=== PATIENT | female | born 2000 | race Caucasian/White ===

== ENCOUNTER 2021-04-28 13:00 | Emergency (ER) | payer OTHER, SELFPAY ==
[2021-04-28 13:04] VITALS: BP 138/71; PULSE 73; RESP 14; TEMP 36.8; O2SAT 98
[2021-04-28 13:16] VITALS: BP 138/71; PULSE 73; RESP 14; TEMP 36.8; O2SAT 98
--- NOTE | 2021-04-28 13:36 | ED.ABDPAIN ---
HPI - Abdominal Pain General Chief Complaint: Abdominal Pain Stated Complaint: lower abdominal pain Time Seen by Provider: 04/28/21 13:23 Source: patient and RN notes reviewed Mode of arrival: ambulatory Limitations: no limitations History of Present Illness HPI narrative: Patient presents today complaining of lower abdominal pain since this morning. She denies any additional symptoms to include nausea, vomiting, diarrhea, constipation, fever, urinary symptoms, vaginal discharge. She currently rates her pain 2/10, but states the pain is waxing and waning and reports that earlier her pain was 7/10. Pain does change with movement. She has tried no [id number] treatment prior to arrival. MD elicited complaint: abdominal pain Related Data Home Medications Medication Instructions Recorded Confirmed famotidine-Ca carb-mag hydrox 1 tablet PO QID PRN 04/28/21 04/28/21 [Pepcid Complete] Allergies Allergy/AdvReac Type Severity Reaction Status Date / Time No Known Allergies Allergy Verified 04/28/21 13:14 Review of Systems Review of Systems: CONSTITUTIONAL: Denies body aches, fever, chills, or sweats. EYES: Denies visual changes, redness, or discharge. ENT: Denies rhinorrhea, congestion, sore throat, or otalgia. CARDIOVASCULAR: Denies chest pain, palpitations, or edema. RESPIRATORY: Denies cough or dyspnea. GASTROINTESTINAL: Denies nausea, vomiting, or diarrhea.+ Abdominal pain GENITOURINARY: Denies dysuria or hematuria. SKIN: Denies rash, itching, or wounds. MUSCULOSKELETAL: Denies back pain, joint pain, or myalgia. NEUROLOGIC: Denies headache, numbness, tingling, or weakness. PSYCH: Denies depression or anxiety. PMFSH Comments At time of signature, I have reviewed and agree with nursing past medical, surgical, social and family history unless otherwise noted. Please see nursing chart for further information. There is no relevant family history pertinent to the presenting complaint Exam Narrative: GENERAL: Well-appearing, well-nourished, and in no acute distress. HEAD: Normocephalic, atraumatic. EYES: EOMI. No redness or drainage. Conjunctivae normal. ENT: Mucous membranes pink and moist. NECK: Normal AROM. Supple. No lymphadenopathy. CHEST: No respiratory distress. Clear to auscultation. HEART: Regular rate and rhythm. No murmur appreciated. Normal peripheral pulses. ABDOMEN: Soft, nondistended, normal active bowel sounds. + Periumbilical abdominal tenderness, left lower quadrant abdominal tenderness MUSCULOSKELETAL: No bony tenderness. EXTREMITIES: Normal range of motion. No edema. SKIN: Warm, dry, no rash. Capillary refill normal. Normal skin turgor. NEURO: No focal deficits. Alert and oriented x3. Gait steady. PSYCH: Normal affect. No signs of depression or anxiety. Course Vital Signs Vital signs: Vital Signs Temperature 98.3 F 04/28/21 13:04 Pulse Rate 73 04/28/21 13:04 Respiratory Rate 14 04/28/21 13:04 Blood Pressure 138/71 04/28/21 13:04 Pulse Oximetry 98 04/28/21 13:04 Temperature 98.3 F 04/28/21 13:16 Pulse Rate 73 04/28/21 13:16 Respiratory Rate 14 04/28/21 13:16 Blood Pressure 138/71 04/28/21 13:16 Pulse Oximetry 98 04/28/21 13:16 Reviewed Transfer Transfered to: [facility] Transfer rationale: Abdominal pain Accepting physician: Duran [facility] - Abdominal Pain Differential Diagnosis Differential diagnosis: Likely abdominal pain, acute appendicitis, constipation and diverticulitis Lab Data Attestation: I reviewed the patient's lab results. Labs: Urine Glucose Negative Reference Range: Negative Urine Bilirubin Negative Reference Range: Negative Urine Ketone Negative Reference Range: Negative Urine Specific [place] 1.030
== END 2021-04-28 13:50 | disposition short-term general hospital (02) ==
PROVIDERS: Emergency Provider Nurse Practitioner; PCP Internal Medicine Geriatric Medicine
DX: R10.815 Periumbilic abdominal tenderness (principal)
CPT/HCPCS: 81003; 99212; G0463

== ENCOUNTER 2023-04-10 10:25 | Emergency (ER) | payer OTHER, SELFPAY ==
[2023-04-10 10:46] VITALS: BP 135/78; PULSE 97; RESP 16; TEMP 37.1; O2SAT 99
--- NOTE | 2023-04-10 11:49 | ED.EAR ---
HPI - Ear Problem General Chief complaint: Ear Stated complaint: rt ear pain Source: patient Mode of arrival: ambulatory Limitations: no limitations History of Present Illness HPI Narrative: Patient presents for evaluation of right-sided ear pain for the last 2 days, worse in the last 24 hours. She indicates she was swimming in a river approximately 1 week ago. She denies any tinnitus, hearing loss, drainage from the ear. She reports pressure in the affected ear. No fever, chills, nausea, vomiting, sore throat or cough. No recent sick contacts to her knowledge. No additional complaints or concerns. Related Data Home Medications Medication Instructions Recorded Confirmed famotidine-Ca carb-mag hydrox 10 1 tablet PO QID PRN Abdominal 04/28/21 04/10/23 mg-800 mg-165 mg chewable tablet Discomfort (Pepcid Complete) Allergies Allergy/AdvReac Type Severity Reaction Status Date / Time No Known Allergies Allergy Verified 04/10/23 10:55 Review of Systems Review of Systems: CONSTITUTIONAL: Denies fever, chills, or sweats. EYES: Denies visual changes, redness, or discharge. ENT: Reports right sided ear pain. Denies rhinorrhea, congestion, sore throat, tinnitus, hearing loss or drainage from the ear CARDIOVASCULAR: Denies chest pain, palpitations, or edema. RESPIRATORY: Denies cough or dyspnea. GASTROINTESTINAL: Denies abdominal pain, nausea, vomiting, or diarrhea. GENITOURINARY: Denies dysuria or hematuria. SKIN: Denies rash or itching. MUSCULOSKELETAL: Denies back pain, joint pain, or myalgia. NEUROLOGIC: Denies headache, numbness, dizziness, or weakness. PSYCHIATRIC: Denies anxiety or depression. [facility] Past Medical History Medical History No pertinent past medical history Surgical History Surgical History No pertinent past surgical history Family History Family History Mother Family history non-contributory Social History Social History Gender identity (if verbalized by the patient): Female Spiritual care concerns: No Exam Narrative: GENERAL: Well-appearing, well-nourished, and in no acute distress. HEAD: Normocephalic, atraumatic. EYES: PERRLA and EOMI. ENT: Nares clear, no rhinorrhea or epistaxis. Mucous membranes moist. Oropharynx without tonsillar hypertrophy exudate or other lesions. Right ear canal has white exudate present which obscures visualization of the TM NECK: Supple. No adenopathy or masses. No carotid bruits or JVD CHEST: Clear to auscultation. No respiratory distress. No wheezes rales or rhonchi HEART: Regular rate and rhythm. No murmur heard. Normal peripheral pulses. ABDOMEN: Soft, nontender, nondistended, normal active bowel sounds. EXTREMITIES: Normal range of motion. No edema. SKIN: Warm, dry, no rash. NEURO: No focal deficits. Alert and oriented x3. PSYCH: Normal mood and affect. Course Course Emergency Course: This is a 22-year-old female who presented for evaluation of right-sided ear pain. Tympanic membrane was not visible. I irrigated the right ear canal with 1/2 H2O and 1/2 H2O2. I was able to visualize the tympanic membrane thereafter. It was bulging and erythematous. She has evidence of both otitis media and otitis externa on exam. Will treat with augmentin and ofloxacin. Follow up with primary provider. Go to the ER for worsening symptoms. Pt in agreement with plan of care. Level of Care: Express Care Visit Vital Signs Vital signs: Vital Signs Temperature 37.1 C 04/10/23 10:46 Pulse Rate 97 04/10/23 10:46 Respiratory Rate 16 04/10/23 10:46 Blood Pressure 135/78 04/10/23 10:46 Pulse Oximetry 99 04/10/23 10:46 Oxygen Delivery Room Air 04/10/23 10:46 Temperature 37.1 C 04/10/23
== END 2023-04-10 11:20 | disposition home or self-care (01) ==
PROVIDERS: Emergency Provider Nurse Practitioner; PCP Internal Medicine Geriatric Medicine
DX: H66.91 Otitis media, unspecified, right ear (principal); H60.501 Unspecified acute noninfective otitis externa, right ear
CPT/HCPCS: 99213; G0463

== ENCOUNTER 2023-06-14 08:16 | Emergency (ER) | payer OTHER, SELFPAY ==
[2023-06-14 08:24] VITALS: BP 126/74; PULSE 73; RESP 20; TEMP 37.1; O2SAT 97
--- NOTE | 2023-06-14 09:05 | ED.EAR ---
HPI - Ear Problem General Chief complaint: Ear Stated complaint: right ear pain Time Seen by Provider: 06/14/23 09:05 Source: patient Mode of arrival: ambulatory Limitations: no limitations History of Present Illness HPI Narrative: 23-year-old female presented for complaint of right ear pain over the past few days. She rates the pain 1/10 and hears a 'whooshing sound' at times. She states she had a double ear infection a few months ago and just wants to make sure it has not returned. She denies associated tinnitus, drainage, nausea, vomiting, fevers or chills. Not taking anything for symptoms. MD Complaint: ear pain Related Data Home Medications Medication Instructions Recorded Confirmed famotidine-Ca carb-mag hydrox 10 1 tablet PO QID PRN Abdominal 04/28/21 04/10/23 mg-800 mg-165 mg chewable tablet Discomfort (Pepcid Complete) Allergies Allergy/AdvReac Type Severity Reaction Status Date / Time No Known Allergies Allergy Verified 04/10/23 10:55 Review of Systems Review of Systems: CONSTITUTIONAL: Denies malaise, chills, or fever. EYES: Denies visual changes, redness, or discharge. ENT: Denies rhinorrhea, congestion, sinus pain, and sore throat. Reports ear pain CARDIOVASCULAR: Denies chest pain, palpitations, or edema. RESPIRATORY: Denies cough or dyspnea. GASTROINTESTINAL: Denies abdominal pain, nausea, vomiting, diarrhea SKIN: Denies rash or itching. MUSCULOSKELETAL: Denies myalgia. NEUROLOGIC: Denies headache. All systems reviewed & are unremarkable except as noted in HPI and below PMFSH Past Medical History Medical History No pertinent past medical history Surgical History Surgical History No pertinent past surgical history Family History Family History Mother Family history non-contributory Social History Social History Gender identity (if verbalized by the patient): Female Spiritual care concerns: No Comments At time of signature, agree with nursing past medical, surgical, social and family history. There is no relevant family history pertinent to the presenting complaint Exam Narrative: GENERAL: Well-appearing, HEAD: Normocephalic EYES: PERRLA, conjunctivae clear ENT: Nares clear. Mucous membranes moist. TMs pearly haro with dull light reflex bilaterally; Left canal excess cerumen. no tragal tenderness. Oropharynx not erythematous without lesions. NECK: Supple. No lymphadenopathy CHEST: Clear to auscultation, breath sounds equal. No wheezing, rhonchi, rales, or stridor. No respiratory distress, speaks in full sentences. HEART: Regular rate and rhythm. No murmur heard. SKIN: Warm, dry, no rash. NEURO: Alert and oriented x3. PSYCH: Normal mood and affect Course Course Emergency Course: Patient is aware of diagnosis, understands and agrees to treatment plan. Anticipatory guidance given. Patient agrees to follow-up as directed and is aware of reasons to seek care at the emergency department. Portions of this record may have been created with voice recognition software Level of Care: Express Care Visit Vital Signs Vital signs: Vital Signs Temperature 98.8 F 06/14/23 08:24 Pulse Rate 73 06/14/23 08:24 Respiratory Rate 20 06/14/23 08:24 Blood Pressure 126/74 06/14/23 08:24 Pulse Oximetry 97 06/14/23 08:24 Oxygen Delivery Room Air 06/14/23 08:24 Temperature 98.8 F 06/14/23 08:24 Pulse Rate 73 06/14/23 08:24 Respiratory Rate 20 06/14/23 08:24 Blood Pressure 126/74 06/14/23 08:24 Pulse Oximetry 97 06/14/23 08:24 Oxygen Delivery Room Air 06/14/23 08:24 Reviewed Medical Decision Making MDM Narrative Medical decision making narrative: Discussed physical exam findings, no apparent AOM. Advised suppo
== END 2023-06-14 09:20 | disposition home or self-care (01) ==
PROVIDERS: Emergency Provider Nurse Practitioner Family; PCP Internal Medicine Geriatric Medicine
DX: H92.01 Otalgia, right ear (principal)
CPT/HCPCS: 99211; G0463

== ENCOUNTER 2024-06-09 10:15 | Emergency (ER) | payer OTHER, SELFPAY ==
[2024-06-09 10:20] VITALS: BP 136/69; PULSE 72; RESP 14; TEMP 36.8; O2SAT 100
--- NOTE | 2024-06-09 10:23 | ED.SKABFB ---
HPI - Skin/Abscess/Foreign Bdy General Chief complaint: Skin/Abscess/Foreign Body Stated complaint: Skin Sore/Right Leg Time Seen by Provider: 06/09/24 11:05 Source: patient and RN notes reviewed Mode of arrival: ambulatory Limitations: no limitations History of Present Illness HPI narrative: 24-year-old female presents with concern for possible insect bite on her right thigh. Reports it has been there 2-3 days, it has gotten more red. Denies drainage. She denies fever, body aches, chills, sweats. MD complaint: insect bite/sting Related Data Home Medications Medication Instructions Recorded Confirmed meloxicam 15 mg tablet 15 mg PO DAILY 06/09/24 06/09/24 Allergies Allergy/AdvReac Type Severity Reaction Status Date / Time No Known Allergies Allergy Verified 04/10/23 10:55 Review of Systems Review of Systems: CONSTITUTIONAL: Denies malaise, chills, sweats, or fever. EYES: Denies redness, or discharge. ENT: Denies rhinorrhea, congestion, swollen lips, swollen tongue CARDIOVASCULAR: Denies chest pain, palpitations, or edema. RESPIRATORY: Denies cough or dyspnea. GASTROINTESTINAL: Denies abdominal pain, nausea, vomiting SKIN: Reports red, swollen possible insect bite on her right eye MUSCULOSKELETAL: Denies joint pain or myalgia. NEUROLOGIC: Denies headache. All systems reviewed & are unremarkable except as noted in HPI and below PMFSH Past Medical History Medical History No pertinent past medical history Surgical History Surgical History No pertinent past surgical history Family History Family History Mother Family history non-contributory Social History Social History Gender identity (if verbalized by the patient): Female Spiritual care concerns: No Comments At time of signature, agree with nursing past medical, surgical, social and family history. There is no relevant family history pertinent to the presenting complaint Exam Narrative: GENERAL: Well-appearing, well-nourished, and in no acute distress. HEAD: Normocephalic, atraumatic. EYES: PERRLA, conjunctivae clear, and EOMI. ENT: Mucous membranes moist. Oropharynx without edema, erythema or lesions. NECK: Supple. No lymphadenopathy CHEST: Clear to auscultation. No respiratory distress. HEART: Regular rate and rhythm. SKIN: Warm, dry. Approximately 2 cm raised induration, slightly warm to area of the right thigh with another surrounding 1 cm of erythema NEURO: Alert and oriented x3. PSYCH: Normal mood and affect Course Course Emergency Course: Patient is aware of diagnosis, understands and agrees to treatment plan. Anticipatory guidance given. Patient agrees to follow-up as directed and is aware of reasons to seek care at the emergency department. Portions of this record may have been created with voice recognition software Level of Care: Express Care Visit Vital Signs Vital signs: Reviewed. MDM - Skin/Abscess/Foreign Bdy MDM Narrative Medical decision making narrative: I evaluated this patient in the express care. History is obtained from patient who is an independent historian and physical exam was performed.? Available medical records were reviewed. ? Exam findings show no acute concerns or changes; patient is non-toxic appearing and is in no distress. ? Differential diagnosis and treatment plan were discussed with the patient. Patient agrees with discussion and after shared medical decision making agrees with plan of care. All questions were answered to the patient's satisfaction. Patient is appropriate for outpatient treatment and follow-up. Critical Care Time Critical Care Time Critical Care Time: No Discharge Plan Discharge Clinical Impression: Infected insect bite Patient Disposition: Home, Self-Care Condition: Stable Instructions: Antibiotic Form, Insect Bite or Sting (ED) Additional Instructions: Please follow up with your Primary Care Doctor within 48-72 hours - call for an appointment. Rest and elevate affected area; apply moist heat 3-4 times daily for 10-15 minutes. Take Motrin 600mg every 8 hours with food for pain. Please take Antibiotics as directed. If you experience any worsening redness, swelling, streaking (red lines), fever or chills please go to the ER Prescriptions: New sulfamethoxazole-trimethoprim 800-160 mg tablet 1 tablet PO Q12H 7 Days Qty: 14 0RF No Action meloxicam 15 mg tablet 15 mg PO DAILY Follow-up/Referrals: Sea,MD Mel [Primary Care Provider] - Time of Disposition: 11:10
== END 2024-06-09 11:15 | disposition home or self-care (01) ==
PROVIDERS: Emergency Provider Nurse Practitioner; PCP Internal Medicine Geriatric Medicine
DX: S70.361A Insect bite (nonvenomous), right thigh, initial encounter (principal); L08.9 Local infection of the skin and subcutaneous tissue, unspecified; W57.XXXA Bitten or stung by nonvenomous insect and other nonvenomous arthropods, initial encounter
CPT/HCPCS: 99213; G0463

== ENCOUNTER 2024-08-01 09:14 | Emergency (ER) | payer OTHER, SELFPAY ==
--- NOTE | 2024-08-01 09:15 | ED.URI ---
HPI - URI/Sore Throat General Chief Complaint: Upper Respiratory Infection Stated Complaint: throat Time Seen by Provider: 08/01/24 09:36 Source: patient and RN notes reviewed Mode of arrival: ambulatory Limitations: no limitations History of Present Illness HPI Narrative: 24-year-old female presents concern for sore throat for a couple days. Reports her symptoms seem to be improving. She denies fever, aches, chills, sweats. Denies runny nose, stuffy nose, cough. She took Rima KENNEDY elicited complaint: sore throat Related Data Home Medications ?Medication ?Instructions ?Recorded ?Confirmed ?Last Taken ?Type meloxicam 15 mg tablet 15 mg PO DAILY 06/09/24 06/09/24 Unknown History Allergies Allergy/AdvReac Type Severity Reaction Status Date / Time No Known Allergies Allergy Verified 08/01/24 09:42 Review of Systems Review of Systems: CONSTITUTIONAL: Denies malaise, chills, sweats, or fever. EYES: Denies visual changes, redness, or discharge. ENT: Denies rhinorrhea, congestion, sinus pain, otalgia. Reports Sore throat. CARDIOVASCULAR: Denies chest pain, palpitations, or edema. RESPIRATORY: Denies cough. Denies dyspnea. GASTROINTESTINAL: Denies abdominal pain, nausea, vomiting, diarrhea SKIN: Denies rash or itching. MUSCULOSKELETAL: Denies myalgia. NEUROLOGIC: Denies headache. All systems reviewed & are unremarkable except as noted in HPI and below PMFSH Past Medical History Medical History No pertinent past medical history Surgical History Surgical History No pertinent past surgical history Family History Family History Mother Family history non-contributory Social History Social History Gender identity (if verbalized by the patient): Female Spiritual care concerns: No Comments At time of signature, agree with nursing past medical, surgical, social and family history. There is no relevant family history pertinent to the presenting complaint Exam Narrative: GENERAL: Well-appearing, well-nourished, and in no acute distress. HEAD: Normocephalic EYES: PERRLA, conjunctivae clear ENT: Nares clear. Mucous membranes moist. TM pearly haro with sharp light reflex bilaterally; no tragal tenderness. Oropharynx not erythematous without lesions. Tonsils not enlarged and without exudate, no drooling, no hoarseness, no trismus, uvula midline. NECK: Supple. No lymphadenopathy CHEST: Clear to auscultation, breath sounds equal. No wheezing, rhonchi, rales, or stridor. No respiratory distress, speaks in full sentences. HEART: Regular rate and rhythm. No murmur heard. SKIN: Warm, dry, no rash. NEURO: Alert and oriented x3. PSYCH: Normal mood and affect Course Course Emergency Course: Patient is aware of diagnosis, understands and agrees to treatment plan. Anticipatory guidance given. Patient agrees to follow-up as directed and is aware of reasons to seek care at the emergency department. Portions of this record may have been created with voice recognition software Level of Care: Express Care Visit Vital Signs Vital signs: Vital Signs Temperature 98.4 F 08/01/24 09:17 Pulse Rate 62 08/01/24 09:17 Respiratory Rate 16 08/01/24 09:17 Blood Pressure 140/74 08/01/24 09:17 Pulse Oximetry 99 08/01/24 09:17 Oxygen Delivery Room Air 08/01/24 09:17 Temperature 98.4 F 08/01/24 09:17 Pulse Rate 62 08/01/24 09:17 Respiratory Rate 16 08/01/24 09:17 Blood Pressure 140/74 08/01/24 09:17 Pulse Oximetry 99 08/01/24 09:17 Oxygen Delivery Room Air 08/01/24 09:17 Reviewed. MDM - URI/Sore Throat MDM Narrative Medical decision making narrative: Differential diagnosis considered: [place] virus, strep pharyngitis, allergic rhinitis, upper respiratory tract infection, sinusitis, rhinosinusitis, nasopharyngitis. viral pharyngitis, otitis media, otitis externa, pneumonia, bronchitis, viral cough syndrome, viral syndrome, and influenza. Exam findings show no acute concerns or changes; patient is non-toxic appearing and is in no distress. Patient is appropriate for outpatient treatment and follow-up. Lab Data Attestation: I reviewed the patient's lab results. Critical Care Time Critical Care Time Critical Care Time: No Discharge Plan Discharge Clinical Impression: Upper respiratory infection Patient Disposition: Home, Self-Care Condition: Stable Instructions: Upper Respiratory Infection (ED) Additional Instructions: Your COVID and flu tests are negative Your rapid strep swab was negative today at [facility]. A throat culture will be sent to the laboratory for further testing. If the test is positive, you will receive a phone call within 48 hours and an appropriate antibiotic will be initiated at that time. Your symptoms are likely due to a viral illness, which is not treated with antibiotics. Viral symptoms can be present for up to a few weeks. -Alternate Tylenol and Motrin per package directions for fever or pain. -Antihistamine medication such as Benadryl at night and Zyrtec during the day can help improve symptoms. -Eat and drink things that are easy to swallow, like tea or soup, or popsicles to suck on. -Oral rinses such as: Salt water gargles and/or may use topical anesthetic (eg. Chloraseptic spray) or lozenges to relieve dryness or throat pain). -Frequent hand washing or hand paint brush maker is one of the best ways to prevent spread of infection. -Follow up with primary care provider in 2-3 days if condition is not improving; or seek ER visit if you have trouble breathing, cannot drink enough fluids, have muffled voice, difficulty opening your mouth, or severe swelling. Patient Language: Burkinan Prescriptions: No Action meloxicam 15 mg tablet 15 mg PO DAILY sulfamethoxazole-trimethoprim 800-160 mg tablet 1 tablet PO Q12H 7 Days Qty: 14 0RF Follow-up/Referrals: Sea,MD Mel [Primary Care Provider] - Time of Disposition: 09:46
[2024-08-01 09:17] VITALS: BP 140/74; PULSE 62; RESP 16; TEMP 36.9; O2SAT 99
[2024-08-01 09:53] LABS: EDCOVIDSCREEN Negative (Negative); EDINFLUASCREEN Negative (Negative); EDINFLUBSCREEN Negative (Negative); EDSTREPNEGPOS1 Negative (Negative)
--- OUTSIDE RECORDS SUMMARY | 2024-08-08 14:18 | XMS_ITS | Encounter Summary ---
Author Organization [facility] Healthcare Address [address] [place] [address] Care Team Providers Care Wage Adjuster Name Role Phone Mel Osei MD Primary Care Provider [phone]- [phone] Tabitha Liu CGC Unavailable [phone] Encounter Details Date Type Department Care Team (Late st Contact Info) Description 02/08/2024 12:00 PM CDT Lab [facility] [address] [place] [address] Elevated serum creatinine Social History Tobacco Use Types Packs/Day Years Used Date Smoking Tobacco: Never Smokeless Tobacco: Never Alcohol Use Standard Drinks/Week Comments Not Currently 0 (1 standard drink = 0.6 oz pur e alcohol) PHQ-2 Answer Date Recorded PHQ-2 Total Score (If total score is 3 or more points, staff should administer the PHQ-9) 0 03/08/2023 Comments No Sex and Gender Information Value Date Recorded Sex Assigned at Not on file 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 Gender Identity Not on file Sexual Orientation Not on file Occupation Industry Job Start Date Job End Date [place] Title Not on file Not on file Not on file documented as of this encounter Plan of Treatment Not on file documented as of this encounter Procedures Procedure Name Priority Date/Time Associated Diagnosis Comments EGFR Routine 02/08/2024 11:54 AM CDT Elevated serum creatinine BASIC METABOLIC PANEL Routine 02/08/2024 11:54 AM CDT Elevated serum creatinine documented in this encounter Results * eGFR (02/08/2024 11:54 AM CDT) Pathologist [facility] eGFR 83 >=60 mL/min/1. 73 m2 Comment: Interpretive Data Reference Interval Normal ?>/= 90 mL/min/1.73m2 Mildly decreased* ? 60 - 89 mL/min/1.73m2 Mildly to moderately decreased ?45 - 59 mL/min/1.73m2 Moderately to severely decreased ??30 - 44 mL/min/1.73m2 Severely decreased ?15 - 29 mL/min/1.73m2 Kidney Failure ?< 15 ??mL/min/1.73m2 *Relative to young adult level Estimated glomerular filtration rate is determined by the 2020 CKD-EPI equation recommended by the National Kidney Foundation (A Unifying Approach to GFR Estimation: Recommendations of the NKF-ASK Task Force on Reassessing the Inclusion of Race in Diagnosing Kidney Disease, JASN 2020). The CKD-EPI equation should not be used for patients with unstable renal function and has not been validated in children and those over 70. Current interpretive data was last reviewed 2021. Testing performed by: [facility], [address] [place] [address], [place], [place]., [facility] Blood 02/08/2024 11:5 4 AM CDT 02/08/2024 6:52 PM CDT us Mel Osei MD LAB BLOOD ORDERABLES Final Result [facility] [address] Department [place] [address] * Basic metabolic panel (02/08/2024 11:54 AM CDT) Sodium 140 135 - 145 mmol/L Comment:Testing performed by : [facility], [address] [place] [address]., [address] Potassium, pl 4.7 3.3 - 4.9 mmol/L CERNER CH Comment:Testing performed by : [facility], [address] [place] [address]., [address] Chloride 106 97 - 110 mmol/L CERNER CH Comment:Testing performed by : [facility], [address] [place] [address]., [address] CO2 23 22 - 32 mmol/L CERNER CH Comment:Testing performed by : [facility], [address] [place] [address], [address] Anion gap 11 2 - 15 mmol/L CERNER CH Comment:Testing performed by : [facility], [address] [place] [address], [address] BUN 13 6 - 25 mg/dL CERNER CH Comment:Testing performed by : [facility], [address] [place] [address], [address] Creatinine 0.98 0.60 - 1.10 mg/dL CERNER CH Comment:Testing performed by : [facility], [address] [place] [address], [id number] Glucose 104 70 - 199 mg/dL CERNER Comment: Interpretive Data Fasting glucose >/= 126 mg/dl is diagnostic for diabetes. ?? Fasting is defined as no caloric intake for at least 8 hours. Fasting glucose between 100 mg/dl to 125 mg/dl is diagnostic of prediabetes. In a patient with classic symptoms of hyperglycemia or hyperglycemic crisis, a random glucose >/= 200 mg/dl is diagnostic for diabetes. In the absence of unequivocal hyperglycemia, results should be confirmed by repeat testing. The classification and Diagnosis of Diabetes Diabetes Care 2021; 46: S19-S40. Current interpretive data was last revised 2022. Testing performed by: [address] [address] Calcium 9.9 8.5 - 10.3 mg/dL CERNER CH Comment:Testing performed by : [address] [address] Blood 02/08/2024 11:5 4 AM CDT 02/08/2024 6:32 PM CDT us Mel Osei MD LAB BLOOD ORDERABLES Final Result [facility] [address] [facility] Department [place] [address] documented in this encounter Visit Diagnoses Diagnosis Elevated serum creatinine Other nonspecific findings on examination of blood documented in this encounter Care Teams Wage Adjuster Relationship Specialty Start Date End Date Mel Osei MD PCP - General Internal Medicine 02/07/20 Tabitha Liu CGC [address] PED GENETICS [place] [address] Genetics 06/22/23 documented as of this encounter
--- OUTSIDE RECORDS SUMMARY | 2024-08-08 14:18 | XMS_ITS | Encounter Summary ---
Author Organization [facility] Address [address] [place] [address] Phone Care Team Providers Care Jig Grinder Set Up Operator Name Role Phone Mel Osei MD Primary Care Provider [phone] Encounter Details Date Type Department Care Team (Late st Contact Info) Description 05/13/[address] 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 +RNAinsight?? Core Panel: BRCA1 and BRCA2 gene sequence and deletion/duplication Ordering Provider: Avelino Sample Collection: blood + mobile phlebotomy Payment: Insurance Date Ordered: 05/13/23 Order Number: [id number] documented in this encounter Plan of Treatment Not on file documented as of this encounter Visit Diagnoses Not on filedocumented in this encounter Care Teams Jig Grinder Set Up Operator Relationship Specialty Start Date End Date Mel Osei MD PCP - General Internal Medicine 02/07/20 documented as of this encounter
--- OUTSIDE RECORDS SUMMARY | 2024-08-08 14:18 | XMS_ITS | Encounter Summary ---
Author Organization [facility] Healthcare Address [address] [place] [address] Care Team Providers Care Intel Recruiter Name Role Phone Mel Osei MD Primary Care Provider [phone]- [phone] Reason for Visit * Reason Comments Annual Exam Encounter Details Date Type Department Care Team (Late st Contact Info) Description 06/17/2023 3:30 PM OUTSIDE PARTS SALES Office Visit [facility] [address] [place] [address] Ness Fried MD [address] [place] [address] Encounter for gynecological examination without abnormal finding (Primary Dx); Screening for malignant neoplasm of the cervix Social History Tobacco Use Types Packs/Day Years [...] on file Legal Sex Female 12:30 PM OUTSIDE PARTS SALES Gender Identity Not on file Sexual Orientation Not on file Occupation Industry Job Start Date Job End Date [place] Title Not on file Not on file Not on file documented as of this encounter Last Filed Vital Signs Vital Sign Reading Time Taken Comments Blood Pressure 132/80 06/17/2023 3:24 PM OUTSIDE PARTS SALES Pulse - - Temperature - - Respiratory Rate - - Oxygen Saturation - - Inhaled Oxygen Concentration - - Weight 108.4 kg (239 lb) 06/17/2023 3:24 PM OUTSIDE PARTS SALES Height 168.9 cm (5' 6.5 ) 06/17/2023 3:24 PM OUTSIDE PARTS SALES Body Mass Index 38 06/17/2023 3:24 PM OUTSIDE PARTS SALES documented in this encounter Progress Notes * Ness Fried MD - 06/17/2023 3:30 PM CST Well Woman Exam Subjective: Jean Arthur is a 23 y.o. G0 who presents for annual profile grinder exam. Last Pap 07/12/20 was negative. Cycles are regular, q 30 days, without complaints. Denies sexual activity. She has a family h/o breast and ovarian cancers. Her mother was diagnosed with breast cancer at age37 and passed at age 44. MGM also had breast cancer and maternal aunt with ovarian cancer. She is unsure if any family members had genetic testing done. She met with a genetic counselor 04/15 and elected for testing, with results pending. Menstrual History: Patient's last menstrual period was 05/10/2023 (approximate). 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, 5 mm Chest pain COVID-19 virus detected 08/22/2020 [place] 1999 8-5 product nl Shortness of breath Sick sinus syndrome (CMS/HCC) (HCC) Viral gastroenteritis 2000 Admit Current Outpatient Medications: acetaminophen (TYLENOL) 500 mg tablet, Take 1 tablet (500 mg total) by mouth 3 (three) times a day as needed for pain (Immediate release Tylenol be used with the extra-strength ER Tylenol 500 mg), Disp: 100 tablet, Rfl: 11 acetaminophen ER (TYLENOL) 650 mg 8 hr tablet, Take 1 tablet (650 mg total) by mouth every 8 (eight) hours as needed for pain, Disp: 30 tablet, Rfl: 11 adapalene (DIFFERIN) 0.1 % cream, Apply topically at bedtime., Disp: 45 g, Rfl: 5 famotidine (PEPCID) 20 mg tablet, Take 1 tablet (20 mg total) by mouth 2 (two) times a day, Disp: 180 tablet, Rfl: [address] (PROTONIX) 40 mg EC tablet, Take 1 tablet (40 mg total) by mouth daily before breakfast, Disp: 30 tablet, Rfl: 3 tirzepatide (MOUNJARO) 2.5 mg/0.5 mL pen injector, Inject 2.5 mg under the skin once a week, Disp: 2 mL, Rfl: 0 No Known Allergies Family History Problem Relation Age of Onset Breast cancer Mother 37 Cause of , age 44 Allergies Mother Spring and fall Anemia Other Asthma Other Coronary artery disease Other Deafness Other Diabetes Other Hypertension Other Migraines Other Thyroid disease Other Sudden Other NONE Eating disorder Other Arthritis Other Breast cancer Maternal Grandmother Ovarian cancer Mother's Sister Skin cancer Maternal Grandfather Social History Tobacco Use Smoking status: Never Smokeless tobacco: Never Substance and Sexual Activity Drug use: Not Currently Types: Marijuana Sexual activity: Never Partners: Male Alcohol Use: Not on file Review of Systems Constitutional: Negative for fatigue, fever and unexpected weight change. Respiratory: Negative for shortness of breath and wheezing. Cardiovascular: Negative for chest pain and palpitations. Gastrointestinal: Negative for abdominal pain, blood in stool, nausea and vomiting. Genitourinary: Negative for dysuria, frequency, hematuria, urgency, vaginal bleeding and vaginal discharge. Skin: Negative for rash. Objective: BP 132/80 Ht 168.9 cm (5' 6.5 ) Wt 239 lb (108.4 kg) LMP 05/10/2023 (Approximate) BMI 38.00kg/m?? Physical Exam Constitutional: Appearance: She is well-developed. Cardiovascular: Rate and Rhythm: Normal rate and regular rhythm. Pulmonary: Effort: Pulmonary effort is normal. Breath sounds: Normal breath sounds. Chest: Breasts: Right: No mass. Left: No mass. Abdominal: Palpations: Abdomen is soft. Tenderness: There is no abdominal tenderness. Genitourinary: Vagina normal and uterus normal. Right labia: normal. Left Labia: normal. No vaginal discharge. Right adnexa: normal. Left adnexa: normal. Cervix: Normal exam. Genitourinary Comments: Narrow introitus. Thin Margoth speculum used with small brush for Pap collection. Musculoskeletal: General: No tenderness. Skin: General: Skin is warm and dry. Neurological: Mental Status: She is alert and oriented to person, place, and time. Psychiatric: Behavior: Behavior normal. Assessment and Plan: Jean Arthur is a 23 y.o. female who presents for a well woman exam. 1. Encounter for gynecological examination without abnormal finding Pap collected. Return for annual or PRN. Recommended screenings and preventive care discussed: Pap smear: Performed Diet and exercise discussed. Contraception reviewed. Ness Fried MD 06/17/2023 IDE PARTS SALES documented in this encounter Miscellaneous Notes * Addendum Note - Maura Elise MA - 06/17/2023 3:30 PM CSTAddended by: MAURA ELISE on: 06/18/2023 08:23 AM Modules accepted: Orders IDE PARTS SALES documented in this encounter Plan of Treatment Not on file documented as of this encounter Results * ThinPrep processing (Molecular component) (06/18/2023 4:00 PM OUTSIDE PARTS SALES) ThinPrep processing (Molecular component) Specimen received for processing. BHUPENDRA SANCHEZ Comment:Testing performed by : [facility], [address] [place]., [address] Endocervical 06/18/2023 4:00 PM OUTSIDE PARTS SALES 06/21/2023 12:34 PM OUTSIDE PARTS SALES us Ness Fried MD LAB BODY FLUIDS AND S TOOLS ORDERABLES Final Result [facility] S[facility] [address] Department [place] [address] * Pap with reflex to High Risk HPV and Genotyping (Cytology Component) (06/17/2023 11:23 AM OUTSIDE PARTS SALES) Thin prep (Pap test) 06/17/2023 11:23 AM OUTSIDE PARTS SALES 06/18/2023 11:23 AM OUTSIDE PARTS SALES Narrative PATHOLOGY CH - 06/22/2023 2:49 PM OUTSIDE PARTS SALES [facility] Department of Pathology [address] [place] [address] Final Report Note to Patients: This report may contain a detailed description of human tissue sent by a health care provider to the laboratory for pathologic evaluation. The content of this report is essential for diagnosis and may provide important critical findings. This information may be unfamiliar to patients to review without a medical professional present. It is advised that the patient review this report in the presence of a health care provider who can answer questions and explain the details. Patient Name: ??JEAN ARTHURNunu Address: ??[address] [place] [address], ?? [place], [place] ??[address] Gender: ??F : ??2000 (Age: 23) Service: ?? Location: ?? [facility] #: ??[id number] Patient Type: ?? SPECIMEN Taken: ??06/17/2023 Received: ??06/18/2023 Accessioned:: ??06/21/2023 Reported: ??06/22/2023 Physician(s): MD Ness Blue MD Diagnosis: SOURCE OF SPECIMEN ? Imaged Thinprep Pap Test w/ Reflex HPV - Straight Truck Driver Cytologic Material: STATEMENT OF ADEQUACY ?- Specimen satisfactory for interpretation; endocervical/transformation zone component absent or ?insufficient ? GENERAL CATEGORIZATION: ?- Negative for intraepithelial lesion or malignancy ? FELIPE Alonso(ASCP) Report Electronically Reviewed and Signed Out By ??FELIPE Alonso(ASCP) ??06/22/2023 14:49:15Specimen(s) Received: A: Imaged Thinprep Pap Test w/ Reflex HPV - Straight Truck Driver Cytologic Material Clinical History: Last Menstrual Period: 05/10/23 Menstrual History: Previous Negative Pap The Pap test is a screening test used to aid in the detection of cervical cancer and its precursors. ??It should not be the sole means by which malignant and premalignant lesions are diagnosed. ??Both false negative and false positive results may occur. ?? It also has poor sensitivity for the detection of endometrial lesions and should not be used to evaluate suspected endometrial abnormalities. ??For these reasons it is most important to obtain Pap tests at regular intervals. The performance characteristics of some immunohistochemical stains, fluorescence in-situ hybridization tests and immunophenotyping by flow cytometry cited in this report (if any) were determined by the Surgical Pathology Department at [facility] as part of an ongoing software quality specialist program and in compliance with federally mandated regulations drawn from the Clinical Laboratory Improvement Act of 1988 (CLIA '88). ??Some of these tests rely on the use of analyte specific reagents and are subject to specific labeling requirements by the US Food and Drug Administration. ??Such diagnostic tests may only be performed in a facility that is certified by the Department of Health and Human Services as a high complexity laboratory under CLIA '88. The FDA has determined that such clearance or approval is not necessary. ??This test is used for clinical purposes. ??It should not be regarded as investigational or for research. ??Nevertheless, federal rules concerning the medical use of analyte specific reagents require that the following disclaimer be attached to the report: This test was developed and its performance characteristics determined by the Surgical Pathology Department [facility]. ??It has not been cleared or approved by the U. S. Food and Drug Administration. Ness Fried MD LAB CYTOLOGY ORDERABL ES Final Result PATHOLOGY [address] [place] [address] documented in this encounter Visit Diagnoses Diagnosis Encounter for gynecological examination without abnormal finding- Primary Screening for malignant neoplasm of the cervix Screening for malignant neoplasm of the cervix documented in this encounter Care Teams Intel Recruiter Relationship Specialty Start Date End Date Mel Osei MD PCP - General Internal Medicine 02/07/20 documented as of this encounter
--- OUTSIDE RECORDS SUMMARY | 2024-08-08 14:18 | XMS_ITS | Encounter Summary ---
Author Organization [facility] Healthcare Address [address] [place] [address] Care Team Providers Care Blood Bank Manager Name Role Phone Mel Osei MD Primary Care Provider [phone]- [phone] Bryceclaribel Treyyari [facility] Unavailable [phone] Reason for Visit * Reason Onset Date Comments Medication 12/23/2023 Encounter Details Date Type Department Care Team (Late st Contact Info) Description 12/23/2023 Telephone [facility] [address] [place] [address] Mel Osei MD [address] [place] [address] Medication Social History Tobacco Use Types Packs/Day Years [...] on file 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 Pt did voice understanding and did schedule with GKL for 12/30/23 @ 9 AM. * Telephone Encounter - Argentina Shaffer - 12/23/2023 3:26 PM CDT Patient states she just started a new job and her plantar fascitis is flaring up. Asking for pain medication. [phone] Viola Richardson documented in this encounter Plan of Treatment Not on file documented as of this encounter Visit Diagnoses Not on filedocumented in this encounter Care Teams Blood Bank Manager Relationship Specialty Start Date End Date Mel Osei MD PCP - General Internal Medicine 02/07/20 Tabitha Liu CGC [address] [facility] [place] [address] Genetics 06/22/23 documented as of this encounter
--- OUTSIDE RECORDS SUMMARY | 2024-08-08 14:18 | XMS_ITS | Encounter Summary ---
Author Organization [facility] Healthcare Address [address] [place] [address] Care Team Providers Care Academic Associate Name Role Phone Mel Osei MD Primary Care Provider [phone]- [phone] Tabitha Liu CGC Unavailable [phone] Reason for Visit * Reason Comments Employment Physical Encounter Details Date Type Department Care Team (Late st Contact Info) Description 03/17/2024 9:30 AM CDT Office Visit [facility] [address] [place] [address] Almaz Saleh NP [address] [place] [address] Encounter for physical examination related to employment (Primary Dx); Screening examination for pulmonary tuberculosis Social History Tobacco Use Types Packs/Day Years Used Date Smoking Tobacco: Never Smokeless Tobacco: Never Alcohol Use Standard Drinks/Week Comments Not Currently 0 (1 standard drink = 0.6 oz pur e alcohol) PHQ-2 Answer Date Recorded PHQ-2 Total Score (If total score is 3 or more points, staff should administer the PHQ-9) 0 03/17/2024 Comments No Sex and Gender Information Value Date Recorded Sex Assigned at Not on file 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 Gender Identity Not on file Sexual Orientation Not on file Occupation Industry Job Start Date Job End Date [employer] Title Not on file Not on file Not on file documented as of this encounter Last Filed Vital Signs Vital Sign Reading Time Taken Comments Blood Pressure 114/74 03/17/2024 9:24 AM CDT Pulse 60 03/17/2024 9:24 AM CDT Temperature 36.3 ??C (97.3 ??F) 03/17/2024 9:24 AM CD T Respiratory Rate 20 03/17/2024 9:24 AM CDT Oxygen Saturation 98% 03/17/2024 9:24 AM CDT Inhaled Oxygen Concentration - - Weight 104.3 kg (230 lb) 03/17/2024 9:24 AM CDT Height 170.2 cm (5' 7 ) 03/17/2024 9:24 AM CDT Body Mass Index 36.02 03/17/2024 9:24 AM CDT documented in this encounter Progress Notes * Almaz Saleh NP - 03/17/2024 9:30 AM CDT Images from the original note were not included. Patient ID: Tracey Arthur is a 23 y.o. female. Chief Complaint. Chief Complaint Patient presents with Employment Physical HPI. Patient is a 23 y.o. 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 No new symptoms or concerns. no significant personal history that would inhibit job functions. No known exposure to communicable diseases. Immunizations are up to date. 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, 5 mm Chest pain COVID-19 virus detected 08/22/2020 1999 8-5 product nl Shortness of breath Sick sinus syndrome (CMS/HCC) (HCC) Viral gastroenteritis 2000 Admit Current Medications: Outpatient Encounter Medications as of 03/17/2024 Medication Sig Dispense Refill acetaminophen (TYLENOL) 500 mg tablet Take 1 tablet (500 mg total) by mouth 3 (three) times a day as needed for pain (Immediate release Tylenol be used with the extra-strength ER Tylenol 500 mg) 100 tablet 11 acetaminophen ER (TYLENOL) 650 mg 8 hr tablet Take 1 tablet (650 mg total) by mouth every 8 (eight)hours as needed for pain 30 tablet 11 adapalene (DIFFERIN) 0.1 % cream Apply topically at bedtime. 45 g 5 famotidine (PEPCID) 20 mg tablet Take 1 tablet (20 mg total) by mouth 2 (two) times a day 180 tablet 1 meloxicam (MOBIC) 15 mg tablet Take 1 tablet (15 mg total) by mouth daily 30 tablet 1 No facility-administered encounter medications on file as of 03/17/2024. There are no discontinued medications. Allergies No Known Allergies Review of Systems Constitutional: Negative for appetite change, chills, fatigue and fever. HENT: Negative for congestion, ear pain, rhinorrhea, sinus pain, sneezing and sore throat. Eyes: Negative for visual disturbance. Respiratory: Negative for cough, chest tightness and shortness of breath. Cardiovascular: Negative for chest pain, palpitations and leg swelling. Gastrointestinal: Negative for abdominal pain, constipation, diarrhea, nausea and vomiting. Genitourinary: Negative for difficulty urinating. Musculoskeletal: Negative for arthralgias and myalgias. Skin: Negative for rash. Neurological: Negative for dizziness, syncope, weakness and headaches. Psychiatric/Behavioral: Negative for dysphoric mood and sleep disturbance. BP 114/74 (BP Location: Left arm, Patient Position: Sitting) Pulse 60 Temp 36.3 ??C (97.3 ??F) (Temporal) Resp 20 Ht 170.2 cm (5' 7 ) Wt 104.3 kg (230 lb) SpO2 98% BMI 36.02 kg/m?? Bodymass index is 36.02 kg/m??. Wt Readings from Last 3 Encounters: 03/17/24 104.3 kg (230 lb) 12/30/23 110 kg (242 lb 9.6 oz) 06/17/23 108.4 kg (239 lb) Physical Exam Vitals and nursing note reviewed. Constitutional: General: She is not in acute distress. Appearance: Normal appearance. She is not ill-appearing. HENT: Head: Normocephalic and atraumatic. Right Ear: Tympanic membrane and ear canal normal. Left Ear: Tympanic membrane and ear canal normal. Nose: Nose normal. Mouth/Throat: Mouth: Mucous membranes are moist. Pharynx: Oropharynx is clear. No oropharyngeal exudate or posterior oropharyngeal erythema. Eyes: Extraocular Movements: Extraocular movements intact. Conjunctiva/sclera: Conjunctivae normal. Pupils: Pupils are equal, round, and reactive to light. Cardiovascular: Rate and Rhythm: Normal rate and regular rhythm. Pulses: Normal pulses. Heart sounds: Normal heart sounds. No murmur heard. No gallop. Pulmonary: Effort: Pulmonary effort is normal. No respiratory distress. Breath sounds: Normal breath sounds. Abdominal: General: Bowel sounds are normal. There is no distension. Palpations: Abdomen is soft. There is no mass. Tenderness: There is no abdominal tenderness. Musculoskeletal: General: Normal range of motion. Cervical back: Normal range of motion. No rigidity or tenderness. Right lower leg: No edema. Left lower leg: No edema. Comments: Strength equal to all extremities, 5+. Lymphadenopathy: Cervical: No cervical adenopathy. Skin: General: Skin is warm and dry. Neurological: General: No focal deficit present. Mental Status: She is alert and oriented to person, place, and time. Cranial Nerves: No cranial nerve deficit. Psychiatric: Mood and Affect: Mood normal. Behavior: Behavior normal. Thought Content: Thought content normal. Judgment: Judgment normal. Lab on 02/08/2024 Component Date Value Sodium 02/08/2024 140 Potassium, pl 02/08/2024 4.7 Chloride 02/08/2024 106 CO2 02/08/2024 23 Anion gap 02/08/2024 11 BUN 02/08/2024 13 Creatinine 02/08/2024 0.98 Glucose 02/08/2024 104 Calcium 02/08/2024 9.9 eGFR 02/08/2024 83 Lab on 12/30/2023 Component Date Value Sodium 12/30/2023 140 Potassium, pl 12/30/2023 4.4 Chloride 12/30/2023 105 CO2 12/30/2023 23 Anion gap 12/30/2023 12 BUN 12/30/2023 13 Creatinine 12/30/2023 1.13 (H) Glucose 12/30/2023 89 Calcium 12/30/2023 9.6 Bilirubin, total 12/30/2023 0.4 Protein, pl 12/30/2023 6.8 Albumin 12/30/2023 4.0 Alk phos 12/30/2023 73 ALT 12/30/2023 29 AST 12/30/2023 38 LDL Cholesterol, Direct 12/30/2023 101 eGFR 12/30/2023 70 Assessment & Plan: Diagnoses and all orders for this visit: Encounter for physical examination related to employment (Primary) Assessment & Plan: 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 No acute findings on history or physical. Up to date on immunizations. TB skin test administered in office today- advised she must return Wednesday morning to have it read or the test will be invalid. Form filled out in office today, copy in chart. Screening examination for pulmonary tuberculosis - PPD Test Return in about 6 months (around 09/28/2024), or if symptoms worsen or fail to improve, for Annual physical. 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 No acute findings on history or physical. Up to date on immunizations. TB skin test administered in office today- advised she must return Wednesday morning to have it read or the test will be invalid. Form filled out in office today, copy in chart. documented in this encounter Plan of Treatment Not on file documented as of this encounter Procedures Procedure Name Priority Date/Time Associated Diagnosis Comments PPD TEST Routine 03/17/2024 9:30 AM CDT Screening examination for pulmonary tuberculosis documented in this encounter Results * PPD Test (03/17/2024 9:30 AM CDT) TB Skin Test Negative Negative Induration 0 mm Other 03/17/2024 9:30 AM CDT Almaz Saleh NP POINT OF CARE TEST ORDERABLES Fi nal Result documented in this encounter Visit Diagnoses Diagnosis Encounter for physical examination related to employment- Primary Screening examination for pulmonary tuberculosis documented in this encounter Care Teams Academic Associate Relationship Specialty Start Date End Date Mel Osei MD PCP - General Internal Medicine 02/07/20 Tabitha Liu CGC 1 [facility] [place] [address] Genetics 06/22/23 documented as of this encounter
--- OUTSIDE RECORDS SUMMARY | 2024-08-08 14:18 | XMS_ITS | Encounter Summary ---
Author Organization [facility] Healthcare Address [address] [place] [address] Care Team Providers Care Career Technology Teacher Name Role Phone Mel Osei MD Primary Care Provider [phone] Tabitha Liu [facility] Unavailable [phone] Encounter Details Date Type Department Care Team (Late st Contact Info) Description 01/05/2024 Telephone [facility] Medical Group [facility] [address] [place] [address] Lobo Pérez RN Social History Tobacco Use Types Packs/Day Years [...] on file 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 January 06, 2024 Mel Osei MD to [facility] Im/Fm Staff Pool 01/06/24 9:51 PM Just saw her for her yearly and there was no problem at the time. I assume this is probably plantar fasciitis but she had need an exam to figure it out ... The best use of her time and finances for this problem at this point I will be a visit with Dr. Luis Hatch These problems take quite some time to develop and they also take quite some time to resolve She can try topical diclofenac gel and lidocaine, with Aspercreme lidocaine patch, over the area which might help block the pain Called patient and notified her of above message from KMS and she voiced understanding. Patient said she has an appt with the foot doctor and wants to just try going there first. She will call if shewants a referral to Dr. Hatch. * Telephone Encounter - Lobo Pérez RN - 01/06/2024 11:40 AM CDT Spoke to pt et informed of below KMS message Next step is 1. chiropractor refer Dr. Luis Hatch, 2. new line arch support get the [facility] athletic arch available at [employer] and 3. No barefoot walking whatsoever, the 4th intervention is referral to Podiatry, they may have some other specifics for localized injection in the foot. Dr. Mel Osei Pt voices understand et states she does have Podiatry appt @ [facility] on 01-17-24 Pt has purchased [employer] shoes w/inserts from [employer] in [place] et is taking below recommend Tylenol that is giving minimal relief Pt asking if any other recommend for pain until see Podiatry on 01-17-24 Pt has no further questions @ this time * Telephone Encounter - Lobo Pérez RN - 01/05/2024 11:30 AM CDT Spoke to pt et informed of below KMS result message Pt voices understand et states she had not taken any NSAIDS prior to Lab draw Pt only took 1 day of Meloxicam after COUNTY PROGRAM TECHNICIAN appt/lab draw et when started Prednisone Rx dc'd Meloxicamet started Tylenol Pt states prior to Prednisone Rx her pain level was 10 out of 10 Pt completed Prednisone Rx yesterday et rates pain level now is still at 6-7 out of 10 Pt did rtw today Below lab order sent to downstairs lab per pt req Pt has no further questions @ this time Please advise of any further recommend * Telephone Encounter - Lobo Pérez RN - 01/05/2024 10:44 AM CDT ----- Message from Mel Osei MD sent at 01/04/2024 9:32 PM CDT ----- Creatinine is not normal. She just visited with Almaz for foot pain problem and maybe an NSAID. she needs an office visit. Please have her get off of NSAID. If she was having foot pain use Tylenolimmediate release 500+ Tylenol ER 650 2 times daily for sure could be 3 times daily if needed Repeat basic panel at one-month and if still elevated she will need office follow-up. Use diagnosiselevated creatinine documented in this encounter Plan of Treatment Not on file documented as of this encounter Results * Basic metabolic panel (02/08/2024 11:54 AM CDT) Sodium 140 135 - 145 mmol/L Comment:Testing performed by : [facility], [address] [place] [address], [place]., [address] Potassium, pl 4.7 3.3 - 4.9 mmol/L CERNER Comment:Testing performed by : [facility], [address] [place] [address]., [address] Chloride 106 97 - 110 mmol/L CERNER CH Comment:Testing performed by : [facility], [address] [place] [address]., [address] CO2 23 22 - 32 mmol/L CERNER CH Comment:Testing performed by : [address] [address] Anion gap 11 2 - 15 mmol/L BHUPENDRA Comment:Testing performed by : [address] [address] BUN 13 6 - 25 mg/dL [facility] Comment:Testing performed by : [address] [address] Creatinine 0.98 0.60 - 1.10 mg/dL [facility] Comment:Testing performed by : [facility], [address] [place] [address]., [address] Glucose 104 70 - 199 mg/dL [facility] Comment: Interpretive Data Fasting glucose >/= 126 [...] classification and Diagnosis of Diabetes Diabetes Care 202; 46: S19-S40. Current interpretive data was last revised 2022. Testing performed by: [address] [address] Calcium 9.9 8.5 - 10.3 mg/dL [facility] Comment:Testing performed by : [address] [address] Blood 02/08/2024 11:5 4 AM CDT 02/08/2024 6:32 PM CDT us Mel Osei MD LAB BLOOD ORDERABLES Final Result [address] Department [place] [address] documented in this encounter Visit Diagnoses Diagnosis Elevated serum creatinine- Primary Other nonspecific findings on examination of blood documented in this encounter Care Teams Career Technology Teacher Relationship Specialty Start Date End Date Mel Osei MD PCP - General Internal Medicine 02/07/20 Tabitha Liu CGC [address] [facility] [place] [address] Genetics 06/22/23 documented as of this encounter
--- OUTSIDE RECORDS SUMMARY | 2024-08-08 14:18 | XMS_ITS | Encounter Summary ---
Author Organization [facility] Address [address] [place] [address] Phone Care Team Providers Care Plant Operator Helper Name Role Phone Mel Osei MD Primary Care Provider [phone] Encounter Details Date Type Department Care Team (Late st Contact Info) Description 06/07/2023 Telephone [facility] Pediatric Genetics [address] 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 web portal. Test name: [facility]Next CPT 01626 Auth number #[id number] Approval window: [id number] * Telephone Encounter - Tabitha Liu CGC - 06/07/2023 2:00 PM CDT 06/07/2023 Request for prior authorization documented in this encounter Plan of Treatment Not on file documented as of this encounter Visit Diagnoses Not on filedocumented in this encounter Care Teams Plant Operator Helper Relationship Specialty Start Date End Date Mel Osei MD PCP - General Internal Medicine 02/07/20 documented as of this encounter
--- OUTSIDE RECORDS SUMMARY | 2024-08-08 14:18 | XMS_ITS | Encounter Summary ---
Author Organization [facility] Healthcare Address [address] [place] [address] Care Team Providers Care Economics Department Chair Name Role Phone Mel Osei MD Primary Care Provider [phone]- [phone] Tabitha Liu [facility] [place] Unavailable [phone] Encounter Details Date Type Department Care Team (Late st Contact Info) Description 12/31/2023 Telephone [facility] Medical Group [facility] [address] [place] [address] Mel Osei MD [address] [place] [address] Social History Tobacco Use Types Packs/Day Years [...] on file 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 21 tablet 12/31/2023 4 documented in this encounter Miscellaneous Notes * Telephone Encounter - Argentina Shaffer - 12/31/2023 12:51 PM CDT Called patient back, gave patient information, she voiced understanding. * Telephone Encounter - Almaz Saleh NP - 12/31/2023 12:31 PM CDT I dont recommended taking them at the exact same time-this might be rough on her stomach. Take themabout 30 minutes apart and with food/milk. * Telephone Encounter - Argentina Shaffer - 12/31/2023 12:12 PM CDT Patient called back, states that she is using ice. Gave patient all below information. Voiced understanding. Patient asking if she can take Meloxicam and Medrol together? * Telephone Encounter - Almaz Saleh NP - 12/31/2023 11:19 AM CDT Will Rx Medrol pack as directed on package.- sent to [facility]. She might need to give meloxicam more time to work it has only been a day. Is she using ice as suggested? * Telephone Encounter - Argentina Shaffer - 12/31/2023 8:49 AM CDT Patient states that the meloxicam didn't work for her. Patient states is not able to come in today.States the pain is still very bad. Patient states she has a podiatry appointment January 16. Asking for something for the pain as she is unable to work due to pain. [phone] Cheyanneleonela Debra documented in this encounter Plan of Treatment Not on file documented as of this encounter Visit Diagnoses Diagnosis Plantar fasciitis, bilateral- Primary documented in this encounter Care Teams Economics Department Chair Relationship Specialty Start Date End Date Mel Osei MD PCP - General Internal Medicine 02/07/20 Tabitha Liu CGC [address] [facility] [place] [address] Genetics 06/22/23 documented as of this encounter
--- OUTSIDE RECORDS SUMMARY | 2024-08-08 14:18 | XMS_ITS | Encounter Summary ---
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 Gender Identity Not on file Sexual Orientation Not on file Occupation Industry Job Start Date Job End Date [employer] Title Not on file Not on file Not on file documented as of this encounter Miscellaneous Notes * Telephone Encounter - Lobo Pérez RN - 06/23/2023 11:50 AM FLEET MECHANIC Spoke to pt et informed of below KMS message Pt voices understand She declines scheduling f/u appt in September-states I can't afford the Rx right now Pt further declines scheduling annual appt in February @ this time-states she will call back to schedule appt Pt has no further questions @ this time T MECHANIC * Telephone Encounter - Karen Son RN - 06/23/2023 10:45 AM FLEET MECHANIC ----- Message from Mel Osei MD sent at 06/22/2023 6:25 PM FLEET MECHANIC ----- She canceled her September visit with me. We are going to follow-up on her obesity. Inform her I do have medications that she might be interested in taking. If she is not interested then please have her schedule follow-up next in February 2024 for her annual exam. Inform her we did get a letter from her genetics counselor that everything was good Dr. Osei ----- Message ----- From: Tabitha Liu CGC Sent: 06/22/2023 10:34 AM FLEET MECHANIC To: Mel Osei MD FYI. T MECHANIC documented in this encounter Plan of Treatment Not on file documented as of this encounter Visit Diagnoses Not on filedocumented in this encounter Care Teams Banking Pin Adjuster Relationship Specialty Start Date End Date Mel Osei MD PCP - General Internal Medicine 02/07/20 Tabitha Liu CGC [facility] [place] [address] Genetics 06/22/23 documented as of this encounter
--- OUTSIDE RECORDS SUMMARY | 2024-08-08 14:18 | XMS_ITS | Encounter Summary ---
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 She just visited with Almaz for foot pain problem and maybe an NSAID. she needs an office visit. Please have her get off of NSAID. If she was having foot pain use Tylenol immediate release 500+ Tylenol ER 650 2 times daily for sure could be 3 times daily if needed Repeat basic panel at one-month and if still elevated she will need office follow-up. Use diagnosiselevated creatinine documented in this encounter Plan of Treatment Not on file documented as of this encounter Procedures Procedure Name Priority Date/Time Associated Diagnosis Comments EGFR Routine 12/30/2023 9:16 AM CDT Annual physical exam CHOLESTEROL, LDL, DIRECT Routine 12/30/2023 9:16 AM CDT Annual physical exam COMPREHENSIVE METABOLIC PANEL Routine 12/30/2023 9:16 AM CDT Annual physical exam documented in this encounter Results * eGFR (12/30/2023 9:16 AM CDT) eGFR 70 >=60 mL/min/1. 73 m2 Comment: Interpretive Data [...] was last reviewed 2021. Testing performed by: [facility], [address] [place] [address]., [address] Blood 12/30/2023 9:16 AM CDT 12/30/2023 2:40 PM CDT us Mel Osei MD LAB BLOOD ORDERABLES Final Result Performing Organization Address [facility] de Phone Number [facility] [place] [address] * Cholesterol, LDL, direct (12/30/2023 9:16 AM CDT) LDL Cholesterol, Direct 101 <=129 mg/dL Comment: Interpretive Data Ages < or = 19 years ??Acceptable: ? <110 mg/dL ??Borderline high: ??110-129 mg/dL ??High: ?>or= 130 mg/dL Ages > or = 20 years ??Optimal: ? <100 mg/dL ??Near optimal: ?100-129 mg/dL ??Borderline high: ?? 130-159 mg/dL ??High: ?>160 mg/dL Literature References: 1. Expert Panel on Integrated Guidelines for Cardiovascular Health and Risk Reduction in Children and Adolescents. Pediatrics 2011;128:S213 2. NCEP Expert Panel. Circulation 2004;110:227 Current Interpretive Data was last revised on 2018. Testing performed by: [facility], [address] [place] [address], [place]., [address] Blood 12/30/2023 9:16 AM CDT 12/30/2023 2:17 PM CDT us Mel Osei MD LAB BLOOD ORDERABLES Final Result Performing Organization Address [facility] Co de Phone Number [address] [place] [address] * (ABNORMAL) Comprehensive metabolic panel (12/30/2023 9:16 AM CDT) Sodium 140 135 - 145 mmol/L Comment:Testing performed by : [address] [address] Potassium, pl 4.4 3.3 - 4.9 mmol/L [facility] Comment:Testing performed by : [address] [address] Chloride 105 97 - 110 mmol/L [facility] Comment:Testing performed by : [address] [address] CO2 23 22 - 32 mmol/L [facility] Comment:Testing performed by : [address] [address] Anion gap 12 2 - 15 mmol/L [facility] Comment:Testing performed by : [address], [address] BUN 13 6 - 25 mg/dL [facility] Comment:Testing performed by : [address] [address] Creatinine 1.13(H) 0.60 - 1.10 mg/dL [facility] Comment:Testing performed by : [address] [address] Glucose 89 70 - 199 mg/dL [facility] Comment: Interpretive Data Fasting glucose >/= 126 [...] was last revised 2022. Testing performed by: [address] [address] Calcium 9.6 8.5 - 10.3 mg/dL [facility] Comment:Testing performed by : [address], [address] Bilirubin, total 0.4 0.1 - 1.2 mg/dL [facility] Comment:Testing performed by : [address], [address] Protein, pl 6.8 6.5 - 8.5 g/dL [facility] Comment:Testing performed by : [address], [address] Albumin 4.0 3.5 - 5.0 g/dL [facility] Comment:Testing performed by : [address], [address] Alk phos 73 40 - 130 Units/L [facility] Comment:Testing performed by : [address], [address] ALT 29 7 - 45 Units/L [facility] Comment:Testing performed by : [address], [address] AST 38 10 - 45 Units/L [facility] Comment:Testing performed by : [address], [address] Blood 12/30/2023 9:16 AM CDT 12/30/2023 2:17 PM CDT us Mel Osei MD LAB BLOOD ORDERABLES Final Result Performing Organization Address City/State/[facility] Phone Number [address] [place] [address] documented in this encounter Visit Diagnoses Diagnosis Annual physical exam Routine general medical examination at a health care facility documented in this encounter Care Teams Peer Counselor Relationship Specialty Start Date End Date Mel Osei MD PCP - General Internal Medicine 02/07/20 Tabitha Liu CGC [address] PED GENETICS [place] [address] Genetics 06/22/23 documented as of this encounter
--- OUTSIDE RECORDS SUMMARY | 2024-08-08 14:18 | XMS_ITS | Referral Summary ---
Author Organization [facility] Address [address] [place] [address] Care Team Providers Care County Historian Name Role Phone Mel Osei MD Primary Care Provider [phone] Tabitha Liu CGC Unavailable [phone] Encounters Date Type Department Care Team Description 07/05/2024 Telephone [facility] [address] [place] [address] Ness Fried MD Patient issue/concern from Last 3 Months Allergies No known active allergies Medications adapalene (DIFFERIN) 0.1 % creamIndication s:Acne vulgaris Apply topically at bedtime. 45 g 5 2 Active acetaminophen (TYLENOL) 500 mg tabletIndicatio ns:Menstrual cramps,Muscle tension headache Take 1 tablet (500 mg total) by mouth 3 (three) times a day as needed for pain (Immediate release Tylenol be used with the extra-strength ER Tylenol 500 mg) 100 tablet 11 3 Active acetaminophen ER (TYLENOL) 650 mg 8 hr tabletIndicatio ns:Menstrual cramps,Muscle tension headache Take 1 tablet (650 mg total) by mouth every 8 (eight) hours as needed for pain 30 tablet 11 3 Active famotidine (PEPCID) 20 mg tabletIndicatio ns:gastroesopha geal reflux disease Take 1 tablet (20 mg total) by mouth 2 (two) times a day 180 tablet 1 3 Active meloxicam (MOBIC) 15 mg tabletIndicatio ns:Plantar fasciitis, bilateral Take 1 tablet (15 mg total) by mouth daily 30 tablet 1 4 12/30/19 25 Active Active Problems Problem Noted Date Diagnosed Date Screening examination for pulmonary tuberculosis 03/17/2024 Plantar fasciitis, bilateral 12/30/2023 Assessment & Plan (12/30/2023 9:30 AM CDT): Pain for 2 weeks as described above, exam findings consistent. Will rx Meloxicam and instructed. Freeze a water bottle and roll your foot over it at least twice daily for at least 15-20 minutes. Wear shoe inserts. Keep follow with podiatry next month. Gastroesophageal reflux dise ase with esophagitis without hemorrhage 06/01/2022 Assessment & Plan (03/08/2023 4:29 PM CDT): Completely symptom-free crit previously on Protonix 40 mg b.i.d.. She is occasionally taking this medication. Advised to stop regular dosing on this medicine switching to Pepcid 20 b.i.d. using Protonix only if symptoms persist and stop all NSAID Assessment & Plan (06/01/2022 8:44 AM CDT): Presents with worsening heartburn over 1 month, pepcid provides mild relief. No acute exam findings will Rx Pantoprazole as instructed. Discussed low acid diet: avoid soda, sugar substitutes, vinegar, pickles, citrus, tomatoes, coffee, and alcohol. Stay hydrated. Call with any changes or concerns. Keep annual follow as scheduled, sooner if needed. Family history of breast cancer 06/21/2020 Overview (06/21/2020): Mother diagnosed at 37, passed at 44. MGM with breast cancer. MA with ovarian cancer. 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 No acute findings on history or physical. Up to date on immunizations. TB skin test administered in office today- advised she must return Wednesday morning to have it read or the test will be invalid. Form filled out in office today, copy in chart. Abnormal menses 03/09/2012 Overview (03/22/2017): Anaprox DS Assessment & Plan (12/30/2023 9:31 AM CDT): Irregular cycles over the last 4-5 months and has skipped cycles all together. Currently spotting for the last 2 weeks and describes it as a pink color without clots. Denies pain or urinary changes. See HPI for details, last PAP in 06/2023 was unremarkable. exam deferred per patient request, external pelvic exam unremarkable with no tenderness. Check CMP, CBC today. Advised menstrual changes can be from anxiety causing hormone changes, advised to follow up with HOSPITAL SECURITY OFFICER to discuss further. Resolved Problems Problem Noted Date Diagnosed Date Resolved Date Bilateral impacted cerumen 06/12/2022 0 12/30/2023 Assessment & Plan (06/12/2022 3:49 PM CDT): Bilateral complete impactions noted. Irrigation of both EACs completed by MARGO. moderate amount of cerumen removed. Otoscopic exam post flush reveals clear. Bilateral TMs visible and intact. No erythema, swelling, effusion, discharge, or bleeding. Patient tolerated procedure well. Admits hearing has improved post flush. Advised to use Debrox or mineral oil to keep wax soft and draining. Avoid q-tip use. Call with any changes or concerns. Anxiety and depression 09/13/[address]2002/11 Assessment & Plan (10/11/2020 7:57 AM CAB SUPERVISOR): Patient continues to remain anxious and have feelings of depression. She however, did not notice any change or improvement in symptoms while on zoloft and is hesitant to take anti-depressant therapy as she read you cannot have alcohol with them. We discussed alcohol in excess is prohibited/discouraged while on antidepressant therapy. She continues to have episodes of constant chest pain and is very fearful that something else is contributing. She was reassured that w/u to date has been negative with nml echo, nml stress test, nml CXR and no reports of reflux. We will however, refer to cardiology for further evaluation. She will wean off zoloft and will reach out to Nathalie Harden to begin counseling. We also discussed that exercise such as Yin Yoga may be helpful. She has upcoming visit in [address] Osei and will follow up further at that time. Assessment & Plan (09/13/2020 4:51 PM CAB SUPERVISOR): Patient returns for follow up on shortness of breath and chest pain. Patient continues to feel anxious and worry as she still has sharp chest pain. She reports pain keeps her from sleep at night. At visit today patient had poor eye contact and was playing with her clothing. She mentioned she was having trouble focusing at school and that her family had encouraged counseling. PHQ-9 completed and score elevated at 10. She will be started on daily therapy with zoloft and will return for follow up in 6-8 weeks. Counseling and exercise were both also encouraged. Atypical chest pain 09/13/2020 02/12/20 Assessment & Plan (10/31/2020 9:19 AM CDT): Patient's symptoms are not consist with a cardiac etiology. I believe the patient is most likely etiology is of inflammatory origin. GI origin appears to be less likely. I have suggested she keep a log of occurrences and treatment remedies with accompanied results. If her symptoms persist it may require further investigation. I will plan to see the patient in follow-up on an as-needed basis. Assessment & Plan (09/13/2020 4:53 PM CAB SUPERVISOR): Patient continues to report episodes of sharp left chest wall pain. Associated with anxiety and palpitations. Work up to date has been negative as she has had normal EKG, CXR, and labs. Most likely this is d/t anxiety, but given persistent symptoms and family history of CAD, we will do treadmill stress test and echo for further evaluation. She will return post testing or sooner if needed. Shortness of breath 08/22/2020 02/12/20 21 Assessment & Plan (08/22/2020 2:28 PM CAB SUPERVISOR): Patient is reporting SOB post recent COVID 19 infection about 20 days ago. SOB is associated with cough and palpitations and worse with activity. Etiology unclear at this time. 12 lead EKG done shows NSR and no acute ST/T wave changes. We will do CXR to r/o any acute cardiopulmonary process. We will do CBC to r/o anemia and TSH to r/o thyroid dysfunction. Will also check for any underlying electrolyte disturbance. Patient has history of asthma as a child and given recent COVID infection this may be a residual effect. We will prescribe albuterol inhaler for cough and SOB. Patient will return for follow up in 4 weeks or sooner if needed. COVID-19 virus detected 08/22/2020 07/0 01/2021 Easy bruising 02/07/2020 02/11/2021 Myopia 12/23/2013 02/11/2021 Overview (03/22/2017): Asthma 03/09/2013 02/11/2021 Overview (03/22/2017): Alb inhaler Recurrent sinusitis 08/04/2005 02/12/20 21 Overview (03/22/2017): May call in 20 days Augmentin for prolonged URI. Last: 2--16. 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): R of midline, 5 mm Immunizations Name Administration Dates Next Due DTaP 5 Pertussis 06/26/2003, 1,1999,09/09,1999 HPV9 09/24/2017,05/24/2017,03/23/2017 Hep B / HiB 08/20/2000,1999,1999 IPV 06/26/2003, 1,1999,07/07 Influenza, Quadrivalent, Eulalia l Culture-based MDCK, Antibiotic Free, Intramuscular 07/13/2018 Influenza, Quadrivalent, Eulalia l Culture-based MDCK, Preservative Free, Antibiotic Free, Intramuscular 07/11/2022 Influenza, Trivalent, IM (MDV) 06/19/2008,2006 Influenza, Unspecified 06/03/2023(Deferr ed: Patient Refused),05/27/2023(Deferred: Patient Refused) MMR 06/26/2003,05/11/2000 Meningococcal MCV4P (Menactra) 03/20/2016 Meningococcal Polysaccharide (Menomune) 02/18/2011 PPD TEST 03/17/2024 Pfizer SARS-CoV-2 Monovalent Vaccination (12+ Yrs) PURPLE 12/02/2020,11/11/2020 Pneumococcal Conjugate 7-Valent 08/20/2000,05/11,03/26/2000 Tdap 02/11/2021,02/18/2011 Varicella 03/09/2014,05/11/2000 Social History Tobacco Use Types Packs/Day Years Used Date Smoking Tobacco: Never Smokeless Tobacco: Never Tobacco Cessation:Counseling Given: Not Answered Alcohol Use Standard Drinks/Week Comments Not Currently 0 (1 standard drink = 0.6 oz pur e alcohol) PHQ-2 Answer Date Recorded PHQ-2 Total Score (If total score is 3 or more points, staff should administer the PHQ-9) 0 03/17/2024 Comments No Sex and Gender Information Value Date Recorded Sex Assigned at Not on file Legal Sex Female 12:30 PM CAB SUPERVISOR Gender Identity Not on file Sexual Orientation Not on file Occupation Industry Job Start Date Job End Date [place] Title Not on file Not on file Not on file Last Filed Vital Signs Vital Sign Reading [...] Mass Index 36.02 03/17/2024 9:24 AM CDT Plan of Treatment Not on file Procedures Procedure Name Priority Date/Time Associated Diagnosis Comments PAP WITH REFLEX TO HIGH RISK HPV Routine 06/17/2023 11:23 AM CAB SUPERVISOR Screening for malignant neoplasm of the cervix from Last 3 Months or Most Recently Relevant to Health Maintenance Results * Pap with reflex to High Risk HPV and Genotyping (Cytology Component) (06/17/2023 11:23 AM CAB SUPERVISOR) Thin prep (Pap test) 06/17/2023 11:23 AM CAB SUPERVISOR 06/18/2023 11:23 AM CAB SUPERVISOR Narrative PATHOLOGY CH - 06/22/2023 2:49 PM CAB SUPERVISOR [facility] Department of Pathology [address] [place] [address] Final Report Note to Patients: This report [...] and explain the details. Patient Name: ??JEAN ARTHUR Address: ??[address] [place] [address], ?? [place], [place] ??[address] Gender: ??F : ??2000 (Age: 23) Service: ?? Location: ?? [facility] #: ??[id number] Patient Type: ?? SPECIMEN Taken: ??06/17/2023 Received: ??06/18/2023 Accessioned:: ??06/21/2023 Reported: ??06/22/2023 Physician(s): MD Ness Blue MD Diagnosis: SOURCE OF SPECIMEN ? Imaged Thinprep Pap Test w/ Reflex HPV - Tension Machine Operator Cytologic Material: STATEMENT OF ADEQUACY ?- Specimen satisfactory for interpretation; endocervical/transformation zone component absent or ?insufficient ? GENERAL CATEGORIZATION: ?- Negative for intraepithelial lesion or malignancy ? FELIPE Alonso(ASCP) Report Electronically Reviewed and Signed Out By ??FELIPE Alonso(ASCP) ??06/22/2023 14:49:15Specimen(s) Received: A: Imaged Thinprep Pap Test w/ Reflex HPV - Tension Machine Operator Cytologic Material Clinical History: Last Menstrual Period: [...] by the Surgical Pathology Department at [facility] as part of an ongoing quality process engineer program and in compliance with federally mandated [...] characteristics determined by the Surgical Pathology Department [facility]. ??It has not been cleared or approved by the U. S. Food and Drug Administration. Ness Fried MD LAB CYTOLOGY ORDERABL ES Final Result PATHOLOGY [address] [place] [address] from Last 3 Months or Most Recently Relevant to Health Maintenance Insurance [facility] HMO/PPO Address: [place] [address] [facility] CHOICE PLUS [facility] HMO/PPO Address: [address] [place] [id number] CHOICE PLUS [facility] HMO/PPO Address: [place] [phone] CHOICE PLUS [facility] HMO/PPO Address: [address] [place] [phone] [facility] HMO/PPO Address: [place] [address] [facility] HMO/PPO Address: [address] [place] [address] Advance Directives For more information, please contact: [phone] Documents on File Type Date Recorded Patient Access Liaison Expl anation ADVANCE DIRECTIVE 02/07/2020 POWER OF [employer] Care Teams County Historian Relationship Specialty Start Date End Date Mel Osei MD PCP - General Internal Medicine 02/07/20 Tabitha Liu CGC [facility] [place] [place] [address] Genetics 06/22/23
--- OUTSIDE RECORDS SUMMARY | 2024-08-08 14:18 | XMS_ITS | Encounter Summary ---
Author Organization [facility] Healthcare Address [address] [place] [address] Care Team Providers Care Bull Driver Name Role Phone Mel Osei MD Primary Care Provider [phone]- [phone] Tabitha Liu CGC Unavailable Reason for Referral * Consultation (Routine) - Pending Review Specialty Diagnoses / Procedures Referred By Kj judge Referred To Contact Diagnoses Family history of breast cancer Family history of ovarian cancer Ness Fried MD [address] [place] [address] Phone: tel: fax: Ana Doe, FIELD LABORER [address] [address] Phone: tel: fax: Referral ID Status Reason Start Date Expiration Date Visits Requested Visits Authorized [id number] Pending Review Specialty Services Required 08/04/2025 1 1 Question Answer Is this referral for Breast Health Multi-Disciplinary Clinic? No Does the patient have a diagnosis of a Head and Neck cancer? No Please select the performing region: [facility] (All Locations) [[id number]] # of visits: 1 Comments Please contact pt to schedule within 2 weeks. Thank you! TH INFORMATION MANAGERS Reason for Visit * Reason Onset Date Comments Patient issue/concern 07/05/2024 Encounter Details Date Type Department Care Team (Late st Contact Info) Description 07/05/2024 Telephone [facility] [address] [place] [phone] Ness Fried MD [address] [place] [address] Patient issue/concern Social History Tobacco Use Types Packs/Day Years [...] on file Legal Sex Female 12:30 PM HEALTH INFORMATION MANAGERS Gender Identity Not on file Sexual Orientation Not on file Occupation Industry Job Start Date Job End Date [place] Title Not on file Not on file Not on file documented as of this encounter Miscellaneous Notes * Telephone Encounter - Melissa Angel - 07/05/2024 4:24 PM CST Pt notified and referral was entered TH INFORMATION MANAGERS * Telephone Encounter - Ness Fried MD - 07/05/2024 4:12 PM HEALTH INFORMATION MANAGERS She was referred in the past for genetic counseling, which she completed with normal testing. Recommend referral now to breast surgeon for cancer risk assessment, dx: family h/o breast and ovarian cancers. TH INFORMATION MANAGERS * Telephone Encounter - Karen Poe MA - 07/05/2024 1:46 PM HEALTH INFORMATION MANAGERS Pt called in stating she had a referral a year or so ago to [facility] for family hx of breast cancer and ovarian cancer. Pt said she never received a call back from anyone at [facility] and then it kind of slipped her mind and was wondering what could be done to get a new referral sent over? Pt would like a call back when we know if a new referral can be sent and also when it is sent so she can keep track if she doesn't get a call back again. CBN: [phone] TH INFORMATION MANAGERS documented in this encounter Plan of Treatment Scheduled Referrals Name Type Priority Associated Diagnoses Order Schedule Ambulatory referral to Breast Surgery Outpatient Referral Routine Family history of breast cancer Family history of ovarian cancer Ordered: 07/05/2024 documented as of this encounter Visit Diagnoses Diagnosis Family history of breast cancer- Primary Family history of malignant neoplasm of breast Family history of ovarian cancer Family history of malignant neoplasm of ovary documented in this encounter Care Teams Bull Driver Relationship Specialty Start Date End Date Mel Osei MD PCP - General Internal Medicine 02/07/20 Tabitha Liu CGC 1 [facility]ET[facility] [place] [address] Genetics 06/22/23 documented as of this encounter
--- OUTSIDE RECORDS SUMMARY | 2024-08-08 14:18 | XMS_ITS | Encounter Summary ---
Author Organization [facility] Healthcare Address [address] [place] [address] Care Team Providers Care Wind Development Director Name Role Phone Mel Osei MD Primary Care Provider [phone] Tabitha Liu CGC Unavailable [phone] Reason for Visit * Reason Comments Plantar Fasciitis Encounter Details Date Type Department Care Team (Late st Contact Info) Description 12/30/2023 9:00 AM CDT Office Visit [facility] [address] [place] [address] Almaz Saleh NP [address] [place] [address] Plantar fasciitis, bilateral (Primary Dx); Abnormal menses Social History Tobacco Use Types Packs/Day Years [...] on file Legal Sex Female 12:30 PM DEFENSE ANALYST Gender Identity Not on file Sexual Orientation Not on file Occupation Industry Job Start Date Job End Date [place] Title Not on file Not on file Not on file documented as of this encounter Last Filed Vital Signs Vital Sign Reading Time Taken Comments Blood Pressure 126/84 12/30/2023 8:50 AM CDT Pulse 97 12/30/2023 8:50 AM CDT Temperature 36.2 ??C (97.1 ??F) 12/30/2023 8:50 AM CD T Respiratory Rate 20 12/30/2023 8:50 AM CDT Oxygen Saturation 98% 12/30/2023 8:50 AM CDT Inhaled Oxygen Concentration - - Weight 110 kg (242 lb 9.6 oz) 12/30/2023 8:50 AM CDT Height 168.9 cm (5' 6.5 ) 12/30/2023 8:50 AM CDT Body Mass Index 38.57 12/30/2023 8:50 AM CDT documented in this encounter Patient Instructions * Patient Instructions* Almaz Saleh NP - 12/30/2023 9:00 AM CDT CMP, CBC, TSH today for abnormal menses documented in this encounter Ordered Prescriptions Prescription Sig Dispense Quantity Refills Last Filled Start Date End Date meloxicam (MOBIC) 15 mg tabletIndications: Plantar fasciitis, bilateral Take 1 tablet (15 mg total) by mouth daily 30 tablet 1 12/30/2023 12/29/2024 documented in this encounter Progress Notes * Almaz Saleh NP - 12/30/2023 9:00 AM CDT Images from the original note were not included. Patient ID: Tracey Arthur is a 23 y.o. female. Chief Complaint. Chief Complaint Patient presents with Plantar Fasciitis HPI. Patient is a 23 y.o. female HPI Started new jobs 2 weeks ago at [employer] where she is on her feet all day. Wears tennis shoes witharch inserts. Burning/stabbing pain. Tylenol and Ibuprofen 600mg with minimal relief. Can't see podiatry until next month. Having irregular periods over last 4-5 months but no pain or clots or urinary changes. Currently spotting pink for the last 2 weeks. Denies possibility of or STD. No OCP or insert. Last PAPfrom 06/2023 was WNL, see Dr. Fried. Family hx of ovarian CA noted. 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, 5 mm Chest pain COVID-19 virus detected 08/22/2020 1999 8-5 product nl Shortness of breath Sick sinus syndrome (CMS/HCC) (HCC) Viral gastroenteritis 2000 Admit Current Medications: Outpatient Encounter Medications as of 12/30/2023 Medication Sig Dispense Refill acetaminophen (TYLENOL) 500 [...] total) by mouth daily 30 tablet 1 [DISCONTINUED] pantoprazole DR (PROTONIX) 40 mg EC tablet Take 1 tablet (40 mg total) by mouth daily before breakfast 30 tablet 3 [DISCONTINUED] tirzepatide (MOUNJARO) 2.5 mg/0.5 mL pen injector Inject 2.5 mg under the skin once a week 2 mL 0 No facility-administered encounter medications on file as of 12/30/2023. Medications Discontinued During This Encounter Medication Reason tirzepatide (MOUNJARO) 2.5 mg/0.5 mL pen injector Cost of medication pantoprazole DR (PROTONIX) 40 mg EC tablet Therapy completed Allergies No Known Allergies Review of Systems Constitutional: Negative for chills, fatigue and fever. Respiratory: Negative for cough, chest tightness and shortness of breath. Cardiovascular: Negative for chest pain, palpitations and leg swelling. Gastrointestinal: Negative for abdominal distention, abdominal pain, constipation, diarrhea, nauseaand vomiting. Genitourinary: Positive for menstrual problem and vaginal bleeding. Negative for dysuria, enuresis,flank pain, frequency, genital sores, hematuria, pelvic pain, urgency, vaginal discharge and vaginal pain. Musculoskeletal: Positive for arthralgias (bilateral feet). Negative for back pain, gait problem, joint swelling, myalgias and neck pain. Skin: Negative for color change. Neurological: Negative for dizziness, tremors, syncope, weakness, numbness and headaches. Psychiatric/Behavioral: Negative for dysphoric mood and sleep disturbance. The patient is nervous/anxious. BP 126/84 (BP Location: Left arm, Patient Position: Sitting) Pulse 97 Temp 36.2 ??C (97.1 ??F) (Temporal) Resp 20 Ht 168.9 cm (5' 6.5 ) Wt 110 kg (242 lb 9.6 oz) SpO2 98% BMI 38.57 kg/m?? Body mass index is 38.57 kg/m??. Wt Readings from Last 3 Encounters: 12/30/23 110 kg (242 lb 9.6 oz) 06/17/23 108.4 kg (239 lb) 03/08/23 105.7 kg (233 lb) Physical Exam Vitals and nursing note reviewed. Constitutional: General: She is not in acute distress. Appearance: Normal appearance. She is not ill-appearing. HENT: Head: Normocephalic and atraumatic. Cardiovascular: Rate and Rhythm: Normal rate and regular rhythm. Heart sounds: Normal heart sounds. No murmur heard. No gallop. Pulmonary: Effort: Pulmonary effort is normal. No respiratory distress. Breath sounds: Normal breath sounds. Abdominal: General: Bowel sounds are normal. There is no distension. Palpations: Abdomen is soft. There is no mass. Tenderness: There is no abdominal tenderness. There is no right CVA tenderness, left CVA tenderness, guarding or rebound. Hernia: No hernia is present. Genitourinary: Comments: exam deferred per pt request Musculoskeletal: General: Normal range of motion. Right lower leg: No edema. Left lower leg: No edema. Right ankle: Normal. Right Achilles Tendon: Normal. Left ankle: Normal. Left Achilles Tendon: Normal. Right foot: Normal range of motion. Tenderness (over proximal plantar fascial attachment, tight with AROM of foot) present. No swelling, deformity, bunion, foot drop, prominent metatarsal heads, bonytenderness or crepitus. Normal pulse. Left foot: Normal range of motion. Tenderness (over proximal plantar fascial attachment, tight withAROM of foot) present. No swelling, deformity, bunion, foot drop, prominent metatarsal heads, bony tenderness or crepitus. Normal pulse. Skin: General: Skin is warm and dry. Neurological: General: No focal deficit present. Mental Status: She is alert and oriented to person, place, and time. Psychiatric: Mood and Affect: Mood normal. Behavior: Behavior normal. No visits with results within 3 Month(s) from this visit. Latest known visit with results is: Hospital Outpatient Visit on 06/17/2023 Component Date Value ThinPrep processing (Mol* 06/18/2023 Specimen received for processing. Assessment & Plan: Diagnoses and all orders for this visit: Plantar fasciitis, bilateral (Primary) Assessment & Plan: Pain for 2 weeks as described above, exam findings consistent. Will rx Meloxicam and instructed. Freeze a water bottle and roll your foot over it at least twice daily for at least 15-20 minutes. Wearshoe inserts. Keep follow with podiatry next month. Orders: - meloxicam (MOBIC) 15 mg tablet; Take 1 tablet (15 mg total) by mouth daily Abnormal menses Assessment & Plan: Irregular cycles over the last 4-5 months [...] hormone changes, advised to follow up with FITTING SUPERVISOR to discuss further. Return needs annual with KMS. Almaz Saleh NP Cosigned by Mel Osei MD at 01/07/2024 12:20 AM CDT documented in this encounter Miscellaneous Notes * Assessment & Plan Note - Almaz Saleh NP - 12/30/2023 9:30 AM CDTAssociated Problem(s): Plantar fasciitis, bilateral Pain for 2 weeks as described above, exam findings consistent. Will rx Meloxicam and instructed. Freeze a water bottle and roll your foot over it at least twice daily for at least 15-20 minutes. Wearshoe inserts. Keep follow with podiatry next month. * Assessment & Plan Note - Almaz Saleh NP - 12/30/2023 9:28 AM CDTAssociated Problem(s): Abnormal menses Irregular cycles over the last 4-5 months [...] hormone changes, advised to follow up with FITTING SUPERVISOR to discuss further. documented in this encounter Plan of Treatment Not on file documented as of this encounter Visit Diagnoses Diagnosis Plantar fasciitis, bilateral- Primary Abnormal menses Unspecified disorder of menstruation and other abnormal bleeding from female genital tract documented in this encounter Discontinued Medications Medication Sig Discontinue Reason Start Date End Da te tirzepatide (MOUNJARO) 2.5 mg/0.5 mL pen injectorIndications:Obe cheryley (BMI 30-39.9) Inject 2.5 mg under the skin once a week Cost of medication 03/08/2023 12/30/[address] (PROTONIX) 40 mg EC tabletIndications:Gastr oesophageal reflux disease with esophagitis without hemorrhage Take 1 tablet (40 mg total) by mouth daily before breakfast Therapy completed 03/08/2023 12/30/2023 documented as of this encounter Care Teams Wind Development Director Relationship Specialty Start Date End Date Mel Osei MD PCP - General Internal Medicine 02/07/20 Tabitha Liu CGC [address] PED GENETICS [place] [address] Genetics 06/22/23 documented as of this encounter
--- OUTSIDE RECORDS SUMMARY | 2024-08-08 14:18 | XMS_ITS | Encounter Summary ---
Author Organization [facility] Healthcare Address [address] [place] [address] Care Team Providers Care Signal Maintainer Helper Name Role Phone Mel Osei MD Primary Care Provider [phone] Tabitha Liu [facility] Unavailable [phone] Encounter Details Date Type Department Care Team (Late st Contact Info) Description 06/23/2023 Telephone [facility] [address] [place] [address] Kristie Patricia LPN Social History Tobacco Use Types Packs/Day Years [...] on file Legal Sex Female 12:30 PM SPORTS TEACHER Gender Identity Not on file Sexual Orientation Not on file Occupation Industry Job Start Date Job End Date [place] Title Not on file Not on file Not on file documented as of this encounter Miscellaneous Notes * Telephone Encounter - Kristie Patricia LPN - 06/23/2023 1:12 PM SPORTS TEACHER Normal pap metal slitter sent. TS TEACHER * Telephone Encounter - Kristie Patricia LPN - 06/23/2023 1:12 PM SPORTS TEACHER ----- Message from Ness Fried MD sent at 06/23/2023 12:13 PM SPORTS TEACHER ----- Please notify patient of negative Pap. TS TEACHER documented in this encounter Plan of Treatment Not on file documented as of this encounter Visit Diagnoses Not on filedocumented in this encounter Care Teams Signal Maintainer Helper Relationship Specialty Start Date End Date Mel Osei MD PCP - General Internal Medicine 02/07/20 Tabitha Liu CGC [facility] [address] Genetics 06/22/23 documented as of this encounter
--- OUTSIDE RECORDS SUMMARY | 2024-08-08 14:18 | XMS_ITS | Clinical Summary ---
Author Organization [facility] Address [address] [place] [address] Care Team Providers Care Rn Wellness Name Role Phone Mel Osei MD Primary Care Provider [phone] Tabitha Liu CGC Unavailable [phone] Allergies No known active allergies Medications adapalene [...] hours as needed for pain 30 tablet 3 Active famotidine (PEPCID) 20 mg tabletIndicatio [...] hormone changes, advised to follow up with AIRCRAFT DESIGNER to discuss further. Resolved Problems Problem Noted [...] 09/13/202002/11 Assessment & Plan (10/11/2020 7:57 AM ELECTRONIC IMAGER): Patient continues to remain anxious and have [...] time. Assessment & Plan (09/13/2020 4:51 PM ELECTRONIC IMAGER): Patient returns for follow up on shortness [...] basis. Assessment & Plan (09/13/2020 4:53 PM ELECTRONIC IMAGER): Patient continues to report episodes of sharp [...] 21 Assessment & Plan (08/22/2020 2:28 PM ELECTRONIC IMAGER): Patient is reporting SOB post recent COVID [...] Overview (03/22/2017): R of midline, 5 mm Encounters Date Type Department Care Team Description 07/05/2024 Telephone [facility] [address] [place] [address] Ness Fried MD Patient issue/concern from Last 3 Months Immunizations Name Administration Dates Next Due DTaP [...] Conjugate 7-Valent 08/20/2000,05/11,03/26/2000 Tdap 02/11/2021,02/18/2011 Varicella 03/09/2014,05/11/2000 Surgical History Surgery Date Site/Laterality Comments BLADDER SURGERY 08/09/2005 - 08/08/2006 Recurrent UTI - repair of reflux Medical History Medical History Date Comments 1999 8-5 product nl p regnancy Viral gastroenteritis 2000 Admit Chest pain Shortness of breath Sick sinus syndrome (CMS/HCC) (HCC) Anxiety and depression 09/13/2020 Asthma 03/09/2013 Alb inhaler COVID-19 virus detected 08/22/2020 Branchial cleft cyst 1999 R of tarik e, 5 mm Family History Medical History Relation Name Comments Skin cancer Maternal Grandfather Breast cancer Maternal Grandmother Allergies Mother Spring and fall Breast cancer Mother Cause of , age 44 Ovarian cancer Mother's Sister Anemia Other 1 Asthma Other 2 Coronary artery disease Other 3 Deafness Other 4 Diabetes Other 5 Hypertension Other 6 Migraines Other 7 Thyroid disease Other 8 Sudden Other 9 NONE Eating disorder Other 10 Arthritis Other 11 Relation Name Status Comments Maternal Grandfather Maternal Grandmother Mother Mother's Sister Other 1 Other 2 Other 3 Other 4 Other 5 Other 6 Other 7 Other 8 Other 9 Other 10 Other 11 Social History Tobacco Use Types Packs/Day Years [...] on file Legal Sex Female 12:30 PM ELECTRONIC IMAGER Gender Identity Not on file Sexual Orientation Not on file Occupation Industry Job Start Date Job End Date [place] Title Not on file Not on file Not on file Obstetrics History Para Term AB IAB SAB Ectopic Multiple Livin g Live Births 0 0 0 0 0 0 0 0 0 0 0 Last Filed Vital Signs Vital Sign Reading [...] 03/17/2024 9:24 AM CDT Plan of Treatment Health Maintenance Due Date Last Done Comments Hepatitis C Screening 1999 Covid-19 Vaccine (2023- 5 season) 2024 07/11/2022, 12/02/2020, 11/11/2020 Cervical Cancer Screening 06/17/2024 06/17/2023, 11/2019 Regular Well Visit/Exam 18-64 06/17/2024, 03/08/2023, 03/26/2022, Additional history exists Depression Screening 03/17/2025 03/17/2024, 03/08/2023, 02/13/2022, Additional history exists DTaP/Tdap/Td Vaccine (8 - Td or Tdap) 02/11/2031 02/11/2021, 02/18/2011, 06/26/2003, Additional history exists Pneumococcal vaccine <65 Completed 001, 05/11/2000, 03/26/2000 Varicella Vaccines Completed 03/09/2014, 05/11/2000 HPV Vaccines Completed 09/24/2017, 05/09, 03/23/2017 Influenza Vaccine Completed 05/28/2024, , 07/13/2018, Additional history exists Procedures Procedure Name Priority Date/Time Associated Diagnosis Comments PAP WITH REFLEX TO HIGH RISK HPV Routine 06/17/2023 11:23 AM ELECTRONIC IMAGER Screening for malignant neoplasm of the cervix from Last 3 Months or Most Recently Relevant to Health Maintenance Results * Pap with reflex to High Risk HPV and Genotyping (Cytology Component) (06/17/2023 11:23 AM ELECTRONIC IMAGER) Thin prep (Pap test) 06/17/2023 11:23 AM ELECTRONIC IMAGER 06/18/2023 11:23 AM ELECTRONIC IMAGER Narrative PATHOLOGY CH - 06/22/2023 2:49 PM ELECTRONIC IMAGER [facility] Department of Pathology [address] [place] [id number] Final Report Note to Patients: This report [...] explain the details. Patient Name: ??JEAN ARTHUR Yunior Address: ??[address] [place] [address], ?? [place], [place] ??[address] Gender: ??F : ??2000 (Age: 23) Service: ?? Location: ?? Hospital #: ??[id number] Patient Type: ?? SPECIMEN Taken: ??06/17/2023 Received: ??06/18/2023 Accessioned:: ??06/21/2023 Reported: ??06/22/2023 Physician(s): MD Ness Blue MD Diagnosis: SOURCE OF SPECIMEN ? Imaged Thinprep Pap Test w/ Reflex HPV - Business Process Consultant Cytologic Material: STATEMENT OF ADEQUACY ?- Specimen satisfactory for interpretation; endocervical/transformation zone component absent or ?insufficient ? GENERAL CATEGORIZATION: ?- Negative for intraepithelial lesion or malignancy ? FELIPE Alonso(ASCP) Report Electronically Reviewed and Signed Out By ??FELIPE Alonso(ASCP) ??06/22/2023 14:49:15Specimen(s) Received: A: Imaged Thinprep Pap Test w/ Reflex HPV - Business Process Consultant Cytologic Material Clinical History: Last Menstrual Period: [...] determined by the Surgical Pathology Department at [facility] as part of an ongoing quality specialist program and in compliance with [...] characteristics determined by the Surgical Pathology Department [facility]. ??It has not been cleared or approved by the U. S. Food and Drug Administration. Ness Fried MD LAB CYTOLOGY ORDERABL ES Final Result Performing Organization Address City/State/[facility] Co nd Phone Number PATHOLOGY [address] [place] [address] from Last 3 Months or Most Recently Relevant to Health Maintenance Insurance [id number] CHOICE [employer]US [facility] HMO/PPO Address: [facility] [id number] [place] [id number] [facility] CHO[employer] [facility] H[facility]/PPO Address: [address] [place] [address] [employer] [facility] H[facility]/PPO Address: [place] [address] [employer] H[facility]/PPO Address: [address] [place] [id number] CHO[employer] [facility] HMO/PPO Address: [place] [address] CHO[employer] HMO/PPO Address: [place] [address] Advance Directives For more information, please contact: [phone] Documents on File Type Date Recorded Patient Cleaning Team Member Expl anation ADVANCE DIRECTIVE 02/07/2020 POWER OF A [employer] Care Teams Rn Wellness Relationship Specialty Start Date End Date Mel Osei MD PCP - General Internal Medicine 02/07/20 Tabitha Liu CGC [facility] [place] [place] [address] Genetics 06/22/23
--- OUTSIDE RECORDS SUMMARY | 2024-08-08 14:18 | XMS_ITS | Encounter Summary ---
Author Organization [facility] Healthcare Address [address] [place] [address] Care Team Providers Care Light Bulb Replacer Name Role Phone Mel Osei MD Primary Care Provider [phone] Encounter Details Date Type Department Care Team (Latest Contact Info) Description 06/17/2023 4:00 PM COAT FITTER - 06/17/2023 11:59 PM COAT FITTER Hospital Encounter [facility] [address] [place] [address] Screening for malignant neoplasm of the cervix Discharge Disposition: Discharge to home or self care Social History Tobacco Use Types Packs/Day Years [...] on file Legal Sex Female 12:30 PM COAT FITTER Gender Identity Not on file Sexual Orientation Not on file Occupation Industry Job Start Date Job End Date [employer] Title Not on file Not on file Not on file documented as of this encounter Medications at Time of Discharge acetaminophen (TYLENOL) 500 mg tabletIndications :Menstrual cramps,Muscle tension headache Take 1 tablet (500 mg total) by mouth 3 (three) times a day as needed for pain (Immediate release Tylenol be used with the extra-strength ER Tylenol 500 mg) 100 tablet 11 03/08/2023 acetaminophen ER (TYLENOL) 650 mg 8 hr tabletIndications :Menstrual cramps,Muscle tension headache Take 1 tablet (650 mg total) by mouth every 8 (eight) hours as needed for pain 30 tablet 11 03/08/2023 adapalene (DIFFERIN) 0.1 % creamIndications: Acne vulgaris Apply topically at bedtime. 45 g 5 02/13/2022 famotidine (PEPCID) 20 mg tabletIndications :gastroesophageal reflux disease Take 1 tablet (20 mg total) by mouth 2 (two) times a day 180 tablet 1 03/08/[address] (PROTONIX) 40 mg EC tabletIndications :Gastroesophageal reflux disease with esophagitis without hemorrhage Take 1 tablet (40 mg total) by mouth daily before breakfast 30 tablet 3 03/08/2023 4 tirzepatide (MOUNJARO) 2.5 mg/0.5 mL pen injectorIndicatio ns:Obesity (BMI 30-39.9) Inject 2.5 mg under the skin once a week 2 mL 03/08/2023 4 documented as of this encounter Discharge Disposition Disposition Code Departure Means Destination Discharge to home or self care documented in this encounter Plan of Treatment Not on file documented as of this encounter Procedures Procedure Name Priority Date/Time Associated Diagnosis Comments THINPREP PROCESSING (MOLECULAR COMPONENT) Routine 06/18/2023 4:00 PM COAT FITTER Screening for malignant neoplasm of the cervix PAP WITH REFLEX TO HIGH RISK HPV Routine 06/17/2023 11:23 AM COAT FITTER Screening for malignant neoplasm of the cervix documented in this encounter Results * ThinPrep processing (Molecular component) (06/18/2023 4:00 PM COAT FITTER) ThinPrep processing (Molecular component) Specimen received for processing. BHUPENDRA SANCHEZ Comment:Testing performed by : [facility], [address] [facility], [place]., [address] Endocervical 06/18/2023 4:00 PM COAT FITTER 06/21/2023 12:34 PM COAT FITTER Ness Fried MD LAB BODY FLUIDS AND S TOOLS ORDERABLES Final Result BHUPENDRA [facility] Department [place] [address] * Pap with reflex to High Risk HPV and Genotyping (Cytology Component) (06/17/2023 11:23 AM COAT FITTER) Thin prep (Pap test) 06/17/2023 11:23 AM COAT FITTER 06/18/2023 11:23 AM COAT FITTER Narrative PATHOLOGY CH - 06/22/2023 2:49 PM COAT FITTER [facility] Department of Pathology [address] [place] [id number] Final Report Note to Patients: This [...] the details. Patient Name: ??JEAN ARTHUR Address: ??[address] [place] [address], ?? [place], [place] ??[address] Gender: ??F : ??2000 (Age: 23) Service: ?? Location: ?? Hospital #: ??[id number] Patient Type: ?? SPECIMEN Taken: ??06/17/2023 Received: ??06/18/2023 Accessioned:: ??06/21/2023 Reported: ??06/22/2023 Physician(s): MD Ness Blue MD Diagnosis: SOURCE OF SPECIMEN ? Imaged Thinprep Pap Test w/ Reflex HPV - Youth Minister Cytologic Material: STATEMENT OF ADEQUACY ?- Specimen satisfactory for interpretation; endocervical/transformation zone component absent or ?insufficient ? GENERAL CATEGORIZATION: ?- Negative for intraepithelial lesion or malignancy ? FELIPE Alonso(ASCP) Report Electronically Reviewed and Signed Out By ??FELIPE Alonso(ASCP) ??06/22/2023 14:49:15Specimen(s) Received: A: Imaged Thinprep Pap Test w/ Reflex HPV - Youth Minister Cytologic Material Clinical History: Last Menstrual Period: [...] determined by the Surgical Pathology Department at [facility] as part of an ongoing senior quality assurance specialist program and in compliance with federally [...] characteristics determined by the Surgical Pathology Department [facility]. ??It has not been cleared or approved by the U. S. Food and Drug Administration. Ness Fried MD LAB CYTOLOGY ORDERABL ES Final Result PATHOLOGY [address] [place] [address] documented in this encounter Visit Diagnoses Diagnosis Screening for malignant neoplasm of the cervix documented in this encounter Care Teams Light Bulb Replacer Relationship Specialty Start Date End Date Mel Osei MD PCP - General Internal Medicine 02/07/20 documented as of this encounter
--- OUTSIDE RECORDS SUMMARY | 2024-08-08 14:19 | XMS_ITS | Encounter Summary ---
Author Organization [facility] Address [address] [place] [address] Care Team Providers Care Heating Worker Name Role Phone Mel Osei MD Primary Care Provider +1- [phone] Reason for Referral * Procedure (Routine) - Closed Specialty Diagnoses / Procedures Referred By Kj judge Referred To Contact Diagnoses Bilateral impacted cerumen Procedures Ear Cerumen Removal Almaz Saleh NP [address] [place] [address] Phone: tel: fax: [facility] Medical [facility] Referral ID Status Reason Start Date Expiration Date Visits Re quested Visits Authorized [id number] Closed 06/12/2022 07/12/2023 1 1 Reason for Visit * Reason Comments Ear Problem Encounter Details Date Type Department Care Team (Late st Contact Info) Description 06/12/2022 3:30 PM CDT Office Visit [facility] [address] [place] [address] Almaz Saleh NP [address] [place] [address] Bilateral impacted cerumen (Primary Dx) Social History Tobacco Use Types Packs/Day Years Used Date Smoking Tobacco: Never Smokeless Tobacco: Never Tobacco Cessation:Counseling Given: Not Answered Alcohol Use Standard Drinks/Week Comments Not Currently 0 (1 standard drink = 0.6 oz pur e alcohol) PHQ-2 Answer Date Recorded PHQ-2 Total Score (If total score is 3 or more points, staff should administer the PHQ-9) 0 02/13/2022 Comments No Sex and Gender Information Value Date Recorded Sex Assigned at Not on file Legal Sex Female 12:30 PM INSURANCE CLAIMS ADJUSTER Gender Identity Not on file Sexual Orientation Not on file Occupation Industry Job Start Date Job End Date [place] Title Not on file Not on file Not on file documented as of this encounter Last Filed Vital Signs Vital Sign Reading Time Taken Comments Blood Pressure 120/78 06/12/2022 3:26 PM CDT Pulse 71 06/12/2022 3:26 PM CDT Temperature 36.2 ??C (97.1 ??F) 06/12/2022 3:26 PM CD T Respiratory Rate 16 06/12/2022 3:26 PM CDT Oxygen Saturation 99% 06/12/2022 3:26 PM CDT Inhaled Oxygen Concentration - - Weight 102.2 kg (225 lb 3.2 oz) 06/12/2022 3:26 PM CDT Height - - Body Mass Index 36.35 03/26/2022 3:02 PM CDT documented in this encounter Progress Notes * Almaz Saleh, AMBER - 06/12/2022 3:30 PM CDT Images from the original note were not included. Patient ID: Tracey Arthur is a 22 y.o. female. Chief Complaint. Chief Complaint Patient presents with Ear Problem HPI. Patient is a 22 y.o. female HPI Presents with left ear pressure and decreased hearing for 2 days. No drainage or pain. Has had impacted cerumen before. States heartburn symptoms are much better with taking Pantoprazole. 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, 5 mm Chest pain COVID-19 virus detected 08/22/2020 [place] 1999 8-5 product nl Shortness of breath Sick sinus syndrome (CMS/HCC) (HCC) Viral gastroenteritis 2000 Admit Past Surgical History: Procedure Laterality Date BLADDER SURGERY 2006 Recurrent UTI - repair of reflux No Known Allergies Social History Tobacco Use Smoking status: Never Smokeless tobacco: Never Substance and Sexual Activity Drug use: Not Currently Types: Marijuana Sexual activity: Never Partners: Male Alcohol Use: Not on file Family History Problem Relation Age of Onset Breast cancer Mother 37 Cause of , age 44 Allergies Mother Spring and fall Anemia Other Asthma Other Coronary artery disease Other Deafness Other Diabetes Other Hypertension Other Migraines Other Thyroid disease Other Sudden Other NONE Eating disorder Other Arthritis Other Breast cancer Maternal Grandmother Ovarian cancer Mother's Sister Skin cancer Maternal Grandfather Current Medications: Outpatient Encounter Medications as of 06/12/2022 Medication Sig Dispense Refill adapalene (DIFFERIN) 0.1 % cream Apply topically at bedtime. 45 g 5 albuterol HFA (Proventil HFA) 90 mcg/actuation inhaler Inhale 2 puffs every 6 (six) hours as neededfor wheezing or shortness of breath 6.7 g 0 naproxen (Anaprox DS) 550 mg tablet Take 1 tablet (550 mg total) by mouth 2 (two) times a day with meals And Prilosec 20 mg daily during the menstrual cycle 60 tablet 5 naproxen sodium 220 mg capsule Take 2 tablets by mouth 2 (two) times a day as needed (Chest wall pain, menstrual cramps) for up to 10 days (Patient not taking: Reported on 03/26/2022) [address] (PROTONIX) 40 mg EC tablet Take 1 tablet (40 mg total) by mouth 2 (two) times a dnz080 tablet 1 No facility-administered encounter medications on file as of 06/12/2022. Review of Systems Constitutional: Negative for chills, fatigue and fever. HENT: Positive for hearing loss. Negative for congestion, ear discharge, ear pain, rhinorrhea, sinus pain, sneezing and sore throat. Eyes: Negative for visual disturbance. Respiratory: Negative for cough, chest tightness and shortness of breath. Cardiovascular: Negative for chest pain, palpitations and leg swelling. Gastrointestinal: Negative for abdominal pain, constipation, diarrhea, nausea and vomiting. Genitourinary: Negative for difficulty urinating. Musculoskeletal: Negative for arthralgias and myalgias. Skin: Negative for color change. Neurological: Negative for dizziness, weakness and headaches. Psychiatric/Behavioral: Negative for sleep disturbance. BP 120/78 Pulse 71 Temp 36.2 ??C (97.1 ??F) Resp 16 Wt 102.2 kg (225 lb 3.2 oz) SpO2 99% BMI 36.35 kg/m?? Physical Exam Vitals and nursing note reviewed. Constitutional: Appearance: Normal appearance. HENT: Head: Normocephalic and atraumatic. Right Ear: There is impacted cerumen. Left Ear: There is impacted cerumen. Mouth/Throat: Mouth: Mucous membranes are moist. Pharynx: Oropharynx is clear. Eyes: Extraocular Movements: Extraocular movements intact. Pupils: Pupils are equal, round, and reactive to light. Cardiovascular: Rate and Rhythm: Normal rate and regular rhythm. Heart sounds: Normal heart sounds. Pulmonary: Effort: Pulmonary effort is normal. Breath sounds: Normal breath sounds. Musculoskeletal: General: Normal range of motion. Skin: General: Skin is warm and dry. Neurological: General: No focal deficit present. Mental Status: She is alert and oriented to person, place, and time. Psychiatric: Mood and Affect: Mood normal. Behavior: Behavior normal. No visits with results within 6 Month(s) from this visit. Latest known visit with results is: Admission on 04/28/2021, Discharged on 04/28/2021 Component Date Value WBC 04/28/2021 9.2 Hgb 04/28/2021 13.5 Hct 04/28/2021 39.5 Plt 04/28/2021 268 MPV 04/28/2021 10.9 RBC 04/28/2021 4.38 MCV 04/28/2021 90.2 MCH 04/28/2021 30.8 MCHC 04/28/2021 34.2 RDW CV 04/28/2021 12.6 RDW SD 04/28/2021 40.9 NRBC abs 04/28/2021 0.00 Sodium 04/28/2021 136 Potassium, pl 04/28/2021 4.4 Chloride 04/28/2021 105 CO2 04/28/2021 24 Anion gap 04/28/2021 8 BUN 04/28/2021 11 Creatinine 04/28/2021 0.85 Glucose 04/28/2021 95 Calcium 04/28/2021 9.5 Bilirubin, total 04/28/2021 0.3 Protein, pl 04/28/2021 7.9 Albumin 04/28/2021 4.7 Alk phos 04/28/2021 77 ALT 04/28/2021 15 AST 04/28/2021 17 HCG, ur, POC 04/28/2021 Negative Lot Number 04/28/2021 [id number] QC Backgroud Clear 04/28/2021 Acceptable QC Control Line 04/28/2021 Acceptable Neutrophil abs 04/28/2021 6.9 (A) Imm gran abs 04/28/2021 0.0 Lymphocyte abs 04/28/2021 1.7 Monocyte abs 04/28/2021 0.5 Eosinophil abs 04/28/2021 0.1 Basophil abs 04/28/2021 0.0 Neutrophil pct 04/28/2021 74.6 Imm gran pct 04/28/2021 0.3 Lymphocyte pct 04/28/2021 18.3 Monocyte pct 04/28/2021 5.0 Eosinophil pct 04/28/2021 1.4 Basophil pct 04/28/2021 0.4 eGFR 04/28/2021 98 Assessment & Plan: Diagnoses and all orders for this visit: Bilateral impacted cerumen (Primary) Assessment & Plan: Bilateral complete impactions noted. Irrigation of both [...] use. Call with any changes or concerns. Orders: - Ear Cerumen Removal Almaz Saleh NP Cosigned by Mel Osei MD at 06/13/2022 10:36 PM CDT documented in this encounter Miscellaneous Notes * Assessment & Plan Note - Almaz Saleh NP - 06/12/2022 3:48 PM CDT Associated Problem(s): Bilateral impacted cerumen (Resolved 12/30/2023) Bilateral complete impactions noted. Irrigation of both [...] use. Call with any changes or concerns. documented in this encounter Plan of Treatment Not on file documented as of this encounter Procedures Procedure Name Priority Date/Time Associated Diagnosis Comments EAR CERUMEN REMOVAL Routine 06/12/2022 Bilateral impacted cerumen documented in this encounter Results * Ear Cerumen Removal (06/12/2022) Narrative Christina Quintanilla, NEWS DIRECTOR - 06/12/2022 Irrigated both ears Almaz Saleh NP IN CLINIC/BEDSIDE ORDERABLES Fin al Result documented in this encounter Visit Diagnoses Diagnosis Bilateral impacted cerumen- Primary Impacted cerumen documented in this encounter Care Teams Heating Worker Relationship Specialty Start Date End Date Mel Osei MD PCP - General Internal Medicine 02/07/20 documented as of this encounter
--- OUTSIDE RECORDS SUMMARY | 2024-08-08 14:19 | XMS_ITS | Encounter Summary ---
Author Organization [facility] Medical [facility] Address [address] [place] [address] Care Team Providers Care Promotions Executive Producer Name Role Phone Mel Osei MD Primary Care Provider +1- [phone] Encounter Details Date Type Department Care Team (Late st Contact Info) Description 04/28/2021 Telephone [facility] [address] [place] [address] Alicia Dean RN Social History Tobacco Use Types Packs/Day Years Used Date Smoking Tobacco: Never Smokeless Tobacco: Never Alcohol Use Standard Drinks/Week Comments Not Currently 0 (1 standard drink = 0.6 oz pur e alcohol) PHQ-2 Answer Date Recorded PHQ-2 Total Score (If total score is 3 or more points, staff should administer the PHQ-9) 1 02/11/2021 Comments No Sex and Gender Information Value Date Recorded Sex Assigned at Not on file Legal Sex Female 12:30 PM MANAGER GREEN Gender Identity Not on file Sexual Orientation Not on file Occupation Industry Job Start Date Job End Date Not on file Not on file Not on file Not on file documented as of this encounter Miscellaneous Notes * Telephone Encounter - Alicia Dean RN - 04/28/2021 12:43 PM CDT Opened in error. documented in this encounter Plan of Treatment Not on file documented as of this encounter Visit Diagnoses Not on filedocumented in this encounter Care Teams Promotions Executive Producer Relationship Specialty Start Date End Date Mel Osei MD PCP - General Internal Medicine 02/07/20 documented as of this encounter
--- OUTSIDE RECORDS SUMMARY | 2024-08-08 14:19 | XMS_ITS | Encounter Summary ---
Author Organization [facility] Address [address] [place] [address] Phone Care Team Providers Care Structural Steel Worker Helper Name Role Phone Mel Osei MD Primary Care Provider +1- [phone] Encounter Details Date Type Department Care Team (Late st Contact Info) Description 05/12/2023 Telephone [facility] Pediatric Genetics [address] [place] [address] [place] [id number] Kyleigh You MD [address] [place] [address] [address] [place], [place] [id number] Social History Tobacco Use Types Packs/Day Years [...] on file Legal Sex Female 12:30 PM HARD METALS ENGRAVER HAND Gender Identity Not on file Sexual Orientation Not on file Occupation Industry Job Start Date Job End Date [place] Title Not on file Not on file Not on file documented as of this encounter Miscellaneous Notes * Telephone Encounter - Vanessa Elise - 06/14/2023 3:43 PM CST Done METALS ENGRAVER HAND documented in this encounter Plan of Treatment Not on file documented as of this encounter Visit Diagnoses Not on filedocumented in this encounter Care Teams Structural Steel Worker Helper Relationship Specialty Start Date End Date Mle Osei MD PCP - General Internal Medicine 02/07/20 documented as of this encounter
--- OUTSIDE RECORDS SUMMARY | 2024-08-08 14:19 | XMS_ITS | Encounter Summary ---
Author Organization [facility] Address [address] [place] [address] Care Team Providers Care Network Operations Manager Name Role Phone Mel Osei MD Primary Care Provider +1- [phone] Encounter Details Date Type Department Care Team (Late st Contact Info) Description 08/06/2021 Telephone [facility] [address] [place] [address] Mel Osei MD [address] [place] [address] Social History Tobacco Use Types Packs/Day Years [...] on file Legal Sex Female 12:30 PM DELICATESSEN SLICER Gender Identity Not on file Sexual Orientation Not on file Occupation Industry Job Start Date Job End Date Not on file Not on file Not on file Not on file documented as of this encounter Miscellaneous Notes * Telephone Encounter - Shawnee John RN - 08/06/2021 5:08 PM CST Called and informed the pt that she should use otc medication mucinex Hunker mist Robitussin Pt verbalized understanding and will call us back with any further questions or probmes CATESSEN SLICER * Telephone Encounter - Giselle Biggs MA - 08/06/2021 4:03 PM DELICATESSEN SLICER ----- Message from Tracey Arthur sent at 08/06/2021 3:06 PM DELICATESSEN SLICER ----- Regarding: Cold/Sinus Symptoms I???m having cold symptoms. I have a scratchy throat, stuffed up nose and headache. I took a Covid test today that came back negative. I???ve had some problems in the past getting sinus infections a lot, so I was wondering if I could get an antibiotic to help speed up recovery? Thank you. CATESSEN SLICER documented in this encounter Plan of Treatment Not on file documented as of this encounter Visit Diagnoses Not on filedocumented in this encounter Care Teams Network Operations Manager Relationship Specialty Start Date End Date Mel Osei MD PCP - General Internal Medicine 02/07/20 documented as of this encounter
--- OUTSIDE RECORDS SUMMARY | 2024-08-08 14:19 | XMS_ITS | Encounter Summary ---
Author Organization [facility] Address [address] [place] [address] Care Team Providers Care Student Success Coach Name Role Phone Mel Osei MD Primary Care Provider +1- [phone] Encounter Details Date Type Department Care Team (Late st Contact Info) Description 03/03/2021 Telephone [facility] [address] [place] [id number] Mel Osei MD [address] [place], [place] [id number] Social History Tobacco Use Types Packs/Day Years [...] on file Legal Sex Female 12:30 PM ESCALATOR INSTALLER Gender Identity Not on file Sexual Orientation Not on file Occupation Industry Job Start Date Job End Date Not on file Not on file Not on file Not on file documented as of this encounter Miscellaneous Notes * Telephone Encounter - Shawnee John RN - 03/06/2021 3:51 PM CDT Pt will call us back but for now she will be using otc medications * Telephone Encounter - Shawnee John RN - 03/04/2021 1:22 PM CDT na * Telephone Encounter - Shawnee John RN - 03/03/2021 12:38 PM CDT Called and informed pt of the medication that are not covered per the insurance plan She will check with the insurance and call us back * Telephone Encounter - Akshat Grissom - 03/03/2021 11:55 AM CDT Received prior auth on the famotidine and it was denied. The requested medication is not a covered benefit and is excluded from the plan. documented in this encounter Plan of Treatment Not on file documented as of this encounter Visit Diagnoses Not on filedocumented in this encounter Discontinued Medications Medication Sig Discontinue Reason Start Date End Da te pantoprazole DR (PROTONIX) 40 mg EC tablet Take 1 tablet (40 mg total) by mouth daily as needed (1/2 hour before eating food, use While using naproxen) for menstrual cramps Duplicate order 02/11/2021 03/03/2021 famotidine (PEPCID) 40 mg tabletIndications:gastr oesophageal reflux disease Take 1 tablet (40 mg total) by mouth 2 (two) times a day For chronic GERD, not necessary on days you take Protonix Other 02/11/2021 03/03/2021 documented as of this encounter Care Teams Student Success Coach Relationship Specialty Start Date End Date Mel Osei MD PCP - General Internal Medicine 02/07/20 documented as of this encounter
--- OUTSIDE RECORDS SUMMARY | 2024-08-08 14:19 | XMS_ITS | Encounter Summary ---
Author Organization [facility] Medical Group Address [address] [place] [address] Care Team Providers Care Wood Boring Machine Operator Name Role Phone Mel Osei MD Primary Care Provider +1- [phone] Reason for Visit * Reason Onset Date Comments Med Refill 11/24/2022 Encounter Details Date Type Department Care Team (Late st Contact Info) Description 11/24/2022 Telephone [facility] [address] [place] [id number] Mel Osei MD [address] [place] [address] Med Refill Social History Tobacco Use Types Packs/Day Years [...] on file Legal Sex Female 12:30 PM GLASSWARE MAKER Gender Identity Not on file Sexual Orientation Not on file Occupation Industry Job Start Date Job End Date [place] Title Not on file Not on file Not on file documented as of this encounter Ordered Prescriptions Prescription Sig Dispense Quantity Refills Last Filled Start Date End Date pantoprazole DR (PROTONIX) 40 mg EC tablet Take 1 tablet (40 mg total) by mouth 2 (two) times a day 180 tablet 1 11/24/2022 03/08/2023 documented in this encounter Miscellaneous Notes * Telephone Encounter - Giselle Biggs MA - 11/24/2022 10:42 AM CDT Patient is due for refill and I have sent refills to pharmacy.[facility] toilet attendant * Telephone Encounter - Akshat Grissom - 11/24/2022 10:03 AM CDT Patient is needing a refill on pantoprazole 30mg Viola Richardson cbn: [phone] documented in this encounter Plan of Treatment Not on file documented as of this encounter Visit Diagnoses Not on filedocumented in this encounter Discontinued Medications Medication Sig Discontinue Reason Start Date End Da te pantoprazole DR (PROTONIX) 40 mg EC tablet Take 1 tablet (40 mg total) by mouth 2 (two) times a day Reorder 06/01/2022 11/24/2022 documented as of this encounter Care Teams Wood Boring Machine Operator Relationship Specialty Start Date End Date Mel Osei MD PCP - General Internal Medicine 02/07/20 documented as of this encounter
--- OUTSIDE RECORDS SUMMARY | 2024-08-08 14:19 | XMS_ITS | Encounter Summary ---
Author Organization [facility] Address [address] [place] [address] Care Team Providers Care Salesperson Florist Supplies Name Role Phone Mel Osei MD Primary Care Provider [phone] Tabitha Liu CGC Unavailable [phone] Reason for Visit * Reason Comments Annual Exam Encounter Details Date Type Department Care Team (Late st Contact Info) Description 03/08/2023 3:00 PM CDT Office Visit [facility] [address] [place] [id number] Mel Osei MD [address] [place] [place] [address] Annual physical exam (Primary Dx); Obesity (BMI 30-39.9); Gastroesophageal reflux disease with esophagitis without hemorrhage; Menstrual cramps; Muscle tension headache Social History Tobacco Use Types Packs/Day Years [...] on file Legal 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 Gender Identity Not on file Sexual Orientation Not on file Occupation Industry Job Start Date Job End Date Bypro Title Not on file Not on file Not on file documented as of this encounter Last Filed Vital Signs Vital Sign Reading Time Taken Comments Blood Pressure 120/80 03/08/2023 3:02 PM CDT Pulse 52 03/08/2023 3:02 PM CDT Temperature 36.7 ??C (98 ??F) 03/08/2023 3:02 PM CDT Respiratory Rate 16 03/08/2023 3:02 PM CDT Oxygen Saturation 98% 03/08/2023 3:02 PM CDT Inhaled Oxygen Concentration - - Weight 105.7 kg (233 lb) 03/08/2023 3:02 PM CDT Height 168.9 cm (5' 6.5 ) 03/08/2023 3:02 PM CDT Body Mass Index 37.04 03/08/2023 3:02 PM CDT documented in this encounter Patient Instructions * Patient Instructions* Mel Osei MD - 03/08/2023 3:00 PM CDT ORDERS FOR AMS STAFF TO ARRANGE: 1. Chemistry profile, LDL diagnosis = obesity medication monitor --will need this blood test if shedecides to start the Mounjaro = Tirzeptide . Orders successfully placed today: No orders of the defined types were placed in this encounter. RECOMMENDATIONS FOR Tracey Arthur TO CONSIDER: Please Review your AVS for accuracy & contact me if you find need for changes Go to the pharmacy and check if the Mounjaro = Tirzeptide is covered and affordable and let us knowif you are interested in starting the titration protocol to work on weight reduction 3. Medication changes--stop using NSAID medicine, these are the anti- inflammatories that can cause upset stomach and further need for stomach pills. An example is Motrin or ibuprofen or naproxen. If you not sure if it isn't NSAID ask the pharmacist before you Purchase the medicines A better option for daily pain management is Tylenol immediate release 500 mg plus extended [id number] mg, you can safely use this combination up to 3 times daily BRING IN ALL PILL BOTTLES TO EVERY OFFICE VISIT Your medical team needs you to actively participate in your health. Good or bad outcomes count on you participating with your medical team. Medications and supplements alter our body and health in ways that your doctors needs to take into account along with your symptoms and physical findings to better understand and appropriately advise on your current health concerns. It is essential thatyou bring in all pill bottles to every office visit. SIGN UP FOR Youlicit To Sign up for MemberPass on your computer or smart phone. [email or web address] You may do this yourself OR have your POA sign up for you. This account can link to an GWYN on your phone and / or to your personal email and quickly allow youto securely communicate with your healthcare team. If you have trouble with this process call [phone] documented in this encounter Ordered Prescriptions Prescription Sig Dispense Quantity Refills Last Filled Start Date End Date famotidine (PEPCID) 20 mg tabletIndications: gastroesophageal reflux disease Take 1 tablet (20 mg total) by mouth 2 (two) times a day 180 tablet 1 03/08/2023 acetaminophen ER (TYLENOL) 650 mg 8 hr tabletIndications: Menstrual cramps,Muscle tension headache Take 1 tablet (650 mg total) by mouth every 8 (eight) hours as needed for pain 30 tablet 11 03/08/2023 acetaminophen (TYLENOL) 500 mg tabletIndications: Menstrual cramps,Muscle tension headache Take 1 tablet (500 mg total) by mouth 3 (three) times a day as needed for pain (Immediate release Tylenol be used with the extra-strength ER Tylenol 500 mg) 100 tablet 11 03/08/[address] (PROTONIX) 40 mg EC tabletIndications: Gastroesophageal reflux disease with esophagitis without hemorrhage Take 1 tablet (40 mg total) by mouth daily before breakfast 30 tablet 3 03/08/2023 4 tirzepatide (MOUNJARO) 2.5 mg/0.5 mL pen injectorIndication s:Obesity (BMI 30-39.9) Inject 2.5 mg under the skin once a week 2 mL 03/08/2023 4 documented in this encounter Progress Notes * Mel Osei MD - 03/08/2023 3:00 PM CDT Images from the original note were not included. Patient ID: Tracey Arthur is a 22 y.o. female. Tracey Arthur presents for annual wellness examination and follow-up of her acute and chronic medical concerns HPI - DIFFERENTIAL DIAGNOSIS -ASSESSMENT & PLAN Returns today for annual physical examination describing social changes living with her sister and [id number]. Driving all way to [place] 2 hours can you daily. Very little personal time to work on her own care. Meals are prepared by her sister. She is sharing very happy home with her family. She is interested in working on weight reduction interventions. She did sign up for health club bu t has not been attending. Work today on talking through some habit changes and means to establish daily self-care all of which she accepted well Non annual physical related activities from today required an extra 24 minutes of [id number] time Tracey reports feeling well Diagnoses and all orders for this visit: Annual physical exam (Primary) - Comprehensive metabolic panel; Future - Cholesterol, LDL, direct; Future Obesity (BMI 30-39.9) Comments: Lifestyle changes with diet and exercise agreed upon Assessment & Plan: Body weight up another 18 lb this year she does agree to consider Mounjaro = Tirzeptide and will check if covered at pharmacy following up through protocol treatment with lab work to be drawn before starting treatment Orders: - tirzepatide (MOUNJARO) 2.5 mg/0.5 mL pen injector; Inject 2.5 mg under the skin once a week Gastroesophageal reflux disease with esophagitis without hemorrhage Assessment & Plan: Completely symptom-free crit previously on Protonix 40 mg b.i.d.. She is occasionally taking this medication. Advised to stop regular dosing on this medicine switching to Pepcid 20 b.i.d. using Protonix only if symptoms persist and stop all NSAID Orders: - pantoprazole DR (PROTONIX) 40 mg EC tablet; Take 1 tablet (40 mg total) by mouth daily before breakfast - famotidine (PEPCID) 20 mg tablet; Take 1 tablet (20 mg total) by mouth 2 (two) times a day Menstrual cramps Comments: Taking naproxen. Advise to stop and switch over to Tylenol immediate release plus Tylenol ER Orders: - acetaminophen (TYLENOL) 500 mg tablet; Take 1 tablet (500 mg total) by mouth 3 (three) times a day as needed for pain (Immediate release Tylenol be used with the extra-strength ER Tylenol 500 mg) - acetaminophen ER (TYLENOL) 650 mg 8 hr tablet; Take 1 tablet (650 mg total) by mouth every 8 (eight) hours as needed for pain Muscle tension headache Comments: Taking NSAID advise to stop because of GERD. Will use Tylenol Orders: - acetaminophen (TYLENOL) 500 mg tablet; Take 1 tablet (500 mg total) by mouth 3 (three) times a day as needed for pain (Immediate release Tylenol be used with the extra-strength ER Tylenol 500 mg) - acetaminophen ER (TYLENOL) 650 mg 8 hr tablet; Take 1 tablet (650 mg total) by mouth every 8 (eight) hours as needed for pain The non- annual associated medical care required and additional 32 minutes. Diagnoses and all orders for this visit: Annual physical exam (Primary) - Comprehensive metabolic panel; Future - Cholesterol, LDL, direct; Future Obesity (BMI 30-39.9) Comments: Lifestyle changes with diet and exercise agreed upon Assessment & Plan: Body weight up another 18 lb this year she does agree to consider Mounjaro = Tirzeptide and will check if covered at pharmacy following up through protocol treatment with lab work to be drawn before starting treatment Orders: - tirzepatide (MOUNJARO) 2.5 mg/0.5 mL pen injector; Inject 2.5 mg under the skin once a week Gastroesophageal reflux disease with esophagitis without hemorrhage Assessment & Plan: Completely symptom-free crit previously on Protonix 40 mg b.i.d.. She is occasionally taking this medication. Advised to stop regular dosing on this medicine switching to Pepcid 20 b.i.d. using Protonix only if symptoms persist and stop all NSAID Orders: - pantoprazole DR (PROTONIX) 40 mg EC tablet; Take 1 tablet (40 mg total) by mouth daily before breakfast - famotidine (PEPCID) 20 mg tablet; Take 1 tablet (20 mg total) by mouth 2 (two) times a day Menstrual cramps Comments: Taking naproxen. Advise to stop and switch over to Tylenol immediate release plus Tylenol ER Orders: - acetaminophen (TYLENOL) 500 mg tablet; Take 1 tablet (500 mg total) by mouth 3 (three) times a day as needed for pain (Immediate release Tylenol be used with the extra-strength ER Tylenol 500 mg) - acetaminophen ER (TYLENOL) 650 mg 8 hr tablet; Take 1 tablet (650 mg total) by mouth every 8 (eight) hours as needed for pain Muscle tension headache Comments: Taking NSAID advise to stop because of GERD. Will use Tylenol Orders: - acetaminophen (TYLENOL) 500 mg tablet; Take 1 tablet (500 mg total) by mouth 3 (three) times a day as needed for pain (Immediate release Tylenol be used with the extra-strength ER Tylenol 500 mg) - acetaminophen ER (TYLENOL) 650 mg 8 hr tablet; Take 1 tablet (650 mg total) by mouth every 8 (eight) hours as needed for pain MEDICATIONS Current Outpatient Medications Medication adapalene (DIFFERIN) 0.1 % cream acetaminophen (TYLENOL) 500 mg tablet acetaminophen ER (TYLENOL) 650 mg 8 hr tablet famotidine (PEPCID) [address] (PROTONIX) 40 mg EC tablet tirzepatide (MOUNJARO) 2.5 mg/0.5 mL pen injector No current facility-administered medications for this visit. MEDICATIONS DISCONTINUED YOUR SUSPENDED Medications Discontinued During This Encounter Medication Reason albuterol HFA (Proventil HFA) 90 mcg/actuation inhaler Therapy completed naproxen sodium 220 mg capsule Therapy completed naproxen (Anaprox DS) [address] (PROTONIX) 40 mg EC tablet Reorder REVIEW OF SYSTEMS Review of Systems Constitutional: Positive for unexpected weight change. Negative for activity change, appetite change, fatigue and fever. HENT: Negative for congestion, dental problem, hearing loss, postnasal drip, sinus pressure, sore throat and trouble swallowing. Eyes: Negative for pain, discharge, itching and visual disturbance. Respiratory: Negative for cough, chest tightness, shortness of breath and wheezing. Cardiovascular: Negative for chest pain and palpitations. Gastrointestinal: Negative for abdominal distention, abdominal pain, anal bleeding, blood in stool,constipation, diarrhea, nausea, rectal pain and vomiting. Endocrine: Negative for cold intolerance, heat intolerance and polyuria. Genitourinary: Negative for difficulty urinating, dysuria, flank pain, frequency, hematuria, menstrual problem, pelvic pain and vaginal discharge. Musculoskeletal: Positive for arthralgias (Occasional pain at a right leg contusion area that she had about 9 months ago). Negative for gait problem, joint swelling and myalgias. Skin: Negative for color change and rash. Neurological: Negative for dizziness, weakness and headaches. Hematological: Negative for adenopathy. Does not bruise/bleed easily. Psychiatric/Behavioral: Negative for behavioral problems, dysphoric mood and sleep disturbance. Thepatient is not nervous/anxious. VITAL SIGNS BP 120/80 (BP Location: Left arm, Patient Position: Sitting) Pulse 52 Temp 36.7 ??C (98 ??F) (Temporal) Resp 16 Ht 168.9 cm (5' 6.5 ) Wt 105.7 kg (233 lb) SpO2 98% BMI 37.04 kg/m?? Bodymass index is 37.04 kg/m??. Wt Readings from Last 3 Encounters: 03/08/23 105.7 kg (233 lb) 06/12/22 102.2 kg (225 lb 3.2 oz) 06/01/22 105.3 kg (232 lb 3.2 oz) PHYSICAL EXAMINATION Physical Exam Vitals and nursing note reviewed. Constitutional: General: She is not in acute distress. Appearance: Normal appearance. She is well-developed. She is obese. She is not ill-appearing. Comments: Diffusely distributed obesity with body weight increase another 18 lb over the past year HENT: Head: Normocephalic and atraumatic. Right Ear: Tympanic membrane and external ear normal. Left Ear: Tympanic membrane and external ear normal. Nose: Nose normal. No congestion or rhinorrhea. Mouth/Throat: Mouth: Mucous membranes are moist. Pharynx: Oropharynx is clear. No oropharyngeal exudate or posterior oropharyngeal erythema. Eyes: General: No scleral icterus. Extraocular Movements: Extraocular movements intact. Conjunctiva/sclera: Conjunctivae normal. Pupils: Pupils are equal, round, and reactive to light. Neck: Thyroid: No thyromegaly. Cardiovascular: Rate and Rhythm: Normal rate and regular rhythm. Pulses: Normal pulses. Heart sounds: Normal heart sounds. No murmur heard. No gallop. Pulmonary: Effort: Pulmonary effort is normal. Breath sounds: Normal breath sounds. No wheezing, rhonchi or rales. Abdominal: General: Bowel sounds are normal. There is no distension. Palpations: Abdomen is soft. There is no mass. Tenderness: There is no abdominal tenderness. There is no guarding or rebound. Hernia: No hernia is present. Comments: Obese abdomen Genitourinary: Comments: Genitourinary examination excluded Musculoskeletal: General: No swelling, tenderness, deformity or signs of injury. Normal range of motion. Cervical back: Neck supple. Right lower leg: No edema. Left lower leg: No edema. Lymphadenopathy: Cervical: No cervical adenopathy. Skin: General: Skin is warm and dry. Coloration: Skin is not jaundiced. Findings: Lesion (mild acne rash left cheek greater than) present. No bruising, erythema or rash. Neurological: General: No focal deficit present. Mental Status: She is alert and oriented to person, place, and time. Mental status is at baseline. Cranial Nerves: No cranial nerve deficit. Sensory: No sensory deficit. Motor: No weakness or abnormal muscle tone. Coordination: Coordination normal. Gait: Gait normal. Deep Tendon Reflexes: Reflexes are normal and symmetric. Reflexes normal. Psychiatric: Mood and Affect: Mood normal. Behavior: Behavior normal. Thought Content: Thought content normal. Judgment: Judgment normal. MOST RECENT LABS No visits with results within 3 Month(s) [...] Line 04/28/2021 Acceptable Neutrophil abs 04/28/2021 6.9 (H) Imm gran abs 04/28/2021 0.0 Lymphocyte abs 04/28/2021 1.7 Monocyte abs 04/28/2021 0.5 Eosinophil abs 04/28/2021 0.1 Basophil abs 04/28/2021 0.0 Neutrophil pct 04/28/2021 74.6 Imm gran pct 04/28/2021 0.3 Lymphocyte pct 04/28/2021 18.3 Monocyte pct 04/28/2021 5.0 Eosinophil pct 04/28/2021 1.4 Basophil pct 04/28/2021 0.4 eGFR 04/28/2021 98 ORDERS : Patient specific recommendations can be found on the AVS Orders Placed This Encounter Procedures Comprehensive metabolic panel Cholesterol, LDL, direct Return in about 6 months (around 09/08/2023) for Follow-up on the obesity and GERD med changes. Tracey Arthur personal health goals were negotiated and agreed upon today. Assessment and plan for new and ongoing medical problems were reviewed and agreed upon. Risk, benefit and side effects of medications were reviewed and sent eRx to the patient's requested pharmacies. The current lab work was reviewed. Clinically appropriate new Lab orders, referrals, and care team communication were reviewed with Tracey Arthur and completed. The discussion is summarized in this Assessment and Plan shared with her and is available on the AVS . The annual examination: specifics of the testing and counseling are recorded on the scanned Comprehensive Yearly Physical Exam Worksheet. and placed with today's orders. Mel Osei MD documented in this encounter Miscellaneous Notes * Assessment & Plan Note - Mel Osei MD - 03/08/2023 4:29 PM CDT Associated Problem(s): Gastroesophageal reflux disease with esophagitis without hemorrhage Completely symptom-free crit previously on Protonix 40 mg b.i.d.. She is occasionally taking this medication. Advised to stop regular dosing on this medicine switching to Pepcid 20 b.i.d. using Protonix only if symptoms persist and stop all NSAID * Assessment & Plan Note - Mel Osei MD - 03/08/2023 4:29 PM CDT Associated Problem(s): Obesity (BMI 30-39.9) Body weight up another 18 lb this year she does agree to consider Mounjaro = Tirzeptide and will check if covered at pharmacy following up through protocol treatment with lab work to be drawn before starting treatment * Addendum Note - Yvette Cobb - 03/08/2023 3:00 PM CDTAddended by: YVETTE COBB on: 12/30/2023 09:16 AM Modules accepted: Orders documented in this encounter Plan of Treatment Not on file documented as of this encounter Results * (ABNORMAL) Comprehensive metabolic panel (12/30/2023 9:16 AM CDT) Sodium 140 135 - 145 mmol/L Comment:Testing performed by : [facility], [address] [place] [address], [place]., [address] Potassium, pl 4.4 3.3 - 4.9 mmol/L [facility] Comment:Testing performed by : [address] [address] Chloride 105 97 - 110 mmol/L [facility]ER [facility] Comment:Testing performed by : [address] [address] CO2 23 22 - 32 mmol/L CERNER [facility] Comment:Testing performed by : [address] [address] Anion gap 12 2 - 15 mmol/L [facility] Comment:Testing performed by : [address] [address] BUN 13 6 - 25 mg/dL [facility] Comment:Testing performed by : [address], [address] Creatinine 1.13(H) 0.60 - 1.10 mg/dL [facility] Comment:Testing performed by : [address], [address] Glucose 89 70 - 199 mg/dL [facility] Comment: Interpretive Data Fasting glucose >/= 126 [...] was last revised 2022. Testing performed by: [address] [address] Calcium 9.6 8.5 - 10.3 mg/dL [facility] Comment:Testing performed by : [address] [address] Bilirubin, total 0.4 0.1 - 1.2 mg/dL [facility] Comment:Testing performed by : [address] [address] Protein, pl 6.8 6.5 - 8.5 g/dL [facility] Comment:Testing performed by : [address], [address] Albumin 4.0 3.5 - 5.0 g/dL [facility] Comment:Testing performed by : [facility], [address] [place] [address]., [address] Alk phos 73 40 - 130 Units/L [facility] Comment:Testing performed by : [facility], [address] [place] [address]., [address] ALT 29 7 - 45 Units/L [facility] Comment:Testing performed by : [facility], [address] [place] [address]., [address] AST 38 10 - 45 Units/L [facility] Comment:Testing performed by : [facility], [address] [place] [address]., [address] Blood 12/30/2023 9:16 AM CDT 12/30/2023 2:17 PM CDT us Mel Osei MD LAB BLOOD ORDERABLES Final Result [address] Department [place] [address] * Cholesterol, LDL, direct (12/30/2023 9:16 AM [...] last revised on 2018. Testing performed by: [facility], [address] [place] [address]., [address] Blood 12/30/2023 9:16 AM CDT 12/30/2023 2:17 PM CDT us Mel Osei MD LAB BLOOD ORDERABLES Final Result [facility] [address] Department [place] [address] documented in this encounter Visit Diagnoses Diagnosis Annual physical exam- Primary Routine general medical examination at a health care facility Obesity (BMI 30-39.9) Gastroesophageal reflux disease with esophagitis without hemorrhage Menstrual cramps Dysmenorrhea Muscle tension headache Tension headache documented in this encounter Discontinued Medications Medication Sig Discontinue Reason Start Date End Da te albuterol HFA (Proventil HFA) 90 mcg/actuation inhalerIndications:Shor tness of breath Inhale 2 puffs every 6 (six) hours as needed for wheezing or shortness of breath Therapy completed 08/22/2020 03/08/2023 naproxen sodium 220 mg capsuleIndications:Atyp ical chest pain Take 2 tablets by mouth 2 (two) times a day as needed (Chest wall pain, menstrual cramps) for up to 10 days Therapy completed 11/01/2020 03/08/2023 naproxen (Anaprox DS) 550 mg tabletIndications:Dysme norrhea Take 1 tablet (550 mg total) by mouth 2 (two) times a day with meals And Prilosec 20 mg daily during the menstrual cycle 02/13/2022 03/08/[address] (PROTONIX) 40 mg EC tablet Take 1 tablet (40 mg total) by mouth 2 (two) times a day Reorder 11/24/2022 03/08/2023 documented as of this encounter Care Teams Salesperson Florist Supplies Relationship Specialty Start Date End Date Mel Osei MD PCP - General Internal Medicine 02/07/20 Tabitha Liu CGC [facility] [place] [address] Genetics 06/22/23 documented as of this encounter
--- OUTSIDE RECORDS SUMMARY | 2024-08-08 14:19 | XMS_ITS | Encounter Summary ---
Author Organization [facility] Address [address] [place] [address] Care Team Providers Care Cell Room Supervisor Name Role Phone Mel Osei MD Primary Care Provider [phone] Reason for Visit * Reason Onset Date Comments hurt ankle 09/24/2022 Encounter Details Date Type Department Care Team (Late st Contact Info) Description 09/24/2022 Telephone [facility] [address] [place] [address] Mel Osei MD [address] [place] [address] hurt ankle Social History Tobacco Use Types Packs/Day Years [...] file Legal Sex Female 12:30 PM MANAGER PATIENT Gender Identity Not on file Sexual Orientation Not on file Occupation Industry Job Start Date Job End Date [employer] Title Not on file Not on file Not on file documented as of this encounter Miscellaneous Notes * Telephone Encounter - Karen Son RN - 09/24/2022 3:04 PM MANAGER PATIENT Called patient regarding her foot and ankle. She said a few nights ago she fell onto her leg. Her R calf is bruised and it goes into her foot on the outside and her ankles. She is able to walk on it but feels pressure. Foot and ankle are swollen and her shoe is tight on the top and sides of it. Recommended an appt with BUSINESS ANALYST MANAGER and patient said she is unable to come today. She scheduled tomorrow afternoon with Almaz. Advised her to go to urgent care if needed if symptoms worsen and she voiced understanding. FYI to AMBER Muse GER PATIENT * Telephone Encounter - Akshat Grissom - 09/24/2022 1:24 PM CST Patient calling she hurt right ankle and foot. She wanted to know if it is serious enough to come in she has never had this before and wanted to ask some questions about it. Cbn: [phone] GER PATIENT documented in this encounter Plan of Treatment Not on file documented as of this encounter Visit Diagnoses Not on filedocumented in this encounter Care Teams Cell Room Supervisor Relationship Specialty Start Date End Date Mel Osei MD PCP - General Internal Medicine 02/07/20 documented as of this encounter
--- OUTSIDE RECORDS SUMMARY | 2024-08-08 14:19 | XMS_ITS | Encounter Summary ---
Author Organization [facility] Address [address] [place] [address] Phone Care Team Providers Care Consulting Analyst Name Role Phone Mel Osei MD Primary Care Provider [phone]- [phone] Reason for Visit * Consultation (Routine) - Closed Specialty Diagnoses / Procedures Referred By Contact Referred To Contact Genetics / Pediatric Genetics Diagnoses Family history of breast cancer Family history of ovarian cancer Ness Fried MD [address] [place] [address] Phone: tel: fax: [facility] (All Locations) Referral ID Status Reason Start Date Expiration Date V isits Requested Visits Authorized [id number] Closed Specialty Services Required 10/30/2022 11/29/2023 1 1 Encounter Details Date Type Department Care Team (Latest Contact Info) Description 04/15/2023 10:00 AM CDT Telemedicine [facility] Pediatric Genetics [address] [facility] 2nd [place] [address] [place] [id number] Encounter for nonprocreative genetic counseling (Primary Dx); Family history of breast cancer; Family history of ovarian cancer Social History Tobacco Use Types Packs/Day Years [...] on file 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 A blood sample will need to be submitted for this test. The lab will contact Tracey to coordinate mobile phlebotomy services.This service is provided by the lab at no extra cost to the patient. [facility] CancerNext panel with RNA insight . Results are expected in about 3-4 weeks. We will notify Tracey when her results are available to be reviewed. Tracey can contact me by responding to this message or calling me at [phone]. Alternatively, she can also contact our department by calling [phone]. RegardsTabitha MS, [place] Certified Genetic Counselor [facility] documented in this encounter Progress Notes * Tabitha Liu CGC - 04/15/2023 10:00 AM CDT This was a telemedicine visit with Tracey bower which took place via Real-time video connection (3Scanuch, Zoom or similar). During the visit, [place] was located at home and the patient was locatedat home in the state of [place]. The patient visit started at 9.40 am and ended at 10.45 am. The patient: has been informed that the visit may not be secure and acknowledged the information. The option of participating in a telephone or video visit during the COVID-19 public health emergencywas explained to them. After being given an opportunity to ask questions about and discuss this type of visit, they verbally consented to proceeding with the telephone/video visit and understand thatthis service replaces an office visit. Tabitha Liu, [place] Tracey Arthur is a 22 y.o. year old female who was seen for genetic counseling at on 04/15/2023. Herreferral was initiated by Dr. Mel Osei. Tracey is currently being seen for family history ofcancer Tracey indicated that she has not had a history of cancer. She has never smoked. She denies exposure to alcohol, chemicals, illicit drugs, medications, or tobacco. Medical History Tracey has not had any prior biopsies or excisions. She did not report any major medical concerns. She has GERD and takes medication for the same. Her past surgical history includes a bladder surgery. Her past surgical history includes oral surgery for wisdom teeth removal. Self breast exams: Not regularly Clinical breast exams: Annually (last: March,) Mammograms: Not initiated PAP smear: Every 3 years (last: 2019) Transvaginal ultrasound: Never Colonoscopy: Not initiated Dermatology evaluations: Annually (last: 2021) Tracey is a woman who started menstruating at the age of 10-11. Tracey did not use oral contraceptive pills. She is premenopausal. She retains her uterus and ovaries. Previous Tests Tracey has not had any previous genetic testing. Family History: The following family history information was provided by Tracey. A detailed family history can be obtained by reviewing the pedigree scanned into the patient's chart. Sibling History: Tracey has one sister. She is 25 years old and healthy. She has reportedly had negative genetic testing. Maternal History: Tracey's maternal history is significant. Her mother at 44 years of age formcancer. She was diagnosed with breast cancer in her late 30s. Tracey had one maternal uncle and three maternal aunts. One of these aunts was diagnosed with ovarian cancer in her late 30s-early 40s. They are all in their 50s now. There are no other known diagnoses of cancer. Tracey's maternal grandmother is in her late 70s. She was diagnosed with breast cancer in their 40s. Tracey's maternal grandfather from cancer. He had agent orange exposure when he was younger. Maternal Ethnicity: [place] Paternal History: Tracey's paternal family history is not significant. Her father is in his late 50s. He is healthy. He has had basal or squamous cell carcinomas excised in the past. Tracey has two paternal uncles. They are in their 60s and healthy. They have not had a diagnosis ofcancer. Tracey's paternal grandparents are . They did not have a diagnosis of cancer. Paternal Ethnicity: [place] There are no other known diagnoses of cancer reported at the time of the visit. There is no known Ashkenazi Sabianism Ancestry or consanguinity in the family. Genetic Counseling In a genetic counseling session with Tracey, we discussed her family history of cancer. Based on this history, a hereditary predisposition to cancer is possible. During the session we discussed the general classifications of the development of cancer, the details of Hereditary Breast and Ovarian Cancer Syndrome, Naidu Syndrome, and Li-Fraumeni Syndrome , the likelihood of a mutation in the family, and the available testing options. Classifications of the Occurrence of Cancer According to the [place] [employer], an estimated 1 out of 3 people will develop cancer at some point in their lives. Sporadic cancers are those that occur by chance, especially as individuals get older. Families with a sporadic occurrence of cancer will likely have family members with different types of cancer, later ages of onset, and no clear pattern of how the cancer susceptibility has been passed down in the family. The familial occurrence of cancer represents about 10-30% of cancer cases and is characterized by two or more affected individuals of either first- or second- degree relation and later ages of onset. The familial classification is sometimes referred to as ???cancer clustering?? . It appears as an unclear pattern of inheritance that may be due to chance alone, environmental factors, genetic factors, or a combination of these factors. There may be genetic factors contributing to an increased risk for cancer, but there is not one responsible gene which can be tested. Lastly, the hereditary classification occurs in approximately 5-10% of the occurrences of cancer. Characteristics of this classification include two or more affected family members, early ages of onset, individuals with multiple primary tumors, and the occurrence of the same type of cancer or cancers that are known to be related to the same gene. In hereditary cancer syndromes, there is a single gene that is not functioning properly and causes an increased risk for cancer within the family. Hereditary Breast and Ovarian Cancer (HBOC) Syndrome Approximately 65% of hereditary breast cancer and 90% of hereditary ovarian cancer are caused by changes in the BRCA1 gene or the BRCA2 gene that cause the gene to not function properly. BRCA1 and BRCA2 are called tumor suppressor genes because their job within the body is to prevent tumors from developing. Therefore, if an individual inherits a non-working copy of BRCA1 or BRCA2, they have an increased risk to develop cancer. Women who inherit a non-working copy of BRCA1 or BRCA2 have up to an87% risk to develop breast cancer. As for the lifetime risk for ovarian cancer, women inheriting a BRCA1 mutation have up to a 44% risk and women inheriting a BRCA2 mutation have up to a 27% risk. Mutations in BRCA1 and BRCA2 are also associated with slightly higher risks for prostate cancer, male breast cancer, pancreatic cancer, and melanoma. Mutations in BRCA1 and BRCA2 are inherited in an autosomal dominant manner. This means that an individual who carries a BRCA1 or BRCA2 mutation has a 50% chance to pass it to each of their children. This is regardless of whether the child is a male or female. An individual that inherits the mutation will have the associated risks to develop cancer. This individual inherits the predisposition to cancer, not the cancer itself. In a family with an identified mutation, an individual who is found tohave not inherited the predisposition has the same cancer risk as the general population. We emphasized that while these genes are associated with a hereditary predisposition to breast and ovarian cancer, there are most likely other associated genes that have not yet been discovered. Naidu Syndrome (Hereditary Non-Polyposis Colorectal Cancer (HNPCC)) The most common hereditary colorectal cancer syndrome is Naidu syndrome, also known as Hereditary Non-Polyposis Colorectal Cancer (HNPCC). Naidu syndrome is associated with an increased risk for the development of colorectal cancer and associated cancers including endometrial and ovarian cancer. Individuals with Naidu syndrome develop polyps at a rate similar to that of the general population, although cancer progression is more rapid. In individuals with Naidu syndrome, the lifetime risk to develop colorectal cancer is about 80%, and the lifetime risk for women to develop endometrial and ovarian cancer is about 40- 60% and 9-12%, respectively. The colorectal cancer more frequently occurs inthe right-sided colon and affected individuals may have more than one primary tumor. In families with Naidu syndrome, cancers and polyps typically occur at an earlier age than in the general population and multiple generations are often affected with the same or related cancers. Patients with Lynchsyndrome are also at an increased risk to develop cancer of the stomach, small bowel, urinary tract, biliary tract/gall bladder, central nervous system, and kidney, although these cancers are less common. Naidu syndrome is inherited in an autosomal dominant fashion. This means that each child of an affected person has a 50% risk to have inherited the cancer susceptibility, and that males and females are equally likely to have the gene or to pass it on. When a mutation is identified in a family, those individuals who inherit the mutation are at an increased risk to develop cancer. Those individualswho do not inherit the mutation have the same chance of developing cancer as those in the general population. Naidu syndrome is caused by mutations in various mismatch repair genes such as MLH1, MSH2, MSH6, PMS2, and EPCAM. These mismatch repair genes are responsible for identifying and repairing alterationsthat may occur in the genetic code as cells grow and divide. Defects in the genes involved with mismatch repair lead to an accumulation of mutations in a cell, which may result in the cell becoming malignant. We mentioned that genetic testing for mutations in these genes is available. Mutations in the mismatch repair genes are identified in up to 50-80% of families who meet the clinical criteria for Naidu syndrome. These criteria include: Three or more relatives with histologically verified colorectal cancer, one of whom is a first-degree relative of the other two (FAP should be excluded) Colorectal cancer involving at least two generations One or more colorectal cancer cases diagnosed before the age of 50 Li-Fraumeni syndrome Li-Fraumeni syndrome is a rare disorder that greatly increases the risk of developing several typesof cancer, particularly in children and young adults. The cancers most often associated with Li-Fraumeni syndrome include breast cancers, osteosarcoma, and soft tissue sarcomas. Other cancers commonly seen in this syndrome include brain tumors, leukemias, and adrenocortical carcinoma. Several other types of cancer also occur more frequently in people with Li- Fraumeni syndrome. The National Comprehensive Cancer Network has published guidelines for the screening and management of individuals with Li-Fraumeni syndrome. In addition, clinical criteria exist to establish a diagnosis in individuals suspected to have this condition in themselves and/or their family. Li-Fraumeni syndrome is inherited in an autosomal dominant manner. The proportion of individuals with a new mutation (also known as a de pearl mutation) in the TP53 gene is estimated to be between 7% and 20%. Offspring of an individual with a TP53 mutation have a 50% chance of inheriting the mutation in the family. Risk Assessment Tracey is healthy 22 year old woman who has never had a diagnosis of cancer. Her mother was diagnosed with breast cancer in her late 30s. A maternal aunt was diagnosed with ovarian cancer in her [id number] 40s. Tracey's maternal grandmother was diagnosed with breast cancer in her 30s-40s. We discussed that based on the history provided, a hereditary predisposition to cancer seems likely and cannot be ruled out without molecular analysis. Tracey was interested in pursuing genetic testing andwe discussed testing options. Testing Options We discussed the option of genetic testing for mutations in BRCA 1/2. Genetic testing for mutationsin these genes is performed using sequence analysis to determine if there are any gene changes, or mutations. It also involves rearrangement testing, often referred to as RICA or deletion/duplicationtesting. This testing can be performed on a blood or buccal wash sample. Depending on the laboratory used, the results are typically available in 2 to 3 weeks. We also discussed the availability of multi-gene panels aimed at identifying risk factors for cancer. These panels have newly been developed and use next generation sequence analysis to analyze multiple genes at one time. In addition, there are many genes included referred to as low penetrance genes that are thought to cause subtle increases in the risks for cancer. While a panel looks at many different risk factors for cancer, limited information is available regarding the cancer risks associated with mutations in some of the included genes. In addition, clinical management guidelines for women found to have a mutation in some of the included genes have not yet been established. The results are typically available in 3 to 4 weeks. A new test has recently become available which tests RNA in parallel to our DNA. Such testing is thought to be 'more complete'. The lab that offers this testclaims that the test can identify clinically significant variants in some of the genes which would have been missed previously. The rationale, benefits, and limitations of genetic testing were discussed with Tracey. She was informed of the potential results of this testing including a positive result where a mutation was identified, a negative result where no mutation was identified, and the identification of a variant of uncertain clinical significance, in which case a gene change was detected but the impact of that particular change has not yet been determined. Tracey was counseled that while mutations in either of these genes have been associated with an increased risk for cancer, no definitive test exist which rules out all cases of hereditary cancer. Furthermore, a positive mutation analysis does not provide complete certainty that one will develop cancer. We discussed how the identification of a mutation may be useful to other family members. If a family member is found to have a mutation, targeted mutation analysis can be performed in other at-risk family members to determine if they too have the gene change identified in the family. If a gene change is identified, pursuing testing in other individuals would identify which side of the family and which family members have an increased risk for the associated types of cancer. In a family with an identified mutation, family members who are found to not have the gene change have a risk for cancersimilar to the general population. Genetic Discrimination The Genetic Information Nondiscrimination Act (LEV) was signed into federal law in 2007. LEV prohibits health insurers and most employers from discriminating against individuals based on genetic information (including the results of genetic tests and family history information). According to LEV, health insurance companies cannot consider genetic information to be a preexisting condition, nor can they use it to make decisions regarding coverage or rates. LEV also makes it illegal for most employers to use genetic information in making decisions about hiring, firing, promotion, or terms ofemployment. It is important to note that LEV does not offer protections for life insurance, disability insurance, or long-term care insurance. More information about LEV can be found by contacting a local genetic counselor or by visiting [email or web address]. Plan At the time of the appointment, Tracey elected to pursue genetic testing. A blood sample will need to be submitted for this test. The lab will contact Tracey to coordinate mobile phlebotomy services.This service is provided by the lab at no extra cost to the patient. [place] insurance informationwas provided to [facility] for analysis of their CancerNext panel with RNA insight . Results are expected in about 3-4 weeks. We will notify Tracey when her results are available to be reviewed. Closing Thank you for allowing us to participate in Tracey's care. Do not hesitate to contact us at if you have further questions. Tabitha Liu MS, [place] Certified Genetic Counselor [facility] documented in this encounter Plan of Treatment Not on file documented as of this encounter Visit Diagnoses Diagnosis Encounter for nonprocreative genetic counseling- Primary Family history of breast cancer Family history of malignant neoplasm of breast Family history of ovarian cancer Family history of malignant neoplasm of ovary documented in this encounter Orders Outpatient Referral Count Last Ordered Date st Ordered Date AMB REFERRAL TO PEDIATRIC GENETICS 1 2022 documented in this encounter Care Teams Consulting Analyst Relationship Specialty Start Date End Date Mel Osei MD PCP - General Internal Medicine 02/07/20 documented as of this encounter
--- OUTSIDE RECORDS SUMMARY | 2024-08-08 14:19 | XMS_ITS | Encounter Summary ---
Author Organization [facility] Address [address] [place] [address] Care Team Providers Care Reed Cleaner Name Role Phone Mel Osei MD Primary Care Provider [phone]- [phone] Reason for Visit * Reason Onset Date Comments needs acid reflux meds called in 05/29/2022 Encounter Details Date Type Department Care Team (Late st Contact Info) Description 05/29/2022 Telephone [facility] [address] [place] [id number] Mel Osei MD [address] [place] [address] needs acid reflux meds called in Social History Tobacco Use Types Packs/Day Years [...] on file 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 She was unsure the name of any medications mentioned for her stomach. Patient has been taking Pepcid 4 a day and she is asking for a stronger medication. She feels the Pepcid isn't helping her anymore. She wakes up at 2 am with her stomach hurting. Recommended a f/u visit with ANALYTICAL DATA MINER and she agreed. Appt scheduled for next week with AMBER Muse. * Telephone Encounter - Tash Caballero RN - 05/29/2022 11:18 AM CDT Reviewed [facility] note-nothing mentioned about this med. LM for pt to call back, need to know if she knows which med it was? Send to [facility] for order after talking to pt. * Telephone Encounter - Akshat Grissom - 05/29/2022 10:15 AM CDT Patient seen [facility] [place] months ago for her annual and she was suppose to call in some acid refluxmeds for her and they were not called in. [facility] .cbn: [phone] documented in this encounter Plan of Treatment Not on file documented as of this encounter Visit Diagnoses Not on filedocumented in this encounter Care Teams Reed Cleaner Relationship Specialty Start Date End Date Mel Osei MD PCP - General Internal Medicine 02/07/20 documented as of this encounter
--- OUTSIDE RECORDS SUMMARY | 2024-08-08 14:19 | XMS_ITS | Encounter Summary ---
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 Gender Identity Not on file Sexual Orientation Not on file Occupation Industry Job Start Date Job End Date [place] Title Not on file Not on file Not on file documented as of this encounter Miscellaneous Notes * Addendum Note - Marni Harden - 03/27/2022 8:39 AM CDTAddended by: MARNI HARDEN on: 03/27/2022 03:31 PM Modules accepted: Orders documented in this encounter Plan of Treatment Not on file documented as of this encounter Visit Diagnoses Diagnosis Family history of breast cancer Family history of malignant neoplasm of breast Family history of ovarian cancer Family history of malignant neoplasm of ovary documented in this encounter Care Teams Cyber Special Agent Relationship Specialty Start Date End Date Mel Osei MD PCP - General Internal Medicine 02/07/20 documented as of this encounter
--- OUTSIDE RECORDS SUMMARY | 2024-08-08 14:19 | XMS_ITS | Encounter Summary ---
Author Organization [facility] Healthcare Address [address] [place] [id number] Care Team Providers Care Deck Engineer Name Role Phone Mel Osei MD Primary Care Provider [phone]- [phone] Reason for Visit * Reason Comments Abdominal Pain Encounter Details Date Type Department Care Team (Late st Contact Info) Description 04/28/2021 4:14 PM CDT - 04/28/2021 4:53 PM CDT Emergency [facility] Emergency Department [address] [place] [address] Tito Garzon MD [address] [place] [address] Lower abdominal pain, unspecified (Primary Dx) Discharge Disposition: Discharge to home or self [...] on file 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 Gender Identity Not on file Sexual Orientation Not on file Occupation Industry Job Start Date Job End Date Not on file Not on file Not on file Not on file documented as of this encounter Last Filed Vital Signs Vital Sign Reading Time Taken Comments Blood Pressure 135/85 04/28/2021 2:47 PM CDT Pulse 60 04/28/2021 2:47 PM CDT Temperature 36.7 ??C (98 ??F) 04/28/2021 2:47 PM CDT Respiratory Rate 16 04/28/2021 2:47 PM CDT Oxygen Saturation 98% 04/28/2021 2:47 PM CDT Inhaled Oxygen Concentration - - Weight 97.5 kg (215 lb) 04/28/2021 2:47 PM CDT Height 167.6 cm (5' 6 ) 04/28/2021 2:47 PM CDT Body Mass Index 34.7 04/28/2021 2:47 PM CDT documented in this encounter Discharge Diagnoses Diagnosis Lower abdominal pain, unspecified - LOWER ABDOMINAL PAIN, UNSPECIFIED documented in this encounter Discharge Instructions * Attachments The following attachments cannot be sent through Care Everywhere. * Abdominal Pain, Unknown Cause, (Female) (Faroese) documented in this encounter Medications at Time of Discharge adapalene (DIFFERIN) 0.1 % creamIndications :Acne vulgaris Apply topically at bedtime. 45 g 5 02/11/2021 2 albuterol HFA (Proventil HFA) 90 mcg/actuation inhalerIndicatio ns:Shortness of breath Inhale 2 puffs every 6 (six) hours as needed for wheezing or shortness of breath 6.7 g 08/22/2020 3 naproxen (Anaprox DS) 550 mg tabletIndication s:Dysmenorrhea Take 1 tablet (550 mg total) by mouth 2 (two) times a day with meals And Prilosec 20 mg daily during the menstrual cycle 60 tablet 5 02/11/2021 2 naproxen sodium 220 mg capsuleIndicatio ns:Atypical chest pain Take 2 tablets by mouth 2 (two) times a day as needed (Chest wall pain, menstrual cramps) for up to 10 days 60 each 11/01/2020 3 documented as of this encounter Discharge Disposition Disposition Code Departure Means Destination Discharge to home or self care documented in this encounter ED Notes * Tito Garzon MD - 04/28/2021 4:46 PM CDT Chief Complaint Patient presents with ??? Abdominal Pain HPI HPI 04/28/2021 4:46 PM Tracey Arthur is a 20 y.o. female nonsmoker with a h/o anxiety, depression, asthma, and s/p bladder surgery who presents to the ED with intermittent moderate lower abdominal pain since this morning.Pt describes the pain as coming in waves. She states she went to urgent care this morning in which she was recommended to come to the ED. Pt denies nausea, vomiting, diarrhea, constipation, and difficulty urinating. She states she still has some pain but that pain has improved since this morning.There are no exacerbating or alleviating factors. No other complaints at this time. Past Medical History: Diagnosis Date ??? Anxiety and depression 09/13/2020 ??? Asthma 03/09/2013 Alb inhaler ??? 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 Chest pain ??? COVID-19 virus detected 08/22/2020 ??? [place] 1999 8-5 product nl ??? Shortness of breath ??? Sick sinus syndrome (CMS/HCC) (HCC) ??? Viral gastroenteritis 2000 Admit Past Surgical History: Procedure Laterality Date ??? BLADDER SURGERY 2006 Recurrent UTI - repair of reflux Family History Problem Relation Age of Onset ??? Breast cancer Mother 37 Cause of , age 44 ??? Allergies Mother Spring and fall ??? Anemia Other ??? Asthma Other ??? Coronary artery disease Other ??? Deafness Other ??? Diabetes Other ??? Hypertension Other ??? Migraines Other ??? Thyroid disease Other ??? Sudden Other NONE ??? Eating disorder Other ??? Arthritis Other ??? Breast cancer Maternal Grandmother ??? Ovarian cancer Mother's Sister ??? Skin cancer Maternal Grandfather Social History Tobacco Use ??? Smoking status: Never Smoker ??? Smokeless tobacco: Never Used Vaping Use ??? Vaping Use: Former Substance Use Topics ??? Alcohol use: Not Currently ??? Drug use: Yes Types: Marijuana Review of Systems Review of Systems Constitutional: Negative for chills and fever. HENT: Negative for ear pain and sore throat. Eyes: Negative for pain and visual disturbance. Respiratory: Negative for cough and shortness of breath. Cardiovascular: Negative for chest pain and palpitations. Gastrointestinal: Positive for abdominal pain (Lower abdominal pain.). Negative for constipation, diarrhea, nausea and vomiting. Genitourinary: Negative for difficulty urinating, dysuria and hematuria. Musculoskeletal: Negative for arthralgias and back pain. Skin: Negative for color change and rash. Neurological: Negative for seizures and syncope. Psychiatric/Behavioral: Negative for behavioral problems. All other systems reviewed and are negative. Physical Exam ED Triage Vitals [04/28/21 1447] Temp Pulse Resp BP SpO2 36.7 ??C (98 ??F) 60 16 135/85 98 % Temp src Heart Rate Source Patient Position BP Location FiO2 (%) Temporal -- -- -- -- Physical Exam Vitals and nursing note reviewed. Constitutional: General: She is not in acute distress. Appearance: She is well-developed. HENT: Head: Normocephalic and atraumatic. Eyes: Conjunctiva/sclera: Conjunctivae normal. Cardiovascular: Rate and Rhythm: Normal rate and regular rhythm. Heart sounds: Normal heart sounds. No murmur heard. Pulmonary: Effort: Pulmonary effort is normal. No respiratory distress. Breath sounds: Normal breath sounds. Abdominal: General: Bowel sounds are normal. There is no distension. Palpations: Abdomen is soft. Tenderness: There is no abdominal tenderness. There is no guarding or rebound. Comments: Abdomen soft and non-tender. No guarding. No rebound. Musculoskeletal: Cervical back: Neck supple. Skin: General: Skin is warm and dry. Neurological: Mental Status: She is alert and oriented to person, place, and time. Psychiatric: Behavior: Behavior normal. Procedures Labs Reviewed DIFFERENTIAL AUTO - Abnormal Result Value Neutrophil abs 6.9 (*) Imm gran abs 0.0 Lymphocyte abs 1.7 Monocyte abs 0.5 Eosinophil abs 0.1 Basophil abs 0.0 Neutrophil pct 74.6 Imm gran pct 0.3 Lymphocyte pct 18.3 Monocyte pct 5.0 Eosinophil pct 1.4 Basophil pct 0.4 POCT HCG, URINE - Normal HCG, ur, POC Negative Lot Number [id number] QC Backgroud Clear Acceptable QC Control Line Acceptable CBC WITH AUTO DIFFERENTIAL WBC 9.2 Hgb 13.5 Hct 39.5 Plt 268 MPV 10.9 RBC 4.38 MCV 90.2 MCH 30.8 MCHC 34.2 RDW CV 12.6 RDW SD 40.9 NRBC abs 0.00 COMPREHENSIVE METABOLIC PANEL Sodium 136 Potassium, pl 4.4 Chloride 105 CO2 24 Anion gap 8 BUN 11 Creatinine 0.85 Glucose 95 Calcium 9.5 Bilirubin, total 0.3 Protein, pl 7.9 Albumin 4.7 Alk phos 77 ALT 15 AST 17 EGFR eGFR 98 No orders to display BP 135/85 Pulse 60 Temp 36.7 ??C (98 ??F) (Temporal) Resp 16 Ht 167.6 cm (5' 6 ) Wt 97.5 kg (215 lb) LMP 04/01/2021 SpO2 98% BMI 34.70 kg/m?? MDM Final diagnoses: Lower abdominal pain, unspecified This note is prepared by Keerthi Foster, acting as a scribe for Tito Garzon MD. I electronically signed this note at 4:46 PM on 04/28/2021. I, Tito Garzon MD, have personally performed the services described in the documentation, reviewed the documentation, as recorded by the scribe in my presence, and it accurately and completely records my words and actions. Tito Garzon MD 04/28/212042 * Alondra Martin RN - 04/28/2021 2:46 PM CDT Pt presents with complaints of midline, lower abdominal pain that started this morning. Pt denies N/V/D. Pt reports that she had a normal BM this morning. Pt states that the pain has been intermittent and says it came in waves . Pt adds that she was seen at urgent care this morning and has paperwork with UA results. Pt states they said they weren't equipped to handle abdominal pain and I should come to ER . documented in this encounter Plan of Treatment Not on file documented as of this encounter Procedures Procedure Name Priority Date/Time Associated Diagnosis Comments POCT HCG, URINE Routine 04/28/2021 3:29 PM CDT EGFR STAT 04/28/2021 3:15 PM CDT DIFFERENTIAL AUTO STAT 04/28/2021 3:1 5 PM CDT CBC WITH AUTO DIFFERENTIAL STAT 04/28/2021 3:15 PM CDT COMPREHENSIVE METABOLIC PANEL STAT 04/28/2021 3:15 PM CDT documented in this encounter Results * POCT hCG, urine (04/28/2021 3:29 PM CDT) HCG, ur, POC Negative Lot Number [id number] QC Backgroud Clear Acceptable QC Control Line Acceptable Urine 04/28/2021 3:29 PM CDT us Tito Garzon MD POINT OF CARE TEST ISAEL HILARIO Final Result * eGFR (04/28/2021 3:15 PM CDT) eGFR 98 mL/min/1.7 3 m2 [facility] ([place]) Comment: Interpretive Data Reference Interval Normal ?>/= 90 mL/min/1.73m2 Mildly decreased* ? 60 - 89 mL/min/1.73m2 Mildly to moderately decreased ?45 - 59 mL/min/1.73m2 Moderately to severely decreased ??30 - 44 mL/min/1.73m2 Severely decreased ?15 - 29 mL/min/1.73m2 Kidney Failure ?< 15 ??mL/min/1.73m2 *Relative to young adult level Estimated glomerular filtration rate is determined by the CKD-EPI equation recommended by the National Kidney Foundation (KDIGO 2012 Clinical Practice Guideline for the Evaluation and Management of Chronic Kidney Disease. Kidney Intnl Suppl Aug 2012;3:1). The CKD-EPI equation should not be used for patients with unstable renal function and has not been validated in children and those over 70. Current interpretive data was last reviewed 2020 Blood 04/28/2021 3:15 PM CDT 04/28/2021 3:19 PM CDT us Tito Garzon MD LAB BLOOD ORDERABLES Fi nal Result [facility] ([place]) 1 [facility] Department [place] [address] * (ABNORMAL) Differential, auto (04/28/2021 3:15 PM CDT) Neutrophil abs 6.9(H) 1.7 - 6.5 K/cumm [facility] ([place]) Imm gran abs 0.0 0.0 - 0.1 K/cumm [facility] ([place]) Lymphocyte abs 1.7 0.8 - 3.3 K/cumm [facility] ([place]) Monocyte abs 0.5 0.2 - 0.8 K/cumm [facility] ([place]) Eosinophil abs 0.1 0.0 - 0.5 K/cumm [facility] ([place]) Basophil abs 0.0 0.0 - 0.1 K/cumm [facility] ([place]) Neutrophil pct 74.6 % [facility] ([place]) Comment: Interpretive Data Percent cell count reference ranges are not reported, since discordance with absolute values may lead to misinterpretation of CBC data. Current Interpretive Data was last revised on 2017. Imm gran pct 0.3 % [facility] ([place]) Comment: Interpretive Data Percent cell count reference ranges are not reported, since discordance with absolute values may lead to misinterpretation of CBC data. Current Interpretive Data was last revised on 2017. Lymphocyte pct 18.3 % [facility] ([place]) Comment: Interpretive Data Percent cell count reference ranges are not reported, since discordance with absolute values may lead to misinterpretation of CBC data. Current Interpretive Data was last revised on 2017. Monocyte pct 5.0 % [facility] ([place]) Comment: Interpretive Data Percent cell count reference ranges are not reported, since discordance with absolute values may lead to misinterpretation of CBC data. Current Interpretive Data was last revised on 2017. Eosinophil pct 1.4 % [facility] ([place]) Comment: Interpretive Data Percent cell count reference ranges are not reported, since discordance with absolute values may lead to misinterpretation of CBC data. Current Interpretive Data was last revised on 2017. Basophil pct 0.4 % [facility] ([place]) Comment: Interpretive Data Percent cell count reference ranges are not reported, since discordance with absolute values may lead to misinterpretation of CBC data. Current Interpretive Data was last revised on 2017. Blood 04/28/2021 3:15 PM CDT 04/28/2021 3:19 PM CDT us Tito Garzon MD LAB BLOOD ORDERABLES nal Result [facility] ([place]) 1 [facility] Department of Laboratories [place] [id number] * Comprehensive metabolic panel (04/28/2021 3:15 PM CDT) Sodium 136 135 - 145 mmol/L [facility] ([place]) Potassium, pl 4.4 3.3 - 4.9 mmol/L [facility] ([place]) Chloride 105 97 - 110 mmol/L [facility] ([place]) CO2 24 22 - 32 mmol/L [facility]) Anion gap 8 2 - 15 mmol/L [facility] ([place]) BUN 11 8 - 25 mg/dL [facility] ([place]) Creatinine 0.85 0.60 - 1.10 mg/dL [facility] ([place]) Glucose 95 70 - 199 mg/dL [facility] ([place]) Comment: Interpretive Data Fasting glucose >/= 126 [...] classification and Diagnosis of Diabetes Diabetes Care 2017;40 (Suppl. 1):S11. Current interpretive data was last revised 2017. Calcium 9.5 8.5 - 10.3 mg/dL [facility] ([place]) Bilirubin, total 0.3 0.1 - 1.2 mg/dL [facility] ([place]) Protein, pl 7.9 6.5 - 8.5 g/dL [facility] ([place]) Albumin 4.7 3.5 - 5.0 g/dL [facility] ([place]) Alk phos 77 40 - 130 Units/L [facility] ([place]) ALT 15 7 - 45 Units/L [facility] ([place]) AST 17 10 - 45 Units/L [facility] ([place]) Blood 04/28/2021 3:15 PM CDT 04/28/2021 3:19 PM CDT us Tito Garzon MD LAB BLOOD ORDERABLES [facility] Result [facility] ([place]) 1 [facility] Department [place] [address] * CBC with auto differential (04/28/2021 3:15 PM CDT) WBC 9.2 3.8 - 9.9 K/cumm [facility] ([place]) Hgb 13.5 11.9 - 15.5 g/dL [facility] ([place]) Hct 39.5 35.6 - 45.5 % [facility] ([place]) Plt 268 150 - 400 K/cumm [facility] ([place]) MPV 10.9 9.1 - 12.3 fL [facility] ([place]) RBC 4.38 3.90 - 5.20 M/cumm [facility] ([place]) MCV 90.2 81.3 - 96.4 fL [facility] ([place]) MCH 30.8 27.1 - 33.3 pg [facility] ([place]) MCHC 34.2 32.3 - 35.7 g/dL [facility] ([place]) RDW CV 12.6 11.1 - 14.9 % [facility] ([place]) RDW SD 40.9 35.7 - 48.1 fL [facility] ([place]) NRBC abs 0.00 0.00 - 0.01 K/cumm [facility] ([place]) Blood 04/28/2021 3:15 PM CDT 04/28/2021 3:19 PM CDT us Tito Garzon MD LAB BLOOD ORDERABLES Fi nal Result [facility] ([place]) 1 [facility] Department [place] [address] documented in this encounter Visit Diagnoses Diagnosis Lower abdominal pain, unspecified- Primary documented in this encounter Care Teams Deck Engineer Relationship Specialty Start Date End Date Mel Osei MD PCP - General Internal Medicine 02/07/20 documented as of this encounter
--- OUTSIDE RECORDS SUMMARY | 2024-08-08 14:19 | XMS_ITS | Encounter Summary ---
Author Organization [facility] Medical Group Address [address] [place] [address] Care Team Providers Care Automobile Detailer Name Role Phone Mel Osei MD Primary Care Provider +1- [phone] Reason for Visit * Reason Comments Annual Exam Encounter Details Date Type Department Care Team (Late st Contact Info) Description 03/26/2022 3:00 PM CDT Office Visit [facility] [address] [place] [address] Ness Fried MD [address] [place] [address] Encounter for gynecological examination without abnormal finding (Primary Dx); Family history of breast cancer Social History Tobacco Use Types Packs/Day [...] on file 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 Gender Identity Not on file Sexual Orientation Not on file Occupation Industry Job Start Date Job End Date [employer] Title Not on file Not on file Not on file documented as of this encounter Last Filed Vital Signs Vital Sign Reading Time Taken Comments Blood Pressure 128/78 03/26/2022 3:02 PM CDT Pulse - - Temperature - - Respiratory Rate - - Oxygen Saturation - - Inhaled Oxygen Concentration - - Weight 99.2 kg (218 lb 12.8 oz) 03/26/2022 3:02 PM CDT Height 167.6 cm (5' 6 ) 03/26/2022 3:02 PM CDT Body Mass Index 35.32 03/26/2022 3:02 PM CDT documented in this encounter Progress Notes * Ness Fried MD - 03/26/2022 3:00 PM CDT Well Woman Exam Subjective: Tracey Arthur is a 21 y.o. G0 who presents for annual hedis specialist exam. Last Pap 07/12/20 was negative. ?? Cycles are regular, q 35 days. Denies menorrhagia. On heaviest days changes pads x 3-4. Dysmenorrhea is intermittent and relieved with naproxen PRN. Denies pelvic pain outside of menses. Denies sexual activity. She has a family h/o breast and ovarian cancers. Her mother was diagnosed with breast cancer at age37 and passed at age 44. MGM also had breast cancer and maternal aunt with ovarian cancer. She is unsure if any family members had genetic testing done. She received two boxes of mother's medical records but too much for her sort through. Previously discussed option of genetic counseling/testing which she declined at the time. Menstrual History: Patient's last menstrual period was 03/12/2022. Sexual History: OB History 0 Para 0 Term 0 0 AB 0 Living 0 SAB 0 IAB 0 Ectopic 0 Multiple 0 Live Births 0 Past Medical History: Diagnosis Date ??? Anxiety and depression 09/13/2020 ??? Asthma 03/09/2013 Alb inhaler ??? 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 Chest pain ??? COVID-19 virus detected 08/22/2020 ??? [place] 1999 8-5 product nl ??? Shortness of breath ??? Sick sinus syndrome (CMS/HCC) (HCC) ??? Viral gastroenteritis 2000 Admit Current Outpatient Medications: ??? adapalene (DIFFERIN) 0.1 % cream, Apply topically at bedtime., Disp: 45 g, Rfl: 5 ??? albuterol HFA (Proventil HFA) 90 mcg/actuation inhaler, Inhale 2 puffs every 6 (six) hours as needed for wheezing or shortness of breath, Disp: 6.7 g, Rfl: 0 ??? naproxen (Anaprox DS) 550 mg tablet, Take 1 tablet (550 mg total) by mouth 2 (two) times a day with meals And Prilosec 20 mg daily during the menstrual cycle, Disp: 60 tablet, Rfl: 5 ??? naproxen sodium 220 mg capsule, Take 2 tablets by mouth 2 (two) times a day as needed (Chest wall pain, menstrual cramps) for up to 10 days (Patient not taking: Reported on 03/26/2022), Disp: 60 each, Rfl: 0 No Known Allergies Family History [...] Never Smoker ??? Smokeless tobacco: Never Used Substance and Sexual Activity ??? Drug use: Not Currently Types: Marijuana ??? Sexual activity: Never Partners: Male Alcohol Use: [...] discharge. Skin: Negative for rash. Objective: BP 128/78 Ht 167.6 cm (5' 6 ) Wt 218 lb 12.8 oz (99.2 kg) LMP 03/12/2022 BMI 35.32 kg/m?? Physical Exam Constitutional: Appearance: She is well-developed. HENT: Head: Normocephalic and atraumatic. Cardiovascular: Rate and Rhythm: Normal rate and regular rhythm. Pulmonary: Effort: Pulmonary effort is normal. Breath sounds: Normal breath sounds. Chest: Breasts: Right: No mass or tenderness. Left: No mass or tenderness. Abdominal: Palpations: Abdomen is soft. There is no mass. Tenderness: There is no abdominal tenderness. Genitourinary: Genitourinary Comments: Patient declines pelvic exam today. Musculoskeletal: General: No deformity. Skin: General: Skin is warm and dry. Neurological: Mental Status: She is alert and oriented to person, place, and time. Psychiatric: Behavior: Behavior normal. Assessment and Plan: Traecy Arthur is a 21 y.o. female who presents for a well woman exam. 1. Encounter for gynecological examination without abnormal finding Pap due for repeat next year. Return for annual or PRN. 2. Family history of breast cancer Reviewed risks/benefits of genetic counseling/testing. She elects for same - referral made. Recommended screenings and preventive care discussed: Pap smear: Not Indicated Diet and exercise discussed. Contraception reviewed. Ness Fried MD 03/26/2022 documented in this encounter Plan of Treatment Not on file documented as of this encounter Visit Diagnoses Diagnosis Encounter for gynecological examination without abnormal finding- Primary Family history of breast cancer Family history of malignant neoplasm of breast documented in this encounter Care Teams Automobile Detailer Relationship Specialty Start Date End Date Mel Osei MD PCP - General Internal Medicine 02/07/20 documented as of this encounter
--- OUTSIDE RECORDS SUMMARY | 2024-08-08 14:19 | XMS_ITS | Encounter Summary ---
Author Organization [facility] Medical Group Address [address] [place] [address] Care Team Providers Care Channel Layer Name Role Phone Mel Osei MD Primary Care Provider +1- [phone] Reason for Visit * Reason Onset Date Comments Abdominal Pain 04/28/2021 Encounter Details Date Type Department Care Team (Late st Contact Info) Description 04/28/2021 Telephone [facility] [address] [place] [address] Mel Osei MD [address] [place] [address] Abdominal Pain Social History Tobacco Use Types Packs/Day Years [...] on file 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 Denies N/V, cough, sore throat, SOB. Since no appt available in office today, report to urgent care or ER for eval. Call office with any further questions orconcerns. * Telephone Encounter - Maricruz Holland - 04/28/2021 12:31 PM CDT Had stomach pain for a couple days - had nothing Then today after eating a bowl of cereal about 9:15 to 9:30 AM, then had stomach pain within 45 minutes later had stomach pain Come in waves, would get slightly better, then about 15 minutes ago had a sharp pain Please advise. Transferred to Staff. documented in this encounter Plan of Treatment Not on file documented as of this encounter Visit Diagnoses Not on filedocumented in this encounter Care Teams Channel Layer Relationship Specialty Start Date End Date Mel Osei MD PCP - General Internal Medicine 02/07/20 documented as of this encounter
--- OUTSIDE RECORDS SUMMARY | 2024-08-08 14:19 | XMS_ITS | Encounter Summary ---
Author Organization 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 documented in this encounter Plan of Treatment Not on file documented as of this encounter Visit Diagnoses Not on filedocumented in this encounter Care Teams Manager Global Relationship Specialty Start Date End Date Mel Osei MD PCP - General Internal Medicine 02/07/20 documented as of this encounter
--- OUTSIDE RECORDS SUMMARY | 2024-08-08 14:19 | XMS_ITS | Encounter Summary ---
Author Organization [facility] Address [address] [place] [address] Care Team Providers Care Inside Sales Name Role Phone Mel Osei MD Primary Care Provider [phone] Reason for Visit * Reason Comments Annual Exam Encounter Details Date Type Department Care Team (Late st Contact Info) Description 02/13/2022 9:20 AM CDT Office Visit [facility] [address] [place] [id number] Mel Osei MD [address] [place] [address] Annual physical exam (Primary Dx); Acne vulgaris; Obesity (BMI 30-39.9); Dysmenorrhea Social History Tobacco Use Types Packs/Day Years [...] on file Legal Sex Female 12:30 PM NUM[employer]ICAL [employer]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[employer] Gender Identity Not on file Sexual Orientation Not on file Occupation Industry Job Start Date Job End Date Not on file Not on file Not on file Not on file documented as of this encounter Last Filed Vital Signs Vital Sign Reading Time Taken Comments Blood Pressure 134/76 02/13/2022 9:08 AM CDT Pulse 52 02/13/2022 9:08 AM CDT Temperature 36.2 ??C (97.1 ??F) 02/13/2022 9:08 AM CD T Respiratory Rate 12 02/13/2022 9:08 AM CDT Oxygen Saturation 97% 02/13/2022 9:08 AM CDT Inhaled Oxygen Concentration - - Weight 98.4 kg (217 lb) 02/13/2022 9:08 AM CDT Height 171.5 cm (5' 7.5 ) 02/13/2022 9:08 AM CDT Body Mass Index 33.49 02/13/2022 9:08 AM CDT documented in this encounter Patient Instructions * Patient Instructions* Mel Osei MD - 02/13/2022 9:20 AM CDT ORDERS FOR AMS STAFF TO ARRANGE 1. No routine labs due for annual 2. Refer to STEPHIE Elizabeth for annual well check that was canceled in July and never rescheduled ORDERS FOR Tracey Arthur TO ARRANGE 1. Immunization recommendations: Everything is up-to-date 2. No medication changes, naproxen 550 twice daily works well for menstrual cramps, this is the same thing is zhzj-vcr-izofcbb Aleve 2 tablets twice daily with food during the menstrual cycle the prevent those cramps. Medications may not be covered by insurance because they are available OTC Patient Care Team: Mel Osei MD as PCP - General (Internal Medicine) Return in about 1 year (around 02/13/2023) for Annual physical, Recheck. No orders of the defined types were placed in this encounter. A brief review of all your problems, medications, and orders from today ICD-9-CM ICD-10-CM 1. Annual physical exam V70.0 Z00.00 2. Acne vulgaris 706.1 L70.0 adapalene (DIFFERIN) 0.1 % cream 3. Obesity (BMI 30-39.9) 278.00 E66.9 4. Dysmenorrhea 625.3 N94.6 naproxen (Anaprox DS) 550 mg tablet For your records I have provided this immunization report Immunization History Administered Date(s) Administered DTaP 5 Pertussis 1999, 1999, 1999, 08/20/2000, 06/26/2003 HPV9 03/23/2017, 05/24/2017, 09/24/2017 Hep B / HiB 1999, 1999, 08/20/2000 IPV 1999, 1999, 08/20/2000, 06/26/2003 Influenza, Quadrivalent, Cell Culture-based MDCK, Antibiotic Free, Intramuscular 07/13/2018 Influenza, Trivalent, Intramuscular 07/07/2007, 06/19/2008 MMR 05/11/2000, 06/26/2003 Meningococcal MCV4P (Menactra) 03/20/2016 Meningococcal Polysaccharide (Menomune) 02/18/2011 Pfizer SARS-CoV-2 Vaccination (12+ yrs) PURPLE 11/11/2020, 12/02/2020 Pneumococcal Conjugate 7-Valent 03/26/2000, 05/11/2000, 08/20/2000 Tdap 02/18/2011, 02/11/2021 Varicella 05/11/2000, 03/09/2014 Primary Pharmacy/DME suppliers: [id number] [place], [place] - [facility] [address] [facility] [address] [facility] [id number] PLEASE BRING IN ALL PILL BOTTLES TO EVERY OFFICE VISIT, THIS IS ESSENTIAL FOR ACCURATE REFILLS AND MAINTAINING AN ACCURATE MEDICATION LIST. PLEASE SIGN UP FOR MyCHART so that you may have access to your labs and chart documentation IF YOU HAVE TROUBLE WITH THIS PROCESS CALL [phone] Annual Exam finds the need for diet and exercise changes for 10% weight reduction over the next year. Consider seriously how you can start lifestyle changes of healthier diet and 30 minutes of daily aerobic exercise to reach our expected health goals. Please review the comprehensive yearly physical examination worksheet created for you today. laboratory results, immunization recommendations, and any tests required for preventive health are documented on this information sheet. I recommend the following exercise program for the most effective improvement in body composition: 1. HIIT= high intensity interval training works best for generating better body composition and weight reduction Start with a 2 minutes warmup = the same exercise intensity you will use for your active recovery phase Then begin these 5 high intensity intervals 10 seconds fast, 50 seconds active recovery 15 seconds fast, 45 seconds active recover 20 seconds fast, 40 seconds active recovery 25 seconds fast, 35 seconds active recovery 30 seconds fast, 30 seconds active recovery Then do 2 minutes of active recovery Daily exercise the 1st week= once daily for the 1st week Daily exercise the 2nd week =2 times through the routine Starting at the 3rd week you can go 3 times through this routine EVERY OTHER DAY Starting at the 4th week go 4 times through this routine EVERY OTHER DAY = 28 minutes 2. THE STRENGTHENING ROUTINE: HIIT exercise is advised every other day alternating with strength training, OR stretching, OR balance Exercise for 30 minutes For CORE strength training, My favorite CHOICE IS: Pildutch strengthening THIS BOOK IS AVAILABLE ON Daily Aisle =The complete guide to Lester Vaz techniques of physical conditioning by Jf Canela FOR arm and leg strengthening, I recommend exercise bands, as they are inexpensive, portable, and packable for travel --options available on [employer] include FIT SIMPLIFY exercise bands the come with marium exercise program recommendation. For KNEE ISSUES download the [employer] knee program to including the strengthprogram 2-3 days weekly 3 STRETCHING EXERCISES are most useful after the aerobic exercise or strengthening. OPTIONS FOR STRETCHING INCLUDE Yin Yoga orTai Chi for balance training, MANY of these program are available for free online, you may have a family member print them out for you if you do not have access. Eliminate the following food groups for 6 weeks--with a plan to restart 1 food group every 4 weeks to find out what is causing her problem. Start with the food you miss the most 1st and advance monthly through each new food group until youfigure out what is causing your problem: Avoid all Cured meats with sodium nitrate Gluten = Bread, pasta, cake, cookies, Cereals, most processed foods, canned soup, Beer And some spirits.---look f Sugar and sweets: limited natural sweetener Agave may be used as a Sweetener. Legumes= (soy, peanut, lentils, tmtsg-njlnk-ktqdvsty- beans,hummus) Note all tree nuts and all seeds are OK = Pecan, [place], [place], Cashew,[place] Nuts, sesame seeds, sunflower seeds, pumpkin seeds. or the ???gluten free sign?? Dairy= Milk, yogurt, icecream, cottage cheese. Soy = tofu, chocolates, soy sauce, fast food hamburgers, Protein bars Alcohol = Wine, beer, spirits documented in this encounter Ordered Prescriptions Prescription Sig Dispense Quantity Refills Last Filled Start Date End Date adapalene (DIFFERIN) 0.1 % creamIndications:A cne vulgaris Apply topically at bedtime. 45 g 5 02/13/2022 naproxen (Anaprox DS) 550 mg tabletIndications: Dysmenorrhea Take 1 tablet (550 mg total) by mouth 2 (two) times a day with meals And Prilosec 20 mg daily during the menstrual cycle 60 tablet 5 02/13/2022 3 documented in this encounter Progress Notes * Mel Osei MD - 02/13/2022 9:20 AM CDT ASSESSMENT AND PLAN Patient Instructions ORDERS FOR AMS STAFF TO ARRANGE 1. No routine labs due for annual 2. Refer to STEPHIE Elizabeth for annual well check that was canceled in July and never rescheduled ORDERS FOR Tracey Arthur TO ARRANGE 1. Immunization recommendations: Everything is up-to-date 2. No medication changes, naproxen 550 twice daily works well for menstrual cramps, this is the same thing is dujk-iqk-bjqxbfy Aleve 2 tablets twice daily with food during the menstrual cycle the prevent those cramps. Medications may not be covered by insurance because they are available OTC Patient Care Team: Mel Osei MD as PCP - General (Internal Medicine) Return in about 1 year (around 02/13/2023) for Annual physical, Recheck. No orders of the defined types were placed in this encounter. A brief review of all your problems, medications, and orders from today ICD-9-CM ICD-10-CM 1. Annual physical exam V70.0 Z00.00 2. Acne vulgaris 706.1 L70.0 adapalene (DIFFERIN) 0.1 % cream 3. Obesity (BMI 30-39.9) 278.00 E66.9 4. Dysmenorrhea 625.3 N94.6 naproxen (Anaprox DS) 550 mg tablet For your records I have provided this immunization report Immunization History Administered Date(s) Administered ??? DTaP 5 Pertussis 1999, 1999, 1999, 08/20/2000, 06/26/2003 ??? HPV9 03/23/2017, 05/24/2017, 09/24/2017 ??? Hep B / HiB 1999, 1999, 08/20/2000 ??? IPV 1999, 1999, 08/20/2000, 06/26/2003 ??? Influenza, Quadrivalent, Cell Culture-based MDCK, Antibiotic Free, Intramuscular 07/13/2018 ??? Influenza, Trivalent, Intramuscular 07/07/2007, 06/19/2008 ??? MMR 05/11/2000, 06/26/2003 ??? Meningococcal MCV4P (Menactra) 03/20/2016 ??? Meningococcal Polysaccharide (Menomune) 02/18/2011 ??? Pfizer SARS-CoV-2 Vaccination (12+ yrs) PURPLE 11/11/2020, 12/02/2020 ??? Pneumococcal Conjugate 7-Valent 03/26/2000, 05/11/2000, 08/20/2000 ??? Tdap 02/18/2011, 02/11/2021 ??? Varicella 05/11/2000, 03/09/2014 Primary Pharmacy/DME suppliers: [id number] - [place], [place] - [address] [facility] [address] [facility] [phone] PLEASE BRING IN ALL PILL BOTTLES TO EVERY OFFICE VISIT, THIS IS ESSENTIAL FOR ACCURATE REFILLS AND MAINTAINING AN ACCURATE MEDICATION LIST. PLEASE SIGN UP FOR MyCHART so that you may have access to your labs and chart documentation IF YOU HAVE TROUBLE WITH THIS PROCESS CALL [phone] Annual Exam finds the need for diet and exercise changes for 10% weight reduction over the next year. Consider seriously how you can start lifestyle changes of healthier diet and 30 minutes of daily aerobic exercise to reach our expected health goals. Please review the comprehensive yearly physical examination worksheet created for you today. laboratory results, immunization recommendations, and any tests required for preventive health are documented on this information sheet. I recommend the following exercise program for the most effective improvement in body composition: 1. HIIT= high intensity interval training works best for generating better body composition and weight reduction Start with a 2 minutes warmup = the same exercise intensity you will use for your active recovery phase Then begin these 5 high intensity intervals 10 seconds fast, 50 seconds active recovery 15 seconds fast, 45 seconds active recover 20 seconds fast, 40 seconds active recovery 25 seconds fast, 35 seconds active recovery 30 seconds fast, 30 seconds active recovery Then do 2 minutes of active recovery Daily exercise the 1st week= once daily for the 1st week Daily exercise the 2nd week =2 times through the routine Starting at the 3rd week you can go 3 times through this routine EVERY OTHER DAY Starting at the 4th week go 4 times through this routine EVERY OTHER DAY = 28 minutes 2. THE STRENGTHENING ROUTINE: HIIT exercise is advised every other day alternating with strength training, OR stretching, OR balance Exercise for 30 minutes For CORE strength training, My favorite CHOICE IS: Milind strengthening THIS BOOK IS AVAILABLE ON Daily Aisle =The complete guide to Lester Vaz techniques of physical conditioning by Jf Canela FOR arm and leg strengthening, I recommend exercise bands, as they are inexpensive, portable, and packable for travel --options available on [employer] include FIT SIMPLIFY exercise bands the come with mraium exercise program recommendation. For KNEE ISSUES download the [employer] knee program to including the strengthprogram 2-3 days weekly 3 STRETCHING EXERCISES are most useful after the aerobic exercise or strengthening. OPTIONS FOR STRETCHING INCLUDE Yin Yoga orTai Chi for balance training, MANY of these program are available for free online, you may have a family member print them out for you if you do not have access. Eliminate the following food groups for 6 weeks--with a plan to restart 1 food group every 4 weeks to find out what is causing her problem. Start with the food you miss the most 1st and advance monthly through each new food group until youfigure out what is causing your problem: Avoid all Cured meats with sodium nitrate Gluten = Bread, pasta, cake, cookies, Cereals, most processed foods, canned soup, Beer And some spirits.---look f Sugar and sweets: limited natural sweetener Agave may be used as a Sweetener. Legumes= (soy, peanut, lentils, lfswo-dqhdg-qifzwunu- beans,hummus) Note all tree nuts and all seeds are OK = Pecan, [place], [place], Cashew,[place] Nuts, sesame seeds, sunflower seeds, pumpkin seeds. or the ???gluten free sign?? Dairy= Milk, yogurt, icecream, cottage cheese. Soy = tofu, chocolates, soy sauce, fast food hamburgers, Protein bars Alcohol = Wine, beer, spirits CHIEF COMPLAINT Annual Exam HISTORY OF PRESENT ILLNESS Tracey Arthur returns today for Annual Examination, brown bag medication review with all medications brought to the office, Refill Management where indicated , discussion of Chronic Medical Problems associated orders and medications as well as Her concerns detailed in this HPI and the AVS note sent home with her. Issues discussed today included all new lab orders for the next follow-up visit, results of currentlab work, Annual Health Maintenance Recommendations ( Documented on the separately scanned in AMS Annual Physical Exam Worksheet ) and a review of active and discontinued medication prescriptions. ORDERS FROM LAST VISIT WITH [facility] 02/11/2021 1. Do not leave office today before getting Tdap 2. Labs for annual visit next year ORDERS FOR Tracey Arthur TO ARRANGE 1. Immunization update Tdap today Regular dose flu shot in May DETAILS REGARDING THIS VISIT: Tracey reports feeling well 1. Annual physical exam Documented on the annual information sheet FURTHER NON ANNUAL PHYSICAL DETAILS REGARDING THIS VISIT required an additional 5 minutes of hvrb-nx-vyoc minutes of care time: 2. Acne vulgaris Completely well controlled using kikq-uoy-whlmjlt adapalene (DIFFERIN) 0.1 % cream; Apply topically at bedtime. 3. Obesity (BMI 30-39.9) No body weight improvements over the past year within proper diet and regular exercise. Lifestyle changes are agreed upon 4. Dysmenorrhea Good results with naproxen she would like to get the prescription as opposed mjop-whz-oefrsue but Iexplained she may use either as they are the same medicine, well-woman care is due for update with STEPHIE Elizabeth PAST MEDICAL HISTORY Past Medical History: Diagnosis Date ??? Anxiety and depression 09/13/2020 ??? Asthma 03/09/2013 Alb inhaler ??? 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 Chest pain ??? COVID-19 virus detected 08/22/2020 ??? 1999 8-5 product nl ??? Shortness of breath ??? Sick sinus syndrome (CMS/HCC) (HCC) ??? Viral gastroenteritis 2000 Admit PAST SURGICAL HISTORY Past Surgical History: Procedure Laterality Date ??? BLADDER SURGERY 2005 Recurrent UTI - repair of reflux FAMILY HISTORY family history includes Allergies in her mother; Anemia in an other family member; Arthritis in an other family member; Asthma in an other family member; Breast cancer in her maternal grandmother; Breast cancer (age of onset: 37) in her mother; Coronary artery disease in an other family member; Deafness in an other family member; Diabetes in an other family member; Eating disorder in an other family member; Hypertension in an other family member; Migraines in an other family member; Ovarian cancer in her mother's sister; Skin cancer in her maternal grandfather; Sudden in an other familymember; Thyroid disease in an other family member. SOCIAL HISTORY Social History Tobacco Use ??? Smoking status: Never Smoker ??? Smokeless tobacco: Never Used Substance and Sexual Activity ??? Drug use: Yes Types: Marijuana ??? Sexual activity: Never Partners: Male Alcohol Use: Not on file THE REVIEW OF SYSTEMS Review of Systems Constitutional: Positive for activity change (Just starting exercise) and appetite change ( still eating high carb high fat no vegetable meals, lifestyle changes reviewed). Negative for fatigue, fever and unexpected weight change. HENT: Negative for congestion, dental problem, hearing [...] problem, pelvic pain and vaginal discharge. Musculoskeletal: Negative for arthralgias, gait problem, joint swelling and myalgias. Skin: Negative for color change and rash. Neurological: Negative for dizziness, weakness and headaches. Hematological: Negative for adenopathy. Does not bruise/bleed easily. Psychiatric/Behavioral: Negative for behavioral problems, dysphoric mood and sleep disturbance. Thepatient is not nervous/anxious. MEDICATIONS CHANGED / CLEANED UP THIS VISIT Medications Discontinued During This Encounter Medication Reason ??? adapalene (DIFFERIN) 0.1 % cream Reorder ??? naproxen (Anaprox DS) 550 mg tablet Reorder MEDICATION LIST AT CONCLUSION OF THIS VISIT Current Outpatient Medications Ordered in [facility] Medication Sig Dispense Refill ??? albuterol HFA (Proventil HFA) 90 mcg/actuation inhaler Inhale 2 puffs every 6 (six) hours as needed for wheezing or shortness of breath 6.7 g 0 ??? adapalene (DIFFERIN) 0.1 % cream Apply topically at bedtime. 45 g 5 ??? naproxen (Anaprox DS) 550 mg tablet Take 1 tablet (550 mg total) by mouth 2 (two) times a day with meals And Prilosec 20 mg daily during the menstrual cycle 60 tablet 5 ??? naproxen sodium 220 mg capsule Take 2 tablets by mouth 2 (two) times a day as needed (Chest wall pain, menstrual cramps) for up to 10 days 60 each 0 No current [facility]-ordered facility-administered medications on file. ALLERGIES has No Known Allergies. PHYSICAL EXAM body mass index is 33.49 kg/m??. Vitals: 02/13/22 0908 BP: 134/76 BP Location: Left arm Patient Position: Sitting Pulse: 52 Resp: 12 Temp: 36.2 ??C (97.1 ??F) TempSrc: Temporal SpO2: 97% Weight: 98.4 kg (217 lb) Height: 171.5 cm (5' 7.5 ) Physical Exam Vitals and nursing note reviewed. Constitutional: General: She is not in acute distress. Appearance: Normal appearance. She is well-developed. She is obese. She is not ill-appearing. HENT: Head: Normocephalic [...] Comments: Obese abdomen Genitourinary: Comments: Genitourinary examination excluded, this is still due with STEPHIE Elizabeth Musculoskeletal: General: No swelling, tenderness, deformity or signs of injury. Normal range of motion. Cervical back: Neck supple. Right lower leg: No edema. Left lower leg: No edema. Lymphadenopathy: Cervical: No cervical adenopathy. Skin: General: Skin is warm and dry. Coloration: Skin is not jaundiced. Findings: No bruising, erythema, lesion or rash. Neurological: General: No focal deficit [...] Content: Thought content normal. Judgment: Judgment normal. Comprehensive physical examination was completed today and specifics of the testing and counseling are recorded on the scanned Comprehensive Yearly Physical Exam Worksheet. . Tracey Arthur personal health goals were negotiated and agreed upon today. Assessment and plan for new and ongoing medical problems were reviewed and agreed upon. Risk, benefit and side effects of medications appropriate for care were reviewed and sent eRx to the patient's requested pharmacies. All current lab work was reviewed and discussed. Appropriate labs and referrals planned for the follow-up visit were reviewed, discussed and completed. The discussion is summarized in this Assessment and Plan shared with her in the After Visit Summary = VS. Mel Osei M.D. THE FOLLOWING CLERICAL INFORMATION DOES NOT DUE TO BE SENT IN A PRINTED DOCUMENT LABORATORY INFORMATION REVIEWED WITH Tracey Artuhr TODAY Admission on 04/28/2021, Discharged on 04/28/2021 Component Date Value Ref Range Status ??? WBC 04/28/2021 9.2 3.8 - 9.9 K/cumm Final ??? Hgb 04/28/2021 13.5 11.9 - 15.5 g/dL Final ??? Hct 04/28/2021 39.5 35.6 - 45.5 % Final ??? Plt 04/28/2021 268 150 - 400 K/cumm Final ??? MPV 04/28/2021 10.9 9.1 - 12.3 fL Final ??? RBC 04/28/2021 4.38 3.90 - 5.20 M/cumm Final ??? MCV 04/28/2021 90.2 81.3 - 96.4 fL Final ??? MCH 04/28/2021 30.8 27.1 - 33.3 pg Final ??? MCHC 04/28/2021 34.2 32.3 - 35.7 g/dL Final ??? RDW CV 04/28/2021 12.6 11.1 - 14.9 % Final ??? RDW SD 04/28/2021 40.9 35.7 - 48.1 fL Final ??? NRBC abs 04/28/2021 0.00 0.00 - 0.01 K/cumm Final ??? Sodium 04/28/2021 136 135 - 145 mmol/L Final ??? Potassium, pl 04/28/2021 4.4 3.3 - 4.9 mmol/L Final ??? Chloride 04/28/2021 105 97 - 110 mmol/L Final ??? CO2 04/28/2021 24 22 - 32 mmol/L Final ??? Anion gap 04/28/2021 8 2 - 15 mmol/L Final ??? BUN 04/28/2021 11 8 - 25 mg/dL Final ??? Creatinine 04/28/2021 0.85 0.60 - 1.10 mg/dL Final ??? Glucose 04/28/2021 95 70 - 199 mg/dL Final ??? Calcium 04/28/2021 9.5 8.5 - 10.3 mg/dL Final ??? Bilirubin, total 04/28/2021 0.3 0.1 - 1.2 mg/dL Final ??? Protein, pl 04/28/2021 7.9 6.5 - 8.5 g/dL Final ??? Albumin 04/28/2021 4.7 3.5 - 5.0 g/dL Final ??? Alk phos 04/28/2021 77 40 - 130 Units/L Final ??? ALT 04/28/2021 15 7 - 45 Units/L Final ??? AST 04/28/2021 17 10 - 45 Units/L Final ??? HCG, ur, POC 04/28/2021 Negative Final ??? Lot Number 04/28/2021 [id number] Final ??? QC Backgroud Clear 04/28/2021 Acceptable Final ??? QC Control Line 04/28/2021 Acceptable Final ??? Neutrophil abs 04/28/2021 6.9 (A) 1.7 - 6.5 K/cumm Final ??? Imm gran abs 04/28/2021 0.0 0.0 - 0.1 K/cumm Final ??? Lymphocyte abs 04/28/2021 1.7 0.8 - 3.3 K/cumm Final ??? Monocyte abs 04/28/2021 0.5 0.2 - 0.8 K/cumm Final ??? Eosinophil abs 04/28/2021 0.1 0.0 - 0.5 K/cumm Final ??? Basophil abs 04/28/2021 0.0 0.0 - 0.1 K/cumm Final ??? Neutrophil pct 04/28/2021 74.6 % Final ??? Imm gran pct 04/28/2021 0.3 % Final ??? Lymphocyte pct 04/28/2021 18.3 % Final ??? Monocyte pct 04/28/2021 5.0 % Final ??? Eosinophil pct 04/28/2021 1.4 % Final ??? Basophil pct 04/28/2021 0.4 % Final ??? eGFR 04/28/2021 98 mL/min/1.73 m2 Final Patient Active Problem List Diagnosis Code ??? Acne L70.9 ??? Dysmenorrhea N94.6 ??? Obesity (BMI 30-39.9) E66.9 ??? Family history of breast cancer Z80.3 Mel Osei M.D. documented in this encounter Plan of Treatment Not on file documented as of this encounter Visit Diagnoses Diagnosis Annual physical exam- Primary Routine general medical examination at a health care facility Acne vulgaris Other acne Obesity (BMI 30-39.9) Dysmenorrhea documented in this encounter Discontinued Medications Medication Sig Discontinue Reason Start Date End Da te adapalene (DIFFERIN) 0.1 % creamIndications:Acne vulgaris Apply topically at bedtime. Reorder 02/11/2021 02/13/2022 naproxen (Anaprox DS) 550 mg tabletIndications:Dysme norrhea Take 1 tablet (550 mg total) by mouth 2 (two) times a day with meals And Prilosec 20 mg daily during the menstrual cycle Reorder 02/11/2021 02/13/2022 documented as of this encounter Care Teams Inside Sales Relationship Specialty Start Date End Date Mel Osei MD PCP - General Internal Medicine 02/07/20 documented as of this encounter
--- OUTSIDE RECORDS SUMMARY | 2024-08-08 14:19 | XMS_ITS | Encounter Summary ---
Author Organization [facility] Address [address] [place] [address] Care Team Providers Care Clinical Nurse Occupational Medicine Name Role Phone Mel Osei MD Primary Care Provider [phone]- [phone] Reason for Visit * Reason Comments GERD Encounter Details Date Type Department Care Team (Late st Contact Info) Description 06/01/2022 8:30 AM CDT Office Visit [facility] [address] [place] [id number] Almaz Saleh NP [address] [place] [address] Gastroesophageal reflux disease with esophagitis without hemorrhage (Primary Dx) Social History Tobacco Use Types [...] on file Legal 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 Gender Identity Not on file Sexual Orientation Not on file Occupation Industry Job Start Date Job End Date [place] Title Not on file Not on file Not on file documented as of this encounter Last Filed Vital Signs Vital Sign Reading Time Taken Comments Blood Pressure 120/74 06/01/2022 8:22 AM CDT Pulse 60 06/01/2022 8:22 AM CDT Temperature 36.3 ??C (97.3 ??F) 06/01/2022 8:22 AM CD T Respiratory Rate 16 06/01/2022 8:22 AM CDT Oxygen Saturation 98% 06/01/2022 8:22 AM CDT Inhaled Oxygen Concentration - - Weight 105.3 kg (232 lb 3.2 oz) 06/01/2022 8:22 AM CDT Height - - Body Mass Index 37.48 03/26/2022 3:02 PM CDT documented in this encounter Patient Instructions * Patient Instructions* Almaz Saleh NP - 06/01/2022 8:30 AM CDT Orders for AMS STAFF to arrange None Orders for Tracey Arthur to arrange Take pantoprazole as instructed. Discussed low acid diet: avoid soda, sugar substitutes, vinegar, pickles, citrus, tomatoes, coffee,and alcohol. Stay hydrated. Call with any changes or concerns. Return for Next scheduled follow up. No orders of the defined types were placed in this encounter. A brief review of all your problems, medications, and orders from today No diagnosis found. PLEASE BRING IN ALL PILL BOTTLES TO EVERY OFFICE VISIT, THIS IS ESSENTIAL FOR ACCURATE REFILLS AND MAINTAINING AN ACCURATE MEDICATION LIST. documented in this encounter Ordered Prescriptions Prescription Sig Dispense Quantity Refills Last Filled Start Date End Date pantoprazole DR (PROTONIX) 40 mg EC tablet Take 1 tablet (40 mg total) by mouth 2 (two) times a day 180 tablet 1 06/01/2022 11/24/2022 documented in this encounter Progress Notes * Almaz Saleh NP - 06/01/2022 8:30 AM CDT Images from the original note were not included. Patient ID: Tracey Arthur is a 22 y.o. female. Chief Complaint. Chief Complaint Patient presents with GERD HPI. Patient is a 22 y.o. female HPI Presents with worsening heartburn over 1 month. Pepcid TID with only mild relief. Was rxd pantoprazole in past but never took it. Reports trying to eat more healthy, and eating more tomatoes. Minimalcaffiene use. No further symptoms or concerns today. Past Medical History: Diagnosis Date Anxiety and [...] Current Medications: Outpatient Encounter Medications as of 06/01/2022 Medication Sig Dispense Refill adapalene (DIFFERIN) 0.1 [...] total) by mouth 2 (two) times a [id number] tablet 1 No facility-administered encounter medications on file as of 06/01/2022. Review of Systems Constitutional: Negative for appetite change, chills, fatigue and fever. Eyes: Negative for visual disturbance. Respiratory: Negative for cough, chest tightness and shortness of breath. Cardiovascular: Negative for chest pain, palpitations and leg swelling. Gastrointestinal: Positive for abdominal pain. Negative for constipation, diarrhea, nausea and vomiting. Genitourinary: Negative for difficulty urinating. Musculoskeletal: Negative for arthralgias and myalgias. Skin: Negative for color change. Neurological: Negative for dizziness, syncope, weakness and headaches. Psychiatric/Behavioral: Negative for sleep disturbance. BP 120/74 Pulse 60 Temp 36.3 ??C (97.3 ??F) Resp 16 Wt 105.3 kg (232 lb 3.2 oz) SpO2 98% BMI 37.48 kg/m?? Physical Exam Vitals and nursing note reviewed. Constitutional: Appearance: Normal appearance. HENT: Head: Normocephalic and atraumatic. Mouth/Throat: Mouth: Mucous membranes are moist. Pharynx: Oropharynx is clear. Eyes: Extraocular Movements: Extraocular movements intact. Conjunctiva/sclera: Conjunctivae normal. Cardiovascular: Rate and Rhythm: Normal rate and regular rhythm. Heart sounds: Normal heart sounds. Pulmonary: Effort: Pulmonary effort is normal. Breath sounds: Normal breath sounds. Abdominal: General: Bowel sounds are normal. There is no distension. Palpations: Abdomen is soft. There is no mass. Tenderness: There is no abdominal tenderness. There is no rebound. Hernia: No hernia is present. Musculoskeletal: General: Normal range of motion. Skin: [...] Diagnoses and all orders for this visit: Gastroesophageal reflux disease with esophagitis without hemorrhage (Primary) Assessment & Plan: Presents with worsening heartburn over 1 month, pepcid provides mild relief. No acute exam findingswill Rx Pantoprazole as instructed. Discussed low acid diet: avoid soda, sugar substitutes, vinegar, pickles, citrus, tomatoes, coffee, and alcohol. Stay hydrated. Call with any changes or concerns. Keep annual follow as scheduled, sooner if needed. Other orders - pantoprazole DR (PROTONIX) 40 mg EC tablet; Take 1 tablet (40 mg total) by mouth 2 (two) times a day Almaz Saleh NP Cosigned by Mel Osei MD at 06/01/2022 9:04 PM CDT documented in this encounter Miscellaneous Notes * Assessment & Plan Note - Almaz Saleh NP - 06/01/2022 8:43 AM CDT Associated Problem(s): Gastroesophageal reflux disease with esophagitis without hemorrhage Presents with worsening heartburn over 1 month, pepcid provides mild relief. No acute exam findingswill Rx Pantoprazole as instructed. Discussed low acid diet: avoid soda, sugar substitutes, vinegar, pickles, citrus, tomatoes, coffee, and alcohol. Stay hydrated. Call with any changes or concerns. Keep annual follow as scheduled, sooner if needed. documented in this encounter Plan of Treatment Not on file documented as of this encounter Visit Diagnoses Diagnosis Gastroesophageal reflux disease with esophagitis without hemorrhage- Primary documented in this encounter Care Teams Clinical Nurse Occupational Medicine Relationship Specialty Start Date End Date Mel Osei MD PCP - General Internal Medicine 02/07/20 documented as of this encounter
--- OUTSIDE RECORDS SUMMARY | 2024-08-08 14:20 | XMS_ITS | Encounter Summary ---
Author Organization [facility] Address [address] [place] [address] Care Team Providers Care Ultrasonic Welding Machine Operator Name Role Phone Mel Osei MD Primary Care Provider [phone]- [phone] Reason for Visit * Reason Onset Date Comments Covid-19 Home Monitoring 09/13/2020 Enrollm ent Encounter Details Date Type Department Care Team (Late st Contact Info) Description 09/13/2020 Telephone [facility] Accountable Care Organization [address] [place] [address] Yaneth De Jesus LPN [address] [place] [address] [address] [place] [address] Covid-19 Home Monitoring (Enrollment) Social History Tobacco Use Types Packs/Day Years Used Date Smoking Tobacco: Never Smokeless Tobacco: Never Alcohol Use Standard Drinks/Week Comments Not Currently 0 (1 standard drink = 0.6 oz pur e alcohol) PHQ-2 Answer Date Recorded PHQ-2 Total Score (If total score is 3 or more points, staff should administer the PHQ-9) 3 09/13/2020 Comments No Sex and Gender Information Value Date Recorded Sex Assigned at Not on file Legal 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 By saving a note using this template, the patient will drop off our home monitoring candidate reports for two weeks. If we still consider them to have an active case of COVID-19 at that time, we willreevaluate them for home monitoring. ATION SUPERVISOR documented in this encounter Plan of Treatment Not on file documented as of this encounter Visit Diagnoses Not on filedocumented in this encounter Care Teams Ultrasonic Welding Machine Operator Relationship Specialty Start Date End Date Mel Osei MD PCP - General Internal Medicine 02/07/20 documented as of this encounter
--- OUTSIDE RECORDS SUMMARY | 2024-08-08 14:20 | XMS_ITS | Encounter Summary ---
Author Organization [facility] Address [address] [place] [address] Care Team Providers Care Hair Tinter Name Role Phone Mel Osei MD Primary Care Provider +1- [phone] Encounter Details Date Type Department Care Team (Late st Contact Info) Description 09/27/2020 Telephone [facility] [address] [place] [address] Mel Osei MD [address] [place], [place] [id number] Social History Tobacco Use Types Packs/Day Years [...] on file Legal Sex Female 12:30 PM [facility] Gender Identity Not on file Sexual Orientation Not on file Occupation Industry Job Start Date Job End Date Not on file Not on file Not on file Not on file documented as of this encounter Miscellaneous Notes * Telephone Encounter - [place] Denise NP - 09/27/2020 2:28 PM [facility] Noted thank you [facility] * Telephone Encounter - Bernice Yeboah RN - 09/27/2020 1:54 PM CST Called and talked to pt. Let her know that her stress test and ECHO were normal. She is still having chest pain. She states that it varies though. Sometimes it is dull pain and other times it is sharp persistent pain. She thought that the Zoloft was helping at first but not doesn't because she is still having the same pain as before. To [place]-INJECTION MOLD TOOLING TECHNICIAN: Update [facility]AL [facility]APLAIN * Telephone Encounter - [place] Denise NP - 09/27/2020 1:45 PM [facility] Please let her know that her stress test and echo are normal. If she is still having chest pain. Has the zoloft helped at all? [facility]AL [facility] * Telephone Encounter - Akshat Grissom - 09/27/2020 1:14 PM CST Patient got a echo done today and a stress test and [facility] and she is wandering if someone could call and give her results. Cbn: [phone] [facility] documented in this encounter Plan of Treatment Not on file documented as of this encounter Visit Diagnoses Not on filedocumented in this encounter Care Teams Hair Tinter Relationship Specialty Start Date End Date Mel Osei MD PCP - General Internal Medicine 02/07/20 documented as of this encounter
--- OUTSIDE RECORDS SUMMARY | 2024-08-08 14:20 | XMS_ITS | Encounter Summary ---
Author Organization [facility] Address [address] [place] [address] Care Team Providers Care Leadership Coach Name Role Phone Mel Osei MD Primary Care Provider +1- [phone] Encounter Details Date Type Department Care Team (Late st Contact Info) Description 10/11/2020 Telephone [facility] [address] [place] [address] [place] Denise NP [address] [place] [phone] Social History Tobacco Use Types Packs/Day Years Used Date Smoking Tobacco: Never Smokeless Tobacco: Never Alcohol Use Standard Drinks/Week Comments Not Currently 0 (1 standard drink = 0.6 oz pur e alcohol) PHQ-2 Answer Date Recorded PHQ-2 Total Score (If total score is 3 or more points, staff should administer the PHQ-9) 1 10/10/2020 Comments No Sex and Gender Information Value Date Recorded Sex Assigned at Not on file Legal Sex Female 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 Per, AMBER Elaine orders: Please refer to cardiology for chest pain. Pt aware she is scheduled to see Dr. Rivera on 10-31-20 @ 8:30am.. This was their first available appt with one of their physicans. Pt aware & voiced understanding. She was already given amb referral to cardiology with 's telephone number/address yesterday. KEEPING SUPERVISOR documented in this encounter Plan of Treatment Not on file documented as of this encounter Visit Diagnoses Not on filedocumented in this encounter Care Teams Leadership Coach Relationship Specialty Start Date End Date Mel Osei MD PCP - General Internal Medicine 02/07/20 documented as of this encounter
--- OUTSIDE RECORDS SUMMARY | 2024-08-08 14:20 | XMS_ITS | Encounter Summary ---
Author Organization [facility] Address [address] [place] [address] Care Team Providers Care Raisin Separator Operator Name Role Phone Mel Osei MD Primary Care Provider [phone] Reason for Visit * Reason Comments Annual Exam Encounter Details Date Type Department Care Team (Late st Contact Info) Description 02/11/2021 3:00 PM CDT Office Visit [facility] [address] [place] [id number] Mel Osei MD [address] [place] [address] Annual physical exam (Primary Dx); Obesity (BMI 30-39.9); Acne vulgaris; Dysmenorrhea; NSAID induced gastritis; Chronic GERD; Family history of breast cancer Social History [...] file 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 Gender Identity Not on file Sexual Orientation Not on file Occupation Industry Job Start Date Job End Date Not on file Not on file Not on file Not on file documented as of this encounter Last Filed Vital Signs Vital Sign Reading Time Taken Comments Blood Pressure 110/72 02/11/2021 3:45 PM CDT Pulse 64 02/11/2021 3:45 PM CDT Temperature 36.5 ??C (97.7 ??F) 02/11/2021 3:45 PM CD T Respiratory Rate 12 02/11/2021 3:45 PM CDT Oxygen Saturation 98% 02/11/2021 3:45 PM CDT Inhaled Oxygen Concentration - - Weight 98.9 kg (218 lb) 02/11/2021 3:45 PM CDT Height 165.1 cm (5' 5 ) 02/11/2021 3:45 PM CDT Body Mass Index 36.28 02/11/2021 3:45 PM CDT documented in this encounter Patient Instructions * Patient Instructions* Mel Osei MD - 02/11/2021 3:00 PM CDT ORDERS FOR AMS STAFF TO ARRANGE 1. Do not leave office today before getting Tdap 2. Labs for annual visit next year ORDERS FOR Tracey Arthur TO ARRANGE 1. Immunization update Tdap today Regular dose flu shot in May Patient Care Team: Mel Osei MD as PCP - General (Internal Medicine) Return in about 1 year (around 02/11/2022) for Annual physical, Recheck. Come sooner if any of the problems discussed today do not respond to the interventions advised Orders Placed This Encounter Procedures ??? Tdap vaccine greater than or equal to 7yo IM A brief review of all your problems, medications, and orders from today ICD-9-CM ICD-10-CM 1. Annual physical exam V70.0 Z00.00 2. Obesity (BMI 30-39.9) 278.00 E66.9 3. Acne vulgaris 706.1 L70.0 adapalene (DIFFERIN) 0.1 % cream 4. Dysmenorrhea 625.3 N94.6 naproxen (Anaprox DS) 550 mg tablet 5. NSAID induced gastritis 535.40 K29.60 E935.8 T39.395A 6. Chronic GERD 530.81 K21.9 famotidine (PEPCID) 40 mg tablet 7. Family history of breast cancer V16.3 Z80.3 For your records I have provided this [...] Polysaccharide (Menomune) 02/18/2011 ??? Pfizer SARS-CoV-2 Vaccination 11/11/2020, 12/02/2020 ??? Pneumococcal Conjugate 7-Valent 03/26/2000, 05/11/2000, 08/20/2000 ??? Tdap 02/18/2011, 02/11/2021 ??? Varicella 05/11/2000, 03/09/2014 Primary Pharmacy/DME suppliers: [id number] [place], [place] - [facility] [address] [facility] [address] [facility] [id number] PLEASE BRING IN ALL PILL BOTTLES TO EVERY OFFICE VISIT, THIS IS ESSENTIAL FOR ACCURATE REFILLS AND MAINTAINING AN ACCURATE MEDICATION LIST. PLEASE SIGN UP FOR [employer] so that you may have access to your labs and chart documentation IF YOU HAVE TROUBLE WITH THIS PROCESS CALL [phone] Annual Exam finds the need for diet [...] Milind strengthening THIS BOOK IS AVAILABLE ON [employer] =The complete guide to Lester Vaz techniques of physical conditioning by Jf Canela FOR arm and leg strengthening, I recommend exercise bands, as they are inexpensive, portable, and packable for travel --options available on [employer] include FIT SIMPLIFY exercise bands the come with afjaden exercise program recommendation. IF YOU ARE THE KNEE ISSUES download the [employer] knee program to including the strength program 2-3 days weekly 3 STRETCHING EXERCISES are [...] as a Sweetener. Legumes= (soy, peanut, lentils, msiyj-dyqfl-fsnbvhwi- beans,hummus) Note all tree nuts and all seeds are OK = Pecan, [place], [place], Cashew,[place] Nuts, sesame seeds, sunflower seeds, pumpkin seeds. or the ???gluten free sign?? Dairy= Milk, yogurt, icecream, cottage cheese. Soy = tofu, chocolates, soy sauce, fast food hamburgers, Protein bars Alcohol = Wine, beer, spirits Short-term GERD care: OTC PPI (available PPI by brand name = Prilosec, Protonix, Aciphex, Prevacid, Dexilant, Nexium and Zegerid) daily 0.5 hour before evening meal for 10 days, Food activate the pill, eat 0.5 hour after taking the pill. Return for office follow-up if not better. Long-term NONMEDICATION prevention of GERD Following this dietary and physical intervention Program strictly for 2 months then advancing diet by one item monthly when you are well may prevent need for medications. physical and dietary guidelines to help reduce symptoms from acid reflux disease are as follows: Elevate the head of the bed 3-1/2 inches using a 2 x 4 under the headboard. Finish all evening eating 3 hours before bedtime. AVOID ALL ALCOHOL, caffeine, tobacco, and chocolate. AVOID these high acid foods: Coffee (regular or decaf), cola and a soda (regular or decaf), all Tea--(regular, decaf, black, green, or white tea) , citrus fruits or citrus juices, tomatoes raw or cooked or in can tomato sauces, raw onions, green peppers. Avoid acid foods: include (ketchup, salad dressings, mustards ...etc), fatty foods (avoid all friedfoods and fatty meats) YOU MAY HAVE Ranch salad dressing on salads and sandwiches, red peppers and cooked onions are allowed. documented in this encounter Ordered Prescriptions Prescription Sig Dispense Quantity Refills Last Filled Start Date End Date pantoprazole DR (PROTONIX) 40 mg EC tablet Take 1 tablet (40 mg total) by mouth daily as needed (1/2 hour before eating food, use While using naproxen) for menstrual cramps 30 tablet 5 02/11/2021 1 naproxen (Anaprox DS) 550 mg tabletIndications: Dysmenorrhea Take 1 tablet (550 mg total) by mouth 2 (two) times a day with meals And Prilosec 20 mg daily during the menstrual cycle 60 tablet 5 02/11/2021 2 adapalene (DIFFERIN) 0.1 % creamIndications:A cne vulgaris Apply topically at bedtime. 45 g 5 02/11/2021 2 famotidine (PEPCID) 40 mg tabletIndications: gastroesophageal reflux disease Take 1 tablet (40 mg total) by mouth 2 (two) times a day For chronic GERD, not necessary on days you take Protonix 180 tablet 3 02/11/2021 1 documented in this encounter Progress Notes * Mel Osei MD - 02/11/2021 3:00 PM CDT ASSESSMENT AND PLAN Patient Instructions ORDERS FOR AMS STAFF TO ARRANGE 1. Do not leave office today before getting Tdap 2. Labs for annual visit next year ORDERS FOR Tracey Arthur TO ARRANGE 1. Immunization update Tdap today Regular dose flu shot in May Patient Care Team: Mel Osei MD as PCP - General (Internal Medicine) Return in about 1 year (around 02/11/2022) for Annual physical, Recheck. Come sooner if any of the problems discussed today do not respond to the interventions advised Orders Placed This Encounter Procedures ??? Tdap vaccine greater than or equal to 7yo IM A brief review of all your problems, medications, and orders from today ICD-9-CM ICD-10-CM 1. Annual physical exam V70.0 Z00.00 2. Obesity (BMI 30-39.9) 278.00 E66.9 3. Acne vulgaris 706.1 L70.0 adapalene (DIFFERIN) 0.1 % cream 4. Dysmenorrhea 625.3 N94.6 naproxen (Anaprox DS) 550 mg tablet 5. NSAID induced gastritis 535.40 K29.60 E935.8 T39.395A 6. Chronic GERD 530.81 K21.9 famotidine (PEPCID) 40 mg tablet 7. Family history of breast cancer V16.3 Z80.3 For your records I have provided this [...] Polysaccharide (Menomune) 02/18/2011 ??? Pfizer SARS-CoV-2 Vaccination 11/11/2020, 12/02/2020 ??? Pneumococcal Conjugate 7-Valent 03/26/2000, 05/11/2000, 08/20/2000 ??? Tdap 02/18/2011, 02/11/2021 ??? Varicella 05/11/2000, 03/09/2014 Primary Pharmacy/DME suppliers: [id number] - [place], [place] - [address] [facility] [address] [facility] [address] PLEASE BRING IN ALL PILL BOTTLES TO EVERY OFFICE VISIT, THIS IS ESSENTIAL FOR ACCURATE REFILLS AND MAINTAINING AN ACCURATE MEDICATION LIST. PLEASE SIGN UP FOR [employer] so that you may have access to your labs and chart documentation IF YOU HAVE TROUBLE WITH THIS PROCESS CALL [phone] Annual Exam finds the need for diet [...] Pildutch strengthening THIS BOOK IS AVAILABLE ON [employer] =The complete guide to Lester Vaz techniques of physical conditioning by Jf Canela FOR arm and leg strengthening, I recommend exercise bands, as they are inexpensive, portable, and packable for travel --options available on [employer] include FIT SIMPLIFY exercise bands the come with afull exercise program recommendation. IF YOU ARE THE KNEE ISSUES download the [employer] knee program to including the strength program 2-3 days weekly 3 STRETCHING EXERCISES are [...] as a Sweetener. Legumes= (soy, peanut, lentils, aqhqr-szhpu-ysokzsmc- beans,hummus) Note all tree nuts and all seeds are OK = Pecan, [place], [place], Cashew,[place] Nuts, sesame seeds, sunflower seeds, pumpkin seeds. or the ???gluten free sign?? Dairy= Milk, yogurt, icecream, cottage cheese. Soy = tofu, chocolates, soy sauce, fast food hamburgers, Protein bars Alcohol = Wine, beer, spirits Short-term GERD care: OTC PPI (available PPI by brand name = Prilosec, Protonix, Aciphex, Prevacid, Dexilant, Nexium and Zegerid) daily 0.5 hour before evening meal for 10 days, Food activate the pill, eat 0.5 hour after taking the pill. Return for office follow-up if not better. Long-term NONMEDICATION prevention of GERD Following this dietary and physical intervention Program strictly for 2 months then advancing diet by one item monthly when you are well may prevent need for medications. physical and dietary guidelines to help reduce symptoms from acid reflux disease are as follows: Elevate the head of the bed 3-1/2 inches using a 2 x 4 under the headboard. Finish all evening eating 3 hours before bedtime. AVOID ALL ALCOHOL, caffeine, tobacco, and chocolate. AVOID these high acid foods: Coffee (regular or decaf), cola and a soda (regular or decaf), all Tea--(regular, decaf, black, green, or white tea) , citrus fruits or citrus juices, tomatoes raw or cooked or in can tomato sauces, raw onions, green peppers. Avoid acid foods: include (ketchup, salad dressings, mustards ...etc), fatty foods (avoid all friedfoods and fatty meats) YOU MAY HAVE Ranch salad dressing on salads and sandwiches, red peppers and cooked onions are allowed. CHIEF COMPLAINT Annual Exam HISTORY OF PRESENT ILLNESS Tracey Arthur returns today for Annual Examination, Medication Refill Management, discussion of Chronic Medical Problems associated orders [...] medication prescriptions. ORDERS FROM LAST VISIT WITH TX 11/01/2020 1. No labs due before scheduled annual physical ORDERS FOR Tracey Arthur TO ARRANGE 1. Medication changes Stop Zoloft 25 mg not necessary Continue in counseling with Nathalie Harden ?? 2. Start exercise as outlined below, this will help with the shortness of breath and chest wall pain and will help with mood ?? 3. For sleep disturbance please review this problem with Nathalie she can work on cognitive behavioraltherapy for sleep--mindfullness works best Begin YinYoga 30-60 minutes daily DETAILS REGARDING THIS VISIT: Tracey reports feeling fair 1. Annual physical exam Documented on the annual information sheet FURTHER NON ANNUAL PHYSICAL DETAILS REGARDING THIS VISIT required an additional 30minutes of [id number] minutes of care time: 2. Obesity (BMI 30-39.9) She is interested in diet and exercise interventions to help with weight problem. She does have a friend who she spends most of her time with an she eats with their family as her family does not prepare meals. She is not always eating correctly is interested in making changes. Her sister goes to the gym and she is going to engage her health to learn proper strength training and exercise. The agreed upon diet and exercise interventions are outlined on the AVS 3. Acne vulgaris Excellent results over the past year without the use of any hormonal medications. Will continue on the Differin cream - adapalene (DIFFERIN) 0.1 % cream; Apply topically at bedtime. Dispense: 45 g; Refill: 5 4. Dysmenorrhea Chronic GERD Very symptomatic with menstrual cramps that respond to approximate 550 mg b.i.d. however the medicine causes increase in her usual dyspepsia but does not respond to Pepcid 20 b.i.d. I am suspecting she has NSAID gastritis during these times She definitely has GERD at non NSAID dosing time We discussed the difference in the symptoms in the medication interventions that will follow for these problems - naproxen (Anaprox DS) 550 mg tablet; Take 1 tablet (550 mg total) by mouth 2 (two) times a day with meals And Prilosec 20 mg daily during the menstrual cycle Dispense: 60 tablet; Refill: 5 5. NSAID induced gastritis For the dysmenorrhea she will be using naproxen for a week, during that week she will be taking Prilosec 20 mg daily to block the NSAID gastritis from the naproxen 6. Chronic GERD For the GERD she will increase her Pepcid to 40 mg b.i.d. p.r.n., the medication should definitely be used at night but does not have to be used in the morning. She will start the GERD regimen outlined on the AVS. She is going to work very hard at weight reduction and better dietary choices. If these interventions do not work she will need an EGD - famotidine (PEPCID) 40 mg tablet; Take 1 tablet (40 mg total) by mouth 2 (two) times a day For chronic GERD, not necessary on days you take Protonix Dispense: 180 tablet; Refill: 3 7. Family history of breast cancer Grandmother had breast cancer and is still alive, her mother of breast cancer. We do not know if there is any genetic markers in the family to explain the breast cancer. She does have a 2 in thick paper chart that was given to her from the hospital regarding her mother's health and has absolutely no way to interpret the information. She and STEPHIE Elizabeth did reviewing this issue because of this issue she has declined hormones for menstrual cycle pain control. She does not need control. PAST MEDICAL HISTORY Past Medical History: Diagnosis Date ??? Anxiety and depression 09/13/2020 ??? Asthma 03/09/2013 Alb inhaler ??? 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 Chest pain ??? COVID-19 virus detected 08/22/2020 ??? [place] 1999 8-5 product nl ??? Shortness of breath ??? Sick sinus syndrome (CMS/HCC) ??? Viral gastroenteritis 2000 Admit PAST SURGICAL [...] other family member. SOCIAL HISTORY Social History Socioeconomic History ??? Marital status: Single Spouse name: Not on file ??? Number of children: 0 ??? Years of education: Not on file ??? Highest education level: Not on file Occupational History Employer: [employer] Tobacco Use ??? Smoking status: Never Smoker ??? Smokeless tobacco: Never Used Vaping Use ??? Vaping Use: Former Substance and Sexual Activity ??? Alcohol use: Not Currently ??? Drug use: Yes Types: Marijuana ??? Sexual activity: Never Partners: Male Other Topics Concern ??? Not on file Social History Narrative (This data did not transfer from [employer] and was not retrievable from [employer].) MOM Clare - breast cancer survivor; 3rd relapse with multiple mets 03/25 DAD Gary Simpson - adult moved back home 2017; works at [employer]; plans [employer] - volleyball. 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 Difficulty of Paying Living Expenses: Food Insecurity: ??? Worried About Running Out of Food in the Last Year: ??? Ran Out of Food in the Last Year: Transportation Needs: ??? Lack of Transportation (Medical): ??? Lack of Transportation (Non-Medical): Physical Activity: ??? Days of Exercise per Week: ??? Minutes of Exercise per Session: Stress: ??? Feeling of Stress : Social Connections: ??? Frequency of Communication with Friends and Family: ??? Frequency of Social Gatherings with Friends and Family: ??? Attends Sikh Services: ??? Active Member of Clubs or Organizations: ??? Attends Club or Organization Meetings: ??? Marital Status: Intimate Partner Violence: ??? Fear of Current or Ex-Partner: ??? Emotionally Abused: ??? Physically Abused: ??? Sexually Abused: THE REVIEW OF SYSTEMS Review of Systems Constitutional: Positive for unexpected weight change. Negative for activity change, appetite change, fatigue and fever. HENT: Negative for congestion, dental problem, hearing loss, postnasal drip, sinus pressure, sore throat and trouble swallowing. Eyes: Negative for pain, discharge, itching and visual disturbance. Respiratory: Positive for wheezing ( Occasional seasonal allergies with wheezing). Negative for cough, chest tightness and shortness of breath. Cardiovascular: Negative for chest pain and palpitations. Gastrointestinal: Positive for abdominal pain (GERD symptoms especially after taking her naproxen for menstrual cramp). Negative for abdominal distention, anal bleeding, blood in stool, constipation,diarrhea, nausea, rectal pain and vomiting. Endocrine: Negative for cold intolerance, heat intolerance and polyuria. Genitourinary: Positive for menstrual problem ( severe menstrual cramps responsive to naproxen). Negative for difficulty urinating, dysuria, flank pain, frequency, hematuria, pelvic pain and vaginal discharge. Musculoskeletal: Negative for arthralgias, back pain, gait problem, joint swelling, myalgias, neck pain and neck stiffness. Skin: Negative for color change and rash. Neurological: Positive for headaches. Negative for dizziness and weakness. Hematological: Negative for adenopathy. Does not bruise/bleed easily. Psychiatric/Behavioral: Negative for behavioral problems, dysphoric mood and sleep disturbance. Thepatient is not nervous/anxious. Breast: Negative for tenderness and lump(s). MEDICATIONS CHANGED / CLEANED UP THIS VISIT Medications Discontinued During This Encounter Medication Reason ??? famotidine-Ca carb-mag hydrox (PEPCID COMPLETE) 10-800-165 mg chewable tablet Therapy completed ??? adapalene (DIFFERIN) 0.1 % cream Reorder MEDICATION LIST AT CONCLUSION OF THIS VISIT Current Outpatient Medications Ordered in [facility] Medication Sig Dispense Refill ??? adapalene (DIFFERIN) 0.1 % cream Apply topically at bedtime. 45 g 5 ??? albuterol HFA (Proventil HFA) 90 mcg/actuation inhaler Inhale 2 puffs every 6 (six) hours as needed for wheezing or shortness of breath 6.7 g 0 ??? famotidine (PEPCID) 40 mg tablet Take 1 tablet (40 mg total) by mouth 2 (two) times a day For chronic GERD, not necessary on days you take Protonix 180 tablet 3 ??? naproxen (Anaprox DS) 550 mg tablet Take 1 tablet (550 mg total) by mouth 2 (two) times a day with meals And Prilosec 20 mg daily during the menstrual cycle 60 tablet 5 ??? pantoprazole DR (PROTONIX) 40 mg EC tablet Take 1 tablet (40 mg total) by mouth daily as needed(1/2 hour before eating food, use While using naproxen) for menstrual cramps 30 tablet 5 No current [facility]-ordered facility-administered medications on file. ALLERGIES has No Known Allergies. PHYSICAL EXAM body mass index is 36.28 kg/m??. Vitals: 02/11/21 1545 BP: 110/72 BP Location: Left arm Patient Position: Sitting Pulse: 64 Resp: 12 Temp: 36.5 ??C (97.7 ??F) TempSrc: Temporal SpO2: 98% Weight: 98.9 kg (218 lb) Height: 165.1 cm (5' 5 ) Physical Exam Vitals reviewed. Constitutional: General: She is not in [...] reactive to light. Neck: Thyroid: No thyromegaly. Comments: No thyroid enlargement Cardiovascular: Rate and Rhythm: Normal rate and [...] abdomen Genitourinary: Comments: Genitourinary examination excluded, this was just a updated with STEPHIE Elizabeth Musculoskeletal: General: No swelling, tenderness, deformity or signs of injury. Normal range of motion. Cervical back: Neck supple. Right lower leg: No edema. Left lower leg: No edema. Lymphadenopathy: Cervical: No cervical adenopathy. Skin: General: Skin is warm and dry. Coloration: Skin is not jaundiced. Findings: Lesion (Very minimal acne on the forehead, excellent improvement in control over the pastyear) present. No bruising, erythema or rash. Neurological: [...] PRINTED DOCUMENT LABORATORY INFORMATION REVIEWED WITH Tracey Arthur TODAY Lab on 02/03/2021 Component Date Value Ref Range Status ??? Sodium 02/03/2021 141 135 - 145 mmol/L Final ??? Potassium, pl 02/03/2021 4.4 3.3 - 4.9 mmol/L Final ??? Chloride 02/03/2021 107 97 - 110 mmol/L Final ??? CO2 02/03/2021 24 22 - 32 mmol/L Final ??? Anion gap 02/03/2021 10 2 - 15 mmol/L Final ??? BUN 02/03/2021 16 8 - 25 mg/dL Final ??? Creatinine 02/03/2021 0.95 0.60 - 1.10 mg/dL Final ??? Glucose 02/03/2021 100 70 - 199 mg/dL Final ??? Calcium 02/03/2021 9.6 8.5 - 10.3 mg/dL Final ??? Bilirubin, total 02/03/2021 0.3 0.1 - 1.2 mg/dL Final ??? Protein, pl 02/03/2021 7.4 6.5 - 8.5 g/dL Final ??? Albumin 02/03/2021 4.2 3.5 - 5.0 g/dL Final ??? Alk phos 02/03/2021 84 40 - 130 Units/L Final ??? ALT 02/03/2021 12 7 - 45 Units/L Final ??? AST 02/03/2021 18 10 - 45 Units/L Final ??? Cholesterol 02/03/2021 173 30 - 199 mg/dL Final ? ? Triglycerides 02/03/2021 102 <=149 mg/dL Final ? ? HDL 02/03/2021 40 >=40 mg/dL Final ? ? LDL, calculated 02/03/2021 113 <=129 mg/dL Final ??? Non-HDL Cholesterol 02/03/2021 133 mg/dL Final ??? Chol/HDL ratio 02/03/2021 4 Final ??? GFR 02/03/2021 86 mL/min/1.73 m2 Final Lab on 08/22/2020 Component Date Value Ref Range Status ??? Thyroid Stimulating Hormone 08/22/2020 1.93 0.30 - 4.20 mcIUnit/mL Final ??? Sodium 08/22/2020 137 135 - 145 mmol/L Final ??? Potassium, pl 08/22/2020 4.3 3.3 - 4.9 mmol/L Final ??? Chloride 08/22/2020 103 97 - 110 mmol/L Final ??? CO2 08/22/2020 24 22 - 32 mmol/L Final ??? Anion gap 08/22/2020 10 2 - 15 mmol/L Final ??? BUN 08/22/2020 13 8 - 25 mg/dL Final ??? Creatinine 08/22/2020 0.97 0.60 - 1.10 mg/dL Final ??? Glucose 08/22/2020 95 70 - 199 mg/dL Final ??? Calcium 08/22/2020 9.9 8.5 - 10.3 mg/dL Final ??? WBC 08/22/2020 7.9 3.8 - 9.9 K/cumm Final ??? Hgb 08/22/2020 13.1 11.9 - 15.5 g/dL Final ??? Hct 08/22/2020 38.9 35.6 - 45.5 % Final ??? Plt 08/22/2020 296 150 - 400 K/cumm Final ??? MPV 08/22/2020 11.9 9.1 - 12.3 fL Final ??? RBC 08/22/2020 4.25 3.90 - 5.20 M/cumm Final ??? MCV 08/22/2020 91.5 81.3 - 96.4 fL Final ??? MCH 08/22/2020 30.8 27.1 - 33.3 pg Final ??? MCHC 08/22/2020 33.7 32.3 - 35.7 g/dL Final ??? RDW CV 08/22/2020 12.4 11.1 - 14.9 % Final ??? RDW SD 08/22/2020 40.4 35.7 - 48.1 fL Final ??? NRBC abs 08/22/2020 0.00 0.00 - 0.01 K/cumm Final ??? Neutrophil abs 08/22/2020 5.4 1.7 - 6.5 K/cumm Final ??? Imm gran abs 08/22/2020 0.0 0.0 - 0.1 K/cumm Final ??? Lymphocyte abs 08/22/2020 1.6 0.8 - 3.3 K/cumm Final ??? Monocyte abs 08/22/2020 0.5 0.2 - 0.8 K/cumm Final ??? Eosinophil abs 08/22/2020 0.2 0.0 - 0.5 K/cumm Final ??? Basophil abs 08/22/2020 0.0 0.0 - 0.1 K/cumm Final ??? Neutrophil pct 08/22/2020 68.8 % Final ??? Imm gran pct 08/22/2020 0.4 % Final ??? Lymphocyte pct 08/22/2020 20.8 % Final ??? Monocyte pct 08/22/2020 6.5 % Final ??? Eosinophil pct 08/22/2020 3.0 % Final ??? Basophil pct 08/22/2020 0.5 % Final ??? GFR 08/22/2020 83 mL/min/1.73 m2 Final Orders Only on 07/12/2020 Component Date Value Ref Range Status ??? CLINICAL INFORMATION: 07/12/2020 Final ??? LMP 07/12/2020 Final ??? Previous Pap 07/12/2020 Final ??? Prev. Bx 07/12/2020 Final ??? SOURCE: 07/12/2020 Final ??? Pap, specimen adequacy 07/12/2020 Final ??? HPV interp 07/12/2020 Final ??? COMMENTS 07/12/2020 Final ??? Supervisor Drawing 07/12/2020 Final ??? Comment 07/12/2020 Final Lab on 07/12/2020 Component Date Value Ref Range Status ??? Color, ur 07/12/2020 Yellow Yellow Final ??? Clarity, ur 07/12/2020 Cloudy* Clear Final ??? Specific gravity, ur 07/12/2020 1.018 1.010 - 1.025 Final ??? pH, urine 07/12/2020 5.0 Final ??? Protein, ur ql 07/12/2020 Negative Negative Final ??? Glucose, ur ql 07/12/2020 Negative Negative Final ??? Ketones, ur 07/12/2020 Negative Negative Final ??? Bilirubin, ur 07/12/2020 Negative Negative Final ??? Blood, ur 07/12/2020 1+* Negative Final ? ? Urobilinogen, ur 07/12/2020 <2.0 <2.0 mg/dL Final ??? Nitrite, ur 07/12/2020 Negative Negative Final ??? Leukocyte esterase, ur 07/12/2020 3+* Negative Final ??? UA reflex comment 07/12/2020 Reflex to microscopic UA will be performed. Final ??? WBC, ur 07/12/2020 0-5 0 - 5 /HPF Final ??? RBC, ur 07/12/2020 0-2 0 - 2 /HPF Final ??? Epithelial cells, squamous, ur 07/12/2020 1-5 0 - 5 /HPF Final ??? Bacteria, ur 07/12/2020 Trace* Final ??? Mucous, ur 07/12/2020 Present* Final ? ? Culture Reflex Comment 07/12/2020 Reflex conditions for urine culture (WBC >10) not met. Final Patient Active Problem List Diagnosis Code ??? Acne L70.9 ??? Dysmenorrhea N94.6 ??? Obesity (BMI 30-39.9) E66.9 ??? Family history of breast cancer Z80.3 Mel Osei M.D. documented in this encounter Plan of Treatment Not on file documented as of this encounter Visit Diagnoses Diagnosis Annual physical exam- Primary Routine general medical examination at a health care facility Obesity (BMI 30-39.9) Acne vulgaris Other acne Dysmenorrhea NSAID induced gastritis Chronic GERD Family history of breast cancer Family history of malignant neoplasm of breast documented in this encounter Discontinued Medications Medication Sig Discontinue Reason Start Date End Da te famotidine-Ca carb-mag hydrox (PEPCID COMPLETE) [phone] mg chewable tabletIndications:Chron ic GERD Take 1 tablet by mouth daily as needed for heartburn Therapy completed 11/01/2020 02/11/2021 adapalene (DIFFERIN) 0.1 % cream Apply topically at bedtime. Reorder 07/30/2017 02/11/2021 documented as of this encounter Orders Immunization/Injection Count Last Ordered Date First Ordered Date TDAP VACCINE GREATER THAN OR EQUAL TO 7YO IM 1 02/11/2021 documented in this encounter Care Teams Raisin Separator Operator Relationship Specialty Start Date End Date Mel Osei MD PCP - General Internal Medicine 02/07/20 documented as of this encounter
--- OUTSIDE RECORDS SUMMARY | 2024-08-08 14:20 | XMS_ITS | Encounter Summary ---
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 Gender Identity Not on file Sexual Orientation Not on file Occupation Industry Job Start Date Job End Date Not on file Not on file Not on file Not on file documented as of this encounter Plan of Treatment Not on file documented as of this encounter Visit Diagnoses Diagnosis Preventative health care Routine general medical examination at a health care facility Easy bruising Other symptoms involving skin and integumentary tissues Obesity (BMI 30-39.9) documented in this encounter Care Teams Canary Breeder Relationship Specialty Start Date End Date Mel Osei MD PCP - General Internal Medicine 02/07/20 documented as of this encounter
--- OUTSIDE RECORDS SUMMARY | 2024-08-08 14:20 | XMS_ITS | Encounter Summary ---
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 She states that she has 2 pills left that she has decided not to take. She is feeling fine at this time. She states that she has a Counselor appt with Nathalie on 10/30/2020. She also sees Dr. JIMÉNEZ on 11/01/2020. To [place]-CONSTRUCTION MANAGEMENT INSTRUCTOR: Update * Telephone Encounter - [place] Denise NP - 10/22/2020 8:38 AM CDT Please call and check on her and see how she is doing off the zoloft. Was she able to get in to seea counselor? documented in this encounter Plan of Treatment Not on file documented as of this encounter Visit Diagnoses Not on filedocumented in this encounter Care Teams Electrolytic Etcher Relationship Specialty Start Date End Date Mel Osei MD PCP - General Internal Medicine 02/07/20 documented as of this encounter
--- OUTSIDE RECORDS SUMMARY | 2024-08-08 14:20 | XMS_ITS | Encounter Summary ---
Author Organization [facility] Address [address] [place] [address] Care Team Providers Care Program Production Specialist Name Role Phone Mel Osei MD Primary Care Provider [phone]- [phone] Reason for Visit * Reason Comments New Patient Chest Pain * Consultation (Routine) - Closed Specialty Diagnoses / Procedures Referred By Kj judge Referred To Contact Cardiology Diagnoses Chest pain, unspecified type Xaviermiglia, [place] Mendez NP Phone: tel: James Rivera DO [address] [place] [id number] Phone: tel: fax: Referral ID Status Reason Start Date Expiration Date V isits Requested Visits Authorized [id number] Closed Specialty Services Required 10/10/2020 11/09/2021 1 1 Encounter Details Date Type Department Care Team (Late st Contact Info) Description 10/31/2020 8:30 AM CDT Office Visit [place] [facility] [address] [facility] [address] [place] [address] James Rivera DO [address] [place] [address] Chest pain, unspecified type Social History Tobacco Use Types Packs/Day Years [...] on file 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 Gender Identity Not on file Sexual Orientation Not on file Occupation Industry Job Start Date Job End Date Not on file Not on file Not on file Not on file documented as of this encounter Last Filed Vital Signs Vital Sign Reading Time Taken Comments Blood Pressure 114/76 10/31/2020 8:18 AM CDT Pulse 60 10/31/2020 8:18 AM CDT Temperature 36.1 ??C (96.9 ??F) 10/31/2020 8:18 AM CD T Respiratory Rate 14 10/31/2020 8:18 AM CDT Oxygen Saturation - - Inhaled Oxygen Concentration - - Weight 97.1 kg (214 lb) 10/31/2020 8:18 AM CDT Height 165.1 cm (5' 5 ) 10/31/2020 8:18 AM CDT Body Mass Index 35.61 10/31/2020 8:18 AM CDT documented in this encounter Progress Notes * James Rivera, - 10/31/2020 8:30 AM CDT Images from the original note were not included. Cardiology note Reason for Office Visit: Chief Complaint Patient presents with ??? New Patient ??? Chest Pain 2. Chest pain, unspecified type Episodes of constant chest pain continue to occur lasting most of the day. Most likely d/t above. Work up to date has been negative. We will refer to cardiology for further evaluation. - Ambulatory referral to Cardiology; Future History of Present Illness: Tracey Arthur is a 20 y.o. female presents for evaluation of random episodes of chest discomfort since April. This part of the patient's evaluation she had normal ECG, normal echocardiography, and exercise treadmill testing performed. Stress test mild good exercise capacity without reproduction of the patient's symptoms or ECG suggest disc in the. Patient describes her discomfort as a generalized ache that may develop sharp discomfort lasting minutes to hours. Patient on at least 1 occasion tried anti-inflammatory without clear resolution of symptoms. Since April the patient's symptoms have increased in September but in October seem to be improving. Review of Systems: Review of Systems Constitution: Negative for weight gain and weight loss. HENT: Negative for nosebleeds and stridor. Eyes: Negative for blurred vision and redness. Cardiovascular: Negative for chest pain, claudication, cyanosis, dyspnea on exertion, irregular heartbeat, leg swelling, near-syncope, orthopnea, palpitations, paroxysmal nocturnal dyspnea and syncope. Respiratory: Negative for shortness of breath and snoring. Hematologic/Lymphatic: Negative for bleeding problem. Does not bruise/bleed easily. Skin: Negative for color change and rash. Musculoskeletal: Negative for back pain and muscle weakness. Gastrointestinal: Negative for bloating and heartburn. Genitourinary: Negative for decreased libido and hematuria. Neurological: Negative for excessive daytime sleepiness and dizziness. Psychiatric/Behavioral: Negative for altered mental status. The patient is not nervous/anxious. Histories: Past Medical History: Diagnosis Date ??? Chest pain ??? [place] 1999 8-5 product nl ??? Shortness of breath ??? Sick sinus syndrome (CMS/HCC) ??? Viral gastroenteritis 2000 Admit Past Surgical [...] Smoker ??? Smokeless tobacco: Never Used Substance Use Topics ??? Alcohol use: Not Currently ??? Drug use: Yes Types: Marijuana Allergies: No Known Allergies Medications: Current Outpatient Medications Medication Sig Dispense Refill ??? adapalene (DIFFERIN) 0.1 % cream Apply topically at bedtime. 45 g 5 ??? albuterol HFA (Proventil HFA) 90 mcg/actuation inhaler Inhale 2 puffs every 6 (six) hours as needed for wheezing or shortness of breath 6.7 g 0 ??? naproxen (ANAPROX DS) 550 mg tablet TAKE 1 TABLET BY MOUTH TWICE DAILY NEEDED FOR PAIN 180 0 ??? sertraline (ZOLOFT) 25 mg tablet Take 1 tablet (25 mg total) by mouth daily for 3 days 3 tablet0 No current facility-administered medications for this visit. Vital Signs: Vitals BP 114/76 (BP Location: Right arm, Patient Position: Sitting) Pulse 60 Temp 36.1 ??C (96.9 ??F) Resp 14 Ht 165.1 cm (5' 5 ) Wt 97.1 kg (214 lb) BMI 35.61 kg/m?? Vitals: 10/31/20 0818 BP: 114/76 Pulse: 60 Resp: 14 Temp: 36.1 ??C (96.9 ??F) Wt Readings from Last 3 Encounters: 10/31/20 97.1 kg (214 lb) 10/10/20 95.4 kg (210 lb 6.4 oz) 09/27/20 90.7 kg (200 lb) Body mass index is 35.61 kg/m??. Physical Exam: Physical Exam Constitutional: She is oriented to person, place, and time. She appears well- developed and well-nourished. No distress. HENT: Head: Normocephalic. Eyes: EOM are normal. Neck: No JVD present. No tracheal deviation present. Cardiovascular: Normal rate, regular rhythm, S1 normal, S2 normal and intact distal pulses. Exam reveals no decreased pulses. Pulses: Carotid pulses are 2+ on the right side and 2+ on the left side. Posterior tibial pulses are 2+ on the right side and 2+ on the left side. Pulmonary/Chest: Effort normal and breath sounds normal. She has no decreased breath sounds. She has no rhonchi. Abdominal: Soft. Normal appearance and bowel sounds are normal. There is no hepatomegaly. Musculoskeletal: General: Normal range of motion. Neurological: She is alert and oriented to person, place, and time. Skin: Skin is warm and dry. She is not diaphoretic. Psychiatric: She has a normal mood and affect. Labs: No results found for: INR No results found for: PT Lab Results Component Value Date TSH 1.93 08/22/2020 No results found for: BILIRUBINU, AST, ALT, ALKPHOS, ALBUMIN, LABGGT, LDH, PROTEINTTL Lab Results Component Value Date SODIUM 137 08/22/2020 POTASSIUM 4.3 08/22/2020 CHLORIDE 103 08/22/2020 CO2 24 08/22/2020 ANIONGAP 10 08/22/2020 GLUCOSEUR Negative 07/12/2020 No results found for: BNP Lab Results Component Value Date SODIUM 137 08/22/2020 POTASSIUM 4.3 08/22/2020 CHLORIDE 103 08/22/2020 CO2 24 08/22/2020 BUNSER 13 08/22/2020 CREATININE 0.97 08/22/2020 GFRNAA 83 08/22/2020 GLUCOSE 95 08/22/2020 CALCIUM 9.9 08/22/2020 Lab Results Component Value Date SODIUM 137 08/22/2020 POTASSIUM 4.3 08/22/2020 CHLORIDE 103 08/22/2020 CO2 24 08/22/2020 ANIONGAP 10 08/22/2020 BUNSER 13 08/22/2020 CREATININE 0.97 08/22/2020 GLUCOSE 95 08/22/2020 CALCIUM 9.9 08/22/2020 Lab Results Component Value Date WBC 7.9 08/22/2020 HGB 13.1 08/22/2020 HCT 38.9 08/22/2020 LABPLAT 296 08/22/2020 MPV 11.9 08/22/2020 RBC 4.25 08/22/2020 MCV 91.5 08/22/2020 MCH 30.8 08/22/2020 MCHC 33.7 08/22/2020 RDWCV 12.4 08/22/2020 RDWSD 40.4 08/22/2020 NRBCABS 0.00 08/22/2020 No results found for: CHOL, TRIG, HDL, LDLCALC, NONHDLCHOL, CHOLHDL Testing: Regular Stress Test: 09/27/2020 Conclusions: 1. Adequate stress test in regards to heart rate. 2. No exercise induced chest pain. 3. No definite ischemia on stress EKG. Dr Noam Curry Echo: 09/27/2020 Conclusions: Normal global left ventricular systolic function. Ejection fraction is visually estimated at 60 to 65 %. Normal structure of the mitral valve. Trivial regurgitation of the mitral valve. Normal structure of the aortic valve. Normal structure of the tricuspid valve. Trivial regurgitation in the tricuspid valve. Dr Noam Curry EK08/23/2020 Diagnoses and Plan Diagnoses and all orders for this visit: Chest pain, unspecified type Assessment & Plan: Patient's symptoms are not consist with a cardiac etiology. I believe the patient is most likely etiology is of inflammatory origin. GI origin appears to be less likely. I have suggested she keep a log of occurrences and treatment remedies with accompanied results. If her symptoms persist it may require further investigation. I will plan to see the patient in follow-up on an as- needed basis. Orders: - Ambulatory referral to Cardiology No follow-ups on file. 9:20 AM James Rivear DO Cc:Mel Osei MD documented in this encounter Miscellaneous Notes * Assessment & Plan Note - James Rivera DO - 10/31/2020 9:18 AM CDT Associated Problem(s): Atypical chest pain (Resolved 02/11/2021) Patient's symptoms are not consist with a cardiac etiology. I believe the patient is most likely etiology is of inflammatory origin. GI origin appears to be less likely. I have suggested she keep a log of occurrences and treatment remedies with accompanied results. If her symptoms persist it may require further investigation. I will plan to see the patient in follow-up on an as- needed basis. documented in this encounter Plan of Treatment Not on file documented as of this encounter Visit Diagnoses Diagnosis Chest pain, unspecified type documented in this encounter Discontinued Medications Medication Sig Discontinue Reason Start Date End Da te sertraline (ZOLOFT) 25 mg tabletIndications:Anxiet y with Depression Take 1 tablet (25 mg total) by mouth daily for 3 days 10/11/2020 10/31/2020 documented as of this encounter Orders Outpatient Referral Count Last Ordered Date Fir st Ordered Date AMB REFERRAL TO CARDIOLOGY 1 10/31/2020 documented in this encounter Care Teams Program Production Specialist Relationship Specialty Start Date End Date Mel Osei MD PCP - General Internal Medicine 02/07/20 documented as of this encounter
--- OUTSIDE RECORDS SUMMARY | 2024-08-08 14:20 | XMS_ITS | Encounter Summary ---
Author Organization [facility] Medical [facility] Address [address] [place] [address] Care Team Providers Care Nautical Instrument Mechanic Name Role Phone Mel Osei MD Primary Care Provider [phone]- [phone] Reason for Referral * Diagnostic Imaging (Routine) - Closed Specialty Diagnoses / Procedures Referred By Kj judge Referred To Contact Diagnoses Shortness of breath Procedures XR Chest Pa Lateral 2 Vw Argentina Denise NP Phone: tel: Tu Multi-Specialist Referral ID Status Reason Start Date Expiration Date Visits Re quested Visits Authorized [id number] Closed 08/22/2020 09/21/2021 1 1 UNITY PLACEMENT WORKER * Procedure (Routine) - Closed Specialty Diagnoses / Procedures Referred By Kj judge Referred To Contact Diagnoses Impacted cerumen of both ears Procedures Ear Cerumen Removal Argentina Denise NP Phone: tel: Tu Multi-Specialist Referral ID Status Reason Start Date Expiration Date Visits Re quested Visits Authorized [id number] Closed 08/22/2020 09/21/2021 1 1 UNITY PLACEMENT WORKER Reason for Visit * Reason Comments hard to breath at times Encounter Details Date Type Department Care Team (Latest Contact Info) Description 08/22/2020 2:00 PM COMMUNITY PLACEMENT WORKER Office Visit [facility] [address] [place] [address] Argentina Denise NP [address] [place] [address] Impacted cerumen of both ears (Primary Dx); Shortness of breath Social History Tobacco Use Types Packs/Day Years Used Date Smoking Tobacco: Never Smokeless Tobacco: Never Tobacco Cessation:Counseling Given: Yes Alcohol Use Standard Drinks/Week Comments Not Currently 0 (1 standard drink = 0.6 oz pur e alcohol) PHQ-2 Answer Date Recorded PHQ-2 Score 0 02/07/2020 Comments No Sex and Gender Information Value Date Recorded Sex Assigned at Not on file Legal Sex Female 12:30 PM COMMUNITY PLACEMENT WORKER Gender Identity Not on file Sexual Orientation Not on file Occupation Industry Job Start Date Job End Date Not on file Not on file Not on file Not on file documented as of this encounter Last Filed Vital Signs Vital Sign Reading Time Taken Comments Blood Pressure 114/72 08/22/2020 1:44 PM COMMUNITY PLACEMENT WORKER Pulse 60 08/22/2020 1:44 PM COMMUNITY PLACEMENT WORKER Temperature 36.1 ??C (96.9 ??F) 08/22/2020 1:44 PM CS T Respiratory Rate 18 08/22/2020 1:44 PM COMMUNITY PLACEMENT WORKER Oxygen Saturation 98% 08/22/2020 1:44 PM COMMUNITY PLACEMENT WORKER Inhaled Oxygen Concentration - - Weight 95 kg (209 lb 6.4 oz) 08/22/2020 1:44 PM COMMUNITY PLACEMENT WORKER Height 165.1 cm (5' 5 ) 08/22/2020 1:44 PM COMMUNITY PLACEMENT WORKER Body Mass Index 34.85 08/22/2020 1:44 PM COMMUNITY PLACEMENT WORKER documented in this encounter Patient Instructions * Patient Instructions* Argentina Denise NP - 08/22/2020 2:00 PM COMMUNITY PLACEMENT WORKER Orders for AMS STAFF to arrange Please do CBC, BMP, and TSH for shortness of breath Please do CXR for shortness of breath Please arrange 4 week follow up with Dr. Osei Orders for Tracey Arthur to arrange Please make sure you are drinking plenty of water and avoid excess caffeine You can use albuterol inhaler every 6 hours as needed for shortness of breath Please call or go to ER with worsening or persistent shortness of breath Return in about 4 weeks (around 09/19/2020). Orders Placed This Encounter Procedures ??? ECG 12 lead A brief review of all your problems, medications, and orders from today ICD-9-CM ICD-10-CM 1. Shortness of breath 786.05 R06.02 ECG 12 lead PLEASE BRING IN ALL PILL BOTTLES TO EVERY OFFICE VISIT, THIS IS ESSENTIAL FOR ACCURATE REFILLS AND MAINTAINING AN ACCURATE MEDICATION LIST. UNITY PLACEMENT WORKER UNITY PLACEMENT WORKER documented in this encounter Ordered Prescriptions Prescription Sig Dispense Quantity Refills Last Filled Start Date End Date albuterol HFA (Proventil HFA) 90 mcg/actuation inhalerIndications :Shortness of breath Inhale 2 puffs every 6 (six) hours as needed for wheezing or shortness of breath 6.7 g 08/22/2020 3 documented in this encounter Progress Notes * Argentina Denise NP - 08/22/2020 2:00 PM CST Patient Instructions Orders for AMS STAFF to arrange Please do CBC, BMP, and TSH for shortness of breath Please do CXR for shortness of breath Please arrange 4 week follow up with Dr. Osei Orders for Tracey Arthur to arrange Please make sure you are drinking plenty of water and avoid excess caffeine You can use albuterol inhaler every 6 hours as needed for shortness of breath Please call or go to ER with worsening or persistent shortness of breath Return in about 4 weeks (around 09/19/2020). Orders Placed This Encounter Procedures ??? ECG 12 lead A brief review of all your problems, medications, and orders from today ICD-9-CM ICD-10-CM 1. Shortness of breath 786.05 R06.02 ECG 12 lead PLEASE BRING IN ALL PILL BOTTLES TO EVERY OFFICE VISIT, THIS IS ESSENTIAL FOR ACCURATE REFILLS AND MAINTAINING AN ACCURATE MEDICATION LIST. CHIEF COMPLAINT hard to breath at times HISTORY OF PRESENT ILLNESS Tracey Arthur comes to the office today for shortness of breath and trouble catching her breath. She tested positive for COVID about 20 days ago. She at that time had sinus congestion, cough and headaches. The shortness of breath started a couple of days ago. Shortness of breath with activity Discussion of symptoms and my assessment and plan: 1. Shortness of breath Patient is reporting SOB post recent COVID 19 infection about 20 days ago. SOB is associated with cough and palpitations and worse with activity. Etiology unclear at this time. 12 lead EKG done showsNSR and no acute ST/T wave changes. We [...] in 4 weeks or sooner if needed. - ECG 12 lead - albuterol HFA (Proventil HFA) 90 mcg/actuation inhaler; Inhale 2 puffs every 6 (six) hours as needed for wheezing or shortness of breath Dispense: 6.7 g; Refill: 0 2. Impacted cerumen of both ears Irrigation completed and patient tolerated well with good results. - Ear Cerumen Removal SOCIAL HISTORY Social History Tobacco Use ??? Smoking status: Never Smoker ??? Smokeless tobacco: Never Used Substance Use Topics ??? Alcohol use: Not Currently REVIEW OF SYSTEMS Review of Systems Constitutional: Negative for appetite change, chills and fever. HENT: Positive for postnasal drip. Negative for congestion, ear discharge, ear pain, rhinorrhea, sinus pressure, sinus pain, sneezing and sore throat. Respiratory: Positive for cough, chest tightness and shortness of breath. Cardiovascular: Positive for palpitations. Negative for chest pain. Gastrointestinal: Negative for abdominal pain, constipation, diarrhea, nausea and vomiting. Genitourinary: Negative for difficulty urinating. Neurological: Negative for dizziness and light-headedness. MEDICATIONS CHANGED / CLEANED UP THIS VISIT There are no discontinued medications. MEDICATION LIST AT CONCLUSION OF THIS VISIT Current Outpatient Medications Ordered in [employer] Medication Sig Dispense Refill ??? adapalene (DIFFERIN) 0.1 % cream Apply topically at bedtime. 45 g 5 ??? naproxen (ANAPROX DS) 550 mg tablet TAKE 1 TABLET BY MOUTH TWICE DAILY NEEDED FOR PAIN 180 0 ??? albuterol HFA (Proventil HFA) 90 mcg/actuation inhaler Inhale 2 puffs every 6 (six) hours as needed for wheezing or shortness of breath 6.7 g 0 No current Epic-ordered facility-administered medications on file. ALLERGIES has No Known Allergies. PHYSICAL EXAM body mass index is 34.85 kg/m??. Vitals: 08/22/20 1344 BP: 114/72 BP Location: Right arm Patient Position: Sitting Pulse: 60 Resp: 18 Temp: 36.1 ??C (96.9 ??F) SpO2: 98% Weight: 95 kg (209 lb 6.4 oz) Height: 165.1 cm (5' 5 ) Physical Exam Vitals signs and nursing note reviewed. Constitutional: Appearance: Normal appearance. HENT: Head: Normocephalic and atraumatic. Right Ear: Tympanic membrane, ear canal and external ear normal. Left Ear: Tympanic membrane, ear canal and external ear normal. Nose: Nose normal. Mouth/Throat: Mouth: Mucous membranes are moist. Cardiovascular: Rate and Rhythm: Normal rate and regular rhythm. Heart sounds: Normal heart sounds. Pulmonary: Effort: Pulmonary effort is normal. Breath sounds: Normal breath sounds. Abdominal: General: Bowel sounds are normal. Palpations: Abdomen is soft. Skin: General: Skin is warm and dry. Neurological: Mental Status: She is alert and oriented to person, place, and time. Motor: No weakness. Gait: Gait normal. Psychiatric: Mood and Affect: Mood normal. Behavior: Behavior normal. Follow-up examination was completed today and specifics of the testing and counseling are recorded on the AVS. Tracey Arthur's personal health goals were negotiated and agreed [...] shared with her in the After Visit Summary. GIUSEPPE Ramirez THE FOLLOWING CLERICAL INFORMATION DOES NOT DUE TO BE SENT IN A PRINTED DOCUMENT BLOOD WORK REVIEWED WITH Tracey Arthur TODAY Orders Only on 07/12/2020 Component Date Value Ref Range Status ??? CLINICAL INFORMATION: 07/12/2020 Final ??? LMP 07/12/2020 Final ??? Previous Pap 07/12/2020 Final ??? Prev. Bx 07/12/2020 Final ??? SOURCE: 07/12/2020 Final ??? Pap, specimen adequacy 07/12/2020 Final ??? HPV interp 07/12/2020 Final ??? COMMENTS 07/12/2020 Final ??? Polymer Specialist 07/12/2020 Final ??? Comment 07/12/2020 Final Lab [...] Patient Active Problem List Diagnosis Code ??? Myopia H52.10 ??? Acne L70.9 ??? Recurrent sinusitis J32.9 ??? Asthma J45.909 ??? 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 Dysmenorrhea N94.6 ??? Easy bruising R23.8 ??? Obesity (BMI 30-39.9) E66.9 ??? Family history of breast cancer Z80.3 ??? Shortness of breath R06.02 ??? COVID-19 U07.1 Argentina Denise [facility] Cosigned by Mel Osei MD at 08/22/2020 4:07 PM COMMUNITY PLACEMENT WORKER UNITY PLACEMENT WORKER UNITY PLACEMENT WORKER documented in this encounter Procedure Notes * Mel Osei MD - 08/22/2020 2:00 PM CSTAssociated Order(s): ECG 12 lead Pre-Procedure Diagnose(s): Shortness of breath Post-Procedure Diagnose(s): Shortness of breath ECG 12 lead Date/Time: 08/23/2020 6:47 PM Performed by: Mel Osei MD Authorized by: Argentina Denise NP Comparison: not compared with previous ECG Rhythm: sinus bradycardia Rate: normal QRS axis: normal Conduction: conduction normal ST Segments: ST segments normal T Waves: T waves normal Other: no other findings Clinical impression: normal ECG Comments: Sinus bradycardia otherwise normal EKG UNITY PLACEMENT WORKER documented in this encounter Miscellaneous Notes * Assessment & Plan Note - Argentina Denise NP - 08/22/2020 2:23 PM COMMUNITY PLACEMENT WORKER Associated Problem(s): Shortness of breath (Resolved 02/11/2021) Patient is reporting SOB post recent COVID 19 infection about 20 days ago. SOB is associated with cough and palpitations and worse with activity. Etiology unclear at this time. 12 lead EKG done showsNSR and no acute ST/T wave changes. We [...] in 4 weeks or sooner if needed. UNITY PLACEMENT WORKER UNITY PLACEMENT WORKER documented in this encounter Plan of Treatment Not on file documented as of this encounter Procedures Procedure Name Priority Date/Time Associated Diagnosis Comments ECG 12-LEAD Routine 08/22/2020 2:00 PM COMMUNITY PLACEMENT WORKER Shortness of breath EAR CERUMEN REMOVAL Routine 08/22/2020 Impacted cerumen of both ears documented in this encounter Results * TSH (08/22/2020 2:49 PM COMMUNITY PLACEMENT WORKER) Thyroid Stimulating Hormone 1.93 0.30 - 4.20 mcIUnit/mL [facility] Blood specimen (specimen) 08/22/2020 2:49 PM COMMUNITY PLACEMENT WORKER 08/22/2020 5:38 PM COMMUNITY PLACEMENT WORKER Argentina Denise NP LAB BLOOD ORDERABL ES Final Result [facility] [address] [place] [address] * Basic metabolic panel (08/22/2020 2:49 PM COMMUNITY PLACEMENT WORKER) Sodium 137 135 - 145 mmol/L [facility] Potassium, pl 4.3 3.3 - 4.9 mmol/L [facility] Chloride 103 97 - 110 mmol/L [facility] CO2 24 22 - 32 mmol/L [facility] Anion gap 10 2 - 15 mmol/L [facility] BUN 13 8 - 25 mg/dL [facility] Creatinine 0.97 0.60 - 1.10 mg/dL [facility] Glucose 95 70 - 199 mg/dL [facility] Comment: Interpretive [...] interpretive data was last revised 2017. Calcium 9.9 8.5 - 10.3 mg/dL [facility] Blood specimen (specimen) 08/22/2020 2:49 PM COMMUNITY PLACEMENT WORKER 08/22/2020 5:38 PM COMMUNITY PLACEMENT WORKER Argentina Denise INDUSTRIAL SWEEPER CLEANER LAB BLOOD ORDERABL ES Final Result Performing Organization Address [facility] Co de Phone Number [facility]UP[facility] SANCHE[facility] [address] [place] [address] * CBC with auto differential (08/22/2020 2:49 PM COMMUNITY PLACEMENT WORKER) Pathologist [facility] WBC 7.9 3.8 - 9.9 K/cumm [facility] Hgb 13.1 11.9 - 15.5 g/dL [facility] Hct 38.9 35.6 - 45.5 % [facility] Plt 296 150 - 400 K/cumm [facility] MPV 11.9 9.1 - 12.3 fL [facility] RBC 4.25 3.90 - 5.20 M/cumm [facility] MCV 91.5 81.3 - 96.4 fL [facility] MCH 30.8 27.1 - 33.3 pg [facility] MCHC 33.7 32.3 - 35.7 g/dL [facility] RDW CV 12.4 11.1 - 14.9 % [facility] RDW SD 40.4 35.7 - 48.1 fL [facility] NRBC abs 0.00 0.00 - 0.01 K/cumm [facility] Blood specimen (specimen) 08/22/2020 2:49 PM COMMUNITY PLACEMENT WORKER 08/22/2020 5:38 PM COMMUNITY PLACEMENT WORKER [place] Denise NP LAB BLOOD ORDERABL ES Final Result [facility] [address] [place] [address] * XR Chest Pa Lateral 2 Vw (08/22/2020 2:44 PM COMMUNITY PLACEMENT WORKER) Anatomical Region Laterality Modality Body, Chest N/A Computed Radiogr aphy Narrative 08/23/2020 1:07 PM COMMUNITY PLACEMENT WORKER CHEST, 2 VIEWS: PA and lateral views of the chest reveal clear lungs without radiographic evidence of pleural effusion or pneumothorax. ??The cardiac and mediastinal structures are of normal size. ??The osseous structures are normal. SUMMARY: No radiographic evidence of pulmonary disease. us Argentina Denise INDUSTRIAL SWEEPER CLEANER IMG XR PROCEDURES Final Result * ECG 12-LEAD (08/22/2020 2:00 PM COMMUNITY PLACEMENT WORKER) Narrative Mel Osei MD - 08/22/2020 2:00 PM COMMUNITY PLACEMENT WORKER Mel Osei MD ? 08/23/2020 ??6:47 PM ECG 12 lead Date/Time: 08/23/2020 6:47 PM Performed by: Mel Osei MD Authorized by: Argentina Denise NP Comparison: not compared with previous ECG Rhythm: sinus bradycardia Rate: normal QRS axis: normal Conduction: conduction normal ST Segments: ST segments normal T Waves: T waves normal Other: no other findings Clinical impression: normal ECG Comments: Sinus bradycardia otherwise normal EKG us [place] Denise INDUSTRIAL SWEEPER CLEANER ECG ORDERABLES Ed ited Result - Final * Ear Cerumen Removal (08/22/2020) Narrative Laurie Connor MA - 08/22/2020 Bilateral Ear Cerumen Removal Completed. Tympanic Membrane Visualized. us Argentina Denise INDUSTRIAL SWEEPER CLEANER IN CLINIC/BEDSIDE ORDERABLES Final Result documented in this encounter Visit Diagnoses Diagnosis Impacted cerumen of both ears- Primary Impacted cerumen Shortness of breath Shortness of breath documented in this encounter Care Teams Nautical Instrument Mechanic Relationship Specialty Start Date End Date Mel Osei MD PCP - General Internal Medicine 02/07/20 documented as of this encounter
--- OUTSIDE RECORDS SUMMARY | 2024-08-08 14:20 | XMS_ITS | Encounter Summary ---
Author Organization [facility] Address [address] [place] [address] Care Team Providers Care Supervisor Asphalt Paving Name Role Phone Mel Osei MD Primary Care Provider +1- [phone] Encounter Details Date Type Department Care Team (Late st Contact Info) Description 08/23/2020 Telephone [facility] [address] [place] [address] Argentina Denise, RESEARCH GENETICIST [address] [place] [id number] Social History Tobacco Use Types Packs/Day Years Used Date Smoking Tobacco: Never Smokeless Tobacco: Never Alcohol Use Standard Drinks/Week Comments Not Currently 0 (1 standard drink = 0.6 oz pur e alcohol) PHQ-2 Answer Date Recorded PHQ-2 Score 0 02/07/2020 Comments No Sex and Gender Information Value Date Recorded Sex Assigned at Not on file Legal Sex Female 12:30 PM ELEVATED MOTORMAN Gender Identity Not on file Sexual Orientation Not on file Occupation Industry Job Start Date Job End Date Not on file Not on file Not on file Not on file documented as of this encounter Miscellaneous Notes * Telephone Encounter - Bernice Yeboah RN - 08/23/2020 2:04 PM CST Pt returned call. Let her know her labs and CXR were fine. She should use inhaler as prescribed and we will re-evaluate at her follow up unless she needs to return sooner. Pt verbalized understanding. ATED MOTORMAN * Telephone Encounter - Bernice Yeboah RN - 08/23/2020 1:18 PM CST Tried to call pt, no answer and MB is full. ATED MOTORMAN * Telephone Encounter - Argentina Denise NP - 08/23/2020 1:12 PM ELEVATED MOTORMAN Please let her know her labs and CXR were fine. She should use inhaler as prescribed and we will re-evaluate at her follow up unless she needs to return sooner. ATED MOTORMAN documented in this encounter Plan of Treatment Not on file documented as of this encounter Visit Diagnoses Not on filedocumented in this encounter Care Teams Supervisor Asphalt Paving Relationship Specialty Start Date End Date Mel Osei MD PCP - General Internal Medicine 02/07/20 documented as of this encounter
--- OUTSIDE RECORDS SUMMARY | 2024-08-08 14:20 | XMS_ITS | Encounter Summary ---
Author Organization [facility] Address [address] [place] [address] Care Team Providers Care Cat Swamper Name Role Phone Mel Osei MD Primary Care Provider +1- [phone] Reason for Visit * Reason Comments Follow-up 6 week Encounter Details Date Type Department Care Team (Late st Contact Info) Description 11/01/2020 2:00 PM CDT Office Visit [facility] [address] [place] [address] Mel Osei MD [address] [place] [address] Atypical chest pain (Primary Dx); Anxiety and depression; Shortness of breath; Chronic GERD; Obesity (BMI 30-39.9); Sleep disturbance Social History Tobacco Use Types Packs/Day Years [...] on file 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 Gender Identity Not on file Sexual Orientation Not on file Occupation Industry Job Start Date Job End Date Not on file Not on file Not on file Not on file documented as of this encounter Last Filed Vital Signs Vital Sign Reading Time Taken Comments Blood Pressure 116/70 11/01/2020 2:08 PM CDT Pulse 72 11/01/2020 2:08 PM CDT Temperature 36.2 ??C (97.1 ??F) 11/01/2020 2:08 PM CD T Respiratory Rate 12 11/01/2020 2:08 PM CDT Oxygen Saturation 97% 11/01/2020 2:08 PM CDT Inhaled Oxygen Concentration - - Weight 98 kg (216 lb) 11/01/2020 2:08 PM CDT Height - - Body Mass Index 35.94 10/31/2020 8:18 AM CDT documented in this encounter Patient Instructions * Patient Instructions* Mel Osei MD - 11/01/2020 2:00 PM CDT ORDERS FOR AMS STAFF TO ARRANGE 1. No labs due before scheduled annual physical ORDERS FOR Tracey Arthur TO ARRANGE 1. Medication changes Stop Zoloft 25 mg not necessary Continue in counseling with Nathalie Harden 2. Start exercise as outlined below, this will help with the shortness of breath and chest wall pain and will help with mood 3. For sleep disturbance please review this problem with Nathalie she can work on cognitive behavioraltherapy for sleep--mindfullness works best Begin YinYoga 30-60 minutes daily This is available for free online, classes by Mirta are very good for upper back and shoulder, classes by Lenny Wallace are excellent for lower back , ITB and hamstrings. Patient Care Team: Mel Osei MD as PCP - General (Internal Medicine) Return in about 3 months (around 02/11/2021) for Annual physical, Recheck sleep, chest wall pain, GERD, secondary anxiety. A brief review of all your problems, medications, and orders from today ICD-9-CM ICD-10-CM 1. Atypical chest pain 786.59 R07.89 naproxen sodium 220 mg capsule 2. Anxiety and depression 300.00 F41.9 311 F32.9 3. Shortness of breath 786.05 R06.02 4. Chronic GERD 530.81 K21.9 famotidine-Ca carb-mag hydrox (PEPCID COMPLETE) 10-800-165 mg chewabletablet 5. Obesity (BMI 30-39.9) 278.00 E66.9 6. Sleep disturbance 780.50 G47.9 For your records I have provided this [...] 03/20/2016 ??? Meningococcal Polysaccharide (Menomune) 02/18/2011 ??? Pneumococcal Conjugate 7-Valent 03/26/2000, 05/11/2000, 08/20/2000 ??? Tdap 02/18/2011 ??? Varicella 05/11/2000, 03/09/2014 Primary Pharmacy/DME suppliers: [id number] [place], [place] - [facility] [facility] [address] [facility] [address] PLEASE BRING IN ALL PILL BOTTLES TO EVERY OFFICE VISIT, THIS IS ESSENTIAL FOR ACCURATE REFILLS AND MAINTAINING AN ACCURATE MEDICATION LIST. PLEASE SIGN UP FOR [facility] so that you may have access to your labs and chart documentation IF YOU HAVE TROUBLE WITH THIS PROCESS CALL [phone] HIIT= high intensity interval training works best for generating better body composition and weightreduction Start with a 2 minutes warmup = [...] Then do 2 minutes of active recovery daily exercise the 1st week= once daily for the 1st week Daily exercise the 2nd week =2 times through the routine Starting at the 3rd week you can go 3 times through this routine EVERY OTHER DAY Starting at the 4th week go 4 times through this routine EVERY OTHER DAY = 28 minutes This is HIIT exercise is done every other day alternating with a weightlifting strength training, OR stretching, OR balance Exercise for 30 minutes My favorite CHOICES ARE: My favorite CHOICES ARE: Pilates strengthening =The complete guide to Lester Vaz techniques of physical conditioning by Jf Canela I recommend strengthening with exercise bands, the FIT SIMPLIFY is a very good band for the exercise loops, I recommend starting with the extra lite band. stretching exercises, Ronald Chi for balance training, and light weight lifting if needed for strength. All of these program are all available for free online, you may have a family member print them out for you if you do not have access. documented in this encounter Ordered Prescriptions Prescription Sig Dispense Quantity Refills Last Filled Start Date End Date naproxen sodium 220 mg capsuleIndications :Atypical chest pain Take 2 tablets by mouth 2 (two) times a day as needed (Chest wall pain, menstrual cramps) for up to 10 days 60 each 11/01/2020 3 famotidine-Ca carb-mag hydrox (PEPCID COMPLETE) 10-800-165 mg chewable tabletIndications: Chronic GERD Take 1 tablet by mouth daily as needed for heartburn 60 tablet 1 11/01/2020 1 documented in this encounter Progress Notes * Mel Osei MD - 11/01/2020 2:00 PM CDT ASSESSMENT AND PLAN Patient Instructions ORDERS FOR AMS STAFF TO ARRANGE 1. No labs due before scheduled annual physical ORDERS FOR Tracey Arthur TO ARRANGE 1. Medication changes Stop Zoloft 25 mg not necessary Continue in counseling with Nathalie Harden 2. Start exercise as outlined below, this will help with the shortness of breath and chest wall pain and will help with mood 3. For sleep disturbance please review this problem with Nathalie she can work on cognitive behavioraltherapy for sleep--mindfullness works best Begin YinYoga 30-60 minutes daily This is available for free online, classes by Mirta are very good for upper back and shoulder, classes by Lenny Wallace are excellent for lower back , ITB and hamstrings. Patient Care Team: Mel Osei MD as PCP - General (Internal Medicine) Return in about 3 months (around 02/11/2021) for Annual physical, Recheck sleep, chest wall pain, GERD, secondary anxiety. A brief review of all your problems, medications, and orders from today ICD-9-CM ICD-10-CM 1. Atypical chest pain 786.59 R07.89 naproxen sodium 220 mg capsule 2. Anxiety and depression 300.00 F41.9 311 F32.9 3. Shortness of breath 786.05 R06.02 4. Chronic GERD 530.81 K21.9 famotidine-Ca carb-mag hydrox (PEPCID COMPLETE) 10-800-165 mg chewabletablet 5. Obesity (BMI 30-39.9) 278.00 E66.9 6. Sleep disturbance 780.50 G47.9 For your records I have provided this [...] 03/20/2016 ??? Meningococcal Polysaccharide (Menomune) 02/18/2011 ??? Pneumococcal Conjugate 7-Valent 03/26/2000, 05/11/2000, 08/20/2000 ??? Tdap 02/18/2011 ??? Varicella 05/11/2000, 03/09/2014 Primary Pharmacy/DME suppliers: [id number] [place] [address] [address] [facility] [address] PLEASE BRING IN ALL PILL BOTTLES TO EVERY OFFICE VISIT, THIS IS ESSENTIAL FOR ACCURATE REFILLS AND MAINTAINING AN ACCURATE MEDICATION LIST. PLEASE SIGN UP FOR [facility] so that you may have access to your labs and chart documentation IF YOU HAVE TROUBLE WITH THIS PROCESS CALL [phone] HIIT= high intensity interval training works best for generating better body composition and weightreduction Start with a 2 minutes warmup = [...] Then do 2 minutes of active recovery daily exercise the 1st week= once daily for the 1st week Daily exercise the 2nd week =2 times through the routine Starting at the 3rd week you can go 3 times through this routine EVERY OTHER DAY Starting at the 4th week go 4 times through this routine EVERY OTHER DAY = 28 minutes This is HIIT exercise is done every other day alternating with a weightlifting strength training, OR stretching, OR balance Exercise for 30 minutes My favorite CHOICES ARE: My favorite CHOICES ARE: Pilates strengthening =The complete guide to Lester Vaz techniques of physical conditioning by Jf Canela I recommend strengthening with exercise bands, the FIT SIMPLIFY is a very good band for the exercise loops, I recommend starting with the extra lite band. stretching exercises, Ronald Chi for balance training, and light weight lifting if needed for strength. All of these program are all available for free online, you may have a family member print them out for you if you do not have access. CHIEF COMPLAINT Follow-up (6 week) HISTORY OF PRESENT ILLNESS Tracey Arthur returns today for her six-month follow-up to review Chronic medical problems and discuss her concerns, Review new orders, and Update Medication Refill Management. Important details of this conversation, exam, and plan for care are summarized at the top and bottom of this comprehensive note for the readers quick access to the information. ORDERS FROM LAST VISIT WITH ME 02/07/[address] Fried evaluate for her 1st well-woman care examination and review the family history of breast ovarian and colon cancer or any updating cancer screening or genetic testing ?? 2. Labs chemistry panel, fasting lipid panel = annual, obesity CBC = easy bruising ?? ORDERS FOR Tracey Arthur TO ARRANGE 1. Check with your family to see if there is a BRCA, or Naidu syndrome genetic mutation causing anyof the cancers 2. Easy bruising is likely from taking Motrin and/or Aleve. I would recommend switching to Tylenol 650 mg ER tab 1-2 tablets up to 3 times daily as needed for pain this will not cause bruising 3. Responsible diet, if still having trouble losing weight try the whole 30 program Begin 30 minutes of challenging exercise daily DETAILS REGARDING THIS VISIT: Tracey reports feeling improved and not on any prescription medicine : 1. Atypical chest pain Completed evaluation with CRISTAL Ramirez and is been diagnosed with chest wall pain. She will try naproxen sodium 1-2 tablets up to twice daily only as needed for chest pain and start a physical exercise rehabilitation program at advise and outlined on the AVS - naproxen sodium 220 mg capsule; Take 2 tablets by mouth 2 (two) times a day as needed (Chest wallpain, menstrual cramps) for up to 10 days Dispense: 60 each; Refill: 0 2. Anxiety and depression She relates this problem to her mother's 2017 . She is in counseling with Nathalie Harden 3. Shortness of breath Shortness of breath is occurred with activity but she has become deconditioned. I think this problem resolved with the gentle reconditioning program 4. Chronic GERD Occasional midepigastric to low chest discomfort consistent with GERD. She will start Pepcid Complete p.r.n. will consider for the full GERD regimen - famotidine-Ca carb-mag hydrox (PEPCID COMPLETE) 10-800-165 mg chewable tablet; Take 1 tablet by mouth daily as needed for heartburn Dispense: 60 tablet; Refill: 1 5. Obesity (BMI 30-39.9) Weight loss diet and exercise are encouraged 6. Sleep disturbance She is in counseling with Nathalie Harden. I gave her the yoga idea for her mind fullness therapy SOCIAL HISTORY Social History Tobacco Use ??? Smoking status: Never Smoker ??? Smokeless tobacco: Never Used Substance Use Topics ??? Alcohol use: Not Currently REVIEW OF SYSTEMS Review of Systems Constitutional: Positive for activity change (Not active since COVID). Negative for appetite change, fatigue, fever and unexpected weight change. HENT: Negative for congestion, dental problem, hearing loss, postnasal drip, sinus pressure, sore throat and trouble swallowing. Eyes: Negative for pain, discharge, itching and visual disturbance. Respiratory: Negative for cough, chest tightness, shortness of breath and wheezing. Cardiovascular: Positive for chest pain ( sharp stabbing pain sometimes across the chest worse withdeep breath). Negative for palpitations. Gastrointestinal: Positive for abdominal pain (Lower esophageal area occasionally). Negative for abdominal distention, anal bleeding, blood in stool, constipation, diarrhea, nausea, rectal pain and vomiting. Endocrine: [...] for adenopathy. Does not bruise/bleed easily. Psychiatric/Behavioral: Positive for dysphoric mood ( mother in 2017 and she has not completedthe grief process) and sleep disturbance. Negative for behavioral problems. The patient is nervous/anxious ( Zoloft caused increased nervousness and was discontinued after the 1st pills). Much improved since counseling with Nathalie Harden over the past few weeks MEDICATIONS CHANGED / CLEANED UP THIS VISIT Medications Discontinued During This Encounter Medication Reason ??? naproxen (ANAPROX DS) 550 mg tablet MEDICATION LIST AT CONCLUSION OF THIS VISIT Current Outpatient Medications Ordered in [facility] Medication Sig Dispense Refill ??? adapalene (DIFFERIN) 0.1 % cream Apply topically at bedtime. 45 g 5 ??? albuterol HFA (Proventil HFA) 90 mcg/actuation inhaler Inhale 2 puffs every 6 (six) hours as needed for wheezing or shortness of breath 6.7 g 0 ??? famotidine-Ca carb-mag hydrox (PEPCID COMPLETE) 10-800-165 mg chewable tablet Take 1 tablet by mouth daily as needed for heartburn 60 tablet 1 ??? naproxen sodium 220 mg capsule Take 2 tablets by mouth 2 (two) times a day as needed (Chest wall pain, menstrual cramps) for up to 10 days 60 each 0 No current [facility]-ordered facility-administered medications on file. ALLERGIES has No Known Allergies. PHYSICAL EXAM body mass index is 35.94 kg/m??. Vitals: 11/01/20 1408 BP: 116/70 BP Location: Left arm Patient Position: Sitting Pulse: 72 Resp: 12 Temp: 36.2 ??C (97.1 ??F) TempSrc: Temporal SpO2: 97% Weight: 98 kg (216 lb) Physical Exam Vitals reviewed. Constitutional: General: She is not in acute distress. Appearance: Normal appearance. She is well-developed. She is obese. She is not ill-appearing. HENT: Head: Normocephalic. Right Ear: Tympanic membrane and external ear [...] pulses. Heart sounds: Normal heart sounds. No murmur. No gallop. Pulmonary: Effort: Pulmonary effort is normal. Breath sounds: Normal breath sounds. No wheezing, rhonchi or rales. Comments: No reproducible chest wall pain on palpation Abdominal: General: Bowel sounds are normal. Palpations: Abdomen is soft. There is no mass. Tenderness: There is no abdominal tenderness. Hernia: No hernia is present. Comments: Obese abdomen Musculoskeletal: General: No swelling, tenderness, deformity or signs of injury. Normal range of motion. Cervical back: Normal range of motion and neck supple. No tenderness. Right lower leg: No edema. Left lower leg: No edema. Lymphadenopathy: Cervical: No cervical adenopathy. Skin: General: Skin is warm and dry. Findings: No erythema, lesion or rash. Neurological: General: No focal deficit present. Mental Status: She is alert and oriented to person, place, and time. Mental status is at baseline. Cranial Nerves: No cranial nerve deficit. Motor: No abnormal muscle tone. Coordination: Coordination normal. Psychiatric: Mood and Affect: Mood normal. Behavior: Behavior normal. Thought Content: Thought content normal. Judgment: Judgment normal. Follow-up examination was completed today and [...] with her in the After Visit Summary. Mel Osei M.D. THE FOLLOWING CLERICAL INFORMATION DOES NOT DUE TO BE SENT IN A PRINTED DOCUMENT BLOOD WORK REVIEWED WITH Tracey Arthur TODAY Lab on 08/22/2020 Component Date Value Ref [...] 07/12/2020 Final ??? COMMENTS 07/12/2020 Final ??? Resident Physician 07/12/2020 Final ??? Comment 07/12/2020 Final Lab [...] ??? Shortness of breath R06.02 ??? COVID-19 virus detected U07.1 ??? Anxiety and depression F41.9, F32.9 ??? Atypical chest pain R07.89 Mel Osei M.D. documented in this encounter Plan of Treatment Not on file documented as of this encounter Visit Diagnoses Diagnosis Atypical chest pain- Primary Other chest pain Anxiety and depression Shortness of breath Chronic GERD Obesity (BMI 30-39.9) Sleep disturbance Unspecified sleep disturbance documented in this encounter Discontinued Medications Medication Sig Discontinue Reason Start Date End Da te naproxen (ANAPROX DS) 550 mg tablet TAKE 1 TABLET BY MOUTH TWICE DAILY NEEDED FOR PAIN 03/09/2012 11/01/2020 documented as of this encounter Care Teams Cat Swamper Relationship Specialty Start Date End Date Mel Osei MD PCP - General Internal Medicine 02/07/20 documented as of this encounter
--- OUTSIDE RECORDS SUMMARY | 2024-08-08 14:20 | XMS_ITS | Encounter Summary ---
Author Organization [facility] Address [address] [place] [address] Care Team Providers Care Trust Administrator Name Role Phone Mel Osei MD Primary Care Provider +1- [phone] Reason for Visit * Diagnostic Imaging (Routine) - Closed Specialty Diagnoses / Procedures Referred By Kj judge Referred To Contact Diagnoses Shortness of breath Procedures XR Chest Pa Lateral 2 Vw [place] Denise NP Phone: tel: [facility] Referral ID Status Reason Start Date Expiration Date Visits Re quested Visits Authorized [id number] Closed 08/22/2020 09/21/2021 1 1 Encounter Details Date Type Department Care Team (Latest Contact Info) Description 08/22/2020 2:45 PM LEAD JAVA J2EE DEVELOPER Ancillary Procedure [facility] [address] [place] [address] Shortness of breath Social History Tobacco Use Types Packs/Day Years Used Date Smoking Tobacco: Never Smokeless Tobacco: Never Alcohol Use Standard Drinks/Week Comments Not Currently 0 (1 standard drink = 0.6 oz pur e alcohol) PHQ-2 Answer Date Recorded PHQ-2 Score 0 02/07/2020 Comments No Sex and Gender Information Value Date Recorded Sex Assigned at Not on file Legal 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 Female 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 Gender Identity Not on file Sexual Orientation Not on file Occupation Industry Job Start Date Job End Date Not on file Not on file Not on file Not on file documented as of this encounter Plan of Treatment Not on file documented as of this encounter Procedures Procedure Name Priority Date/Time Associated Diagnosis Comments XR CHEST PA LATERAL 2 VIEWS Schedule Routine, Read Routine (OP Routine) 08/22/2020 2:44 PM LEAD JAVA J2EE DEVELOPER Shortness of breath documented in this encounter Results * XR Chest Pa Lateral 2 Vw (08/22/2020 2:44 PM LEAD JAVA J2EE DEVELOPER) Anatomical Region Laterality Modality Body, Chest N/A Computed Radiogr aphy Narrative 08/23/2020 1:07 PM LEAD JAVA J2EE DEVELOPER CHEST, 2 VIEWS: PA and lateral views of the chest reveal clear lungs without radiographic evidence of pleural effusion or pneumothorax. ??The cardiac and mediastinal structures are of normal size. ??The osseous structures are normal. SUMMARY: No radiographic evidence of pulmonary disease. [place] Denise SORTER LUMBER STRAIGHTENER IMG XR PROCEDURES Final Result documented in this encounter Visit Diagnoses Diagnosis Shortness of breath documented in this encounter Care Teams Trust Administrator Relationship Specialty Start Date End Date Mel Osei MD PCP - General Internal Medicine 02/07/20 documented as of this encounter
--- OUTSIDE RECORDS SUMMARY | 2024-08-08 14:20 | XMS_ITS | Encounter Summary ---
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 * Telephone Encounter - Tash Caballero RN - 02/13/2021 11:20 AM CDT Lawrence Marie * Telephone Encounter - Mel Osei MD - 02/12/2021 8:53 PM CDT Chemistry panel diagnosis = medication monitoring * Telephone Encounter - Frank Orlando MA - 02/12/2021 8:30 AM CDT 2. Labs for annual visit next year To Dr. JIMÉNEZ: what labs would you like ordered? documented in this encounter Plan of Treatment Not on file documented as of this encounter Visit Diagnoses Diagnosis Medication monitoring encounter- Primary Encounter for therapeutic drug monitoring documented in this encounter Care Teams Mill Machinist Relationship Specialty Start Date End Date Mel Osei MD PCP - General Internal Medicine 02/07/20 documented as of this encounter
--- OUTSIDE RECORDS SUMMARY | 2024-08-08 14:20 | XMS_ITS | Encounter Summary ---
Author Organization [facility] Address [address] [place] [address] Care Team Providers Care Bank Vault Clerk Name Role Phone Mel Osei MD Primary Care Provider +1- [phone] Encounter Details Date Type Department Care Team (Late st Contact Info) Description 08/23/2020 Telephone [facility] [address] [place] [address] Mel Osei MD [address] [place], [place] [address] Social History Tobacco Use Types Packs/Day Years Used Date Smoking Tobacco: Never Smokeless Tobacco: Never Alcohol Use Standard Drinks/Week Comments Not Currently 0 (1 standard drink = 0.6 oz pur e alcohol) PHQ-2 Answer Date Recorded PHQ-2 Score 0 02/07/2020 Comments No Sex and Gender Information Value Date Recorded Sex Assigned at Not on file Legal Sex Female 12:30 PM WALL MAN Gender Identity Not on file Sexual Orientation Not on file Occupation Industry Job Start Date Job End Date Not on file Not on file Not on file Not on file documented as of this encounter Miscellaneous Notes * Telephone Encounter - Shawnee John RN - 08/23/2020 1:54 PM CST TOAMV:Chest xray call report from ayah SUMMARY: ?? No radiographic evidence of pulmonary disease. ?? MAN documented in this encounter Plan of Treatment Not on file documented as of this encounter Visit Diagnoses Not on filedocumented in this encounter Care Teams Bank Vault Clerk Relationship Specialty Start Date End Date Mel Osei MD PCP - General Internal Medicine 02/07/20 documented as of this encounter
--- OUTSIDE RECORDS SUMMARY | 2024-08-08 14:20 | XMS_ITS | Encounter Summary ---
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 Per, LABEL REMOVER Argnetina orders: Please give her Nathalie Dereck's info.. Pt was given Nathalie Dereck's telephone number/address & knows she has to call. CTOR GLOBAL SALES CTOR GLOBAL SALES CTOR GLOBAL SALES documented in this encounter Plan of Treatment Not on file documented as of this encounter Visit Diagnoses Not on filedocumented in this encounter Care Teams Vehicle Safety Inspector Relationship Specialty Start Date End Date Mel Osei MD PCP - General Internal Medicine 02/07/20 documented as of this encounter
--- OUTSIDE RECORDS SUMMARY | 2024-08-08 14:20 | XMS_ITS | Encounter Summary ---
Author Organization [facility] Address [address] [place] [address] Care Team Providers Care Blender Operator Name Role Phone Mel Osei MD Primary Care Provider [phone]- [phone] Reason for Referral * Consultation (Routine) - Closed Specialty Diagnoses / Procedures Referred By Kj judge Referred To Contact Cardiology Diagnoses Chest pain, unspecified type Argentina Denise NP Phone: tel: Cristal Fernandes, [address] [address] Phone: tel: fax: Referral ID Status Reason Start Date Expiration Date V isits Requested Visits Authorized [id number] Closed Specialty Services Required 10/10/2020 11/09/2021 1 1 Question Answer Please select the performing region: [facility] [[id number]] Please select the performing department: [facility] [[id number]] To provider: CRISTAL FERNANDES [[id number]] # of visits: 1 Comments Needs appt. RUIZ. Refer to cardiology for chest pain. Please contact patient to set something up @ # [phone]. HAUL DUMP OPERATOR Reason for Visit * Reason Comments Follow-up zoloft Encounter Details Date Type Department Care Team (Latest Contact Info) Description 10/10/2020 3:30 PM LOAD HAUL DUMP OPERATOR Office Visit [facility] [address] [place] [address] Argentina Denise NP [address] [place] [id number] Anxiety and depression (Primary Dx); Chest pain, unspecified type Social History Tobacco Use Types Packs/Day Years Used Date Smoking Tobacco: Never Smokeless Tobacco: Never Tobacco Cessation:Counseling Given: No Alcohol Use Standard Drinks/Week Comments Not Currently 0 (1 standard drink = 0.6 oz pur e alcohol) PHQ-2 Answer Date Recorded PHQ-2 Total Score (If total score is 3 or more points, staff should administer the PHQ-9) 1 10/10/2020 Comments No Sex and Gender Information Value Date Recorded Sex Assigned at Not on file Legal Sex Female 12:30 PM LOAD HAUL DUMP OPERATOR Gender Identity Not on file Sexual Orientation Not on file Occupation Industry Job Start Date Job End Date Not on file Not on file Not on file Not on file documented as of this encounter Last Filed Vital Signs Vital Sign Reading Time Taken Comments Blood Pressure 124/80 10/10/2020 3:06 PM LOAD HAUL DUMP OPERATOR Pulse 70 10/10/2020 3:06 PM LOAD HAUL DUMP OPERATOR Temperature 36.3 ??C (97.3 ??F) 10/10/2020 3:06 PM CS T Respiratory Rate 12 10/10/2020 3:06 PM LOAD HAUL DUMP OPERATOR Oxygen Saturation 99% 10/10/2020 3:06 PM LOAD HAUL DUMP OPERATOR Inhaled Oxygen Concentration - - Weight 95.4 kg (210 lb 6.4 oz) 10/10/2020 3:06 P M LOAD HAUL DUMP OPERATOR Height 167.6 cm (5' 6 ) 10/10/2020 3:06 PM LOAD HAUL DUMP OPERATOR Body Mass Index 33.96 10/10/2020 3:06 PM LOAD HAUL DUMP OPERATOR documented in this encounter Patient Instructions * Patient Instructions* Argentina Denise NP - 10/10/2020 3:30 PM LOAD HAUL DUMP OPERATOR Orders for AMS STAFF to arrange Please give her Nathalie Harden's info Please refer to cardiology for chest pain Orders for Tracey Arthur to arrange Please begin counseling Try to increase activity Try to do Yin Yoga to help with mood and meditation Please avoid excess caffeine and alcohol Please wean off the zoloft as directed Please call with any issues or concerns Return for Next scheduled follow up. Orders Placed This Encounter Procedures ??? Ambulatory referral to Cardiology A brief review of all your problems, medications, and orders from today ICD-9-CM ICD-10-CM 1. Anxiety and depression 300.00 F41.9 sertraline (ZOLOFT) 25 mg tablet 311 F32.9 2. Chest pain, unspecified type 786.50 R07.9 Ambulatory referral to Cardiology PLEASE BRING IN ALL PILL BOTTLES TO EVERY OFFICE VISIT, THIS IS ESSENTIAL FOR ACCURATE REFILLS AND MAINTAINING AN ACCURATE MEDICATION LIST. HAUL DUMP OPERATOR HAUL DUMP OPERATOR HAUL DUMP OPERATOR documented in this encounter Ordered Prescriptions Prescription Sig Dispense Quantity Refills Last Filled Start Date End Date sertraline (ZOLOFT) 25 mg tabletIndications: Anxiety and depression Take 1 tablet (25 mg total) by mouth daily for 3 days 3 tablet 10/10/2020 10/11/2020 documented in this encounter Progress Notes * Argentina Denise NP - 10/10/2020 3:30 PM CST Patient Instructions Orders for AMS STAFF to arrange Please give her Nathalie Harden's info Please refer to cardiology for chest pain Orders for Tracey Arthur to arrange Please begin counseling Try to increase activity Try to do Yin Yoga to help with mood and meditation Please avoid excess caffeine and alcohol Please wean off the zoloft as directed Please call with any issues or concerns Return for Next scheduled follow up. Orders Placed This Encounter Procedures ??? Ambulatory referral to Cardiology A brief review of all your problems, medications, and orders from today ICD-9-CM ICD-10-CM 1. Anxiety and depression 300.00 F41.9 sertraline (ZOLOFT) 25 mg tablet 311 F32.9 2. Chest pain, unspecified type 786.50 R07.9 Ambulatory referral to Cardiology PLEASE BRING IN ALL PILL BOTTLES TO EVERY OFFICE VISIT, THIS IS ESSENTIAL FOR ACCURATE REFILLS AND MAINTAINING AN ACCURATE MEDICATION LIST. CHIEF COMPLAINT Follow-up (zoloft) HISTORY OF PRESENT ILLNESS Tracey Arthur comes to the office today for follow up on anxiety and depression. She has been taking zoloft and has not noticed any change in mood. She is concerned about taking medication d/t side effects and that she should not be taking with alcohol. She reports she continues to have physical symptoms of chest pain can linger and last all day long. Discussion of symptoms and my assessment and plan: 1. Anxiety and depression Patient continues to remain anxious and have [...] reassured that w/u to date has been negativewith nml echo, nml stress test, nml CXR and no reports of reflux. We will however, refer to cardiology for further evaluation. She will wean off zoloft and will reach out to Nathalie Harden to begin counseling. We also discussed that exercise such as Yin Yoga may be helpful. She has upcoming visit in2 weeks with Dr. Osei and will follow up further at that time. - sertraline (ZOLOFT) 25 mg tablet; Take 1 tablet (25 mg total) by mouth daily for 3 days Dispense:3 tablet; Refill: 0 2. Chest pain, unspecified type Episodes of constant chest pain continue to occur lasting most of the day. Most likely d/t above. Work up to date has been negative. We will refer to cardiology for further evaluation. - Ambulatory referral to Cardiology; Future SOCIAL HISTORY Social History Tobacco Use ??? Smoking status: Never Smoker ??? Smokeless tobacco: Never Used Substance Use Topics ??? Alcohol use: Not Currently REVIEW OF SYSTEMS Review of Systems Constitutional: Negative for appetite change, chills and fever. Respiratory: Negative for chest tightness and shortness of breath. Cardiovascular: Positive for chest pain. Negative for palpitations. Gastrointestinal: Positive for diarrhea (when she feels nervous ) and nausea. Negative for constipation and vomiting. Genitourinary: Negative for difficulty urinating. Neurological: Negative for dizziness and light-headedness. Psychiatric/Behavioral: Negative for sleep disturbance. MEDICATIONS CHANGED / CLEANED UP THIS VISIT Medications Discontinued During This Encounter Medication Reason ??? sertraline (ZOLOFT) 25 mg tablet MEDICATION LIST AT CONCLUSION OF THIS VISIT Current Outpatient Medications Ordered in [facility] Medication Sig Dispense Refill ??? adapalene (DIFFERIN) [...] for 3 days 3 tablet0 No current [facility]-ordered facility-administered medications on file. ALLERGIES has No Known Allergies. PHYSICAL EXAM body mass index is 33.96 kg/m??. Vitals: 10/10/20 1506 BP: 124/80 BP Location: Left arm Patient Position: Sitting Pulse: 70 Resp: 12 Temp: 36.3 ??C (97.3 ??F) SpO2: 99% Weight: 95.4 kg (210 lb 6.4 oz) Height: 167.6 cm (5' 6 ) Physical Exam Vitals and nursing note reviewed. Constitutional: Appearance: Normal appearance. HENT: Head: Normocephalic and atraumatic. Cardiovascular: Rate [...] and time. Psychiatric: Mood and Affect: Mood is anxious. Follow-up examination was completed today and specifics [...] with her in the After Visit Summary. Argentinahima Denise, RUBBER PRODUCTION MACHINE OPERATOR- THE FOLLOWING CLERICAL INFORMATION DOES NOT DUE [...] 07/12/2020 Final ??? COMMENTS 07/12/2020 Final ??? Family [employer] Consumer Sciences Professor 07/12/2020 Final ??? Comment 07/12/2020 Final Lab [...] Shortness of breath R06.02 ??? COVID-19 U07.1 ??? Anxiety and depression F41.9, F32.9 ??? Chest pain R07.9 GEORGE Ramirez- Cosigned by Mel Osei MD at 10/11/2020 3:36 PM LOAD HAUL DUMP OPERATOR HAUL DUMP OPERATOR HAUL DUMP OPERATOR documented in this encounter Miscellaneous Notes * Assessment & Plan Note - Argentina Denise NP - 10/11/2020 7:53 AM LOAD HAUL DUMP OPERATOR Associated Problem(s): Anxiety and depression (Resolved 02/11/2021) Patient continues to remain anxious and have [...] reassured that w/u to date has been negativewith nml echo, nml stress test, nml CXR and no reports of reflux. We will however, refer to cardiology for further evaluation. She will wean off zoloft and will reach out to Nathalie Harden to begin counseling. We also discussed that exercise such as Yin Yoga may be helpful. She has upcoming visit in2 weeks with Dr. Osei and will follow up further at that time. HAUL DUMP OPERATOR documented in this encounter Plan of Treatment Scheduled Referrals Name Type Priority Associated Diagnoses Orde r Schedule Ambulatory referral to Cardiology Outpatient Referral Routine Chest pain, unspecified type Expected: 10/10/2020 (Approximate), Expires: 10/10/2021 documented as of this encounter Visit Diagnoses Diagnosis Anxiety and depression- Primary Chest pain, unspecified type documented in this encounter Discontinued Medications Medication Sig Discontinue Reason Start Date End Da te sertraline (ZOLOFT) 25 mg tabletIndications:Anxiet y and depression Take 1 tablet (25 mg total) by mouth daily 09/13/2020 10/10/2020 documented as of this encounter Care Teams Blender Operator Relationship Specialty Start Date End Date Mel Osei MD PCP - General Internal Medicine 02/07/20 documented as of this encounter
--- OUTSIDE RECORDS SUMMARY | 2024-08-08 14:20 | XMS_ITS | Encounter Summary ---
Author Organization [facility] Address [address] [place] [address] Care Team Providers Care Cardiovascular Tech Name Role Phone Mel Osei MD Primary Care Provider [phone]- [phone] Reason for Referral * Cardiology (Routine) - Closed Specialty Diagnoses / Procedures Referred By Kj judge Referred To Contact Diagnoses Chest pain, unspecified type Palpitations Procedures Stress Treadmill Test Bassam Denise NP Phone: tel: [address] [address] Referral ID Status Reason Start Date Expiration Date Visits Re quested Visits Authorized [id number] Closed 09/13/2020 10/13/2021 1 1 ATION INSTRUCTOR * Cardiology (Routine) - Closed Specialty Diagnoses / Procedures Referred By Kj judge Referred To Contact Diagnoses Chest pain, unspecified type Palpitations Procedures Transthoracic Echo Complete W Doppler/CF Bassam Denise NP Phone: tel: [address] [address] Referral ID Status Reason Start Date Expiration Date Visits Re quested Visits Authorized [id number] Closed 09/13/2020 10/13/2021 1 1 ATION INSTRUCTOR Reason for Visit * Cardiology (Routine) - Closed Specialty Diagnoses / Procedures Referred By Contac t Referred To Contact Diagnoses Chest pain, unspecified type Palpitations Procedures Transthoracic Echo Complete W Doppler/CF Bassam Denise NP Phone: tel: [address] [address] Referral ID Status Reason Start Date Expiration Date Visits Re quested Visits Authorized [id number] Closed 09/13/2020 10/13/2021 1 1 Encounter Details Date Type Department Care Team (Late st Contact Info) Description 09/27/2020 10:18 AM EDUCATION INSTRUCTOR - 09/27/2020 11:59 PM EDUCATION INSTRUCTOR Hospital Encounter [facility] [address] [place] [id number] Mel Osei MD [address] [place] [address] Bassam Denise NP [address] [place] [address] Chest pain, unspecified type; Palpitations Discharge Disposition: Discharge to home or self [...] on file Legal Sex Female 12:30 PM EDUCATION INSTRUCTOR Gender Identity Not on file Sexual Orientation Not on file Occupation Industry Job Start Date Job End Date Not on file Not on file Not on file Not on file documented as of this encounter Last Filed Vital Signs Vital Sign Reading Time Taken Comments Blood Pressure - - Pulse - - Temperature - - Respiratory Rate - - Oxygen Saturation - - Inhaled Oxygen Concentration - - Weight 90.7 kg (200 lb) 09/27/2020 10:18 AM EDUCATION INSTRUCTOR Height 167.6 cm (5' 6 ) 09/27/2020 10:18 AM EDUCATION INSTRUCTOR Body Mass Index 32.28 09/27/2020 10:18 AM EDUCATION INSTRUCTOR documented in this encounter Medications at Time of Discharge adapalene (DIFFERIN) 0.1 % cream Apply topically at bedtime. 45 g 5 07/30/2017 1 albuterol HFA (Proventil HFA) 90 mcg/actuation inhalerIndicatio ns:Shortness of breath Inhale 2 puffs every 6 (six) hours as needed for wheezing or shortness of breath 6.7 g 08/22/2020 3 naproxen (ANAPROX DS) 550 mg tablet TAKE 1 TABLET BY MOUTH TWICE DAILY NEEDED FOR PAIN 180 0 03/09/2012 1 sertraline (ZOLOFT) 25 mg tabletIndication s:Anxiety and depression Take 1 tablet (25 mg total) by mouth daily 30 tablet 1 09/13/2020 1 documented as of this encounter Discharge Disposition Disposition Code Departure Means Destination Discharge to home or self care documented in this encounter Plan of Treatment Not on file documented as of this encounter Procedures Procedure Name Priority Date/Time Associated Diagnosis Comments STRESS TEST ONLY TREADMILL Routine 09/27/2020 12:02 PM EDUCATION INSTRUCTOR Chest pain, unspecified type Palpitations TRANSTHORACIC ECHO (TTE) COMPLETE W DOPPLER/CF WO CONTRAST Routine 09/27/2020 10:51 AM EDUCATION INSTRUCTOR Chest pain, unspecified type Palpitations documented in this encounter Results * Stress Treadmill Test (09/27/2020 12:02 PM EDUCATION INSTRUCTOR) Anatomical Region Laterality Modality Nuclear Medicine 09/27/2020 11:3 0 AM EDUCATION INSTRUCTOR Narrative 09/27/2020 1:28 PM EDUCATION INSTRUCTOR [address] [address] EXERCISE STRESS Patient Name: JEAN ARTHUR : 2000 Study Date: 09/27/2020 11:30:00 Gender: F Tech: AMEYA Ref.Provider: BASSAM DENISE Height(Cm): 65 BSA: Weight(Kg): 212Order Provider: BASSAM DENISE Procedures: Stress Report: Treadmill stress Exam. Indications: Angina. Findings: Procedure Data: Exercise Time: 9.03. Resting HR 86 bpm. Peak HR: 170 bpm. Predicted Maximal HR 199 bpm. Target HR: 169 bpm. Percent Max Predicted HR Achieved: 85 %. Baseline BP: 139/71. Peak BP: 181/71. METS achieved: 11. Rate-Pressure Product: 75208 BPM*mmHg. Max ST: Medications: Differin, Albuterol, Naproxen, Zoloft. Performed By: Kar Smith. Resting ECG: Normal sinus rhythm. Post ECG: No diagnostic ST changes. Arrhythmia: No arrhythmias seen. Exercise Capacity: Fair exercise capacity. Cardiac Symptoms With Stress: Symptoms with stress were fatigue. Target HR Achieved: Target heart rate was achieved. Reason For Termination: Fatigue. THR achieved. BP Response: Blood pressure response is appropriate. Exam Interpreted: Read by . Conclusions: 1. Adequate stress test in regards to heart rate. 2. No exercise induced chest pain. 3. No definite ischemia on stress EKG. Electronically Signed By: Dr Noam Curry 2020-09-27 13:28:28 EDUCATION INSTRUCTOR Procedure Note Noam Curry MD - 09/27/[address] [address] EXERCISE STRESS Patient Name: Joan ARTHURnt ID: [id number] : [id number] Date: 09/27/2020 11:30:00 Gender: FAccession #: [id number] Tech: MJJRef.Provider: BASSAM DENISE Height(Cm): 65BSA: Weight(Kg): 212Order Provider: BASSAM DENISE Procedures: Stress Report: Treadmill stress Exam. Indications: Angina. Findings: Procedure Data: Exercise Time: 9.03. Resting HR 86 bpm. Peak HR: 170 bpm. PredictedMaximal HR 199 bpm. Target HR: 169 bpm. Percent Max Predicted HR Achieved: 85 %. Baseline BP:139/71. Peak BP: 181/71. METS achieved: 11. Rate-Pressure Product: 40748 BPM*mmHg. MaxST: Medications: Differin, Albuterol, Naproxen, Zoloft. Performed By: Kar Smith. Resting ECG: Normal sinus rhythm. Post ECG: No diagnostic ST changes. Arrhythmia: No arrhythmias seen. Exercise Capacity: Fair exercise capacity. Cardiac Symptoms With Stress: Symptoms with stress were fatigue. Target HR Achieved: Target heart rate was achieved. Reason For Termination: Fatigue. THR achieved. BP Response: Blood pressure response is appropriate. Exam Interpreted: Read by . Conclusions: 1. Adequate stress test in regards to heart rate. 2. No exercise induced chest pain. 3. No definite ischemia on stress EKG. Electronically Signed By: Dr Noam Curry 2020-09-27 13:28:28 EDUCATION INSTRUCTOR us Bassam Denise NP CV STRESS PROCEDUR ES Final Result * TRANSTHORACIC ECHO (TTE) COMPLETE W DOPPLER/CF WO CONTRAST (09/27/2020 10:51 AM EDUCATION INSTRUCTOR) Anatomical Region Laterality Modality Ultrasound 09/27/2020 10:2 1 AM EDUCATION INSTRUCTOR Narrative 09/27/2020 11:31 AM EDUCATION INSTRUCTOR [address] [place] [address] Echocardiogram Report Patient Name: JEAN ARTHUR : 2000 Study Date: 09/27/2020 10:21:36 Gender: F Tech: HEADRIG SAWYER Ref.Provider: BASSAM DENISE Height(Cm): 168 BSA: 2.06 Weight(Kg): 90.7Quality: Good Order Provider: BASSAM DENISE Procedures: Echocardiographic Report: Transthoracic echocardiogram with complete 2D, M-Mode, and color Doppler examination. Indications: Chest Pain. Measurements: 2D/M Mode ?Doppler ? Measurement ?Value ?Normal Range ? Measurement ?Value ?Normal Range ? EF Teich MM ?69.0 ? [ 55.0 - 70.0 ] percent ?AV Mean PG ? 5 ?[ 2 - 4 ] mmHg ? LVIDd MM ? 3.10 ? [ 3.90 - 5.30 ] cm ? AV Peak Van ?1.71 ? [ 1.00 - 1.70 ] m/s ? LVIDs MM ? 3.10 ? [ 2.30 - 3.90 ] cm ? AV VTI ? 41.13 ?cm ? LVPWd MM ? 1.20 ? [ 0.60 - 1.00 ] cm ? LVOT Diam ?2.30 ? [ 1.70 - 2.10 ] cm ? IVSd MM ?0.80 ? [ 0.60 - 0.90 ] cm ? LVOT Peak Van ?1.39 ? [ 0.70 - 1.10 ] m/s ? LVOT VTI ? 29.53 ?[ 20.00 - 30.00 ] cm ? MV Mean PG ? 2 ?[ <= 5 ] mmHg ? MV PHT ? 82 ? [ 20 - 100 ] msec ? MVA ?2.70 ? PV Peak Van ?1.23 ? [ 0.40 - 0.80 ] m/s ? TR Peak Van ?2.04 ? [ 1.00 - 2.80 ] m/s ? TR Peak PG ? 17 ? mmHg ? RVSP ? 27.00 ?[ 10.00 - 36.00 ] mmHg ? E' ? 0.15 ? PA Pressure ?17.00 ?[ 10.00 - 36.00 ] mmHg ? Findings: Atrial Septum: Normal atrial septum. Left Ventricle: Normal global left ventricular systolic function. Ejection fraction is visually estimated at 60 to 65 %. Left Atrium: The left atrium is normal in size. Right Ventricle: Normal right ventricular size. Right Atrium: The right atrium is normal in size. Aortic Valve: Normal structure of the aortic valve. Mitral Valve: Normal structure of the mitral valve. Trivial regurgitation of the mitral valve. Pulmonic Valve: Normal structure of the pulmonic valve. Trivial regurgitation in the pulmonic valve. Tricuspid Valve: Normal structure of the tricuspid valve. Trivial regurgitation in the tricuspid valve. Pericardium: Normal pericardium with no significant pericardial effusion. Aorta: Normal aortic root. IVC: The IVC is not well visualized. Conclusions: Normal global left ventricular systolic function. Ejection fraction is visually estimated at 60 to 65 %. Normal structure of the mitral valve. Trivial regurgitation of the mitral valve. Normal structure of the aortic valve. Normal structure of the tricuspid valve. Trivial regurgitation in the tricuspid valve. Electronically Signed By: Dr Noam Curry 2020-09-27 11:31:03 EDUCATION INSTRUCTOR Procedure Note Noam Curry MD - 09/27/2020 [address] [place] [address] Echocardiogram Report Patient Name: Valeria ARTHUR ID: [id number] : [id number] Date: 09/27/2020 10:21:36 Gender: FAccession #: [id number] Tech: [facility].Provider: BASSAM DENISE Height(Cm): 168BSA: 2.06 Weight(Kg): 90.7Quality: Good Order Provider: BASSAM DENISE Procedures: Echocardiographic Report: Transthoracic echocardiogram with complete 2D, M-Mode, and color Dopplerexamination. Indications: Chest Pain. Measurements: 2D/M Mode Doppler Measurement Value Normal Range Measurement ValueNormal Range EF Teich MM 69.0 [ 55.0 - 70.0 ] percent AV Mean PG 5[ 2 - 4 ] mmHg LVIDd MM 3.10 [ 3.90 - 5.30 ] cm AV Peak Van 1.71[ 1.00 - 1.70 ] m/s LVIDs MM 3.10 [ 2.30 - 3.90 ] cm AV VTI 41.13cm LVPWd MM 1.20 [ 0.60 - 1.00 ] cm LVOT Diam 2.30[ 1.70 - 2.10 ] cm IVSd MM 0.80 [ 0.60 - 0.90 ] cm LVOT Peak Van 1.39[ 0.70 - 1.10 ] m/s LVOT VTI 29.53[ 20.00 - 30.00 ] cm MV Mean PG 2[ <= 5 ] mmHg MV PHT 82[ 20 - 100 ] msec MVA 2.70 PV Peak Van 1.23[ 0.40 - 0.80 ] m/s TR Peak Van 2.04[ 1.00 - 2.80 ] m/s TR Peak PG 17mmHg RVSP 27.00[ 10.00 - 36.00 ] mmHg E' 0.15 PA Pressure 17.00[ 10.00 - 36.00 ] mmHg Findings: Atrial Septum: Normal atrial septum. Left Ventricle: Normal global left ventricular systolic function. Ejection fraction isvisually estimated at 60 to 65 %. Left Atrium: The left atrium is normal in size. Right Ventricle: Normal right ventricular size. Right Atrium: The right atrium is normal in size. Aortic Valve: Normal structure of the aortic valve. Mitral Valve: Normal structure of the mitral valve. Trivial regurgitation of the mitralvalve. Pulmonic Valve: Normal structure of the pulmonic valve. Trivial regurgitation in thepulmonic valve. Tricuspid Valve: Normal structure of the tricuspid valve. Trivial regurgitation in thetricuspid valve. Pericardium: Normal pericardium with no significant pericardial effusion. Aorta: Normal aortic root. IVC: The IVC is not well visualized. Conclusions: Normal global left ventricular systolic function. Ejection fraction isvisually estimated at 60 to 65 %. Normal structure of the mitral valve. Trivial regurgitation of the mitralvalve. Normal structure of the aortic valve. Normal structure of the tricuspid valve. Trivial regurgitation in thetricuspid valve. Electronically Signed By: Dr Noam Curry 2020-09-27 11:31:03 EDUCATION INSTRUCTOR Bassam Denise HEADRIG SAWYER CV ECHO PROCEDURES Final Result documented in this encounter Visit Diagnoses Diagnosis Chest pain, unspecified type Palpitations documented in this encounter Care Teams Cardiovascular Tech Relationship Specialty Start Date End Date Mel Osei MD PCP - General Internal Medicine 02/07/20 documented as of this encounter
--- OUTSIDE RECORDS SUMMARY | 2024-08-08 14:20 | XMS_ITS | Encounter Summary ---
Author Organization [facility] Medical Group Address [address] [place] [address] Care Team Providers Care Mingle Operator Name Role Phone Mel Osei MD Primary Care Provider +1- [phone] Encounter Details Date Type Department Care Team (Late st Contact Info) Description 10/07/2020 Telephone [facility] [address] [place] [address] Mel Osei MD [address] [place], [place] [id number] Social History Tobacco Use Types Packs/Day Years [...] on file Legal Sex Female 12:30 PM ORTHODONTIST VICE PRESIDENT Gender Identity Not on file Sexual Orientation Not on file Occupation Industry Job Start Date Job End Date Not on file Not on file Not on file Not on file documented as of this encounter Miscellaneous Notes * Telephone Encounter - Argentina Denise NP - 10/07/2020 4:39 PM ORTHODONTIST VICE PRESIDENT Noted thank you ODONTIST VICE PRESIDENT * Telephone Encounter - Tash Caballero RN - 10/07/2020 3:56 PM CST Spoke with pt, saw Argentina DRAINLAYER recently et was given Zoloft 25mg, felt that it worked at first . Heather thinks she may need increase in med. Has follow up with [facility] on 11/01/20, but would like to see Argentina sooner. Scheduled for 10/09/20 at 9am per pt request. ODONTIST VICE PRESIDENT * Telephone Encounter - Akshat Grissom - 10/07/2020 9:14 AM CST Patient started taking zoloft on Sep 13 and it isn't really working. She has questions about what you cannot do while your on the medication. Also she wanted to know if there was something else she could try? Cbn: [phone] ODONTIST VICE PRESIDENT documented in this encounter Plan of Treatment Not on file documented as of this encounter Visit Diagnoses Not on filedocumented in this encounter Care Teams Mingle Operator Relationship Specialty Start Date End Date Mel Osei MD PCP - General Internal Medicine 02/07/20 documented as of this encounter
--- OUTSIDE RECORDS SUMMARY | 2024-08-08 14:20 | XMS_ITS | Encounter Summary ---
Author Organization [facility] Healthcare Address [address] [place] [address] Care Team Providers Care Cake Decorator Name Role Phone Mel Osei MD Primary Care Provider +1- [phone] Encounter Details Date Type Department Care Team (Late st Contact Info) Description 08/22/2020 5:15 PM TIGHT ROPE WALKER Lab [facility] [id number] [place] [id number] Shortness of breath Social History Tobacco Use Types Packs/Day Years Used Date Smoking Tobacco: Never Smokeless Tobacco: Never Alcohol Use Standard Drinks/Week Comments Not Currently 0 (1 standard drink = 0.6 oz pur e alcohol) PHQ-2 Answer Date Recorded PHQ-2 Score 0 02/07/2020 Comments No Sex and Gender Information Value Date Recorded Sex Assigned at Not on file Legal Sex Female 12:30 PM TIGHT ROPE WALKER Gender Identity Not on file Sexual Orientation Not on file Occupation Industry Job Start Date Job End Date Not on file Not on file Not on file Not on file documented as of this encounter Plan of Treatment Not on file documented as of this encounter Procedures Procedure Name Priority Date/Time Associated Diagnosis Comments EGFR Routine 08/22/2020 2:49 PM TIGHT ROPE WALKER Shortness of breath DIFFERENTIAL AUTO Routine 08/22/2020 2:4 9 PM TIGHT ROPE WALKER Shortness of breath CBC WITH AUTO DIFFERENTIAL Routine 08/22/2020 2:49 PM TIGHT ROPE WALKER Shortness of breath TSH Routine 08/22/2020 2:49 PM TIGHT ROPE WALKER Shortness of breath BASIC METABOLIC PANEL Routine 08/22/2020 2:49 PM TIGHT ROPE WALKER Shortness of breath documented in this encounter Results * eGFR (08/22/2020 2:49 PM TIGHT ROPE WALKER) eGFR 83 mL/min/1.7 3 m2 [facility] Comment: Interpretive Data Reference Interval Normal ?>/= [...] interpretive data was last reviewed 2020 Blood specimen (specimen) 08/22/2020 2:49 PM TIGHT ROPE WALKER 08/22/2020 6:08 PM TIGHT ROPE WALKER us Argentina Denise CYBER SECURITY ARCHITECT LAB BLOOD ORDERABL ES Final Result [facility] [address] Department [place] [address] * Differential, auto (08/22/2020 2:49 PM TIGHT ROPE WALKER) Neutrophil abs 5.4 1.7 - 6.5 K/cumm [facility] Imm gran abs 0.0 0.0 - 0.1 K/cumm [facility] Lymphocyte abs 1.6 0.8 - 3.3 K/cumm [facility] Monocyte abs 0.5 0.2 - 0.8 K/cumm [facility] Eosinophil abs 0.2 0.0 - 0.5 K/cumm [facility] Basophil abs 0.0 0.0 - 0.1 K/cumm [facility] Neutrophil pct 68.8 % [facility] Comment: Interpretive Data Percent cell count reference ranges are not reported, since discordance with absolute values may lead to misinterpretation of CBC data. Current Interpretive Data was last revised on 2017. Imm gran pct 0.4 % [facility] Comment: Interpretive Data Percent cell count reference ranges are not reported, since discordance with absolute values may lead to misinterpretation of CBC data. Current Interpretive Data was last revised on 2017. Lymphocyte pct 20.8 % [facility] Comment: Interpretive Data Percent cell count reference ranges are not reported, since discordance with absolute values may lead to misinterpretation of CBC data. Current Interpretive Data was last revised on 2017. Monocyte pct 6.5 % [facility] Comment: Interpretive Data Percent cell count reference ranges are not reported, since discordance with absolute values may lead to misinterpretation of CBC data. Current Interpretive Data was last revised on 2017. Eosinophil pct 3.0 % [facility] Comment: Interpretive Data Percent cell count reference ranges are not reported, since discordance with absolute values may lead to misinterpretation of CBC data. Current Interpretive Data was last revised on 2017. Basophil pct 0.5 % [facility] Comment: Interpretive Data Percent cell count reference ranges are not reported, since discordance with absolute values may lead to misinterpretation of CBC data. Current Interpretive Data was last revised on 2017. Blood specimen (specimen) 08/22/2020 2:49 PM TIGHT ROPE WALKER 08/22/2020 5:38 PM TIGHT ROPE WALKER [place] Denise CYBER SECURITY ARCHITECT LAB BLOOD ORDERABL ES Final Result Performing Organization Address [facility] de Phone Number [facility] [address] Department of Laboratories [place], [place] [id number] * CBC with auto differential (08/22/2020 2:49 PM TIGHT ROPE WALKER) WBC 7.9 3.8 - 9.9 K/cumm [facility] Hgb 13.1 11.9 - 15.5 g/dL [facility] Hct 38.9 35.6 - 45.5 % [facility] Plt 296 150 - 400 K/cumm [facility] MPV 11.9 9.1 - 12.3 fL [facility] RBC 4.25 3.90 - 5.20 M/cumm [facility] MCV 91.5 81.3 - 96.4 fL [facility] MCH 30.8 27.1 - 33.3 pg [facility] MCHC 33.7 32.3 - 35.7 g/dL [facility] RDW CV 12.4 11.1 - 14.9 % [facility] RDW SD 40.4 35.7 - 48.1 fL [facility] NRBC abs 0.00 0.00 - 0.01 K/cumm [facility] Blood specimen (specimen) 08/22/2020 2:49 PM TIGHT ROPE WALKER 08/22/2020 5:38 PM TIGHT ROPE WALKER Argentina Mendez Camelia CYBER SECURITY ARCHITECT LAB BLOOD ORDERABL ES Final Result Performing Organization Address [facility] de Phone Number [facility] [address] Department [place] [address] * Basic metabolic panel (08/22/2020 2:49 PM TIGHT ROPE WALKER) Sodium 137 135 - 145 mmol/L [facility] Potassium, pl 4.3 3.3 - 4.9 mmol/L [facility] Chloride 103 97 - 110 mmol/L [facility] CO2 24 22 - 32 mmol/L [facility] Anion gap 10 2 - 15 mmol/L [facility] BUN 13 8 - 25 mg/dL [facility] Creatinine 0.97 0.60 - 1.10 mg/dL [facility] Glucose 95 70 - 199 mg/dL [facility] Comment: Interpretive Data Fasting glucose >/= 126 [...] Calcium 9.9 8.5 - 10.3 mg/dL [facility] Blood specimen (specimen) 08/22/2020 2:49 PM TIGHT ROPE WALKER 08/22/2020 5:38 PM TIGHT ROPE WALKER [place] Denise NP LAB BLOOD ORDERABL ES Final Result Performing Organization Address City/[facility]/ZIP Co de Phone Number [facility] [address] [employer] [place] [address] * TSH (08/22/2020 2:49 PM TIGHT ROPE WALKER) Thyroid Stimulating Hormone 1.93 0.30 - 4.20 mcIUnit/mL [facility] Blood specimen (specimen) 08/22/2020 2:49 PM TIGHT ROPE WALKER 08/22/2020 5:38 PM TIGHT ROPE WALKER [place] Denise CYBER SECURITY ARCHITECT LAB BLOOD ORDERABL ES Final Result Performing Organization Address [facility]/ZIP Co de Phone Number [facility] [address] [employer] [place] [address] documented in this encounter Visit Diagnoses Diagnosis Shortness of breath documented in this encounter Care Teams Cake Decorator Relationship Specialty Start Date End Date Mel Osei MD PCP - General Internal Medicine 02/07/20 documented as of this encounter
--- OUTSIDE RECORDS SUMMARY | 2024-08-08 14:20 | XMS_ITS | Encounter Summary ---
Author Organization [facility] Medical Group Address [address] [place] [address] Care Team Providers Care Wellness Program Manager Name Role Phone Mel Osei MD Primary Care Provider +1- [phone] Encounter Details Date Type Department Care Team (Late st Contact Info) Description 10/11/2020 Telephone [facility] [address] [place] [id number] Mel Osei MD [address] [place] [address] Social History Tobacco Use Types [...] on file Legal Sex Female 12:30 PM CAR SWEEPER Gender Identity Not on file Sexual Orientation Not on file Occupation Industry Job Start Date Job End Date Not on file Not on file Not on file Not on file documented as of this encounter Ordered Prescriptions Prescription Sig Dispense Quantity Refills Last Filled Start Date End Date sertraline (ZOLOFT) 25 mg tabletIndications: Anxiety with Depression Take 1 tablet (25 mg total) by mouth daily for 3 days 3 tablet 10/11/2020 10/31/2020 documented in this encounter Miscellaneous Notes * Telephone Encounter - Bernice Yeboah RN - 10/11/2020 4:18 PM CST Called and talked to pt. Let her know that she should take the medication every other day then every third day until she feels that she can stop taking the medication. Pt states that she has contacted the counselor through her dads work to set up an appt. She will also try yoga to help with her anxiety. She knows to call back if she needs anything else. SWEEPER * Telephone Encounter - Aksaht Grissom - 10/11/2020 3:54 PM CST Patient would like a call back today SWEEPER * Telephone Encounter - Akshat Grissom - 10/11/2020 3:52 PM CST Patient calling back, she has to pills leftof zoloft and prescribed three more. She was told to wait two days after tomorrow and then take the next one. Should she take it on the second day or wait until the next day? [phone] SWEEPER * Telephone Encounter - Bernice Yeboah RN - 10/11/2020 3:31 PM CST Medication resent to pharmacy for pt to pick up worker. Called and talked to [facility] to see if they have the medication ready for the pt. They do have it ready and will call the pt to let her know. sertraline (ZOLOFT) 25 mg tablet ??Take 1 tablet (25 mg total) by mouth daily for 3 days, Starting Wed10/11/2020, Until 10/14/2020,Normal SWEEPER * Telephone Encounter - Akshat Grissom - 10/11/2020 2:20 PM CST Patient was here yesterday to see heel slugger and she thought she was going to prescribe her three more zoloft because she is trying to get off of them but the pharmacy doesn't have them. lucinda davey.Cbn: [phone] SWEEPER documented in this encounter Plan of Treatment Not on file documented as of this encounter Visit Diagnoses Diagnosis Anxiety and depression documented in this encounter Discontinued Medications Medication Sig Discontinue Reason Start Date End Da te sertraline (ZOLOFT) 25 mg tabletIndications:Anxiet y and depression Take 1 tablet (25 mg total) by mouth daily for 3 days Reorder 10/10/2020 10/11/2020 documented as of this encounter Care Teams Wellness Program Manager Relationship Specialty Start Date End Date Mel Osei MD PCP - General Internal Medicine 02/07/20 documented as of this encounter
--- OUTSIDE RECORDS SUMMARY | 2024-08-08 14:20 | XMS_ITS | Encounter Summary ---
Author Organization [facility] Medical Group Address [address] [place] [address] Care Team Providers Care Heel Compressor Name Role Phone Mel Osei MD Primary Care Provider +1- [phone] Reason for Referral * Cardiology (Routine) - Closed Specialty Diagnoses / Procedures Referred By Contac t Referred To Contact Diagnoses Chest pain, unspecified type Palpitations Procedures Transthoracic Echo Complete W Doppler/CF Bassam Denise NP Phone: tel: [address] [phone] Referral ID Status Reason Start Date Expiration Date Visits Re quested Visits Authorized [id number] Closed 09/13/2020 10/13/2021 1 1 F DISPATCHER * Cardiology (Routine) - Closed Specialty Diagnoses / Procedures Referred By Kj t Referred To Contact Diagnoses Chest pain, unspecified type Palpitations Procedures Stress Treadmill Test Bassam Denise NP Phone: tel: [address] [address] Referral ID Status Reason Start Date Expiration Date Visits Re quested Visits Authorized [id number] Closed 09/13/2020 10/13/2021 1 1 F DISPATCHER Reason for Visit * Reason Comments Follow-up 4 WEEK Encounter Details Date Type Department Care Team (Latest Contact Info) Description 09/13/2020 2:30 PM CHIEF DISPATCHER Office Visit [facility] [address] [place] [address] Bassam Denise NP [address] [facility] [place] [address] Anxiety and depression (Primary Dx); Chest pain, unspecified type; Palpitations Social History Tobacco Use Types Packs/Day Years [...] on file Legal Sex Female 12:30 PM CHIEF DISPATCHER Gender Identity Not on file Sexual Orientation Not on file Occupation Industry Job Start Date Job End Date Not on file Not on file Not on file Not on file documented as of this encounter Last Filed Vital Signs Vital Sign Reading Time Taken Comments Blood Pressure 126/84 09/13/2020 1:54 PM CHIEF DISPATCHER Pulse 55 09/13/2020 1:54 PM CHIEF DISPATCHER Temperature 36.4 ??C (97.5 ??F) 09/13/2020 1:54 PM CS T Respiratory Rate 12 09/13/2020 1:54 PM CHIEF DISPATCHER Oxygen Saturation 99% 09/13/2020 1:54 PM CHIEF DISPATCHER Inhaled Oxygen Concentration - - Weight 96.2 kg (212 lb) 09/13/2020 1:54 PM CHIEF DISPATCHER Height - - Body Mass Index 35.28 08/22/2020 1:44 PM CHIEF DISPATCHER documented in this encounter Patient Instructions * Patient Instructions* Bassam Denise NP - 09/13/2020 2:30 PM CHIEF DISPATCHER Instructions to the desktop support technician Please do treadmill stress test and echo for chest pain and palpitations Please give her Nathalie Harden's info Please arrange 6-8 week follow up with Dr. Osei Instructions to patient Please begin zoloft 25mg a day Please consider doing some yoga for relaxation Consider doing some counseling for relaxation techniques Please make sure you are remaining well hydrated Please call with any worsening or persistent issues F DISPATCHER documented in this encounter Ordered Prescriptions Prescription Sig Dispense Quantity Refills Last Filled Start Date End Date sertraline (ZOLOFT) 25 mg tabletIndications: Anxiety and depression Take 1 tablet (25 mg total) by mouth daily 30 tablet 1 09/13/2020 10/10/2020 documented in this encounter Progress Notes * Bassam Denise NP - 09/13/2020 2:30 PM CST Subjective/Objective Patient ID: Jean Arthur is a 20 y.o. female. Chief Complaint Follow-up (4 WEEK) HPI She is here for follow up on her shortness of breath She feels as though she has pain in arm and chest that is sharp at times She wakes feeling fine and then as day progressing she starts feeling bad She states when she gets sharp pain in chest she feels anxious and as though she cannot breath She states school has been very stressful and it is hard to keep on top of things She states she did go to the chiropractor and had a similar episode Review of Systems Constitutional: Negative for chills and fever. Respiratory: Positive for shortness of breath. Negative for chest tightness. Cardiovascular: Positive for chest pain and palpitations. Gastrointestinal: Negative for constipation, diarrhea, nausea and vomiting. Genitourinary: Negative for difficulty urinating. Neurological: Positive for light-headedness. Negative for dizziness. Psychiatric/Behavioral: Negative for sleep disturbance. Physical Exam Vitals signs and nursing note [...] and Affect: Mood normal. Behavior: Behavior normal. Assessment/Plan Diagnoses and all orders for this visit: Anxiety and depression (F41.9, F32.9) (Primary) Assessment & Plan: Patient returns for follow up on shortness [...] Counseling and exercise were both also encouraged. Orders: - sertraline (ZOLOFT) 25 mg tablet; Take 1 tablet (25 mg total) by mouth daily Chest pain, unspecified type (R07.9) Assessment & Plan: Patient continues to report episodes of sharp [...] return post testing or sooner if needed. Orders: - Stress Treadmill Test; Future - Transthoracic Echo Complete W Doppler/CF; Future Palpitations (R00.2) - Stress Treadmill Test; Future - Transthoracic Echo Complete W Doppler/CF; Future Cosigned by Trevor Ramirez MD at 09/13/2020 6:07 PM CHIEF DISPATCHER F DISPATCHER F DISPATCHER documented in this encounter Miscellaneous Notes * Assessment & Plan Note - Bassam Denise NP - 09/13/2020 4:51 PM CHIEF DISPATCHER Associated Problem(s): Atypical chest pain (Resolved 02/11/2021) Patient continues to report episodes of sharp [...] return post testing or sooner if needed. F DISPATCHER * Assessment & Plan Note - Bassam Denise NP - 09/13/2020 4:49 PM CHIEF DISPATCHER Associated Problem(s): Anxiety and depression (Resolved 02/11/2021) Patient returns for follow up on shortness [...] Counseling and exercise were both also encouraged. F DISPATCHER documented in this encounter Plan of Treatment Not on file documented as of this encounter Results * Stress Treadmill Test (09/27/2020 12:02 PM CHIEF DISPATCHER) Anatomical Region Laterality Modality Nuclear Medicine 09/27/2020 11:3 0 AM CHIEF DISPATCHER Narrative 09/27/2020 1:28 PM CHIEF DISPATCHER [address] [address] EXERCISE STRESS Patient Name: JEAN ARTHUR : 2000 Study Date: 09/27/2020 11:30:00 Gender: F Tech: MJJ Ref.Provider: BASSAM DENISE Height(Cm): 65 BSA: Weight(Kg): 212Order Provider: BASSAM DENISE Procedures: Stress Report: Treadmill stress Exam. Indications: Angina. Findings: Procedure Data: Exercise Time: 9.03. Resting HR 86 bpm. Peak HR: 170 bpm. Predicted Maximal HR 199 bpm. Target HR: 169 bpm. Percent Max Predicted HR Achieved: 85 %. Baseline BP: 139/71. Peak BP: 181/71. METS achieved: 11. Rate-Pressure Product: 34861 BPM*mmHg. Max ST: Medications: Differin, Albuterol, Naproxen, [...] Signed By: Dr Noam Curry 2020-09-27 13:28:28 CHIEF DISPATCHER Procedure Note Noam Curry MD - 09/27/[address] [address] EXERCISE STRESS Patient Name: Sangita ARTHURtient ID: [id number] : [id number] Date: 09/27/2020 11:30:00 Gender: FAccession #: [id number] Tech: MJJRef.Provider: BASSAM DENISE Height(Cm): 65BSA: Weight(Kg): 212Order Provider: BASSAM DENISE Procedures: Stress Report: Treadmill stress Exam. Indications: Angina. Findings: Procedure Data: Exercise Time: 9.03. Resting HR 86 bpm. Peak HR: 170 bpm. PredictedMaximal HR 199 bpm. Target HR: 169 bpm. Percent Max Predicted HR Achieved: 85 %. Baseline BP:139/71. Peak BP: 181/71. METS achieved: 11. Rate-Pressure Product: 98991 BPM*mmHg. MaxST: Medications: Differin, Albuterol, Naproxen, Zoloft. [...] Signed By: Dr Noam Curry 2020-09-27 13:28:28 CHIEF DISPATCHER Bassam Denise NP CV STRESS PROCEDUR ES Final Result * TRANSTHORACIC ECHO (TTE) COMPLETE W DOPPLER/CF WO CONTRAST (09/27/2020 10:51 AM CHIEF DISPATCHER) Anatomical Region Laterality Modality Ultrasound 09/27/2020 10:2 1 AM CHIEF DISPATCHER Narrative 09/27/2020 11:31 AM CHIEF DISPATCHER [address] [place] [address] Echocardiogram Report Patient Name: JEAN ARTHUR : 2000 Study Date: 09/27/2020 10:21:36 Gender: F Tech: CUSTODIAL OPERATIONS MANAGER Ref.Provider: BASSAM DENISE Height(Cm): 168 BSA: 2.06 [...] Signed By: Dr Noam Curry 2020-09-27 11:31:03 CHIEF DISPATCHER Procedure Note Noam Curry MD - 09/27/[address] [place] [address] Echocardiogram Report Patient Name: Joan ARTHURnt ID: [id number] : [id number] Date: 09/27/2020 10:21:36 Gender: FAccession #: [id number] Tech: [facility].Provider: BASSAM DENISE Height(Cm): 168BSA: 2.06 Weight(Kg): [...] Signed By: Dr Noam Curry 2020-09-27 11:31:03 CHIEF DISPATCHER Bassam Denise CUSTODIAL OPERATIONS MANAGER CV ECHO PROCEDURES Final Result documented in this encounter Visit Diagnoses Diagnosis Anxiety and depression- Primary Chest pain, unspecified type Palpitations Chest pain, unspecified type Palpitations documented in this encounter Care Teams Heel Compressor Relationship Specialty Start Date End Date Mel Osei MD PCP - General Internal Medicine 02/07/20 documented as of this encounter
--- OUTSIDE RECORDS SUMMARY | 2024-08-08 14:20 | XMS_ITS | Encounter Summary ---
Author Organization [facility] Healthcare Address [address] [place] [address] Care Team Providers Care Cdl Flatbed Truck Driver Name Role Phone Mel Osei MD Primary Care Provider +1- [phone] Encounter Details Date Type Department Care Team (Late st Contact Info) Description 02/03/2021 3:15 PM CDT Lab [address] [address] Annual physical exam; Obesity (BMI 30-39.9); Easy bruising Social History Tobacco Use Types Packs/Day Years [...] on file Legal Sex Female 12:30 PM INSTRUMENT MAN Gender Identity Not on file Sexual Orientation Not on file Occupation Industry Job Start Date Job End Date Not on file Not on file Not on file Not on file documented as of this encounter Plan of Treatment Not on file documented as of this encounter Procedures Procedure Name Priority Date/Time Associated Diagnosis Comments EGFR Routine 02/03/2021 7:55 AM CDT Annual physical exam Obesity (BMI 30-39.9) Easy bruising LIPID PANEL Routine 02/03/2021 7:55 AM CDT Obesity (BMI 30-39.9) Easy bruising COMPREHENSIVE METABOLIC PANEL Routine 02/03/2021 7:55 AM CDT Annual physical exam Obesity (BMI 30-39.9) Easy bruising documented in this encounter Results * eGFR (02/03/2021 7:55 AM CDT) eGFR 86 mL/min/1.7 3 m2 [facility] Comment: Interpretive [...] was last reviewed 2020 Blood specimen (specimen) 02/03/2021 7:55 AM CDT 02/03/2021 3:44 PM CDT us Mel Osei MD LAB BLOOD ORDERABLES Final Result [facility] [id number] Department [place] [address] * Lipid panel (02/03/2021 7:55 AM CDT) [facility] Cholesterol 173 30 - 199 mg/dL [facility] SANC[facility] Comment: Interpretive Data Ages < or = 19 years ??Acceptable: ? <170 mg/dL ??Borderline high: ??170-199 mg/dL ??High: ? >or= 200 mg/dL Ages > or = 20 years ??Desirable: ?<200 mg/dL ??Borderline high: ??200-239 mg/dL ??High: ? >or= 240 mg/dL Literature References: 1. Expert Panel on Integrated Guidelines for Cardiovascular Health and Risk Reduction in Children and Adolescents. Pediatrics 2011;128:S213 2. NCEP Expert Panel. Circulation 2004;110:227 Current Interpretive Data was last revised on 2018. Triglycerides 102 <=149 mg/dL [facility] SANC[facility] Comment: Interpretive Data Ages < or = 9 years ??Acceptable: ? <75 mg/dL ??Borderline high: ??75-99 mg/dL ??High: ? >or= 100 mg/dL Ages 10 to 20 years ??Acceptable: ? <90 mg/dL ??Borderline high: ??90-129 mg/dL ??High: ? >or= 130 mg/dL Ages > or = 20 years ??Desirable: ?<150 mg/dL ??Borderline high: ??150-199 mg/dL ??High: ? 200-499 mg/dL ?Very high: ?? >or= 499 mg/dL Literature References: 1. Expert Panel on Integrated Guidelines for Cardiovascular Health and Risk Reduction in Children and Adolescents. Pediatrics 2011;128:S213 2. NCEP Expert Panel. Circulation 2004;110:227 Current Interpretive Data was last revised on 2018. HDL 40 >=40 mg/dL [facility] SANCHE[facility] Comment: Interpretive Data Ages < or = 19 years ??Acceptable: ? >45 mg/dL ??Borderline low: ?? 40-45 mg/dL ??Low: ? <40 mg/dL Ages > or = 20 years ??Desirable: ?>or= 60 mg/dL ??Low: ? <40 mg/dL Literature References: 1. Expert Panel on Integrated Guidelines for Cardiovascular Health and Risk Reduction in Children and Adolescents. Pediatrics 2011;128:S213 2. NCEP Expert Panel. Circulation 2004;110:227 Current Interpretive Data was last revised on 2018. LDL, calculated 113 <=129 mg/dL [facility]UP[facility] SANCHE[facility] Comment: Interpretive Data Ages < or = [...] Interpretive Data was last revised on 2018. Non-HDL Cholesterol 133 mg/dL [facility] SANC[facility] Comment: Interpretive Data Ages < or = 19 years ??Acceptable: ?<120 mg/dL ??Borderline high: ??120-144 mg/dL ??High: ?>145 mg/dL Ages > or = 20 years ??When triglycerides are >200 mg/dL, Non-HDL cholesterol is a secondary target of ? therapy with treatment goals that are 30 mg/dL greater than the LDL cholesterol target. ? Literature References: 1. Expert Panel on Integrated Guidelines for Cardiovascular Health and Risk Reduction in Children and Adolescents. Pediatrics 2011;128:S213 2. NCEP Expert Panel. Circulation 2004;110:227 Current Interpretive Data was last revised on 2018. Chol/HDL ratio 4 [facility] Blood specimen (specimen) 02/03/2021 7:55 AM CDT 02/03/2021 3:14 PM CDT us Mel Osei MD LAB BLOOD ORDERABLES Final Result [facility] [address] Department [place] [address] * Comprehensive metabolic panel (02/03/2021 7:55 AM CDT) Sodium 141 135 - 145 mmol/L [facility] Potassium, pl 4.4 3.3 - 4.9 mmol/L [facility] Chloride 107 97 - 110 mmol/L [facility] CO2 24 22 - 32 mmol/L [facility] Anion gap 10 2 - 15 mmol/L [facility] BUN 16 8 - 25 mg/dL [facility] Creatinine 0.95 0.60 - 1.10 mg/dL [facility] Glucose 100 70 - 199 mg/dL [facility] Comment: [...] interpretive data was last revised 2017. Calcium 9.6 8.5 - 10.3 mg/dL [facility] Bilirubin, total 0.3 0.1 - 1.2 mg/dL [facility] Protein, pl 7.4 6.5 - 8.5 g/dL [facility] Albumin 4.2 3.5 - 5.0 g/dL [facility] Alk phos 84 40 - 130 Units/L [facility] ALT 12 7 - 45 Units/L [facility] AST 18 10 - 45 Units/L [facility] Blood specimen (specimen) 02/03/2021 7:55 AM CDT 02/03/2021 3:14 PM CDT us Mel Osei MD LAB BLOOD ORDERABLES Final Result [facility] [id number] Department [place] [address] documented in this encounter Visit Diagnoses Diagnosis Annual physical exam Routine general medical examination at a [facility] Obesity (BMI 30-39.9) Easy bruising Other symptoms involving skin and integumentary tissues documented in this encounter Care Teams Cdl Flatbed Truck Driver Relationship Specialty Start Date End Date Mel sOei MD PCP - General Internal Medicine 02/07/20 documented as of this encounter
--- OUTSIDE RECORDS SUMMARY | 2024-08-08 14:20 | XMS_ITS | Encounter Summary ---
Author Organization [facility] Medical Group Address [address] [place] [address] Care Team Providers Care Fish Net Maker Name Role Phone Mel Osei MD Primary Care Provider +1- [phone] Encounter Details Date Type Department Care Team (Late st Contact Info) Description 08/22/2020 3:10 PM COSMETICIAN Lab [facility] [address] [place] [address] Shortness of breath Social History [...] on file Legal Sex Female 12:30 PM COSMETICIAN Gender Identity Not on file Sexual Orientation Not on file Occupation Industry Job Start Date Job End Date Not on file Not on file Not on file Not on file documented as of this encounter Plan of Treatment Not on file documented as of this encounter Visit Diagnoses Diagnosis Shortness of breath documented in this encounter Care Teams Fish Net Maker Relationship Specialty Start Date End Date Mel Osei MD PCP - General Internal Medicine 02/07/20 documented as of this encounter
--- OUTSIDE RECORDS SUMMARY | 2024-08-08 14:20 | XMS_ITS | Encounter Summary ---
Author Organization [facility] Medical Group Address [address] [place] [address] Care Team Providers Care Floor Layer Tile Name Role Phone Mel Osei MD Primary Care Provider +1- [phone] Reason for Visit * Reason Onset Date Comments Covid-19 Home Monitoring 08/24/2020 Enrollm ent Encounter Details Date Type Department Care Team (Late st Contact Info) Description 08/24/2020 Telephone [facility] Accountable Care Organization [address] [place] [address] Yaneth De Jesus LPN [address] [place] [address] [address] [place] [address] Covid-19 Home Monitoring (Enrollment) Social History Tobacco [...] on file Legal Sex Female 12:30 PM GRAPHIC ART TECHNICIAN Gender Identity Not on file Sexual Orientation Not on file Occupation Industry Job Start Date Job End Date Not on file Not on file Not on file Not on file documented as of this encounter Miscellaneous Notes * Telephone Encounter - Yaneth De Jesus LPN - 08/24/2020 11:01 AM GRAPHIC ART TECHNICIAN This patient is not currently a good candidate for our COVID-19 home monitoring program because covid recovered and followed up with PCP. By saving a note using this template, the patient will drop off our home monitoring candidate reports for two weeks. If we still consider them to have an active case of COVID-19 at that time, we willreevaluate them for home monitoring. HIC ART TECHNICIAN documented in this encounter Plan of Treatment Not on file documented as of this encounter Visit Diagnoses Not on filedocumented in this encounter Care Teams Floor Layer Tile Relationship Specialty Start Date End Date Mel Osei MD PCP - General Internal Medicine 02/07/20 documented as of this encounter
--- OUTSIDE RECORDS SUMMARY | 2024-08-08 14:20 | XMS_ITS | Encounter Summary ---
Author Organization [facility] Medical Group Address [address] [place] [address] Care Team Providers Care Cupola Patcher Name Role Phone Mel Osei MD Primary Care Provider +1- [phone] Encounter Details Date Type Department Care Team (Late st Contact Info) Description 07/17/2020 Telephone [facility] [address] [place] [address] Ness Fried MD [address] [place] [address] Social History Tobacco Use Types Packs/Day Years Used Date Smoking Tobacco: Never Smokeless Tobacco: Never Alcohol Use Standard Drinks/Week Comments Not Currently 0 (1 standard drink = 0.6 oz pur e alcohol) PHQ-2 Answer Date Recorded PHQ-2 Score 0 02/07/2020 Comments No Sex and Gender Information Value Date Recorded Sex Assigned at Not on file Legal Sex Female 12:30 PM FURNITURE TECHNICIAN Gender Identity Not on file Sexual Orientation Not on file Occupation Industry Job Start Date Job End Date Not on file Not on file Not on file Not on file documented as of this encounter Miscellaneous Notes * Telephone Encounter - Amy Sinclair MA - 07/17/2020 4:19 PM CST Flash Designer sent. ITURE TECHNICIAN * Telephone Encounter - Amy Sinclair MA - 07/17/2020 4:19 PM CST ----- Message from Ness Fried MD sent at 07/17/2020 3:48 PM FURNITURE TECHNICIAN ----- Please notify patient of negative Pap and normal urine testing. ITURE TECHNICIAN documented in this encounter Plan of Treatment Not on file documented as of this encounter Visit Diagnoses Not on filedocumented in this encounter Care Teams Cupola Patcher Relationship Specialty Start Date End Date Mel Osei MD PCP - General Internal Medicine 02/07/20 documented as of this encounter
--- OUTSIDE RECORDS SUMMARY | 2024-08-08 14:21 | XMS_ITS | Encounter Summary ---
Author Organization [facility] Address [address] [place] [address] Phone Care Team Providers Care Community Mental Health Social Worker Name Role Phone Jamilah Ford MD Primary Care Provider Reason for Visit * Reason Onset Date Comments Adapalene cream refill 07/29/2017 Encounter Details Date Type Department Care Team (Late st Contact Info) Description 07/29/2017 Telephone [facility] [address] [place] [address] Jamilah Ford MD [address] [address] Adapalene cream refill Social History Tobacco Use Types Packs/Day Years Used Date Smoking Tobacco: Never Assessed Comments Unknown Sex and Gender Information Value Date Recorded Sex Assigned at Not on file Legal Sex Female 12:30 PM YOGA INSTRUCTOR Gender Identity Not on file Sexual Orientation Not on file documented as of this encounter Miscellaneous Notes * Telephone Encounter - Marleny Fortune MA - 07/30/2017 9:43 AM YOGA INSTRUCTOR Father notified of Rx. Will check with pharmacy. INSTRUCTOR * Telephone Encounter - Jamilah Ford MD - 07/30/2017 9:05 AM CST Differin cream 0.1% apply hs 45 grams and 6 refills. Also it is now OTC. INSTRUCTOR * Telephone Encounter - Marleny Fortune MA - 07/29/2017 3:05 PM YOGA INSTRUCTOR Did not find in pt. Chart. Is this something you would prescribe for the patient or does she see a partnership development manager for this? Mother recently passed so dad is trying to figure out her medications. Pt iscurrently out of this med. INSTRUCTOR * Telephone Encounter - Stefanie Duff - 07/29/2017 2:57 PM CST Pt has had Adapalene cream .one percent. Not sure if [place] had rx'd this in past. Pt is out of medication. Pharmacy [facility]. Cn: [phone] INSTRUCTOR documented in this encounter Plan of Treatment Not on file documented as of this encounter Visit Diagnoses Not on filedocumented in this encounter Care Teams Community Mental Health Social Worker Relationship Specialty Start Date End Date Jamilah Ford MD [address] [place] [address] PCP - General 11/06/16 02/06/20 documented as of this encounter
--- OUTSIDE RECORDS SUMMARY | 2024-08-08 14:21 | XMS_ITS | Encounter Summary ---
Author Organization [facility] Facility Care Team Providers Care Acid Remover Name Role Phone Jamilah Ford MD Primary Care Provider Encounter Details Date Type Department Care Team (Latest Contact Info) Description 10/30/2019 Travel Social History Tobacco Use Types Packs/Day Years Used Date Smoking Tobacco: Never Assessed Comments Unknown Sex and Gender Information Value Date Recorded Sex Assigned at Not on file Legal Sex Female 12:30 PM EQUIPMENT SALES SPECIALIST Gender Identity Not on file Sexual Orientation Not on file COVID-19 Exposure Response Date Recorded In the last month, have you been in contact with someone who was confirmed or suspected to have Coronavirus / COVID-19? No / Unsure 10/30/2019 1:22 PM CDT documented as of this encounter Plan of Treatment Not on file documented as of this encounter Visit Diagnoses Not on filedocumented in this encounter Care Teams Acid Remover Relationship Specialty Start Date End Date Jamilah Ford MD [address] [place] [address] PCP - General 11/06/16 02/06/20 documented as of this encounter
--- OUTSIDE RECORDS SUMMARY | 2024-08-08 14:21 | XMS_ITS | Encounter Summary ---
Author Organization [facility] Facility Care Team Providers Care Veneer Glue Jointer Feedback Name Role Phone Unavailable Primary Care Provider Unavailabl e Encounter Details Date Type Department Care Team (Late st Contact Info) Description 02/25/2007 1:49 PM CDT - 02/25/2007 11:59 PM CDT Hospital Encounter [facility] Social History Tobacco Use Types Packs/Day Years Used Date Smoking Tobacco: Never Assessed Comments Unknown Sex and Gender Information Value Date Recorded Sex Assigned at Not on file Legal Sex Female 12:30 PM TRANSACTION MANAGER Gender Identity Not on file Sexual Orientation Not on file documented as of this encounter Plan of Treatment Not on file documented as of this encounter Visit Diagnoses Not on filedocumented in this encounter
--- OUTSIDE RECORDS SUMMARY | 2024-08-08 14:21 | XMS_ITS | Encounter Summary ---
Author Organization [facility] Address [address] [address] [place] [address] Phone Care Team Providers Care Plaster Machine Operator Name Role Phone Jamilah Ford MD Primary Care Provider [phone] Encounter Details Date Type Department Care Team (Late st Contact Info) Description 07/30/2017 Orders Only [facility] [address] [place] [address] Marleny Thompson MA Social History Tobacco Use Types Packs/Day Years Used Date Smoking Tobacco: Never Assessed Comments Unknown Sex and Gender Information Value Date Recorded Sex Assigned at Not on file Legal Sex Female 12:30 PM NURSING CONSULTANT Gender Identity Not on file Sexual Orientation Not on file documented as of this encounter Ordered Prescriptions Prescription Sig Dispense Quantity Refills Last Filled Start Date End Date adapalene (DIFFERIN) 0.1 % cream Apply topically at bedtime. 45 g 5 07/30/2017 1 documented in this encounter Plan of Treatment Not on file documented as of this encounter Visit Diagnoses Not on filedocumented in this encounter Care Teams Plaster Machine Operator Relationship Specialty Start Date End Date Jamilah Ford MD [address] [address] PCP - General 11/06/16 02/06/20 documented as of this encounter
--- OUTSIDE RECORDS SUMMARY | 2024-08-08 14:21 | XMS_ITS | Encounter Summary ---
Author Organization [facility] Address [address] [place] [address] Phone Care Team Providers Care Sulfonation Equipment Operator Name Role Phone Jamilah Ford MD Primary Care Provider Encounter Details Date Type Department Care Team (Late st Contact Info) Description 03/23/2017 10:30 AM CDT Office Visit [facility] [address] [place] [address] Jamilah Ford MD [address] [address] Encounter for routine child health examination without abnormal findings (Primary Dx); Dysuria; Encounter for well child check without abnormal findings Social History Tobacco Use Types Packs/Day Years Used Date Smoking Tobacco: Never Assessed Comments Unknown Sex and Gender Information Value Date Recorded Sex Assigned at Not on file Legal Sex Female 12:30 PM MANAGER BILLING Gender Identity Not on file Sexual Orientation Not on file documented as of this encounter Last Filed Vital Signs Vital Sign Reading Time Taken Comments Blood Pressure 120/78 03/23/2017 10:54 AM CDT Pulse - - Temperature - - Respiratory Rate - - Oxygen Saturation - - Inhaled Oxygen Concentration - - Weight 80.7 kg (178 lb) 03/23/2017 10:54 AM CDT Height 166.4 cm (5' 5.5 ) 03/23/2017 10:54 AM CD T Body Mass Index 29.17 03/23/2017 10:54 AM CDT Body Mass Index Percentile 93.75% 03/23/2017 10: 54 AM CDT Growth Chart: [facility] (Girls, 2- 20 Years) documented in this encounter Progress Notes * Jamilah Ford MD - 03/23/2017 10:30 AM CDT SUBJECTIVE: Tracey is here with her mother for a routine check up. She has not had recurrence of asthma or allergy symptoms. Lately she has pain with urination. OBJECTIVE: Weight: 178 lb Height: 65.5 in BMI: 29.2 Blood pressure: 120/78 Vision: Contacts from [employer] This patient is well developed and well nourished, in no distress. Habitus is normal. Behavior is normal. Skin color normal. No new rashes. Unusual lesions none. Head is normocephalic. Eyes have positive red reflex bilaterally. Sclerae are clear. Nose is clear. Ears are normal. Tympanic membranes are normal. Mouth is normal. Throat is normal. Neck is supple. Thyroid is normal. No masses. Lymph nodes are normal. Chest is normal. Breasts Andrew 4. Heart is regular without murmur. Abdomen is soft without tenderness, masses or organomegaly. Inguinal exam with normal femoral pulse. No hernias. Genitalia Andrew 5. Back is without scoliosis. Musculoskeletal system normal. Tone is normal. Deep tendon reflexes are normal in upper and lower extremities. Exam is otherwise unremarkable. ASSESSMENT: 1. 16 year old with normal growth and development 2. Slight overweight, increasing 3. Dysuria but negative UA PLAN: 1. A healthy diet, growth, BMI, exercise, safety, and menses discussed. Gardasil #1 given. Next oneis due in two months. Next check up is due in one year. 2. Discussed causes of dysuria. May use azo pending culture result. documented in this encounter Plan of Treatment Not on file documented as of this encounter Procedures Procedure Name Priority Date/Time Associated Diagnosis Comments POCT URINALYSIS DIPSTICK Routine 03/23/2017 11:51 AM CDT Dysuria documented in this encounter Results * POCT urinalysis dipstick (03/23/2017 11:51 AM CDT) Color, Urine, POC Yellow Clarity, ur, POC Clear Specific [place], POC 1.010 Blood, ur, POC 1+ WBCs/hpf pH, ur, POC 6.0 Lot Number [id number] Comment:Exp: 10/06/17 Urine 03/23/2017 11:5 1 AM CDT Jamilah Ford MD POINT OF CARE TEST ORDERABLE S Final Result documented in this encounter Visit Diagnoses Diagnosis Encounter for routine child health examination without abnormal findings- Primary Dysuria Encounter for well child check without abnormal findings documented in this encounter Orders Lab Orders Without Results Count Last Ordered D ate First Ordered Date URINE CULTURE 1 03/23/2017 Immunization/Injection Count Last Ordered Date First Ordered Date HPV9 VACCINE 3 DOSE IM 1 03/23/2017 documented in this encounter Care Teams Sulfonation Equipment Operator Relationship Specialty Start Date End Date Jamilah Ford MD [address] [place] [address] [place] [address] PCP - General 11/06/16 02/06/20 documented as of this encounter
--- OUTSIDE RECORDS SUMMARY | 2024-08-08 14:21 | XMS_ITS | Encounter Summary ---
Author Organization [facility] Facility Care Team Providers Care Soil Fertility Specialist Name Role Phone Unavailable Primary Care Provider Unavailabl e Encounter Details Date Type Department Care Team (Late st Contact Info) Description 03/07/2007 10:22 AM CDT - 03/07/2007 11:59 PM CDT Hospital Encounter [facility] Social History Tobacco Use Types Packs/Day Years Used Date Smoking Tobacco: Never Assessed Comments Unknown Sex and Gender Information Value Date Recorded Sex Assigned at Not on file Legal Sex Female 12:30 PM SUPERVISOR POWDERED SUGAR Gender Identity Not on file Sexual Orientation Not on file documented as of this encounter Plan of Treatment Not on file documented as of this encounter Visit Diagnoses Not on filedocumented in this encounter
--- OUTSIDE RECORDS SUMMARY | 2024-08-08 14:21 | XMS_ITS | Encounter Summary ---
Author Organization [facility] Medical Group Address [address] [place] [address] Care Team Providers Care Hide Washer Name Role Phone Mel Osei MD Primary Care Provider [phone] Encounter Details Date Type Department Care Team (Late st Contact Info) Description 07/12/2020 12:50 PM OPERATOR CAVITY PUMP Lab [facility] [address] [place] [address] Social History Tobacco Use Types Packs/Day Years Used Date Smoking Tobacco: Never Smokeless Tobacco: Never Alcohol Use Standard Drinks/Week Comments Not Currently 0 (1 standard drink = 0.6 oz pur e alcohol) PHQ-2 Answer Date Recorded PHQ-2 Score 0 02/07/2020 Comments No Sex and Gender Information Value Date Recorded Sex Assigned at Not on file Legal Sex Female 12:30 PM OPERATOR CAVITY PUMP Gender Identity Not on file Sexual Orientation Not on file Occupation Industry Job Start Date Job End Date Not on file Not on file Not on file Not on file documented as of this encounter Plan of Treatment Not on file documented as of this encounter Visit Diagnoses Not on filedocumented in this encounter Care Teams Hide Washer Relationship Specialty Start Date End Date Mel Osei MD PCP - General Internal Medicine 02/07/20 documented as of this encounter
--- OUTSIDE RECORDS SUMMARY | 2024-08-08 14:21 | XMS_ITS | Encounter Summary ---
Author Organization [facility] Address [address] [place] [address] Care Team Providers Care [employer] Lab Technician Name Role Phone Mel Osei MD Unavailable [phone] Mel Osei MD Primary Care Provider [phone] Encounter Details Date Type Department Care Team (Late st Contact Info) Description 02/07/2020 3:00 PM CDT Office Visit [facility] [address] [place] [id number] Mel Osei MD [address] [place] [address] Annual physical exam (Primary Dx); Obesity (BMI 30-39.9); Acne; Easy bruising; Routine gynecological examination Social History Tobacco Use Types Packs/Day Years Used Date Smoking Tobacco: Never Smokeless Tobacco: Never Alcohol Use Standard Drinks/Week Comments Not Currently 0 (1 standard drink = 0.6 oz pur e alcohol) PHQ-2 Answer Date Recorded PHQ-2 Score 0 02/07/2020 Comments Unknown Sex and Gender Information Value Date Recorded Sex Assigned at Not on file 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 Gender Identity Not on file Sexual Orientation Not on file documented as of this encounter Last Filed Vital Signs Vital Sign Reading Time Taken Comments Blood Pressure 124/72 02/07/2020 2:55 PM CDT Pulse 62 02/07/2020 2:55 PM CDT Temperature 36.3 ??C (97.3 ??F) 02/07/2020 2:55 PM CD T Respiratory Rate 16 02/07/2020 2:55 PM CDT Oxygen Saturation 98% 02/07/2020 2:55 PM CDT Inhaled Oxygen Concentration - - Weight 94.9 kg (209 lb 3.2 oz) 02/07/2020 2:55 P M CDT Height 167.6 cm (5' 6 ) 02/07/2020 2:55 PM CDT Body Mass Index 33.77 02/07/2020 2:55 PM CDT documented in this encounter Patient Instructions * Patient Instructions* Mel Osei MD - 02/07/2020 3:00 PM CDT ORDERS FOR [facility] STAFF TO ARRANGE 1. Refer Dr. Fried evaluate for her 1st well-woman care examination and review the family history of breast ovarian and colon cancer or any updating cancer screening or genetic testing 2. Labs chemistry panel, fasting lipid panel = annual, obesity CBC = easy bruising ORDERS FOR Tracey Arthur TO ARRANGE 1. [...] Begin 30 minutes of challenging exercise daily Patient Care Team: Mel Osei MD as PCP - General (Internal Medicine) Mel Osei MD as Consulting Physician (Internal Medicine) Return in about 1 year (around 02/06/2021) for Annual physical, Recheck. Orders Placed This Encounter Procedures ??? Comprehensive metabolic panel ??? Lipid panel ??? Ambulatory referral to Gynecology A brief review of all your problems, medications, and orders from today ICD-9-CM ICD-10-CM 1. Annual physical exam V70.0 Z00.00 Comprehensive metabolic panel 2. Obesity (BMI 30-39.9) 278.00 E66.9 Comprehensive metabolic panel Lipid panel 3. Acne 706.1 L70.9 4. Easy bruising 782.9 R23.8 Comprehensive metabolic panel Lipid panel 5. Routine gynecological examination V72.31 Z01.419 Ambulatory referral to Gynecology For your records I have provided this [...] ??? Varicella 05/11/2000, 03/09/2014 Primary Pharmacy/DME suppliers: [id number] [place], [place] - [address] [facility] [address] [facility] [address] PLEASE BRING IN ALL PILL BOTTLES TO EVERY OFFICE VISIT, THIS IS ESSENTIAL FOR ACCURATE REFILLS AND MAINTAINING AN ACCURATE MEDICATION LIST. PLEASE SIGN UP FOR Reverb TechnologiesHART so that you may have access to your labs and chart documentation IF YOU HAVE TROUBLE WITH THIS PROCESS CALL [phone] Annual Exam finds the need for diet [...] health are documented on this information sheet. Heart rate monitoring is very helpful to monitor exercise and fitness I recommend getting an exercise heart rate monitor, there are several options including Forrst, Emissary, BridgeXsMIN. The if you do not have a heart rate monitor an in expensive option CooSpo is available on line for about 30 dollars can be worn during exercise. You would link your heart rate monitor to a telephone alejandra,( most are free) available apps include: Privacy Analytics, tutoria GmbH BEAT + tutoria GmbH FLOW, FortyCloud, LooxcieO, DebtLESS Community, Acrecent Financial - a health alejandra already preloaded on your smart phone. With this equipment I recommend watching your HEART RATE REAL TIME during exercise and make sure that you get the heart rate to your goal heart rate for a full 30 minutes of exercise. You will feel best if you allow for 5-10 minutes for warm up and cool down. heart rate goal of 170 for 30 minutes daily through exercise, you will need 5 minutes warm up and 5 minutes cool down and then perhaps 5 minutes for stretching after exercise Plan 45 minutes to be available for exercise daily Alternate high intensity exercise it is difficult for you with low intensity exercise that is easier on an awwya-ghqbj-cla basis Morbid obesity = body mass index above 40, Obesity = Body mass index over 30. [place] body mass index is less than 25. Today your BMI =Body mass index is 33.77 kg/m??. I recommend 30 minutes of challenging exercise daily to your heart rate goal. I recommend initiating the Whole 30 diet-- Consider going on this Whole 30 diet program. The book that discusses the diet in informative and a useful read. This diet eliminates: Alcohol, Sugar, Gluten, Legumes, Peanuts & Peanut butter,Soy, Dairy, processed foods and preservatives. After one month on these restrictions try to resume the food group you miss the most and observe how It effects you over 2-3 weeks before introducing foods from any other new group. I advise moving towards the Mediterranian diet as your ultimate diet routine RECOMMENDATIONS DURING THE CORONAVIRUS OUTBREAK WITH THE COVID-19 ILLNESS Maintain PHYSICAL distancing 6 ft between you and another person that is not in your household. Wear a mask when you are out in public. RELIABLE EDUCATIONAL INFORMATION: Information is available daily on the internet at CDC.GOV Listen to a virology pod-cast called ???this week and virology?? = TWIV. Doctors on this radio show discuss the science of the read virus. CONSIDER JOINING A CONTROL TRIAL TO HELP detect recurrence of the virus in your community: https://covid.Activation Solutions/us CONSIDER JOINING A CONTROL TRIAL TO HELP TEST NEW THERAPIES: The [facility] has a study looking at Luvox to prevent rapid growth of the virus in your body after getting COVID-19 infection with her recent (+) viral RNA study. You may contact [facility] to join that study. Online: [email or web address] Or by email: [email or web address] CONTACT [facility] [phone] and ask for the STACI WALLER TRIAL for home LUVOX treatment of COVID-19 RELIABLE TESTING FOR ACUTE INFECTION WITH COVID-19 = PCR RNA test IS AVAILABLE at multiple hospitals and [facility] centers in our local area -you should have this test if you become sick, please ask the facility to send me a copy the results. RELIABLE TESTING FOR IMMUNITY TO COVID-19 IS NOT YET AVAILABLE. I will be sending you a order for testing when this test does become available AND is a useful marker for your health care decision making. FOR PERSONAL and HOUSEHOLD SAFETY FOLLOW THESE INTERVENTIONS: Avoid zfvx-pq-rezn exposure to your pets, cats and dogs can get COVID-19 and spread this to other family members and neighbors 1. Continue house quarantine Everybody in the house should have the following Their own independent tube of tooth paste Their own individual Sinus Rinse bottle, Their own individual nasal inhalers for sinus problems, Their own individual respiratory inhalers for asthma, Their own individual nebulizer machine mouth piece and tubing for respiratory treatments, Their own individual drinking glass or water bottle. Utensil should not be shared 2. You are welcome to call for medical advice if you run into troubles with your usual medical problem during the Coronavirus Pandemic. An office visit and perhaps a telephone or computer based ???virtual visit?? maybe advised to keep you safe during the Coronavirus Pandemic. A virtual visit is done by computer, the technology is not yet available but we expect this to be available soon. A virtual or an office visit will be done to gather enough information to understand your medical problems and treat them safely. 3. Follow CDC.GOV for the most updated information about staying safe during the Pandemic. IF YOU HAVE A HOUSEHOLD CONTACT WITH COVID-19 1. All sick individuals in the home should wear a mask when in contact with household members so that coughing does not spread of germs to those household members. Caretakers should wear a mask when taking care of the sick household member(s). If anyone in the home has COVID-19, everyone in the home has been exposed & should continue to isolate themselves at home for until well for 14 days. A person may not get sick for 5-14 days after exposure, a sick person should remain isolated until 3 full days after resolution of symptoms AND not return to public activity until completely symptom-free for 14 days. 2. Sick individuals should sleep in rooms not occupied by well individuals. The viruses spreads by respiratory droplets and can live on household surfaces for up to 72 hours. Clean surfaces regularly with Lysol or a Chlorine base mandrel cleaner 3. To prevent contaminating yourself, avoid touching your eyes, nose, mouth, or face until you haveadequately washed your hands with soap and water or hand gel. IF YOU HAVE DEVELOPED SYMPTOMS OF COVID-19 CONTACT [facility] [phone] and ask for COVID-19 HOTLINE 1. If you become ill with fever, sore muscles, sore throat, diarrhea, cough, and possibly shortnessof breath --then you may have the COVID-19 illness. They will screening for your symptoms and determine if you are a candidate for testing at local hospital They will direct you to the facility that will do your test and be in contact with you regarding the results documented in this encounter Progress Notes * Mel Osei MD - 02/07/2020 3:00 PM CDT ASSESSMENT AND PLAN: Assessment and plan were shared with this patient as part of the AVS PATIENT INSTRUCTIONS Patient Instructions ORDERS FOR [facility] STAFF TO ARRANGE 1. Refer Dr. Fried evaluate for her 1st well-woman care examination and review the family history of breast ovarian and colon cancer or any updating cancer screening or genetic testing 2. Labs chemistry panel, fasting lipid panel = annual, obesity CBC = easy bruising ORDERS FOR Tracey Arthur TO ARRANGE 1. [...] Begin 30 minutes of challenging exercise daily Patient Care Team: Mel Osei MD as PCP - General (Internal Medicine) Mel Osei MD as Consulting Physician (Internal Medicine) Return in about 1 year (around 02/06/2021) for Annual physical, Recheck. Orders Placed This Encounter Procedures ??? Comprehensive metabolic panel ??? Lipid panel ??? Ambulatory referral to Gynecology A brief review of all your problems, medications, and orders from today ICD-9-CM ICD-10-CM 1. Annual physical exam V70.0 Z00.00 Comprehensive metabolic panel 2. Obesity (BMI 30-39.9) 278.00 E66.9 Comprehensive metabolic panel Lipid panel 3. Acne 706.1 L70.9 4. Easy bruising 782.9 R23.8 Comprehensive metabolic panel Lipid panel 5. Routine gynecological examination V72.31 Z01.419 Ambulatory referral to Gynecology For your records I have provided this [...] ??? Varicella 05/11/2000, 03/09/2014 Primary Pharmacy/DME suppliers: [id number] - [place], [place] - [address] [facility] [address] PLEASE BRING IN ALL PILL BOTTLES TO EVERY OFFICE VISIT, THIS IS ESSENTIAL FOR ACCURATE REFILLS AND MAINTAINING AN ACCURATE MEDICATION LIST. PLEASE SIGN UP FOR Reverb TechnologiesHART so that you may have access to your labs and chart documentation IF YOU HAVE TROUBLE WITH THIS PROCESS CALL [phone] Annual Exam finds the need for diet [...] health are documented on this information sheet. Heart rate monitoring is very helpful to monitor exercise and fitness I recommend getting an exercise heart rate monitor, there are several options including Forrst, Emissary, [place]. The if you do not have a heart rate monitor an in expensive option CooSpo is available on line for about 30 dollars can be worn during exercise. You would link your heart rate monitor to a telephone alejandra,( most are free) available apps include: Privacy Analytics, tutoria GmbH BEAT + Tela Solutions, FortyCloud, [place] [employer], DebtLESS Community, Acrecent Financial - a health alejandra already preloaded on your smart phone. With this equipment I recommend watching your HEART RATE REAL TIME during exercise and make sure that you get the heart rate to your goal heart rate for a full 30 minutes of exercise. You will feel best if you allow for 5-10 minutes for warm up and cool down. heart rate goal of 170 for 30 minutes daily through exercise, you will need 5 minutes warm up and 5 minutes cool down and then perhaps 5 minutes for stretching after exercise Plan 45 minutes to be available for exercise daily Alternate high intensity exercise it is difficult for you with low intensity exercise that is easier on an hvrkp-ppheg-ykd basis Morbid obesity = body mass index above 40, Obesity = Body mass index over 30. [place] body mass index is less than 25. Today your BMI =Body mass index is 33.77 kg/m??. I recommend 30 minutes of challenging exercise daily to your heart rate goal. I recommend initiating the Whole 30 diet-- Consider going on this Whole 30 diet program. The book that discusses the diet in informative and a useful read. This diet eliminates: Alcohol, Sugar, Gluten, Legumes, Peanuts & Peanut butter,Soy, Dairy, processed foods and preservatives. After one month on these restrictions try to resume the food group you miss the most and observe how It effects you over 2-3 weeks before introducing foods from any other new group. I advise moving towards the Mediterranian diet as your ultimate diet routine RECOMMENDATIONS DURING THE CORONAVIRUS OUTBREAK WITH THE COVID-19 ILLNESS Maintain PHYSICAL distancing 6 ft between you and another person that is not in your household. Wear a mask when you are out in public. RELIABLE EDUCATIONAL INFORMATION: Information is available daily on the internet at CDC.GOV Listen to a virology pod-cast called ???this week and virology?? = TWIV. Doctors on this radio show discuss the science of the read virus. CONSIDER JOINING A CONTROL TRIAL TO HELP detect recurrence of the virus in your community: https://covid.Activation Solutions/us CONSIDER JOINING A CONTROL TRIAL TO HELP TEST NEW THERAPIES: The [facility] study [facility] has a study looking at Luvox to prevent rapid growth of the virus in your body after getting COVID-19 infection with her recent (+) viral RNA study. You may contact [facility] to join that study. Online: [email or web address] Or by email: [email or web address] CONTACT [facility] [phone] and ask for the STACI WALLER TRIAL for home LUVOX treatment of COVID-19 RELIABLE TESTING FOR ACUTE INFECTION WITH COVID-19 = PCR RNA test IS AVAILABLE at multiple hospitals and [facility] centers in our local area -you should have this test if you become sick, please ask the facility to send me a copy the results. RELIABLE TESTING FOR IMMUNITY TO COVID-19 IS NOT YET AVAILABLE. I will be sending you a order for testing when this test does become available AND is a useful marker for your health care decision making. FOR PERSONAL and HOUSEHOLD SAFETY FOLLOW THESE INTERVENTIONS: Avoid iwaz-ha-otqk exposure to your pets, cats and dogs can get COVID-19 and spread this to other family members and neighbors 1. Continue house quarantine Everybody in the house should have the following Their own independent tube of tooth paste Their own individual Sinus Rinse bottle, Their own individual nasal inhalers for sinus problems, Their own individual respiratory inhalers for asthma, Their own individual nebulizer machine mouth piece and tubing for respiratory treatments, Their own individual drinking glass or water bottle. Utensil should not be shared 2. You are welcome to call for medical advice if you run into troubles with your usual medical problem during the Coronavirus Pandemic. An office visit and perhaps a telephone or computer based ???virtual visit?? maybe advised to keep you safe during the Coronavirus Pandemic. A virtual visit is done by computer, the technology is not yet available but we expect this to be available soon. A virtual or an office visit will be done to gather enough information to understand your medical problems and treat them safely. 3. Follow CDC.GOV for the most updated information about staying safe during the Pandemic. IF YOU HAVE A HOUSEHOLD CONTACT WITH COVID-19 1. All sick individuals in the home should wear a mask when in contact with household members so that coughing does not spread of germs to those household members. Caretakers should wear a mask when taking care of the sick household member(s). If anyone in the home has COVID-19, everyone in the home has been exposed & should continue to isolate themselves at home for until well for 14 days. A person may not get sick for 5-14 days after exposure, a sick person should remain isolated until 3 full days after resolution of symptoms AND not return to public activity until completely symptom-free for 14 days. 2. Sick individuals should sleep in rooms not occupied by well individuals. The viruses spreads by respiratory droplets and can live on household surfaces for up to 72 hours. Clean surfaces regularly with Lysol or a Chlorine base mandrel cleaner 3. To prevent contaminating yourself, avoid touching your eyes, nose, mouth, or face until you haveadequately washed your hands with soap and water or hand gel. IF YOU HAVE DEVELOPED SYMPTOMS OF COVID-19 CONTACT [facility] [phone] and ask for COVID-19 HOTLINE 1. If you become ill with fever, sore muscles, sore throat, diarrhea, cough, and possibly shortnessof breath --then you may have the COVID-19 illness. They will screening for your symptoms and determine if you are a candidate for testing at local hospital They will direct you to the facility that will do your test and be in contact with you regarding the results CHIEF COMPLAINT No chief complaint on file. HISTORY OF PRESENT ILLNESS Tracey Arthur is a new patient to my office transferring from the practice the practice of Jamilah Amezquita today. The visit included a comprehensive medical problem review and physical examination, medication Refill Management, And a discussion of her new concerns. Issues discussed today included all new lab orders for the next follow-up visit, results of currentlab work, Annual Health Maintenance Recommendations ( Documented on the separately scanned in AMS Annual Physical Exam Worksheet ) and a review of active and discontinued medication prescriptions. DETAILS REGARDING THIS VISIT: Tracey reports feeling very well 1. Annual physical exam Transferred from Jamilah Amezquita is office. Annual information is on the annual consult information sheet reviewed for her today 2. Obesity (BMI 30-39.9) Agreed upon diet and exercise changes for 25 lb weight loss over the next year outlined on the AVS 3. Acne Doing very well with OTC Differin cream and no acne present today 4. Easy bruising I believe the bruising is just Motrin and/or Aleve related. Discontinuation of this medicine PAST MEDICAL HISTORY Past Medical History: Diagnosis Date ??? 1999 8-5 product nl ??? Viral gastroenteritis 2000 Admit PAST SURGICAL HISTORY Past Surgical History: Procedure Laterality Date ??? BLADDER SURGERY 2005 FAMILY HISTORY family history includes Allergies in her mother; Anemia in an other family member; Arthritis in an other family member; Asthma in an other family member; Breast cancer in her mother; Coronary artery disease in an other family member; Deafness in an other family member; Diabetes in an other family member; Eating disorder in an other family member; Hypertension in an other family member; Migraines in an other family member; Sudden in an other family member; Thyroid disease in an other family member. SOCIAL HISTORY Social History Tobacco Use ??? Smoking status: Never Smoker ??? Smokeless tobacco: Never Used Substance Use Topics ??? Alcohol use: Not Currently Social History Socioeconomic History ??? Marital status: Single Spouse name: Not on file ??? Number of children: Not on file ??? Years of education: Not on file ??? Highest education level: Not on file Occupational History ??? Not on file Social Needs ??? Financial resource strain: Not on file ??? Food insecurity Worry: Not on file Inability: Not on file ??? Transportation needs Medical: Not on file Non-medical: Not on file Tobacco Use ??? Smoking status: Never Smoker ??? Smokeless tobacco: Never Used Substance and Sexual Activity ??? Alcohol use: Not Currently ??? Drug use: Not Currently ??? Sexual activity: Never Partners: Male Lifestyle ??? Physical activity Days per week: Not on file Minutes per session: Not on file ??? Stress: Not on file Relationships ??? Social connections Talks on phone: Not on file Gets together: Not on file Attends judaism service: Not on file Active member of club or organization: Not on file Attends meetings of clubs or organizations: Not on file Relationship status: Not on file ??? Intimate partner violence Fear of current or ex partner: Not on file Emotionally abused: Not on file Physically abused: Not on file Forced sexual activity: Not on file Other Topics Concern ??? Not on file Social History Narrative (This data did not transfer from [employer] and was not retrievable from [employer].) MOM Clare - breast cancer survivor; 3rd relapse with multiple mets 03/25 DAD Gary Simpson - adult moved back home 2017; works at [employer]; plans [employer] - volleyball. 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 HENT: Negative for congestion, dental problem, hearing [...] change and rash. Neurological: Negative for dizziness, weakness, numbness and headaches. Hematological: Negative for adenopathy. Does not bruise/bleed easily. Psychiatric/Behavioral: Negative for behavioral problems, dysphoric mood and sleep disturbance. Thepatient is not nervous/anxious. Breast: Negative for tenderness, breast redness, breast discharge and lump(s). MEDICATION LIST BEFORE THIS VISIT Current Outpatient Medications on File Prior to Visit Medication Sig ??? adapalene (DIFFERIN) 0.1 % cream Apply topically at bedtime. ??? naproxen (ANAPROX DS) 550 mg tablet TAKE 1 TABLET BY MOUTH TWICE DAILY NEEDED FOR PAIN ??? [DISCONTINUED] cefprosil (CEFZIL) 500 mg tablet Take 1 tablet by mouth every 12 hours for 20 days (Patient not taking: Reported on 02/07/2020) No current facility-administered medications on file prior to visit. MEDICATION LIST AT CONCLUSION OF THIS VISIT Current Outpatient Medications Ordered in [facility] Medication Sig Dispense Refill ??? adapalene (DIFFERIN) 0.1 % cream Apply topically at bedtime. 45 g 5 ??? naproxen (ANAPROX DS) 550 mg tablet TAKE 1 TABLET BY MOUTH TWICE DAILY NEEDED FOR PAIN 180 0 No current [facility]-ordered facility-administered medications on file. ALLERGIES has No Known Allergies. PHYSICAL EXAM body mass index is 33.77 kg/m??. Vitals: 02/07/20 1455 BP: 124/72 BP Location: Left arm Patient Position: Sitting Pulse: 62 Resp: 16 Temp: 36.3 ??C (97.3 ??F) TempSrc: Tympanic SpO2: 98% Weight: 94.9 kg (209 lb 3.2 oz) Height: 167.6 cm (5' 6 ) Physical Exam Vitals signs reviewed. Constitutional: General: She is not in acute distress. Appearance: Normal appearance. She is well-developed. She is obese. HENT: Head: Normocephalic and atraumatic. Right Ear: Tympanic membrane and external ear normal. Left Ear: Tympanic membrane and external ear normal. Nose: Nose normal. No congestion or rhinorrhea. Mouth/Throat: Mouth: Mucous membranes are moist. Pharynx: Oropharynx is clear. No oropharyngeal exudate or posterior oropharyngeal erythema. Comments: Teeth and gums are healthy Eyes: General: No scleral icterus. Extraocular Movements: Extraocular movements intact. Conjunctiva/sclera: Conjunctivae normal. Pupils: Pupils are equal, round, and reactive to light. Neck: Musculoskeletal: Normal range of motion and neck supple. Thyroid: No thyromegaly. Cardiovascular: Rate and Rhythm: [...] Hernia: No hernia is present. Genitourinary: Comments: Healthy bilateral breast examination Genitourinary examination excluded, she is referred to [facility] for her 1st well-woman checkup Musculoskeletal: Normal range of motion. General: No swelling, tenderness, deformity or signs of injury. Right lower leg: No edema. Left lower [...] BLOOD WORK REVIEWED WITH Tracey Arthur TODAY No visits with results within 12 Month(s) from this visit. Latest known visit with results is: Office Visit on 03/23/2017 Component Date Value Ref Range Status ??? Color, Urine, POC 03/23/2017 Yellow Final ??? Clarity, ur, POC 03/23/2017 Clear Final ??? Specific [place], POC 03/23/2017 1.010 Final ??? Blood, ur, POC 03/23/2017 1+ WBCs/hpf Final ??? pH, ur, POC 03/23/2017 6.0 Final ??? Lot Number 03/23/2017 [id number] Final Patient Active Problem List Diagnosis Code ??? Myopia H52.10 ??? Acne L70.9 ??? Recurrent sinusitis J32.9 ??? Asthma J45.909 ??? 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 Dysmenorrhea N94.6 ??? Easy bruising R23.8 ??? Obesity (BMI 30-39.9) E66.9 documented in this encounter Plan of Treatment Not on file documented as of this encounter Results * Lipid panel (02/03/2021 7:55 AM CDT) Cholesterol 173 30 - 199 mg/dL BHUPENDRA [...] on 2018. HDL 40 >=40 mg/dL BHUPENDRA Comment: Interpretive Data Ages < or = [...] 2018. LDL, calculated 113 <=129 mg/dL BHUPENDRA Comment: Interpretive Data Ages < or = [...] on 2018. Non-HDL Cholesterol 133 mg/dL BHUPENDRA Comment: Interpretive Data Ages < or = [...] 7:55 AM CDT 02/03/2021 3:14 PM CDT Mel Osei MD LAB BLOOD ORDERABLES Final Result [facility] [address] Department [place] [address] * Comprehensive metabolic panel (02/03/2021 7:55 AM [...] Osei MD LAB BLOOD ORDERABLES Final Result [facility] [address] Department [place] [address] documented in this encounter Visit Diagnoses Diagnosis Annual physical exam- Primary Routine general medical examination at a health care facility Obesity (BMI 30-39.9) Acne Other acne Easy bruising Other symptoms involving skin and integumentary tissues Routine gynecological examination documented in this encounter Discontinued Medications Medication Sig Discontinue Reason Start Date End Da te cefprosil (CEFZIL) 500 mg tablet Take 1 tablet by mouth every 12 hours for 20 days Therapy completed 11/02/2014 02/07/2020 documented as of this encounter Care Teams Semiconductor Lab Technician Relationship Specialty Start Date End Date Mel Osei MD PCP - General Internal Medicine 02/07/20 Mel Osei MD Consulting Physician Internal Medicine 02/07/20 02/07/20 documented as of this encounter
--- OUTSIDE RECORDS SUMMARY | 2024-08-08 14:21 | XMS_ITS | Encounter Summary ---
Author Organization [facility] Address [address] [place] [address] Phone Care Team Providers Care Cyanide Pot Tender Name Role Phone Jamilah Ford MD Primary Care Provider [phone] Reason for Visit * Reason Comments Immunizations HPV #2 Encounter Details Date Type Department Care Team (Latest Contact Info) Description 05/24/2017 3:30 PM CDT Clinical Support [facility] [address] [place] [address] Need for vaccination (Primary Dx) Social History Tobacco Use Types Packs/Day Years Used Date Smoking Tobacco: Never Assessed Comments Unknown Sex and Gender Information Value Date Recorded Sex Assigned at Not on file Legal Sex Female 12:30 PM BEHAVIORAL SCIENCES DEPARTMENT CHAIR Gender Identity Not on file Sexual Orientation Not on file documented as of this encounter Progress Notes * Marleny Fortune MA - 05/24/2017 3:30 PM CDT Patient was given HPV #2 in the left deltoid on 2016 by MONTRELL Moreau. documented in this encounter Plan of Treatment Not on file documented as of this encounter Visit Diagnoses Diagnosis Need for vaccination- Primary Need for prophylactic vaccination and inoculation against unspecified single disease documented in this encounter Orders Immunization/Injection Count Last Ordered Date First Ordered Date HPV9 VACCINE 3 DOSE IM 1 05/24/2017 documented in this encounter Care Teams Cyanide Pot Tender Relationship Specialty Start Date End Date Jamilah Ford MD [address] [place] [address] PCP - General 11/06/16 02/06/20 documented as of this encounter
--- OUTSIDE RECORDS SUMMARY | 2024-08-08 14:21 | XMS_ITS | Encounter Summary ---
Author Organization [facility] Address [address] [place] [address] Care Team Providers Care Director Regulatory Affairs Name Role Phone Mel Osei MD Primary Care Provider [phone] Reason for Visit * Reason Comments New Patient Encounter Details Date Type Department Care Team (Late st Contact Info) Description 06/21/2020 1:00 PM SALVATIONIST Office Visit [facility] [address] [place] [address] Ness Fried MD [address] [place] [address] Dysmenorrhea (Primary Dx); Family history of breast cancer [...] on file Legal Sex Female 12:30 PM SALVATIONIST Gender Identity Not on file Sexual Orientation Not on file Occupation Industry Job Start Date Job End Date Not on file Not on file Not on file Not on file documented as of this encounter Last Filed Vital Signs Vital Sign Reading Time Taken Comments Blood Pressure 122/80 06/21/2020 12:44 PM SALVATIONIST Pulse - - Temperature 36.3 ??C (97.3 ??F) 06/21/2020 12:[address] Respiratory Rate - - Oxygen Saturation - - Inhaled Oxygen Concentration - - Weight 97.1 kg (214 lb) 06/21/2020 12:44 PM SALVATIONIST Height 167.6 cm (5' 6 ) 06/21/2020 12:44 PM SALVATIONIST Body Mass Index 34.54 06/21/2020 12:44 PM SALVATIONIST documented in this encounter Progress Notes * Ness Fried MD - 06/21/2020 1:00 PM CST New patient - office visit Subjective: Jean Arthur is a 20 y.o. G0 new patient who presents c/o problem menses. Cycles are regular, q 35 days, with bleeding x 3-4 days. Denies menorrhagia but c/o dysmenorrhea. She has two days of more cramping. No significant relief in the past with ibuprofen so changed to naproxen BID, which helps some but still misses work at times due to pain. Denies pelvic pain outside of menses. Denies sexual activity. Her mother was diagnosed with breast cancer at age 37 and passed at age 44. MGM also had breast cancer and maternal aunt with ovarian cancer. She is unsure if any family members had genetic testing done. Menstrual History: Patient's last menstrual period was 05/16/2020. Sexual History: OB History 0 Para 0 Term 0 0 AB 0 Living 0 SAB 0 TAB 0 Ectopic 0 Multiple 0 Live Births 0 Past Medical History: Diagnosis Date ??? [place] 1999 8-5 product nl ??? Viral gastroenteritis 2000 Admit Current Outpatient Medications: ??? adapalene (DIFFERIN) 0.1 % cream, Apply topically at bedtime., Disp: 45 g, Rfl: 5 ??? naproxen (ANAPROX DS) 550 mg tablet, TAKE 1 TABLET BY MOUTH TWICE DAILY NEEDED FOR PAIN, Disp: 180, Rfl: 0 No Known Allergies Family History [...] ??? Skin cancer Maternal Grandfather Social History Socioeconomic History ??? Marital status: Single Spouse name: None ??? Number of children: 0 ??? Years of education: None ??? Highest education level: None Occupational History Employer: [employer] Social Needs ??? Financial resource strain: None ??? Food insecurity Worry: None Inability: None ??? Transportation needs Medical: None Non-medical: None Tobacco Use ??? Smoking status: Never Smoker ??? Smokeless tobacco: Never Used Substance and Sexual Activity ??? Alcohol use: Not Currently ??? Drug use: Yes Types: Marijuana ??? Sexual activity: Never Partners: Male Lifestyle ??? Physical activity Days per week: None Minutes per session: None ??? Stress: None Relationships ??? Social connections Talks on phone: None Gets together: None Attends congregation service: None Active member of club or organization: None Attends meetings of clubs or organizations: None Relationship status: None ??? Intimate partner violence Fear of current or ex partner: None Emotionally abused: None Physically abused: None Forced sexual activity: None Other Topics Concern ??? None Social History Narrative (This data did not transfer from trustedsafe and was not retrievable from trustedsafe.) MOM Clare - breast cancer survivor; 3rd relapse with multiple mets 03/25 DAD Gary Simpson - adult moved back home 2017; works at [employer]; plans L&[employer] JEAN - volleyball. 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 HENT: Negative for congestion, hearing loss, nosebleeds, postnasal drip, tinnitus, trouble swallowing and voice change. Eyes: Negative for visual disturbance. Respiratory: Negative for shortness of breath and wheezing. Cardiovascular: Negative for chest pain and palpitations. Gastrointestinal: Negative for abdominal pain, blood in stool, nausea and vomiting. Endocrine: Negative for cold intolerance and heat intolerance. Genitourinary: Negative for dysuria, frequency, hematuria, urgency, vaginal bleeding and vaginal discharge. Musculoskeletal: Negative for arthralgias and back pain. Skin: Negative for rash. Neurological: Negative for dizziness, seizures, syncope and headaches. Hematological: Does not bruise/bleed easily. Psychiatric/Behavioral: Negative for sleep disturbance. The patient is not nervous/anxious. Breast: Negative for lump(s). Objective: BP 122/80 Temp 97.3 ??F Ht 167.6 cm (5' 6 ) Wt 214 lb (97.1 kg) LMP 05/16/2020 BMI 34.54 kg/m?? Physical Exam Constitutional: Appearance: She is well-developed. HENT: Head: Normocephalic and atraumatic. Cardiovascular: Rate and Rhythm: Normal rate and regular rhythm. Pulmonary: Effort: Pulmonary effort is normal. Breath sounds: Normal breath sounds. Abdominal: Palpations: Abdomen is soft. There is no mass. Tenderness: There is no abdominal tenderness. Musculoskeletal: General: No deformity. Skin: General: Skin is warm and dry. Neurological: Mental Status: She is alert and oriented to person, place, and time. Psychiatric: Behavior: Behavior normal. Assessment and Plan: Jean Arthur is a 20 y.o. female who presents for: 1. Dysmenorrhea Symptoms persist with scheduled NSAIDs. Discussed alternative management options including hormones- OCPs, implants, injections - and risks/benefits. She will consider. Recommend pelvic exam with Pap, which she declines today but plans to schedule f/u appointment for same. 2. Family history of breast cancer Reviewed family history and possible BRCA mutation with breast/ovarian cancers. Ideally the affected family member would undergo testing first. Discussed option of testing for herself and potential management of test results including prophylactic risk-reducing surgeries. She plans to discuss with her father and will follow up if elects for referral for genetic counseling. Ness Fried MD 06/21/2020 ATIONIST documented in this encounter Plan of Treatment Not on file documented as of this encounter Visit Diagnoses Diagnosis Dysmenorrhea- Primary Family history of breast cancer Family history of malignant neoplasm of breast documented in this encounter Care Teams Director Regulatory Affairs Relationship Specialty Start Date End Date Mel Osei MD PCP - General Internal Medicine 02/07/20 documented as of this encounter
--- OUTSIDE RECORDS SUMMARY | 2024-08-08 14:21 | XMS_ITS | Encounter Summary ---
Author Organization [facility] Address [address] [place] [address] Phone Care Team Providers Care Sports Analyst Name Role Phone Jamilah Ford MD Primary Care Provider Reason for Visit * Reason Comments Ears feel clogged and ringing Encounter Details Date Type Department Care Team (Late st Contact Info) Description 09/07/2017 1:20 PM SPINNER HAND Office Visit [facility] [address] [place] [address] Jamilah Ford MD [address] [address] Tinnitus of left ear (Primary Dx) Social History Tobacco Use Types Packs/Day Years Used Date Smoking Tobacco: Never Assessed Comments Unknown Sex and Gender Information Value Date Recorded Sex Assigned at Not on file Legal Sex Female 12:30 PM SPINNER HAND Gender Identity Not on file Sexual Orientation Not on file documented as of this encounter Last Filed Vital Signs Vital Sign Reading Time Taken Comments Blood Pressure - - Pulse - - Temperature 36.8 ??C (98.2 ??F) 09/07/2017 1:37 PM CS T Respiratory Rate - - Oxygen Saturation - - Inhaled Oxygen Concentration - - Weight 88 kg (194 lb) 09/07/2017 1:37 PM SPINNER HAND Height - - Body Mass Index - - documented in this encounter Progress Notes * Jamilah Ford MD - 09/07/2017 1:20 PM CST SUBJECTIVE: Tracey is here for ear complaints. Currently there is occasional ringing in the left ear. She was dizzy a few days ago. Patient has no headache, congestion, cough, sore throat, stomach ache, nausea, vomiting, diarrhea or rash. OBJECTIVE: Weight: 194 lb Temperature: 98.2 F This is a well-developed well-nourished child in no distress. Behavior is normal. Color is normal. Skin is well perfused with no unusual rashes. Eyes are clear. Nasal discharge is none. Right tympanic membrane is clear. Left tympanic membrane is clear. Otherwise ear exam is normal. Mouth is clear. Throat is clear. Neck with no meningismus. Range of motion is normal. No adenopathy. Chest unremarkable. Respiratory effort is normal. Chest is clear. Heart tones are crisp. Heart is regular without murmur. Abdomen appears normal. No masses. No organomegaly. Tenderness none. Genitalia not examined. Musculoskeletal system is normal. Exam is otherwise unremarkable. ASSESSMENT: Transient left ear discomfort with tinnitis PLAN: Differential diagnosis discussed. Observation recommended. If this is a recurrent issue and audiology evaluation is indicated. Patient agrees. NER HAND documented in this encounter Plan of Treatment Not on file documented as of this encounter Visit Diagnoses Diagnosis Tinnitus of left ear- Primary documented in this encounter Care Teams Sports Analyst Relationship Specialty Start Date End Date Jamilah Ford MD [address] [place] [address] [place] [address] PCP - General 11/06/16 02/06/20 documented as of this encounter
--- OUTSIDE RECORDS SUMMARY | 2024-08-08 14:21 | XMS_ITS | Encounter Summary ---
Author Organization [facility] Address [address] [place] [address] Care Team Providers Care Employment Supervisor Name Role Phone Mel Osei MD Primary Care Provider [phone] Encounter Details Date Type Department Care Team (Late st Contact Info) Description 07/12/2020 Orders Only [facility] [address] [place] [address] Ness Fried MD [address] [place] [address] Social History Tobacco Use Types Packs/Day Years Used Date Smoking Tobacco: Never Smokeless Tobacco: Never Alcohol Use Standard Drinks/Week Comments Not Currently 0 (1 standard drink = 0.6 oz pur e alcohol) PHQ-2 Answer Date Recorded PHQ-2 Score 0 02/07/2020 Comments No Sex and Gender Information Value Date Recorded Sex Assigned at Not on file Legal Sex Female 12:30 PM SHEET METAL APPRENTICE Gender Identity Not on file Sexual Orientation Not on file Occupation Industry Job Start Date Job End Date Not on file Not on file Not on file Not on file documented as of this encounter Plan of Treatment Not on file documented as of this encounter Procedures Procedure Name Priority Date/Time Associated Diagnosis Comments THINPREP IMAGING PAP REFLEX HPV MRNA E6/E7 Routine 07/12/2020 10:30 AM SHEET METAL APPRENTICE documented in this encounter Results * ThinPrep Imaging Pap Reflex HPV mRNA E6/E7 (07/12/2020 10:30 AM SHEET METAL APPRENTICE) CLINICAL INFORMATION: Kaylyn NavasAngeloCarmina judge Mohinder Comment: Routine exam SCREENING LMP Kaylyn NavasAngeloCarmina judge Mohinder Comment:06/23/2020 Previous Pap Kaylyn NavasAngeloCarmina Vines Comment:INFORMATION NOT PROV IDED Prev. Bx Kaylyn NavasAngeloCarmina judge Mohinder Comment:INFORMATION NOT PROV IDED SOURCE: Kaylyn YosefAngeloCarmina nu Vines Comment:Cervix, Endocervix Pap, specimen adequacy Kaylyn NavasAngeloCarmina judge Mohinder Comment: Satisfactory for evaluation. Endocervical/transformation zone component present. HPV interp Kaylyn NavasAngeloCarmina judge Mohinder Comment:Negative for intraep ithelial lesion or malignancy. COMMENTS Kaylyn NavasAngeloCarmina judge Mohinder Comment: This Pap test has been evaluated with computer assisted technology. Drum Handler Moise st NavasAngeloCarmina judge Mohinder Comment: YQ, CT(ASCP) CT screening location: [place] [address] [address] [address] Comment Kaylyn YosefAngeloCarmina nu Vines Comment: EXPLANATORY NOTE: The Pap is a screening test for cervical cancer. It is not a diagnostic test and is subject to false negative and false positive results. It is most reliable when a satisfactory sample, regularly obtained, is submitted with relevant clinical findings and history, and when the Pap result is evaluated along with historic and current clinical information. 07/12/2020 10:3 0 AM SHEET METAL APPRENTICE 07/15/2020 12:56 PM SHEET METAL APPRENTICE Narrative [facility] - 07/17/2020 1:14 PM SHEET METAL APPRENTICE FASTING: UNKNOWN us Ness Fried MD LAB PATHOLOGY ORDERAB LES Final Result [facility] Kaylyn SpreedlyYonny [address] [place] [address] documented in this encounter Visit Diagnoses Not on filedocumented in this encounter Care Teams Employment Supervisor Relationship Specialty Start Date End Date Mel Osei MD PCP - General Internal Medicine 02/07/20 documented as of this encounter
--- OUTSIDE RECORDS SUMMARY | 2024-08-08 14:21 | XMS_ITS | Encounter Summary ---
Author Organization [facility] Facility Care Team Providers Care Django Developer Name Role Phone Unavailable Primary Care Provider Unavailabl e Encounter Details Date Type Department Care Team (Late st Contact Info) Description 04/15/2007 1:26 PM CDT - 04/15/2007 11:59 PM CDT Hospital Encounter [facility] Social History Tobacco Use Types Packs/Day Years Used Date Smoking Tobacco: Never Assessed Comments Unknown Sex and Gender Information Value Date Recorded Sex Assigned at Not on file Legal Sex Female 12:30 PM ORAL AND MAXILLOFACIAL SURGERY RESIDENT Gender Identity Not on file Sexual Orientation Not on file documented as of this encounter Plan of Treatment Not on file documented as of this encounter Visit Diagnoses Not on filedocumented in this encounter
--- OUTSIDE RECORDS SUMMARY | 2024-08-08 14:21 | XMS_ITS | Encounter Summary ---
Author Organization [facility] Address [address] [place] [address] Phone Care Team Providers Care Heavy Duty Diesel Mechanic Name Role Phone Jamilah Ford MD Primary Care Provider [phone] Encounter Details Date Type Department Care Team (Late st Contact Info) Description 03/25/2017 Telephone [facility] [address] [place] [address] Lou Luna NP [address] [address] Social History Tobacco Use Types Packs/Day Years Used Date Smoking Tobacco: Never Assessed Comments Unknown Sex and Gender Information Value Date Recorded Sex Assigned at Not on file Legal Sex Female 12:30 PM GROCERY STORE BAGGER Gender Identity Not on file Sexual Orientation Not on file documented as of this encounter Miscellaneous Notes * Telephone Encounter - Lou Luna NP - 03/25/2017 11:17 AM CDT Called mom (abner) notified of results of urine cx. She is feeling a little bit better has only taken AZO x2 and has increased water intake. Recommended continuing increase water intake and having daily Bm. Discussed if not having large BM daily encouraged to begin miralax 1 capful 1-2 times daily x2 days. Mom agrees. documented in this encounter Plan of Treatment Not on file documented as of this encounter Visit Diagnoses Not on filedocumented in this encounter Care Teams Heavy Duty Diesel Mechanic Relationship Specialty Start Date End Date Jamilah Ford MD [address] [place] [address] PCP - General 11/06/16 02/06/20 documented as of this encounter
--- OUTSIDE RECORDS SUMMARY | 2024-08-08 14:21 | XMS_ITS | Encounter Summary ---
Author Organization [facility] Facility Care Team Providers Care Liner Worker Name Role Phone Unavailable Primary Care Provider Unavailabl e Encounter Details Date Type Department Care Team (Late st Contact Info) Description 04/08/2007 9:58 AM CDT - 04/10/2007 3:11 PM CDT Hospital Encounter [facility] Social History Tobacco Use Types Packs/Day Years Used Date Smoking Tobacco: Never Assessed Comments Unknown Sex and Gender Information Value Date Recorded Sex Assigned at Not on file Legal Sex Female 12:30 PM IN HOUSE COUNSEL Gender Identity Not on file Sexual Orientation Not on file documented as of this encounter Plan of Treatment Not on file documented as of this encounter Visit Diagnoses Not on filedocumented in this encounter
--- OUTSIDE RECORDS SUMMARY | 2024-08-08 14:21 | XMS_ITS | Encounter Summary ---
Author Organization [facility] Address [address] [place] [address] Phone Care Team Providers Care Nutritionist Public Health Name Role Phone Jamilah Ford MD Primary Care Provider [phone] Reason for Visit * Reason Comments Immunizations Encounter Details Date Type Department Care Team (Latest Contact Info) Description 09/24/2017 3:40 PM PERSONAL SECRETARY Clinical Support [facility] [address] [place] [address] Need for vaccination (Primary Dx) Social History Tobacco Use Types Packs/Day Years Used Date Smoking Tobacco: Never Assessed Comments Unknown Sex and Gender Information Value Date Recorded Sex Assigned at Not on file Legal Sex Female 12:30 PM PERSONAL SECRETARY Gender Identity Not on file Sexual Orientation Not on file documented as of this encounter Plan of Treatment Not on file documented as of this encounter Visit Diagnoses Diagnosis Need for vaccination- Primary Need for prophylactic vaccination and inoculation against unspecified single disease documented in this encounter Orders Immunization/Injection Count Last Ordered Date First Ordered Date HPV9 VACCINE 3 DOSE IM 1 09/24/2017 documented in this encounter Care Teams Nutritionist Public Health Relationship Specialty Start Date End Date Jamilah Ford MD [address] [address] PCP - General 11/06/16 02/06/20 documented as of this encounter
--- OUTSIDE RECORDS SUMMARY | 2024-08-08 14:21 | XMS_ITS | Encounter Summary ---
Author Organization [facility] Healthcare Address [address] [place] [address] Care Team Providers Care Livestock Farm Manager Name Role Phone Jamilah Ford MD Primary Care Provider Encounter Details Date Type Department Care Team (Late st Contact Info) Description 03/23/2017 11:00 AM CDT - 03/23/2017 11:59 PM CDT Hospital Encounter [facility] OP INTERIM Jamilah Ford MD [address] [address] Discharge Disposition: Discharge to home or self care Social History Tobacco Use Types Packs/Day Years Used Date Smoking Tobacco: Never Assessed Comments Unknown Sex and Gender Information Value Date Recorded Sex Assigned at Not on file Legal Sex Female 12:30 PM PRECISION CROP MANAGER Gender Identity Not on file Sexual Orientation Not on file documented as of this encounter Medications at Time of Discharge cefprosil (CEFZIL) 500 mg tablet Take 1 tablet by mouth every 12 hours for 20 days 40 0 11/02/2014 02/07/2020 naproxen (ANAPROX DS) 550 mg tablet TAKE 1 TABLET BY MOUTH TWICE DAILY NEEDED FOR PAIN 180 0 03/09/2012 11/01/2020 documented as of this encounter Discharge Disposition Disposition Code Departure Means Destination Discharge to home or self care documented in this encounter Plan of Treatment Not on file documented as of this encounter Procedures Procedure Name Priority Date/Time Associated Diagnosis Comments URINE CULTURE Routine 03/23/2017 11:00 AM CDT documented in this encounter Results * Urine culture (03/23/2017 11:00 AM CDT) Report Final Report: Insignifican t growth based on current clinical standards. BHUPENDRA SANCHEZ Comment:Testing performed by : [facility], [address] [facility], [place]., [address] Urine, clean voided 03/23/2017 11:00 AM CDT 03/23/2017 9:53 PM CDT Narrative BHUPENDRA SANCHEZ - 03/25/2017 10:35 AM CDT us Jamilah Ford MD LAB MICROBIOLOGY - GENERAL O RDERABLES Final Result [facility] [address] Department [place] [address] documented in this encounter Visit Diagnoses Not on filedocumented in this encounter Care Teams Livestock Farm Manager Relationship Specialty Start Date End Date Jamilah Ford MD [address] [place] [address] [place] [address] PCP - General 11/06/16 02/06/20 documented as of this encounter
--- OUTSIDE RECORDS SUMMARY | 2024-08-08 14:21 | XMS_ITS | Encounter Summary ---
Author Organization [facility] Healthcare Address [address] [place] [address] Care Team Providers Care Spinning Machine Tender Name Role Phone Jamilah Ford MD Primary Care Provider [phone] Encounter Details Date Type Department Care Team (Late st Contact Info) Description 03/23/2017 7:25 PM CDT Lab [address] [address] Social History Tobacco Use Types Packs/Day Years Used Date Smoking Tobacco: Never Assessed Comments Unknown Sex and Gender Information Value Date Recorded Sex Assigned at Not on file Legal Sex Female 12:30 PM ED TECH Gender Identity Not on file Sexual Orientation Not on file documented as of this encounter Plan of Treatment Not on file documented as of this encounter Visit Diagnoses Not on filedocumented in this encounter Care Teams Spinning Machine Tender Relationship Specialty Start Date End Date Jamilah Ford MD [address] [place] [address] [place] [address] PCP - General 11/06/16 02/06/20 documented as of this encounter
--- OUTSIDE RECORDS SUMMARY | 2024-08-08 14:21 | XMS_ITS | Encounter Summary ---
Author Organization [facility] Address [address] [facility] [address] [place] [address] Care Team Providers Care Wheelchair Driver Name Role Phone Mel Osei MD Primary Care Provider [phone] Reason for Visit * Reason Comments Gynecologic Exam Encounter Details Date Type Department Care Team (Late st Contact Info) Description 07/12/2020 10:10 AM MUSIC CRITIC Office Visit [facility] [address] [place] [address] Ness Fried MD [address] [place] [address] Encounter for gynecological examination without abnormal finding (Primary Dx); Dysmenorrhea; Family history of breast cancer; Dysuria; Screening for malignant neoplasm of the cervix [...] on file Legal Sex Female 12:30 PM MUSIC CRITIC Gender Identity Not on file Sexual Orientation Not on file Occupation Industry Job Start Date Job End Date Not on file Not on file Not on file Not on file documented as of this encounter Last Filed Vital Signs Vital Sign Reading Time Taken Comments Blood Pressure 128/80 07/12/2020 10:08 AM MUSIC CRITIC Pulse - - Temperature - - Respiratory Rate - - Oxygen Saturation - - Inhaled Oxygen Concentration - - Weight 93.4 kg (206 lb) 07/12/2020 10:08 AM MUSIC CRITIC Height 165.7 cm (5' 5.25 ) 07/12/2020 10:08 AM Guicho GARCIA Body Mass Index 34.02 07/12/2020 10:08 AM MUSIC CRITIC documented in this encounter Progress Notes * Ness rFied MD - 07/12/2020 10:10 AM CST Well Woman Exam Subjective: Tracey Arthur is a 20 y.o. 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 She was seen as a new patient 07/08 c/o dysmenorrhea. Management options were discussed, which she planned to consider. She declined exam with Pap at that time. ?? Cycles are regular, q 35 days, with bleeding x 3-4 days. Denies menorrhagia but has two days of more cramping. No significant relief in the past with ibuprofen so changed to naproxen BID, which helpssome but still misses work at times due to pain. Denies pelvic pain outside of menses. Denies sexual activity. ?? Her mother was diagnosed with breast cancer at age 37 and passed at age 44. MGM also had breast cancer and maternal aunt with ovarian cancer. She is unsure if any family members had genetic testing done. Last visit discussed option of genetic counseling. She has since received mother's medical records and plans to review before pursuing further. ?? She complains of intermittent burning with urination over the last 2 weeks. Denies frequency or hematuria. No vaginal complaints. Menstrual History: Patient's last menstrual period was 06/21/2020. Sexual History: OB History 0 Para 0 Term 0 0 AB 0 Living 0 SAB 0 TAB 0 Ectopic 0 Multiple 0 Live Births 0 Past Medical History: Diagnosis Date ??? 1999 8-5 product nl ??? Viral gastroenteritis 2000 Admit Current Outpatient Medications: ??? naproxen (ANAPROX DS) 550 mg tablet, TAKE 1 TABLET BY MOUTH TWICE DAILY NEEDED FOR PAIN, Disp: 180, Rfl: 0 ??? adapalene (DIFFERIN) 0.1 % cream, Apply topically at bedtime. (Patient not taking: Reported on 07/12/2020), Disp: 45 g, Rfl: 5 No Known Allergies Family History Problem Relation [...] Highest education level: None Occupational History Employer: [employer] Social Needs ??? Financial resource strain: None [...] on phone: None Gets together: None Attends religion service: None Active member of club or organization: None Attends meetings of clubs or organizations: None Relationship status: None ??? Intimate partner violence Fear of current or ex partner: None Emotionally abused: None Physically abused: None Forced sexual activity: None Other Topics Concern ??? None Social History Narrative (This data did not transfer from [employer] and was not retrievable from [employer].) MOM Clare - breast cancer survivor; 3rd relapse with multiple mets 03/25 DAD Gary Simpson - adult moved back home 2016; works at [employer]; plans [employer] [place]. 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 Skin: Negative for rash. Objective: BP 128/80 Ht 165.7 cm (5' 5.25 ) Wt 206 lb (93.4 kg) LMP 06/21/2020 No BMI 34.02 kg/m?? Physical Exam Constitutional: Appearance: She is [...] adnexa: normal. Cervix: Normal exam. Genitourinary Comments: Pap collected. Thin gwendolyn speculum used. Musculoskeletal: General: No tenderness. Skin: General: Skin is warm and dry. Neurological: Mental Status: She is alert and oriented to person, place, and time. Psychiatric: Behavior: Behavior normal. Assessment and Plan: Tracey Arthur is a 20 y.o. female who presents for a well woman exam. 1. Encounter for gynecological examination without abnormal finding Pap collected. Return for annual or PRN. 2. Dysmenorrhea She elects to continue NSAIDs. Advised to follow up if elects for further intervention. 3. Family history of breast cancer Reviewed genetic counseling option and breast cancer risk assessments. She will call if elects to pursue further. 4. Dysuria F/u pending results. - Urinalysis reflex to microscopic and culture Urine, clean voided; Future 5. Screening for malignant neoplasm of the cervix - Pap with reflex to High Risk HPV; Future Recommended screenings and preventive care discussed: Pap smear: Performed Sexually transmitted disease screening: Not indicated Diet and exercise discussed. Contraception reviewed. Ness Fried MD 07/12/2020 C CRITIC documented in this encounter Plan of Treatment Not on file documented as of this encounter Results * (ABNORMAL) Urinalysis reflex to microscopic and culture Urine, clean voided (07/12/2020 10:59 AM MUSIC CRITIC) Color, ur Yellow Yellow CERNER CH Clarity, ur Cloudy(A) Clear CERNER CH Specific gravity, ur 1.018 1.010 - 1.025 CERNER CH pH, urine 5.0 CERNER CH Protein, ur ql Negative Negative CERNER CH Glucose, ur ql Negative Negative CERNER CH Ketones, ur Negative Negative CERNER CH Bilirubin, ur Negative Negative CERNER CH Blood, ur 1+(A) Negative CERNER CH Urobilinogen, ur <2.0 <2.0 mg/dL CERNER CH Nitrite, ur Negative Negative CERNER CH Leukocyte esterase, ur 3+(A) Negative CERNER CH UA reflex comment Reflex to microscopic UA will be performed. CERNER Urine, clean voided 07/12/2020 10:59 AM MUSIC CRITIC 07/12/2020 5:38 PM MUSIC CRITIC Narrative CERNER - 07/12/2020 6:18 PM MUSIC CRITIC ?? Urine pH is affected by diet, medications, systemic acid-base disturbances, and renal tubular function. ??pH may affect urinary stone formation. ??For example, urine pH below 6.0 may help reduce the tendency for calcium phosphate stones and pH greater than 6.0 may reduce the tendency for uric acid stone formation. Source: [employer]. Last revised 08-19-2017 us Ness Fried MD LAB MICROBIOLOGY - NERAL ORDERABLES Final Result [facility] [address] Department [place] [address] documented in this encounter Visit Diagnoses Diagnosis Encounter for gynecological examination without abnormal finding- Primary Dysmenorrhea Family history of breast cancer Family history of malignant neoplasm of breast Dysuria Screening for malignant neoplasm of the cervix Dysuria documented in this encounter Care Teams Wheelchair Driver Relationship Specialty Start Date End Date Mel Osei MD PCP - General Internal Medicine 02/07/20 documented as of this encounter
--- OUTSIDE RECORDS SUMMARY | 2024-08-08 14:21 | XMS_ITS | Encounter Summary ---
Author Organization [facility] Healthcare Address [address] [place] [address] Care Team Providers Care Cane Loader Name Role Phone Mel Osei MD Primary Care Provider [phone] Encounter Details Date Type Department Care Team (Late st Contact Info) Description 07/12/2020 5:30 PM UNIT MANAGER RN Lab [address] [address] Dysuria Social History Tobacco Use Types Packs/Day Years Used Date Smoking Tobacco: Never Smokeless Tobacco: Never Alcohol Use Standard Drinks/Week Comments Not Currently 0 (1 standard drink = 0.6 oz pur e alcohol) PHQ-2 Answer Date Recorded PHQ-2 Score 0 02/07/2020 Comments No Sex and Gender Information Value Date Recorded Sex Assigned at Not on file Legal Sex Female 12:30 PM UNIT MANAGER RN Gender Identity Not on file Sexual Orientation Not on file Occupation Industry Job Start Date Job End Date Not on file Not on file Not on file Not on file documented as of this encounter Plan of Treatment Not on file documented as of this encounter Procedures Procedure Name Priority Date/Time Associated Diagnosis Comments URINALYSIS AND REFLEX TO MICROSCOPIC AND CULTURE Routine 07/12/2020 10:59 AM UNIT MANAGER RN Dysuria URINALYSIS, MICROSCOPIC ONLY Routine 07/12/2020 10:59 AM UNIT MANAGER RN Dysuria documented in this encounter Results * (ABNORMAL) Urinalysis, microscopic only (07/12/2020 10:59 AM UNIT MANAGER RN) WBC, ur 0-5 0 - 5 /HPF CERNER CH RBC, ur 0-2 0 - 2 /HPF CERNER CH Epithelial cells, squamous, ur 1-5 0 - 5 /HPF CERNER CH Bacteria, ur Trace(A) CERNER CH Mucous, ur Present(A) CERNER CH Culture Reflex Comment Reflex conditions for urine culture (WBC >10) not met. [facility] Urine, clean voided 07/12/2020 10:59 AM UNIT MANAGER RN 07/12/2020 5:38 PM UNIT MANAGER RN us Ness Fried MD LAB URINE ORDERABLES Final Result [facility] [address] Department [place] [address] * (ABNORMAL) Urinalysis reflex to microscopic and culture Urine, clean voided (07/12/2020 10:59 AM UNIT MANAGER RN) Color, ur Yellow Yellow CERNER Clarity, ur Cloudy(A) Clear CERNER Specific gravity, ur 1.018 1.010 - 1.025 CERNER pH, urine 5.0 CERNER Protein, ur ql Negative Negative CERNER Glucose, ur ql Negative Negative CERNER CH Ketones, ur Negative Negative CERNER CH Bilirubin, ur Negative Negative CERNER CH Blood, ur 1+(A) Negative CERNER Urobilinogen, ur <2.0 <2.0 mg/dL CERNER Nitrite, ur Negative Negative CERNER Leukocyte esterase, ur 3+(A) Negative CERNER CH UA reflex comment Reflex to microscopic UA will be performed. [facility] Urine, clean voided 07/12/2020 10:59 AM UNIT MANAGER RN 07/12/2020 5:38 PM UNIT MANAGER RN Narrative CERNER CH - 07/12/2020 6:18 PM UNIT MANAGER RN ?? Urine pH is affected by diet, medications, systemic acid-base disturbances, and renal tubular function. ??pH may affect urinary stone formation. ??For example, urine pH below 6.0 may help reduce the tendency for calcium phosphate stones and pH greater than 6.0 may reduce the tendency for uric acid stone formation. Source: [facility] [employer]. Last revised 08-19-2017 us Ness Fried MD LAB MICROBIOLOGY - [facility] ORDERABLES Final Result [facility] [address] Department [place] [address] documented in this encounter Visit Diagnoses Diagnosis Dysuria documented in this encounter Care Teams Cane Loader Relationship Specialty Start Date End Date Mel Osei MD PCP - General Internal Medicine 02/07/20 documented as of this encounter
--- OUTSIDE RECORDS SUMMARY | 2024-08-08 14:21 | XMS_ITS | Encounter Summary ---
Author Organization [facility] Care Team Providers Care Bumboater Name Role Phone Unavailable Primary Care Provider Unavailabl e Encounter Details Date Type Department Care Team (Late st Contact Info) Description 04/15/2007 12:18 PM CDT - 04/15/2007 11:59 PM CDT Hospital Encounter [facility] Social History Tobacco Use Types Packs/Day Years Used Date Smoking Tobacco: Never Assessed Comments Unknown Sex and Gender Information Value Date Recorded Sex Assigned at Not on file Legal Sex Female 12:30 PM FLIGHT DATA TECHNICIAN Gender Identity Not on file Sexual Orientation Not on file documented as of this encounter Plan of Treatment Not on file documented as of this encounter Visit Diagnoses Not on filedocumented in this encounter
--- OUTSIDE RECORDS SUMMARY | 2024-08-08 15:05 | XMS_ITS | Encounter Summary ---
Author Organization [facility] Healthcare Address [address] [place] [address] Care Team Providers Care Social Services Director Name Role Phone Mel Osei MD Primary Care Provider [phone]- [phone] Tabitha Liu CGC Unavailable [phone] Encounter Details Date Type Department Care Team (Late st Contact Info) Description 06/23/2023 Telephone [facility] [address] [place] [address] Karen Son RN Social History [...] on file Legal Sex Female 12:30 PM DESK OPERATOR Gender Identity Not on file Sexual Orientation Not on file Occupation Industry Job Start Date Job End Date [place] Title Not on file Not on file Not on file documented as of this encounter Miscellaneous Notes * Telephone Encounter - Lobo Pérez RN - 06/23/2023 11:50 AM DESK OPERATOR Spoke to pt et informed of below KMS message Pt voices understand She declines scheduling f/u appt in September-states I can't afford the Rx right now Pt further declines scheduling annual appt in February @ this time-states she will call back to schedule appt Pt has no further questions @ this time OPERATOR * Telephone Encounter - Karen Son RN - 06/23/2023 10:45 AM DESK OPERATOR ----- Message from Mel Osei MD sent at 06/22/2023 6:25 PM DESK OPERATOR ----- She canceled her September visit with [...] Tabitha Liu CGC Sent: 06/22/2023 10:34 AM DESK OPERATOR To: Mel Osei MD FYI. OPERATOR documented in this encounter Plan of Treatment Not on file documented as of this encounter Visit Diagnoses Not on filedocumented in this encounter Care Teams Social Services Director Relationship Specialty Start Date End Date Mel Osei MD PCP - General Internal Medicine 02/07/20 Tabitha Liu CGC [facility] [place] [address] Genetics 06/22/23 documented as of this encounter
--- OUTSIDE RECORDS SUMMARY | 2024-08-08 15:05 | XMS_ITS | Encounter Summary ---
Author Organization [facility] Healthcare Address [address] [place] [address] Care Team Providers Care Phlebotomist Associate Name Role Phone Mel Osei MD Primary Care Provider [phone] Tabitha Liu [facility] [place] [phone] Encounter Details Date Type Department Care Team (Late st Contact Info) Description 12/31/2023 Telephone [facility] [address] [place] [address] Mel Osei MD [address] [place] [address] Social History Tobacco Use Types Packs/Day Years [...] on file Legal Sex Female 12:30 PM OUTER DIAMETER TECHNICIAN Gender Identity Not on file Sexual Orientation Not on file Occupation Industry Job Start Date Job End Date [place] Title Not on file Not on file [...] is unable to work due to pain. [phone] Cheyanneleonela Debra documented in this encounter Plan of Treatment Not on file documented as of this encounter Visit Diagnoses Diagnosis Plantar fasciitis, bilateral- Primary documented in this encounter Care Teams Phlebotomist Associate Relationship Specialty Start Date End Date Mel Osei MD PCP - General Internal Medicine 02/07/20 Tabitha Liu CGC 1 [facility] [place] [place] [address] Genetics 06/22/23 documented as of this encounter
--- OUTSIDE RECORDS SUMMARY | 2024-08-08 15:05 | XMS_ITS | Encounter Summary ---
Author Organization [facility] Healthcare Address [address] [place] [address] Care Team Providers Care Chief Program Officer Name Role Phone Mel Osei MD Primary Care Provider [phone] Tabitha Liu CGC Unavailable [phone] Reason for Referral * Consultation (Routine) - Pending Review Specialty Diagnoses / Procedures Referred By Kj judge Referred To Contact Diagnoses Family history of breast cancer Family history of ovarian cancer Ness Fried MD [address] [place] [address] Phone: tel: fax: Ana Doe, PATIENT SCHEDULING MANAGER [address] [address] Phone: tel: fax: Referral ID Status Reason Start Date Expiration Date Visits Requested Visits Authorized [id number] Pending Review Specialty Services Required 08/04/2025 1 1 Question Answer Is this referral for Breast Health Multi-Disciplinary Clinic? No Does the patient have a diagnosis of a Head and Neck cancer? No Please select the performing region: [facility] (All Locations) [[id number]] # of visits: 1 Comments Please contact pt to schedule within 2 weeks. Thank you! IATRIST Reason for Visit * Reason Onset Date Comments Patient issue/concern 07/05/2024 Encounter Details Date Type Department Care Team (Late st Contact Info) Description 07/05/2024 Telephone [facility] [address] [place] [phone] Ness Fried MD [address] [place] [address] Patient issue/concern Social History Tobacco Use Types [...] on file Legal Sex Female 12:30 PM PHYSIATRIST Gender Identity Not on file Sexual Orientation Not on file Occupation Industry Job Start Date Job End Date [place] Title Not on file Not on file Not on file documented as of this encounter Miscellaneous Notes * Telephone Encounter - Melissa Angel - 07/05/2024 4:24 PM CST Pt notified and referral was entered IATRIST * Telephone Encounter - Ness Fried MD - 07/05/2024 4:12 PM PHYSIATRIST She was referred in the past for genetic counseling, which she completed with normal testing. Recommend referral now to breast surgeon for cancer risk assessment, dx: family h/o breast and ovarian cancers. IATRIST * Telephone Encounter - Karen Poe MA - 07/05/2024 1:46 PM PHYSIATRIST Pt called in stating she had a referral a year or so ago to [facility] for family hx of breast cancer and ovarian cancer. Pt said she never received a call back from anyone at [facility] and then it kind of slipped her mind and was wondering what could be done to get a new referral sent over? Pt would like a call back when we know if a new referral can be sent and also when it is sent so she can keep track if she doesn't get a call back again. CBN: [phone] IATRIST documented in this encounter Plan of Treatment [...] ovary documented in this encounter Care Teams Chief Program Officer Relationship Specialty Start Date End Date Mel Osei MD PCP - General Internal Medicine 02/07/20 Tabitha Liu CGC 1 [facility] [place] [address] Genetics 06/22/23 documented as of this encounter
--- OUTSIDE RECORDS SUMMARY | 2024-08-08 15:05 | XMS_ITS | Encounter Summary ---
Author Organization [facility] Healthcare Address [address] [place] [address] Care Team Providers Care Permastone Installer Name Role Phone Mel Osei MD Primary Care Provider [phone] Bryceclaribel Treyyari [facility] Unavailable [phone] Reason for Visit * Reason Onset Date Comments Medication 12/23/2023 Encounter Details Date Type Department Care Team (Late st Contact Info) Description 12/23/2023 Telephone [facility] [address] [place] [address] Mel Osei MD [address] [place] [address] Medication Social History Tobacco Use Types Packs/Day [...] on file Legal Sex Female 12:30 PM ASSOCIATE CHEMIST Gender Identity Not on file Sexual Orientation Not on file Occupation Industry Job Start Date Job End Date [employer] Title Not on file Not on file Not on file documented as of this encounter Miscellaneous Notes * Telephone Encounter - Anabel Lauren LPN - 12/23/2023 3:53 PM CDT Advised pt [phone] she needs to see OPERATION RESEARCH ANALYST for evaluation of plantar fascitis as there is no mention of this in her chart. Pt did voice understanding and did schedule with [facility] for 12/30/23 @ 9 AM. * Telephone Encounter - Argentina Shaffer - 12/23/2023 3:26 PM CDT Patient states she just started a new job and her plantar fascitis is flaring up. Asking for pain medication. [phone] Viola Richardson documented in this encounter Plan of Treatment Not on file documented as of this encounter Visit Diagnoses Not on filedocumented in this encounter Care Teams Permastone Installer Relationship Specialty Start Date End Date Mel Osei MD PCP - General Internal Medicine 02/07/20 Tabitha Liu CGC [address] [facility] [place] [place] [address] Genetics 06/22/23 documented as of this encounter
--- OUTSIDE RECORDS SUMMARY | 2024-08-08 15:05 | XMS_ITS | Encounter Summary ---
Author Organization [facility] Healthcare Address [address] [place] [address] Care Team Providers Care Insurance Investigator Name Role Phone Mel Osei MD Primary Care Provider [phone]- [phone] Tabitha Liu CGC Unavailable [phone] Reason for Visit * Reason Comments Plantar Fasciitis Encounter Details Date Type Department Care Team (Late st Contact Info) Description 12/30/2023 9:00 AM CDT Office Visit [facility] [address] [place] [address] Almaz Saleh NP [address] [place] [address] Plantar fasciitis, bilateral (Primary Dx); Abnormal menses [...] on file Legal 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 Return needs annual with [...] hormone changes, advised to follow up with INK GRINDER to discuss further. documented in this encounter [...] documented as of this encounter Care Teams Insurance Investigator Relationship Specialty Start Date End Date Mel Osei MD PCP - General Internal Medicine 02/07/20 Tabitha Liu CGC [address] DIV PED GENETICS [place] [address] Genetics 06/22/23 documented as of this encounter
--- OUTSIDE RECORDS SUMMARY | 2024-08-08 15:05 | XMS_ITS | Encounter Summary ---
Author Organization [facility] Healthcare Address [address] [place] [address] Care Team Providers Care Electric Meter Tester Name Role Phone Mel Osei MD Primary Care Provider [phone]- [phone] Tabitha Liu [facility] Unavailable [phone] Encounter Details Date Type Department Care Team (Late st Contact Info) Description 06/23/2023 Telephone [facility] [address] [place] [address] Kristie Patricia LPN Social History [...] on file Legal Sex Female 12:30 PM PHLEBOTOMIST PRN Gender Identity Not on file Sexual Orientation Not on file Occupation Industry Job Start Date Job End Date [place] Title Not on file Not on file Not on file documented as of this encounter Miscellaneous Notes * Telephone Encounter - Kristie Patricia LPN - 06/23/2023 1:12 PM PHLEBOTOMIST PRN Normal pap welt sole layer sent. BOTOMIST PRN * Telephone Encounter - Kristie Patricia LPN - 06/23/2023 1:12 PM PHLEBOTOMIST PRN ----- Message from Ness Fried MD sent at 06/23/2023 12:13 PM PHLEBOTOMIST PRN ----- Please notify patient of negative Pap. BOTOMIST PRN documented in this encounter Plan of Treatment Not on file documented as of this encounter Visit Diagnoses Not on filedocumented in this encounter Care Teams Electric Meter Tester Relationship Specialty Start Date End Date Mel Osei MD PCP - General Internal Medicine 02/07/20 Tabitha Liu CGC [facility] [place] [address] Genetics 06/22/23 documented as of this encounter
--- OUTSIDE RECORDS SUMMARY | 2024-08-08 15:05 | XMS_ITS | Encounter Summary ---
Author Organization [facility] Healthcare Address [address] [place] [address] Care Team Providers Care Central Scheduler Name Role Phone Mel Osei MD Primary Care Provider [phone]- [phone] Tabitha Liu [facility] Unavailable [phone] Encounter Details Date Type Department Care Team (Late st Contact Info) Description 01/05/2024 Telephone [facility] [address] [place] [address] Lobo Pérez RN Social History Tobacco [...] on file Legal Sex Female 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 January 06, 2024 Mel Osei MD to [facility] Im/Fm Staff Pool 01/06/24 9:51 PM [...] 2. new line arch support get the [facility] athletic arch available at [place] [employer] and 3. No barefoot walking whatsoever, the 4th intervention is referral to Podiatry, they may have some other specifics for localized injection in the foot. Dr. Mel Osei Pt voices understand et states she does have Podiatry appt @ [facility] on 01-17-24 Pt has purchased [place] shoes w/inserts from [employer] in [place] et is taking below recommend Tylenol that [...] only took 1 day of Meloxicam after SKIN DIVING TEACHER appt/lab draw et when started Prednisone Rx [...] - 145 mmol/L Comment:Testing performed by : [facility], [address] [place] [address], [place]., [address] Potassium, pl 4.7 3.3 - 4.9 mmol/L CERNER Comment:Testing performed by : [facility], [address] [place] [address]., [address] Chloride 106 97 - 110 mmol/L CERNER CH Comment:Testing performed by : [facility], [address] [place] [address]., [address] CO2 23 22 - 32 mmol/L CERNER CH Comment:Testing performed by : [address] [address] Anion gap 11 2 - 15 mmol/L BHUPENDRA Comment:Testing performed by : [address] [address] BUN 13 6 - 25 mg/dL [facility] Comment:Testing performed by : [address] [address] Creatinine 0.98 0.60 - 1.10 mg/dL [facility] Comment:Testing performed by : [facility], [address] [place] [address]., [address] Glucose 104 70 - 199 mg/dL [facility] Comment: Interpretive Data Fasting glucose >/= 126 [...] was last revised 2022. Testing performed by: [address] [address] Calcium 9.9 8.5 - 10.3 mg/dL [facility] Comment:Testing performed by : [address] [address] Blood 02/08/2024 11:5 4 AM CDT 02/08/2024 6:32 PM CDT us Mel Osei MD LAB BLOOD ORDERABLES Final Result [address] Department [place] [address] documented in this encounter Visit Diagnoses Diagnosis Elevated serum creatinine- Primary Other nonspecific findings on examination of blood documented in this encounter Care Teams Central Scheduler Relationship Specialty Start Date End Date Mel Osei MD PCP - General Internal Medicine 02/07/20 Tabitha Liu CGC [address] DIV PED GENETICS [place] [address] Genetics 06/22/23 documented as of this encounter
--- OUTSIDE RECORDS SUMMARY | 2024-08-08 15:05 | XMS_ITS | Encounter Summary ---
Author Organization [facility] Healthcare Address [address] [place] [address] Care Team Providers Care Bulbs Farmworker Name Role Phone Mel Osei MD Primary Care Provider [phone]- [phone] Tabitha Liu CGC Unavailable [phone] Reason for Visit * Reason Comments Employment Physical Encounter Details Date Type Department Care Team (Late st Contact Info) Description 03/17/2024 9:30 AM CDT Office Visit [facility] [address] [place] [address] Almaz Saleh NP [address] [place] [address] Encounter for physical examination related to employment [...] on file 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 Gender Identity Not on file Sexual Orientation Not on file Occupation Industry Job Start Date Job End Date [place] Title Not on file Not on file [...] 0 mm Other 03/17/2024 9:30 AM CDT Almza Saleh NP POINT OF CARE TEST ORDERABLES Fi nal Result documented in this encounter Visit Diagnoses Diagnosis Encounter for physical examination related to employment- Primary Screening examination for pulmonary tuberculosis documented in this encounter Care Teams Bulbs Farmworker Relationship Specialty Start Date End Date Mel Osei MD PCP - General Internal Medicine 02/07/20 Tabitha Liu CGC 1 [facility] [place] [address] Genetics 06/22/23 documented as of this encounter
--- OUTSIDE RECORDS SUMMARY | 2024-08-08 15:05 | XMS_ITS | Encounter Summary ---
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 73 m2 Comment: [...] was last reviewed 2021. Testing performed by: [facility], [address] [place] [address], [place], [place]., [facility] Blood 02/08/2024 11:5 4 AM CDT 02/08/2024 6:52 PM CDT us Mel Osei MD LAB BLOOD ORDERABLES Final Result BHUPENDRA [address] [address] Department [place] [address] * Basic metabolic panel (02/08/2024 11:54 AM CDT) Sodium 140 135 - 145 mmol/L Comment:Testing performed by : [facility], [address] [place] [address]., [address] Potassium, pl 4.7 3.3 - 4.9 mmol/L CERNER CH Comment:Testing performed by : [facility], [address] [place] [address]., [address] Chloride 106 97 - 110 mmol/L CERNER CH Comment:Testing performed by : [facility], [address] [place] [address]., [address] CO2 23 22 - 32 mmol/L CERNER CH Comment:Testing performed by : [facility], [address] [place] [address], [address] Anion gap 11 2 - 15 mmol/L CERNER CH Comment:Testing performed by : [facility], [address] [place] [address], [address] BUN 13 6 - 25 mg/dL CERNER CH Comment:Testing performed by : [facility], [address] [place] [address], [address] Creatinine 0.98 0.60 - 1.10 mg/dL CERNER CH Comment:Testing performed by : [facility], [address] [place] [address], [address] Glucose 104 70 - 199 mg/dL CERNER [...] was last revised 2022. Testing performed by: [address] [address] Calcium 9.9 8.5 - 10.3 mg/dL CERNER CH Comment:Testing performed by : [address] [address] Blood 02/08/2024 11:5 4 AM CDT 02/08/2024 6:32 PM CDT us Mel Osei MD LAB BLOOD ORDERABLES Final Result BHUPENDRA [address] [facility] Department [place] [address] documented in this encounter Visit Diagnoses Diagnosis Elevated serum creatinine Other nonspecific findings on examination of blood documented in this encounter Care Teams Carbonizer Tester Relationship Specialty Start Date End Date Mel Osei MD PCP - General Internal Medicine 02/07/20 Tabitha Liu CGC [address] DIV PED GENETICS [place] [address] Genetics 06/22/23 documented as of this encounter
--- OUTSIDE RECORDS SUMMARY | 2024-08-08 15:05 | XMS_ITS | Encounter Summary ---
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 Testing performed by: [facility], [address] [place] [address]., [address] Blood 12/30/2023 9:16 AM CDT 12/30/2023 2:40 PM CDT us Mel Osei MD LAB BLOOD ORDERABLES Final Result Performing Organization Address [facility] de Phone Number BHUPENDRA [facility] Department [place] [address] * Cholesterol, LDL, direct (12/30/2023 [...] last revised on 2018. Testing performed by: [facility], [address] [place] [address], [place]., [address] Blood 12/30/2023 9:16 AM CDT 12/30/2023 2:17 PM CDT us Mel Osei MD LAB BLOOD ORDERABLES Final Result Performing Organization Address [facility] Co de Phone Number [address] Department [place] [address] * (ABNORMAL) Comprehensive metabolic panel (12/30/2023 9:16 AM CDT) Sodium 140 135 - 145 mmol/L Comment:Testing performed by : [address] [address] Potassium, pl 4.4 3.3 - 4.9 mmol/L [facility] Comment:Testing performed by : [address] [address] Chloride 105 97 - 110 mmol/L [facility] Comment:Testing performed by : [address] [address] CO2 23 22 - 32 mmol/L CERNER Comment:Testing performed by : [address] [address] Anion gap 12 2 - 15 mmol/L [facility] Comment:Testing performed by : [address], [address] BUN 13 6 - 25 mg/dL CERNER Comment:Testing performed by : [address] [address] Creatinine 1.13(H) 0.60 - 1.10 mg/dL [facility] Comment:Testing performed by : [address] [address] Glucose 89 70 - 199 mg/dL [facility] Comment: Interpretive Data Fasting glucose >/= 126 [...] was last revised 2022. Testing performed by: [address] [address] Calcium 9.6 8.5 - 10.3 mg/dL [facility] Comment:Testing performed by : [address], [address] Bilirubin, total 0.4 0.1 - 1.2 mg/dL CERNER CH Comment:Testing performed by : [address], [address] Protein, pl 6.8 6.5 - 8.5 g/dL CERNER CH Comment:Testing performed by : [address], [address] Albumin 4.0 3.5 - 5.0 g/dL CERNER CH Comment:Testing performed by : [address], [address] Alk phos 73 40 - 130 Units/L CERNER CH Comment:Testing performed by : [address], [address] ALT 29 7 - 45 Units/L CERNER CH Comment:Testing performed by : [address], [address] AST 38 10 - 45 Units/L CERNER CH Comment:Testing performed by : [address], [address] Blood 12/30/2023 9:16 AM CDT 12/30/2023 2:17 PM CDT us Mel Osei MD LAB BLOOD ORDERABLES Final Result Performing Organization Address City/State/[facility] Phone Number [address] Department [place] [address] documented in this encounter Visit Diagnoses Diagnosis Annual physical exam Routine general medical examination at a health care facility documented in this encounter Care Teams Internet Researcher Relationship Specialty Start Date End Date Mel Osei MD PCP - General Internal Medicine 02/07/20 Tabitha Liu CGC [address] DIV PED GENETICS [place] [address] Genetics 06/22/23 documented as of this encounter
--- OUTSIDE RECORDS SUMMARY | 2024-08-08 15:05 | XMS_ITS | Referral Summary ---
Author Organization [facility] Address [address] [place] [address] Care Team Providers Care Heel Reducer Name Role Phone Mel Osei MD Primary Care Provider [phone]- [phone] Tabitha Liu CGC Unavailable [phone] Encounters Date Type Department Care Team Description 07/05/2024 Telephone [facility] [address] [place] [address] Ness Fried MD Patient issue/concern [...] hormone changes, advised to follow up with STREETS AND BUILDINGS DECORATOR to discuss further. Resolved Problems Problem Noted [...] 09/13/[address]2002/11 Assessment & Plan (10/11/2020 7:57 AM JUNIOR LINUX ADMINISTRATOR): Patient continues to remain anxious and have [...] time. Assessment & Plan (09/13/2020 4:51 PM JUNIOR LINUX ADMINISTRATOR): Patient returns for follow up on shortness [...] basis. Assessment & Plan (09/13/2020 4:53 PM JUNIOR LINUX ADMINISTRATOR): Patient continues to report episodes of sharp [...] 21 Assessment & Plan (08/22/2020 2:28 PM JUNIOR LINUX ADMINISTRATOR): Patient is reporting SOB post recent COVID [...] on file Legal Sex Female 12:30 PM JUNIOR LINUX ADMINISTRATOR Gender Identity Not on file Sexual Orientation Not on file Occupation Industry Job Start Date Job End Date [place] Title Not on file Not on file [...] HIGH RISK HPV Routine 06/17/2023 11:23 AM JUNIOR LINUX ADMINISTRATOR Screening for malignant neoplasm of the cervix from Last 3 Months or Most Recently Relevant to Health Maintenance Results * Pap with reflex to High Risk HPV and Genotyping (Cytology Component) (06/17/2023 11:23 AM JUNIOR LINUX ADMINISTRATOR) Thin prep (Pap test) 06/17/2023 11:23 AM JUNIOR LINUX ADMINISTRATOR 06/18/2023 11:23 AM JUNIOR LINUX ADMINISTRATOR Narrative PATHOLOGY CH - 06/22/2023 2:49 PM JUNIOR LINUX ADMINISTRATOR [facility] Department of Pathology [address] [place] [address] Final Report Note to Patients: This report [...] the details. Patient Name: ??JEAN ARTHUR Address: ??[address] [place] [address], ?? [place], [place] ??[address] Gender: ??F : ??2000 (Age: 23) Service: ?? Location: ?? [facility] #: ??[id number] Patient Type: ?? SPECIMEN Taken: ??06/17/2023 Received: ??06/18/2023 Accessioned:: ??06/21/2023 Reported: ??06/22/2023 Physician(s): MD Ness Blue MD Diagnosis: SOURCE OF SPECIMEN ? Imaged Thinprep Pap Test w/ Reflex HPV - Country Singer Cytologic Material: STATEMENT OF ADEQUACY ?- Specimen satisfactory for interpretation; endocervical/transformation zone component absent or ?insufficient ? GENERAL CATEGORIZATION: ?- Negative for intraepithelial lesion or malignancy ? FELIPE Alonso(ASCP) Report Electronically Reviewed and Signed Out By ??FELIPE Alonso(ASCP) ??06/22/2023 14:49:15Specimen(s) Received: A: Imaged Thinprep Pap Test w/ Reflex HPV - Country Singer Cytologic Material Clinical History: Last Menstrual Period: [...] determined by the Surgical Pathology Department at [facility] as part of an ongoing automotive quality manager program and in compliance with federally mandated [...] characteristics determined by the Surgical Pathology Department [facility]. ??It has not been cleared or approved by the U. S. Food and Drug Administration. Ness Fried MD LAB CYTOLOGY ORDERABL ES Final Result PATHOLOGY [address] [place] [address] from Last 3 Months or Most Recently Relevant to Health Maintenance Insurance [facility] H[facility]/PPO Address: [place] [address] [facility] CHOICE PLUS [facility] HMO/PPO Address: [address] [place] [address] CHOICE PLUS [facility] HMO/PPO Address: [place] [id number] CHOICE PLUS [facility] HMO/PPO Address: [address] [place] [address] [facility] HMO/PPO Address: [place] [address] [facility] HMO/PPO Address: [address] [place] [address] Advance Directives For more information, please contact: [phone] Documents on File Type Date Recorded Patient Lead Trainer Expl anation ADVANCE DIRECTIVE 02/07/2020 POWER [employer] Care Teams Heel Reducer Relationship Specialty Start Date End Date Mel Osei MD PCP - General Internal Medicine 02/07/20 Tabitha Liu CGC [facility] [place] [address] Genetics 06/22/23
--- OUTSIDE RECORDS SUMMARY | 2024-08-08 15:05 | XMS_ITS | Clinical Summary ---
Author Organization [facility] Address [address] [place] [address] Care Team Providers Care Can Sterilizer Name Role Phone Mel Osei MD Primary Care Provider [phone]- [phone] Tabitha Liu CGC Unavailable [phone] Allergies No known active allergies Medications adapalene [...] hormone changes, advised to follow up with ECONOMICS DEPARTMENT CHAIR to discuss further. Resolved Problems Problem Noted [...] 09/13/202002/11 Assessment & Plan (10/11/2020 7:57 AM PEST CONTROLLER): Patient continues to remain anxious and have [...] time. Assessment & Plan (09/13/2020 4:51 PM PEST CONTROLLER): Patient returns for follow up on shortness [...] basis. Assessment & Plan (09/13/2020 4:53 PM PEST CONTROLLER): Patient continues to report episodes of sharp [...] 21 Assessment & Plan (08/22/2020 2:28 PM PEST CONTROLLER): Patient is reporting SOB post recent COVID [...] Type Department Care Team Description 07/05/2024 Telephone [facility] [address] [place] [address] Ness Fried MD Patient issue/concern [...] on file Legal Sex Female 12:30 PM PEST CONTROLLER Gender Identity Not on file Sexual Orientation Not on file Occupation Industry Job Start Date Job End Date [place] Title Not on file Not on file [...] HIGH RISK HPV Routine 06/17/2023 11:23 AM PEST CONTROLLER Screening for malignant neoplasm of the cervix from Last 3 Months or Most Recently Relevant to Health Maintenance Results * Pap with reflex to High Risk HPV and Genotyping (Cytology Component) (06/17/2023 11:23 AM PEST CONTROLLER) Thin prep (Pap test) 06/17/2023 11:23 AM PEST CONTROLLER 06/18/2023 11:23 AM PEST CONTROLLER Narrative PATHOLOGY CH - 06/22/2023 2:[address] [facility] Department of Pathology [address] [place] [address] Final Report Note to Patients: This [...] details. Patient Name: ??JEAN ARTHUR Yunior Address: ??[address] [place] [address], ?? [place], [place] ??[id number] Gender: ??F : ??2000 (Age: 23) Service: ?? Location: ?? Hospital #: ??[id number] Patient Type: ?? SPECIMEN Taken: ??06/17/2023 Received: ??06/18/2023 Accessioned:: ??06/21/2023 Reported: ??06/22/2023 Physician(s): MD Ness Blue MD Diagnosis: SOURCE OF SPECIMEN ? Imaged Thinprep Pap Test w/ Reflex HPV - Video Game Tester Cytologic Material: STATEMENT OF ADEQUACY ?- Specimen satisfactory for interpretation; endocervical/transformation zone component absent or ?insufficient ? GENERAL CATEGORIZATION: ?- Negative for intraepithelial lesion or malignancy ? FELIPE Alonso(ASCP) Report Electronically Reviewed and Signed Out By ??FELIPE Alonso(ASCP) ??06/22/2023 14:49:15Specimen(s) Received: A: Imaged Thinprep Pap Test w/ Reflex HPV - Video Game Tester Cytologic Material Clinical History: Last Menstrual Period: [...] determined by the Surgical Pathology Department at [facility] as part of an ongoing quality assurance technician program and in compliance with federally mandated [...] characteristics determined by the Surgical Pathology Department [facility]. ??It has not been cleared or approved by the U. S. Food and Drug Administration. Ness Fried MD LAB CYTOLOGY ORDERABL ES Final Result Performing Organization Address City/State/[facility] Co nm Phone Number PATHOLOGY [address] [place] [address] from Last 3 Months or Most Recently Relevant to Health Maintenance Insurance [id number] HMO/PPO Address: [facility] [id number] [place] [address] [facility] CHOICE PLUS [facility] HMO/PPO Address: [address] [place] [address] [facility] HMO/PPO Address: [place] [address] [facility] HMO/PPO Address: [address] [place] [id number] CHOICE [facility]US [facility] HMO/PPO Address: [place] [address] CHOICE [facility] HMO/PPO Address: [place] [address] Advance Directives For more information, please contact: [phone] Documents on File Type Date Recorded 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
--- OUTSIDE RECORDS SUMMARY | 2024-08-08 15:05 | XMS_ITS | Encounter Summary ---
Author Organization [facility] Healthcare Address [address] [place] [address] Care Team Providers Care Chief Solution Architect Name Role Phone Mel Osei MD Primary Care Provider [phone]- [phone] Encounter Details Date Type Department Care Team (Latest Contact Info) Description 06/17/2023 4:00 PM PHARM SPEC - 06/17/2023 11:59 PM PHARM SPEC Hospital Encounter [facility] [address] [place] [address] Screening for malignant neoplasm of the cervix [...] on file Legal Sex Female 12:30 PM PHARM SPEC Gender Identity Not on file Sexual Orientation Not on file Occupation Industry Job Start Date Job End Date [place] Title Not on file Not on file [...] PROCESSING (MOLECULAR COMPONENT) Routine 06/18/2023 4:00 PM PHARM SPEC Screening for malignant neoplasm of the cervix PAP WITH REFLEX TO HIGH RISK HPV Routine 06/17/2023 11:23 AM PHARM SPEC Screening for malignant neoplasm of the cervix documented in this encounter Results * ThinPrep processing (Molecular component) (06/18/2023 4:00 PM PHARM SPEC) ThinPrep processing (Molecular component) Specimen received for processing. BHUPENDRA SANCHEZ Comment:Testing performed by : [facility], [address], [place]., [address] Endocervical 06/18/2023 4:00 PM PHARM SPEC 06/21/2023 12:34 PM PHARM SPEC Ness Fried MD LAB BODY FLUIDS AND S TOOLS ORDERABLES Final Result [facility] Department [place] [address] * Pap with reflex to High Risk HPV and Genotyping (Cytology Component) (06/17/2023 11:23 AM PHARM SPEC) Thin prep (Pap test) 06/17/2023 11:23 AM PHARM SPEC 06/18/2023 11:23 AM PHARM SPEC Narrative PATHOLOGY CH - 06/22/2023 2:49 PM PHARM SPEC [facility] Department of Pathology [address] [place] [address] Final Report Note to Patients: This [...] the details. Patient Name: ??JEAN ARTHUR Address: ??[address] [place] [address], ?? [place], [place] ??[address] Gender: ??F : ??2000 (Age: 23) Service: ?? Location: ?? Hospital #: ??[id number] Patient Type: ?? SPECIMEN Taken: ??06/17/2023 Received: ??06/18/2023 Accessioned:: ??06/21/2023 Reported: ??06/22/2023 Physician(s): MD Ness Blue MD Diagnosis: SOURCE OF SPECIMEN ? Imaged Thinprep Pap Test w/ Reflex HPV - Biopharmaceutical Rep Cytologic Material: STATEMENT OF ADEQUACY ?- Specimen satisfactory for interpretation; endocervical/transformation zone component absent or ?insufficient ? GENERAL CATEGORIZATION: ?- Negative for intraepithelial lesion or malignancy ? FELIPE Alonso(ASCP) Report Electronically Reviewed and Signed Out By ??FELIPE Alonso(ASCP) ??06/22/2023 14:49:15Specimen(s) Received: A: Imaged Thinprep Pap Test w/ Reflex HPV - Biopharmaceutical Rep Cytologic Material Clinical History: Last Menstrual Period: [...] determined by the Surgical Pathology Department at [facility] as part of an ongoing clinical quality manager program and in compliance with [...] characteristics determined by the Surgical Pathology Department [facility]. ??It has not been cleared or approved by the U. S. Food and Drug Administration. Ness Fried MD LAB CYTOLOGY ORDERABL ES Final Result PATHOLOGY [address] [place] [address] documented in this encounter Visit Diagnoses Diagnosis Screening for malignant neoplasm of the cervix documented in this encounter Care Teams Chief Solution Architect Relationship Specialty Start Date End Date Mel Osei MD PCP - General Internal Medicine 02/07/20 documented as of this encounter
--- OUTSIDE RECORDS SUMMARY | 2024-08-08 15:06 | XMS_ITS | Encounter Summary ---
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 Varicella 05/11/2000, 03/09/2014 Primary Pharmacy/DME suppliers: [id number] [place], [place] - [facility] [facility] [address] [facility] [address] PLEASE BRING IN ALL PILL BOTTLES TO EVERY OFFICE VISIT, THIS IS ESSENTIAL FOR ACCURATE REFILLS AND MAINTAINING AN ACCURATE MEDICATION LIST. PLEASE SIGN UP FOR EmairHART so that you may have access to your labs and chart documentation IF YOU HAVE TROUBLE WITH THIS PROCESS CALL [phone] HIIT= high intensity interval training works best [...] ??? Varicella 05/11/2000, 03/09/2014 Primary Pharmacy/DME suppliers: [id number] [place] [address] [address] [facility] [address] PLEASE BRING IN ALL PILL BOTTLES TO EVERY OFFICE VISIT, THIS IS ESSENTIAL FOR ACCURATE REFILLS AND MAINTAINING AN ACCURATE MEDICATION LIST. PLEASE SIGN UP FOR [facility] so that you may have access to your labs and chart documentation IF YOU HAVE TROUBLE WITH THIS PROCESS CALL [phone] HIIT= high intensity interval training works best [...] THIS VISIT Current Outpatient Medications Ordered in [facility] Medication Sig Dispense Refill ??? [...] 10 days 60 each 0 No current [facility]-ordered facility-administered medications on file. ALLERGIES [...] 07/12/2020 Final ??? COMMENTS 07/12/2020 Final ??? Processing Spec 07/12/2020 Final ??? Comment 07/12/2020 Final Lab [...] documented as of this encounter Care Teams Goldsmith Apprentice Relationship Specialty Start Date End Date Mel Osei MD PCP - General Internal Medicine 02/07/20 documented as of this encounter
--- OUTSIDE RECORDS SUMMARY | 2024-08-08 15:06 | XMS_ITS | Encounter Summary ---
Author Organization [facility] Medical [facility] Address [address] [place] [address] Care Team Providers Care Applications Scientist Name Role Phone Mel Osei MD Primary Care Provider +1- [phone] Reason for Visit * Reason Comments Annual Exam Encounter Details Date Type Department Care Team (Late st Contact Info) Description 02/13/2022 9:20 AM CDT Office Visit [facility] [address] [place] [address] Mel Osei MD [address] [place] [address] Annual physical exam (Primary Dx); Acne vulgaris; [...] file Legal Sex Female 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 [address] [facility] [facility] [address] PLEASE BRING IN ALL PILL BOTTLES TO EVERY OFFICE VISIT, THIS IS ESSENTIAL FOR ACCURATE REFILLS AND MAINTAINING AN ACCURATE MEDICATION LIST. PLEASE SIGN UP FOR MyCHART so that you may have access to your labs and chart documentation IF YOU HAVE TROUBLE WITH THIS PROCESS CALL [phone] Annual Exam finds the need for diet [...] Pildutch strengthening THIS BOOK IS AVAILABLE ON [employer] =The complete guide to Lester Vaz techniques of physical conditioning by Jf Canela FOR arm and leg strengthening, I recommend exercise bands, as they are inexpensive, portable, and packable for travel --options available on Fl[employer] include FIT SIMPLIFY exercise bands the come with marium exercise program recommendation. For KNEE ISSUES download the [place] [employer] knee program to including the [...] as a Sweetener. Legumes= (soy, peanut, lentils, skowu-rzshd-bmmhxcnh- beans,hummus) Note all tree nuts and all seeds are OK = Pecan, [place], [place], Cashew,[place] Nuts, sesame seeds, sunflower seeds, pumpkin seeds. [...] cramps, this is the same thing is ynun-ube-adyklof Aleve 2 tablets twice daily with food [...] ??? Varicella 05/11/2000, 03/09/2014 Primary Pharmacy/DME suppliers: [id number] - [place], [place] - [address] [facility] [address] [facility] [address] PLEASE BRING IN ALL PILL BOTTLES TO EVERY OFFICE VISIT, THIS IS ESSENTIAL FOR ACCURATE REFILLS AND MAINTAINING AN ACCURATE MEDICATION LIST. PLEASE SIGN UP FOR MyCHART so that you may have access to your labs and chart documentation IF YOU HAVE TROUBLE WITH THIS PROCESS CALL [phone] Annual Exam finds the need for diet [...] Milind strengthening THIS BOOK IS AVAILABLE ON [employer] =The complete guide to Lester Vaz techniques of physical conditioning by Jf Canela FOR arm and leg strengthening, I recommend exercise bands, as they are inexpensive, portable, and packable for travel --options available on [employer] include FIT SIMPLIFY exercise bands the come with marium exercise program recommendation. For KNEE ISSUES download the [place] [employer] knee program to including the [...] as a Sweetener. Legumes= (soy, peanut, lentils, smznz-nrrsh-xbvqthxi- beans,hummus) Note all tree nuts and all seeds are OK = Pecan, [place], [place], Cashew,[place] Nuts, sesame seeds, sunflower seeds, pumpkin seeds. [...] medication prescriptions. ORDERS FROM LAST VISIT WITH CT 02/11/2021 1. Do not leave office today [...] VISIT required an additional 5 minutes of vyux-ks-iyis minutes of care time: 2. Acne vulgaris Completely well controlled using pnvr-tqf-wjpsevv adapalene (DIFFERIN) 0.1 % cream; Apply topically at bedtime. 3. Obesity (BMI 30-39.9) No body weight improvements over the past year within proper diet and regular exercise. Lifestyle changes are agreed upon 4. Dysmenorrhea Good results with naproxen she would like to get the prescription as opposed hdoa-rxr-coowgkm but Iexplained she may use either as [...] VISIT Current Outpatient Medications Ordered in [facility] Medication Sig Dispense Refill ??? [...] days 60 each 0 No current [facility]-ordered facility-administered medications on file. ALLERGIES [...] in the After Visit Summary = VS. Mle Osei M.D. THE FOLLOWING CLERICAL INFORMATION DOES NOT DUE TO BE SENT IN A PRINTED DOCUMENT LABORATORY INFORMATION REVIEWED WITH Tracey Arthur TODAY Admission on 04/28/2021, Discharged on 04/28/2021 [...] documented as of this encounter Care Teams Applications Scientist Relationship Specialty Start Date End Date Mel Osei MD PCP - General Internal Medicine 02/07/20 documented as of this encounter
--- OUTSIDE RECORDS SUMMARY | 2024-08-08 15:06 | XMS_ITS | Encounter Summary ---
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 HDL 40 >=40 mg/dL BHUPENDRA SNACHEZ Comment: Interpretive Data Ages < or = [...] MD LAB BLOOD ORDERABLES Final Result [facility] [address] [address] Department [place] [address] * Comprehensive metabolic panel (02/03/2021 7:55 AM [...] LAB BLOOD ORDERABLES Final Result [facility] SANCHE[facility] [address] [place] [address] documented in this encounter Visit Diagnoses Diagnosis Annual physical exam Routine general medical examination at a [facility] care facility Obesity (BMI 30-39.9) Easy bruising Other symptoms involving skin and integumentary tissues documented in this encounter Care Teams Home Care Associate Relationship Specialty Start Date End Date Mel Osei MD PCP - General Internal Medicine 02/07/20 documented as of this encounter
--- OUTSIDE RECORDS SUMMARY | 2024-08-08 15:06 | XMS_ITS | Encounter Summary ---
Author Organization [facility] Address [address] [place] [address] Phone Care Team Providers Care Yeast Supervisor Name Role Phone Mel Osei MD Primary Care Provider +1- [phone] Reason for Visit * Consultation (Routine) - Closed Specialty Diagnoses / Procedures Referred By Contact Referred To Contact Genetics / Pediatric Genetics Diagnoses Family history of breast cancer Family history of ovarian cancer Ness Fried MD [address] [place] [address] Phone: tel: fax: [facility] (All Locations) Referral ID Status Reason Start Date Expiration Date V isits Requested Visits Authorized [id number] Closed Specialty Services Required 10/30/2022 11/29/2023 1 1 Encounter Details Date Type Department Care Team (Latest Contact Info) Description 04/15/2023 10:00 AM CDT Telemedicine [facility] Pediatric Genetics [address] [facility] 2[address] [place] [address] [place] [address] Encounter for nonprocreative genetic counseling (Primary Dx); [...] on file Legal Sex Female 12:30 PM 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 Tracey's [facility]was [facility] CancerNext panel with RNA insight . Results are expected in about 3-4 weeks. We will notify Tracey when her results are available to be reviewed. Tracey can contact me by responding to this message or calling me at [phone]. Alternatively, she can also contact our department by calling [phone]. RegardsTabitha MS, [facility] Certified Genetic Counselor [facility] documented in this encounter Progress Notes * Tabitha Liu CGC - 04/15/2023 10:00 AM CDT This was a telemedicine visit with Tracey bower which took place via Real-time video connection (Design Auch, Zoom or similar). During the visit, [place] was located at home and the patient was locatedat home in the state of [place]. The patient visit started at 9.40 am [...] service replaces an office visit. Tabitha Liu, [facility] Tracey Arthur is a 22 y.o. year [...] exposure when he was younger. Maternal Ethnicity: Surinamese Paternal History: Tracey's paternal family history is [...] have a diagnosis of cancer. Paternal Ethnicity: [place]inamese There are no other known diagnoses of cancer reported at the time of the visit. There is no known Ashkenazi Restorationism Ancestry or consanguinity in the family. Genetic [...] the Occurrence of Cancer According to the [place] [employer], an estimated 1 out of [...] was diagnosed with ovarian cancer in her wcfq99c-ibrfh 40s. Tracey's maternal grandmother was diagnosed with [...] a local genetic counselor or by visiting [email or web address]. Plan At the time of the appointment, Tracey elected to pursue genetic testing. A blood sample will need to be submitted for this test. The lab will contact Tracey to coordinate mobile phlebotomy services.This service is provided by the lab at no extra cost to the patient. Claras insurance informationwas provided to [facility] for analysis of their CancerNext panel with RNA insight . Results are expected in about 3-4 weeks. We will notify Tracey when her results are available to be reviewed. Closing Thank you for allowing us to participate in Tracey's care. Do not hesitate to contact us at if you have further questions. Tabitha Liu MS, [facility] Certified Genetic Counselor [facility] documented in this encounter [...] 2022 documented in this encounter Care Teams Yeast Supervisor Relationship Specialty Start Date End Date Mel Osei MD PCP - General Internal Medicine 02/07/20 documented as of this encounter
--- OUTSIDE RECORDS SUMMARY | 2024-08-08 15:06 | XMS_ITS | Encounter Summary ---
Author Organization [facility] Address [address] [place] [address] Care Team Providers Care Direct Sales Consultant Name Role Phone Mel Osei MD Primary Care Provider [phone]- [phone] Reason for Referral * Procedure (Routine) - Closed Specialty Diagnoses / Procedures Referred By Kj judge Referred To Contact Diagnoses Bilateral impacted cerumen Procedures Ear Cerumen Removal Almaz Saleh NP [address] [place] [address] Phone: tel: fax: [facility] Medical [facility] Referral ID Status Reason Start Date Expiration Date Visits Re quested Visits Authorized [id number] Closed 06/12/2022 07/12/2023 1 1 Reason for Visit * Reason Comments Ear Problem Encounter Details Date Type Department Care Team (Late st Contact Info) Description 06/12/2022 3:30 PM CDT Office Visit [facility] [address] [place] [address] Almaz Saleh NP [address] [address] Bilateral impacted cerumen (Primary Dx) Social History [...] on file Legal Sex Female 12: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 Gender Identity Not on file Sexual Orientation Not on file Occupation Industry Job Start Date Job End Date [place] Title Not on file Not on file [...] mm Chest pain COVID-19 virus detected 08/22/2020 [place] 1999 8-5 product nl Shortness of breath [...] total) by mouth 2 (two) times a [id number] tablet 1 No facility-administered encounter medications on [...] Ear Cerumen Removal (06/12/2022) Narrative Christina Quintanilla, GEOLOGICAL SURVEY FIELD ASSISTANT - 06/12/2022 Irrigated both ears Almaz Saleh NP IN CLINIC/BEDSIDE ORDERABLES Fin al Result documented in this encounter Visit Diagnoses Diagnosis Bilateral impacted cerumen- Primary Impacted cerumen documented in this encounter Care Teams Direct Sales Consultant Relationship Specialty Start Date End Date Mel Osei MD PCP - General Internal Medicine 02/07/20 documented as of this encounter
--- OUTSIDE RECORDS SUMMARY | 2024-08-08 15:06 | XMS_ITS | Encounter Summary ---
Author Organization [facility] Address [address] [place] [address] Care Team Providers Care Gas Maker Name Role Phone Mel Osei MD Primary Care Provider +1- [phone] Reason for Visit * Reason Onset Date Comments Abdominal Pain 04/28/2021 Encounter Details Date Type Department Care Team (Late st Contact Info) Description 04/28/2021 Telephone [facility] [address] [place] [address] Mel Osei MD [address] [place] [address] Abdominal Pain Social History Tobacco Use Types [...] on file Legal 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
--- OUTSIDE RECORDS SUMMARY | 2024-08-08 15:06 | XMS_ITS | Encounter Summary ---
Author Organization 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 SMAKER GARMENT FITTER * Telephone Encounter - Akshat Grissom - 10/11/2020 3:54 PM CST Patient would like a call back today SMAKER GARMENT FITTER * Telephone Encounter - Akshat Grissom - 10/11/2020 3:52 PM CST Patient calling back, she has to pills leftof zoloft and prescribed three more. She was told to wait two days after tomorrow and then take the next one. Should she take it on the second day or wait until the next day? [phone] SMAKER GARMENT FITTER * Telephone Encounter - Bernice Yeboah RN - 10/11/2020 3:31 PM CST Medication resent to pharmacy for pt to picker operator. Called and talked to [facility] to see if they have the medication ready for the pt. They do have it ready and will call the pt to let her know. sertraline (ZOLOFT) 25 mg tablet ??Take 1 tablet (25 mg total) by mouth daily for 3 days, Starting Wed10/11/2020, Until 10/14/2020,Normal SMAKER GARMENT FITTER * Telephone Encounter - Akshat Grissom - 10/11/2020 2:20 PM CST Patient was here yesterday to see manpower development specialist and she thought she was going to prescribe her three more zoloft because she is trying to get off of them but the pharmacy doesn't have them. lucinda davey.Cbn: [phone] SMAKER GARMENT FITTER documented in this encounter Plan of Treatment [...] documented as of this encounter Care Teams Corporation Lawyer Relationship Specialty Start Date End Date Mel Osei MD PCP - General Internal Medicine 02/07/20 documented as of this encounter
--- OUTSIDE RECORDS SUMMARY | 2024-08-08 15:06 | XMS_ITS | Encounter Summary ---
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
--- OUTSIDE RECORDS SUMMARY | 2024-08-08 15:06 | XMS_ITS | Encounter Summary ---
Author Organization [facility] Healthcare Address [address] [place] [address] Care Team Providers Care Transitional Studies Instructor Name Role Phone Mel Osei MD Primary Care Provider +1- [phone] Reason for Visit * Reason Comments Abdominal Pain Encounter Details Date Type Department Care Team (Late st Contact Info) Description 04/28/2021 4:14 PM CDT - 04/28/2021 4:53 PM CDT Emergency 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 * Abdominal Pain, Unknown Cause, (Female) (Kazakh) documented in this encounter Medications at Time [...] pain ??? COVID-19 virus detected 08/22/2020 ??? [place] 1999 8-5 product nl ??? Shortness of [...] MD LAB BLOOD ORDERABLES Fi nal Result [facility] ([place]) [address] [facility] Department [place] [address] * (ABNORMAL) Differential, auto (04/28/2021 3:15 PM [...] LAB BLOOD ORDERABLES nal Result [facility] ([place]) [address] [facility] Department of Laboratories [place] [id number] * Comprehensive metabolic panel (04/28/2021 3:15 PM CDT) Sodium 136 135 - 145 mmol/L [facility] ([place]) Potassium, pl 4.4 3.3 - 4.9 mmol/L [facility] ([place]) Chloride 105 97 - 110 mmol/L [facility] ([place]) CO2 24 22 - 32 mmol/L [facility] ([place]) Anion gap 8 2 - 15 mmol/L [facility] ([place]) BUN 11 8 - 25 mg/dL [facility] ([place]) Creatinine 0.85 0.60 - 1.10 mg/dL [facility] ([place]) Glucose 95 70 - 199 mg/dL [facility] ([place]) Comment: Interpretive Data Fasting glucose [...] us Tito Garzon MD LAB BLOOD ORDERABLES [facility] Result [facility] ([place]) [address] [facility] Department [place] [address] * CBC with auto differential (04/28/2021 3:15 [...] Fi nal Result [facility] ([place]) [address] [facility] Department [place] [address] documented in this encounter Visit Diagnoses Diagnosis Lower abdominal pain, unspecified- Primary documented in this encounter Care Teams Transitional Studies Instructor Relationship Specialty Start Date End Date Mel Osei MD PCP - General Internal Medicine 02/07/20 documented as of this encounter
--- OUTSIDE RECORDS SUMMARY | 2024-08-08 15:06 | XMS_ITS | Encounter Summary ---
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 JIMÉNEZ on 11/01/2020. To [place]-HEAT ENGINEERING TEACHER: Update * Telephone Encounter - [place] Denise NP - 10/22/2020 8:38 AM CDT Please call and check on her and see how she is doing off the zoloft. Was she able to get in to seea counselor? documented in this encounter Plan of Treatment Not on file documented as of this encounter Visit Diagnoses Not on filedocumented in this encounter Care Teams Malware Analyst Relationship Specialty Start Date End Date Mel Osei MD PCP - General Internal Medicine 02/07/20 documented as of this encounter
--- OUTSIDE RECORDS SUMMARY | 2024-08-08 15:06 | XMS_ITS | Encounter Summary ---
Author Organization [facility] Address [address] [place] [address] Care Team Providers Care Group Practice Pediatrician Name Role Phone Mel Osei MD Primary Care Provider +1- [phone] Reason for Visit * Reason Comments Annual Exam Encounter Details Date Type Department Care Team (Late st Contact Info) Description 03/26/2022 3:00 PM CDT Office Visit [facility] [address] [place] [address] Ness Fried MD [address] [place] [address] Encounter for gynecological examination without abnormal finding [...] on file Legal Sex Female 12:30 PM QUILL FIXER Gender Identity Not on file Sexual Orientation Not on file Occupation Industry Job Start Date Job End Date [place] Title Not on file Not on file [...] 21 y.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 Last Pap 07/12/20 was negative. ?? [...] pain ??? COVID-19 virus detected 08/22/2020 ??? [place] 1999 8-5 product nl ??? Shortness of [...] Assessment and Plan: Tracey Arthur is a 21 y.o. female who [...] breast documented in this encounter Care Teams Group Practice Pediatrician Relationship Specialty Start Date End Date Mel Osei MD PCP - General Internal Medicine 02/07/20 documented as of this encounter
--- OUTSIDE RECORDS SUMMARY | 2024-08-08 15:06 | XMS_ITS | Encounter Summary ---
Author Organization 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 Test name: CancerNext CPT 72254 Auth number #[id number] Approval window: [id number] * Telephone Encounter - Tabitha Liu CGC - 06/07/2023 2:00 PM CDT 06/07/2023 Request for prior authorization documented in this encounter Plan of Treatment Not on file documented as of this encounter Visit Diagnoses Not on filedocumented in this encounter Care Teams Insurance Underwriter Sales Relationship Specialty Start Date End Date Mel Osei MD PCP - General Internal Medicine 02/07/20 documented as of this encounter
--- OUTSIDE RECORDS SUMMARY | 2024-08-08 15:06 | XMS_ITS | Encounter Summary ---
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 +RNAinsight?? Core Panel: BRCA1 and BRCA2 gene sequence and deletion/duplication Ordering Provider: Avelino Sample Collection: blood + mobile phlebotomy Payment: Insurance Date Ordered: 05/13/23 Order Number: [id number] documented in this encounter Plan of Treatment Not on file documented as of this encounter Visit Diagnoses Not on filedocumented in this encounter Care Teams Script Editor Relationship Specialty Start Date End Date Mel Osei MD PCP - General Internal Medicine 02/07/20 documented as of this encounter
--- OUTSIDE RECORDS SUMMARY | 2024-08-08 15:06 | XMS_ITS | Encounter Summary ---
Author Organization [facility] Address [address] [place] [address] Care Team Providers Care Flight Deck Officer Name Role Phone Mel Osei MD Primary Care Provider +1- [phone] Encounter Details Date Type Department Care Team (Late st Contact Info) Description 10/10/2020 Telephone [facility] [address] [place] [address] [place] Denise, AMBER [address] [id number] Social History Tobacco Use Types Packs/Day Years [...] on file Legal Sex Female 12:30 PM COOPER HELPER Gender Identity Not on file Sexual Orientation Not on file Occupation Industry Job Start Date Job End Date Not on file Not on file Not on file Not on file documented as of this encounter Miscellaneous Notes * Telephone Encounter - Na Diaz - 10/10/2020 4:07 PM CST Pt was seen today (10-10-20). Per, LARRY OPERATOR [place] orders: Please give her Nathalie Dereck's info.. Pt was given Nathalie Dereck's telephone number/address & knows she has to call. ER HELPER ER HELPER ER HELPER documented in this encounter Plan of Treatment Not on file documented as of this encounter Visit Diagnoses Not on filedocumented in this encounter Care Teams Flight Deck Officer Relationship Specialty Start Date End Date Mel Osei MD PCP - General Internal Medicine 02/07/20 documented as of this encounter
--- OUTSIDE RECORDS SUMMARY | 2024-08-08 15:06 | XMS_ITS | Encounter Summary ---
Author Organization [facility] Healthcare Address [address] [place] [address] Care Team Providers Care Cotton Bag Clipper Name Role Phone Mel Osei MD Primary Care Provider +1- [phone] Reason for Visit * Reason Comments Annual Exam Encounter Details Date Type Department Care Team (Late st Contact Info) Description 06/17/2023 3:30 PM BUSINESS OBJECTS DEVELOPER Office Visit [facility] [address] [place] [address] Ness Fried MD [address] [place] [address] Encounter for gynecological examination without abnormal finding [...] on file Legal Sex Female 12:30 PM BUSINESS OBJECTS DEVELOPER Gender Identity Not on file Sexual Orientation Not on file Occupation Industry Job Start Date Job End Date [place] Title Not on file Not on file Not on file documented as of this encounter Last Filed Vital Signs Vital Sign Reading Time Taken Comments Blood Pressure 132/80 06/17/2023 3:24 PM BUSINESS OBJECTS DEVELOPER Pulse - - Temperature - - Respiratory Rate - - Oxygen Saturation - - Inhaled Oxygen Concentration - - Weight 108.4 kg (239 lb) 06/17/2023 3:24 PM BUSINESS OBJECTS DEVELOPER Height 168.9 cm (5' 6.5 ) 06/17/2023 3:24 PM BUSINESS OBJECTS DEVELOPER Body Mass Index 38 06/17/2023 3:24 PM BUSINESS OBJECTS DEVELOPER documented in this encounter Progress Notes * Ness Fried MD - 06/17/2023 3:30 PM CST Well Woman Exam Subjective: Jean Arthur is a 23 y.o. 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 Last Pap 07/12/20 was negative. Cycles [...] mm Chest pain COVID-19 virus detected 08/22/2020 [place] 1999 8-5 product nl Shortness of breath [...] discussed. Contraception reviewed. Ness Fried MD 06/17/2023 NESS OBJECTS DEVELOPER documented in this encounter Miscellaneous Notes * Addendum Note - Maura Elise MA - 06/17/2023 3:30 PM CSTAddended by: MAURA ELISE on: 06/18/2023 08:23 AM Modules accepted: Orders NESS OBJECTS DEVELOPER documented in this encounter Plan of Treatment Not on file documented as of this encounter Results * ThinPrep processing (Molecular component) (06/18/2023 4:00 PM BUSINESS OBJECTS DEVELOPER) ThinPrep processing (Molecular component) Specimen received for processing. [facility] Comment:Testing performed by : [facility], [address] [place] [address] Endocervical 06/18/2023 4:00 PM BUSINESS OBJECTS DEVELOPER 06/21/2023 12:34 PM BUSINESS OBJECTS DEVELOPER us Ness Fried MD LAB BODY FLUIDS AND S TOOLS ORDERABLES Final Result [facility] [address] Department [place] [address] * Pap with reflex to High Risk HPV and Genotyping (Cytology Component) (06/17/2023 11:23 AM BUSINESS OBJECTS DEVELOPER) Thin prep (Pap test) 06/17/2023 11:23 AM BUSINESS OBJECTS DEVELOPER 06/18/2023 11:23 AM BUSINESS OBJECTS DEVELOPER Narrative PATHOLOGY CH - 06/22/2023 2:49 PM BUSINESS OBJECTS DEVELOPER [facility] Department of Pathology [address] [place] [address] Final Report Note to Patients: This report [...] the details. Patient Name: ??JEAN ARTHURNunu Address: ??[address] [place] [address], ?? [place], [place] ??[address] Gender: ??F : ??2000 (Age: 23) Service: ?? Location: ?? [facility] #: ??[id number] Patient Type: ?? SPECIMEN Taken: ??06/17/2023 Received: ??06/18/2023 Accessioned:: ??06/21/2023 Reported: ??06/22/2023 Physician(s): MD Ness Blue MD Diagnosis: SOURCE OF SPECIMEN ? Imaged Thinprep Pap Test w/ Reflex HPV - Guard Driver Cytologic Material: STATEMENT OF ADEQUACY ?- Specimen satisfactory for interpretation; endocervical/transformation zone component absent or ?insufficient ? GENERAL CATEGORIZATION: ?- Negative for intraepithelial lesion or malignancy ? FELIEP Alonso(ASCP) Report Electronically Reviewed and Signed Out By ??FELIPE Alonso(ASCP) ??06/22/2023 14:49:15Specimen(s) Received: A: Imaged Thinprep Pap Test w/ Reflex HPV - Guard Driver Cytologic Material Clinical History: Last Menstrual [...] determined by the Surgical Pathology Department at [facility] as part of an ongoing quality control assessor program and in compliance with federally mandated [...] LAB CYTOLOGY ORDERABL ES Final Result PATHOLOGY [address] [place] [address] documented in this encounter Visit Diagnoses Diagnosis Encounter for gynecological examination without abnormal finding- Primary Screening for malignant neoplasm of the cervix Screening for malignant neoplasm of the cervix documented in this encounter Care Teams Cotton Bag Clipper Relationship Specialty Start Date End Date Mel Osei MD PCP - General Internal Medicine 02/07/20 documented as of this encounter
--- OUTSIDE RECORDS SUMMARY | 2024-08-08 15:06 | XMS_ITS | Encounter Summary ---
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
--- OUTSIDE RECORDS SUMMARY | 2024-08-08 15:06 | XMS_ITS | Encounter Summary ---
Author Organization [facility] Address [address] [place] [address] Care Team Providers Care Box Stamper Name Role Phone Mel Osei MD Primary Care Provider +1- [phone] Encounter Details Date Type Department Care Team (Late st Contact Info) Description 10/07/2020 Telephone [facility] [address] [place] [address] Mel Osei MD [address] [place], [place] [id number] Social History Tobacco Use Types Packs/Day Years [...] on file Legal Sex Female 12:30 PM RECLAMATION FURNACE OPERATOR Gender Identity Not on file Sexual Orientation Not on file Occupation Industry Job Start Date Job End Date Not on file Not on file Not on file Not on file documented as of this encounter Miscellaneous Notes * Telephone Encounter - [place] Denise NP - 10/07/2020 4:39 PM RECLAMATION FURNACE OPERATOR Noted thank you AMATION FURNACE OPERATOR * Telephone Encounter - Tash Caballero RN - 10/07/2020 3:56 PM CST Spoke with pt, saw [place] ELECTRONIC PUBLISHER recently et was given Zoloft 25mg, felt that it worked at first . Heather thinks she may need increase in med. Has follow up with [facility] on 11/01/20, but would like to see [place] sooner. Scheduled for 10/09/20 at 9am per pt request. AMATION FURNACE OPERATOR * Telephone Encounter - Akshat Grissom - 10/07/2020 9:14 AM CST Patient started taking zoloft on Sep 13 and it isn't really working. She has questions about what you cannot do while your on the medication. Also she wanted to know if there was something else she could try? Cbn: [phone] AMATION FURNACE OPERATOR documented in this encounter Plan of Treatment Not on file documented as of this encounter Visit Diagnoses Not on filedocumented in this encounter Care Teams Box Stamper Relationship Specialty Start Date End Date Mel Osei MD PCP - General Internal Medicine 02/07/20 documented as of this encounter
--- OUTSIDE RECORDS SUMMARY | 2024-08-08 15:06 | XMS_ITS | Encounter Summary ---
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
--- OUTSIDE RECORDS SUMMARY | 2024-08-08 15:06 | XMS_ITS | Encounter Summary ---
Author Organization [facility] Address [address] [place] [address] Care Team Providers Care Stand In Name Role Phone Mel Osei MD Primary Care Provider +1- [phone] Reason for Visit * Reason Onset Date Comments hurt ankle 09/24/2022 Encounter Details Date Type Department Care Team (Late st Contact Info) Description 09/24/2022 Telephone [facility] [address] [place] [address] Mel Osei MD [address] [place] [address] hurt ankle Social History Tobacco Use Types [...] on file Legal Sex Female 12:30 PM DEVELOPMENT ADVISOR Gender Identity Not on file Sexual Orientation Not on file Occupation Industry Job Start Date Job End Date [place] Title Not on file Not on file Not on file documented as of this encounter Miscellaneous Notes * Telephone Encounter - Karen Son RN - 09/24/2022 3:04 PM DEVELOPMENT ADVISOR Called patient regarding her foot and ankle. [...] sides of it. Recommended an appt with CAPTAIN OF GUARDS and patient said she is unable to come today. She scheduled tomorrow afternoon with Almaz. Advised her to go to urgent care if needed if symptoms worsen and she voiced understanding. FYI to AMBER Muse LOPMENT ADVISOR * Telephone Encounter - Akshat Grissom - 09/24/2022 1:24 PM CST Patient calling she hurt right ankle and foot. She wanted to know if it is serious enough to come in she has never had this before and wanted to ask some questions about it. Cbn: [phone] LOPMENT ADVISOR documented in this encounter Plan of Treatment Not on file documented as of this encounter Visit Diagnoses Not on filedocumented in this encounter Care Teams Stand In Relationship Specialty Start Date End Date Mel Osei MD PCP - General Internal Medicine 02/07/20 documented as of this encounter
--- OUTSIDE RECORDS SUMMARY | 2024-08-08 15:06 | XMS_ITS | Encounter Summary ---
Author Organization [facility] Address [address] [place] [address] Care Team Providers Care Twill Cutter Name Role Phone Mel Osei MD Primary Care Provider +1- [phone] Encounter Details Date Type Department Care Team (Late st Contact Info) Description 08/06/2021 Telephone [facility] [address] [place] [address] Mel Osei MD [address] [place] [address] Social History Tobacco Use Types [...] on file Legal Sex Female 12:30 PM OIL PIPE INSPECTOR Gender Identity Not on file Sexual Orientation Not on file Occupation Industry Job Start Date Job End Date Not on file Not on file Not on file Not on file documented as of this encounter Miscellaneous Notes * Telephone Encounter - Shawnee John RN - 08/06/2021 5:08 PM CST Called and informed the pt that she should use otc medication mucinex [place] mist Robitussin Pt verbalized understanding and will call us back with any further questions or probmes PIPE INSPECTOR * Telephone Encounter - Giselle Biggs MA - 08/06/2021 4:03 PM OIL PIPE INSPECTOR ----- Message from Tracey Arthur sent at 08/06/2021 3:06 PM OIL PIPE INSPECTOR ----- Regarding: Cold/Sinus Symptoms I???m having cold symptoms. I have a scratchy throat, stuffed up nose and headache. I took a Covid test today that came back negative. I???ve had some problems in the past getting sinus infections a lot, so I was wondering if I could get an antibiotic to help speed up recovery? Thank you. PIPE INSPECTOR documented in this encounter Plan of Treatment Not on file documented as of this encounter Visit Diagnoses Not on filedocumented in this encounter Care Teams Twill Cutter Relationship Specialty Start Date End Date Mel Osei MD PCP - General Internal Medicine 02/07/20 documented as of this encounter
--- OUTSIDE RECORDS SUMMARY | 2024-08-08 15:06 | XMS_ITS | Encounter Summary ---
Author Organization [facility] Address [address] [place] [address] Care Team Providers Care Correctional Agency Director Name Role Phone Mel Osei MD Primary Care Provider +1- [phone] Reason for Visit * Reason Onset Date Comments needs acid reflux meds called in 05/29/2022 Encounter Details Date Type Department Care Team (Late st Contact Info) Description 05/29/2022 Telephone [facility] [address] [place] [phone] Mel Osei MD [address] [place] [address] needs acid reflux meds called in Social [...] on file Legal Sex Female 12:30 PM TRAIN PLANNER Gender Identity Not on file Sexual Orientation Not on file Occupation Industry Job Start Date Job End Date [place] Title Not on file Not on file [...] stomach hurting. Recommended a f/u visit with SUPPORT TEAM MEMBER and she agreed. Appt scheduled for next week with AMBER Muse. * Telephone Encounter - Tash Caballero RN - 05/29/2022 11:18 AM CDT [place]ed [facility] [place]nothing mentioned about this med. LM for pt to call back, need to know if she knows which med it was? Send to [facility] [place] after talking to pt. * Telephone Encounter - Akshat rGissom - 05/29/2022 10:15 AM CDT Patient seen [facility] [place] ago for her annual and she was suppose to call in some acid refluxmeds for her and they were not called in. [facility] .cbn: [phone] documented in this encounter Plan of Treatment Not on file documented as of this encounter Visit Diagnoses Not on filedocumented in this encounter Care Teams Correctional Agency Director Relationship Specialty Start Date End Date Mel Osei MD PCP - General Internal Medicine 02/07/20 documented as of this encounter
--- OUTSIDE RECORDS SUMMARY | 2024-08-08 15:06 | XMS_ITS | Encounter Summary ---
Author Organization [facility] Address [address] [place] [address] Care Team Providers Care Delivery Truck Driver Name Role Phone Mel Osei MD Primary Care Provider +1- [phone] Reason for Visit * Reason Comments GERD Encounter Details Date Type Department Care Team (Late st Contact Info) Description 06/01/2022 8:30 AM CDT Office Visit [facility] [address] [place] [phone] Almaz Saleh NP [address] [place] [address] Gastroesophageal reflux disease with esophagitis [...] on file Legal Sex Female 12:30 PM 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
--- OUTSIDE RECORDS SUMMARY | 2024-08-08 15:06 | XMS_ITS | Encounter Summary ---
Author Organization [facility] Address [address] [place] [address] Care Team Providers Care Cancer Registry Coordinator Name Role Phone Mel Osei MD Primary Care Provider +1- [phone] Reason for Visit * Reason Comments New Patient Chest Pain * Consultation (Routine) - Closed Specialty Diagnoses / Procedures Referred By Kj judge Referred To Contact Cardiology Diagnoses Chest pain, unspecified type Xaviermiglia, Argentina Mendez NP Phone: tel: James Rivera DO [address] [place] [id number] Phone: tel: fax: Referral ID Status Reason Start Date Expiration Date V isits Requested Visits Authorized [id number] Closed Specialty Services Required 10/10/2020 11/09/2021 1 1 Encounter Details Date Type Department Care Team (Late st Contact Info) Description 10/31/2020 8:30 AM CDT Office Visit [facility] Director Building [address] [place] [address] James Rivera DO [address] [place] [address] Chest pain, unspecified type Social [...] on file Legal Sex Female 12:30 PM MOLDING 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 Chest pain ??? [place] 1999 8-5 product nl ??? Shortness of [...] No follow-ups on file. 9:20 AM James Rivera DO Cc:Mel Osei MD documented in this [...] 10/31/2020 documented in this encounter Care Teams Cancer Registry Coordinator Relationship Specialty Start Date End Date Mel Osei MD PCP - General Internal Medicine 02/07/20 documented as of this encounter
--- OUTSIDE RECORDS SUMMARY | 2024-08-08 15:06 | XMS_ITS | Encounter Summary ---
Author Organization [facility] Address [address] [place] [address] Care Team Providers Care Metal Riveter Name Role Phone Mel Osei MD Primary Care Provider +1- [phone] Encounter Details Date Type Department Care Team (Late st Contact Info) Description 02/03/2021 7:40 AM CDT Lab [facility] [address] [place] [address] Preventative health care; Easy bruising; [...] on file Legal Sex Female 12:30 PM INFORMATION TECH Gender Identity Not on file Sexual [...] 30-39.9) documented in this encounter Care Teams Metal Riveter Relationship Specialty Start Date End Date Mel Osei MD PCP - General Internal Medicine 02/07/20 documented as of this encounter
--- OUTSIDE RECORDS SUMMARY | 2024-08-08 15:06 | XMS_ITS | Encounter Summary ---
Author Organization [facility] Address [address] [place] [address] Care Team Providers Care Scanning Clerk Name Role Phone Mel Osei MD Primary Care Provider +1- [phone] Encounter Details Date Type Department Care Team (Late st Contact Info) Description 10/11/2020 Telephone [facility] [address] [place] [address] Argentina Denise NP [address] [place] [id number] Social History Tobacco Use Types Packs/Day Years [...] on file Legal Sex Female 12:30 PM WAREHOUSE ORDER PICKER Gender Identity Not on file Sexual Orientation [...] to cardiology with 's telephone number/address yesterday. HOUSE ORDER PICKER documented in this encounter Plan of Treatment Not on file documented as of this encounter Visit Diagnoses Not on filedocumented in this encounter Care Teams Scanning Clerk Relationship Specialty Start Date End Date Mel Osei MD PCP - General Internal Medicine 02/07/20 documented as of this encounter
--- OUTSIDE RECORDS SUMMARY | 2024-08-08 15:06 | XMS_ITS | Encounter Summary ---
Author Organization [facility] Address 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 Varicella 05/11/2000, 03/09/2014 Primary Pharmacy/DME suppliers: [id number] [place], [place] - [facility] [address] [facility] [address] [facility] [address] PLEASE BRING IN ALL PILL BOTTLES TO EVERY OFFICE VISIT, THIS IS ESSENTIAL FOR ACCURATE REFILLS AND MAINTAINING AN ACCURATE MEDICATION LIST. PLEASE SIGN UP FOR QueplixHART so that you may have access to your labs and chart documentation IF YOU HAVE TROUBLE WITH THIS PROCESS CALL [phone] Annual Exam finds the need for diet [...] Milind strengthening THIS BOOK IS AVAILABLE ON VisualXcript =The complete guide to Lester Vaz techniques of physical conditioning by Jf Canela FOR arm and leg strengthening, I recommend exercise bands, as they are inexpensive, portable, and packable for travel --options available on Tablefinder include FIT SIMPLIFY exercise bands the come with afjaden exercise program recommendation. IF YOU ARE THE KNEE ISSUES download the [employer] knee program to including the [...] as a Sweetener. Legumes= (soy, peanut, lentils, yqhwu-mxmjg-pymigjnx- beans,hummus) Note all tree nuts and all seeds are OK = Pecan, [place], [place], Cashew,[place] Nuts, sesame seeds, sunflower seeds, pumpkin seeds. [...] ??? Varicella 05/11/2000, 03/09/2014 Primary Pharmacy/DME suppliers: [id number] - [place], [place] - [address] [facility] [address] [facility] [address] PLEASE BRING IN ALL PILL BOTTLES TO EVERY OFFICE VISIT, THIS IS ESSENTIAL FOR ACCURATE REFILLS AND MAINTAINING AN ACCURATE MEDICATION LIST. PLEASE SIGN UP FOR Synta PharmaceuticalsT so that you may have access to your labs and chart documentation IF YOU HAVE TROUBLE WITH THIS PROCESS CALL [phone] Annual Exam finds the need for diet [...] Pildutch strengthening THIS BOOK IS AVAILABLE ON VisualXcript =The complete guide to Lester Vaz techniques of physical conditioning by Jf Canela FOR arm and leg strengthening, I recommend exercise bands, as they are inexpensive, portable, and packable for travel --options available on Tablefinder include FIT SIMPLIFY exercise bands the come with afull exercise program recommendation. IF YOU ARE THE KNEE ISSUES download the [employer] knee program to including the [...] as a Sweetener. Legumes= (soy, peanut, lentils, aygap-qbvyx-vedblwhi- beans,hummus) Note all tree nuts and all seeds are OK = Pecan, [place], [place], Cashew,[place] Nuts, sesame seeds, sunflower seeds, pumpkin seeds. [...] medication prescriptions. ORDERS FROM LAST VISIT WITH MA 11/01/2020 1. No labs due before scheduled [...] THIS VISIT required an additional 30minutes of fkyz-rc-uixf minutes of care time: 2. Obesity (BMI [...] pain ??? COVID-19 virus detected 08/22/2020 ??? [place] 1999 8-5 product nl ??? Shortness of [...] level: Not on file Occupational History Employer: [employer] Tobacco Use ??? Smoking status: Never Smoker ??? Smokeless tobacco: Never Used Vaping Use ??? Vaping Use: Former Substance and Sexual Activity ??? Alcohol use: Not Currently ??? Drug use: Yes Types: Marijuana ??? Sexual activity: Never Partners: Male Other Topics Concern ??? Not on file Social History Narrative (This data did not transfer from Bex and was not retrievable from Bex.) MOM Clare - breast cancer survivor; 3rd relapse with multiple mets 03/25 DAD Gary Simpson - adult moved back home 2017; works at [employer]; plans [employer] - volleyball. Likes Croatian Educational history : High school through for years [employer] galeano graduated in 2018 [place] for 2 years towards in associated applied sciences, Attending [employer] the fall 2019 for [employer] sign language interpreting--year degree Employment history: [employer] part-time, student full-time as of 2019 Exercise [...] THIS VISIT Current Outpatient Medications Ordered in [facility] Medication Sig Dispense Refill ??? adapalene [...] menstrual cramps 30 tablet 5 No current [facility]-ordered facility-administered medications on file. ALLERGIES has [...] 07/12/2020 Final ??? COMMENTS 07/12/2020 Final ??? Licensed Occupational Therapy Assistant 07/12/2020 Final ??? Comment 07/12/2020 Final Lab [...] 02/11/2021 documented in this encounter Care Teams Pediatric Pathologist Relationship Specialty Start Date End Date Mel Osei MD PCP - General Internal Medicine 02/07/20 documented as of this encounter
--- OUTSIDE RECORDS SUMMARY | 2024-08-08 15:06 | XMS_ITS | Encounter Summary ---
Author Organization [facility] Address [address] [place] [address] Care Team Providers Care Energy Trading Analyst Name Role Phone Mel Osei MD Primary Care Provider +1- [phone] Tabitha Liu CGC Unavailable [phone] Reason for Visit * Reason Comments Annual Exam Encounter Details Date Type Department Care Team (Late st Contact Info) Description 03/08/2023 3:00 PM CDT Office Visit [facility] [address] [place] [address] Mel Osei MD [address] [place] [address] Annual physical exam (Primary Dx); Obesity (BMI [...] on file Legal Sex Female 12:30 PM PHTHALIC ACID PURIFIER Gender Identity Not on file Sexual Orientation Not on file Occupation Industry Job Start Date Job End Date [place] Title Not on file Not on file [...] Tylenol immediate release 500 mg plus extended mg, you can safely use this combination [...] to every office visit. SIGN UP FOR Smart [employer] To Sign up for Ximalaya on your computer or smart phone. [email or web address] You may do this yourself OR have your POA sign up for you. This account can link to an GWYN on your phone and / or to your personal email and quickly allow youto securely communicate with your healthcare team. If you have trouble with this process call [phone] documented in this encounter Ordered Prescriptions Prescription [...] social changes living with her sister and odjxhve-un-gsl. Driving all way to [place] 2 hours can you daily. Very little [...] today required an extra 24 minutes of brpp-wu-sbzv time Tracey reports feeling well Diagnoses and [...] Cobb - 03/08/2023 3:00 PM CDTAddended by: YEVTTE COBB on: 12/30/2023 09:16 AM Modules accepted: Orders documented in this encounter Plan of Treatment Not on file documented as of this encounter Results * (ABNORMAL) Comprehensive metabolic panel (12/30/2023 9:16 AM CDT) Sodium 140 135 - 145 mmol/L Comment:Testing performed by : [facility], [address] [place] [address], [place]., [address] Potassium, pl 4.4 3.3 - 4.9 mmol/L BHUPENDRA SANCHEZ Comment:Testing performed by : [address] [address] Chloride 105 97 - 110 mmol/L CERNER CH Comment:Testing performed by : [address] [address] CO2 23 22 - 32 mmol/L CERNER CH Comment:Testing performed by : [address] [address] Anion gap 12 2 - 15 mmol/L CERNER CH Comment:Testing performed by : [address] [address] BUN 13 6 - 25 mg/dL CERNER CH Comment:Testing performed by : [address], [address] Creatinine 1.13(H) 0.60 - 1.10 mg/dL CERNER CH Comment:Testing performed by : [address], [address] Glucose 89 70 - 199 mg/dL CERNER [...] was last revised 2022. Testing performed by: [address] [address] Calcium 9.6 8.5 - 10.3 mg/dL CERNER CH Comment:Testing performed by : [address] [address] Bilirubin, total 0.4 0.1 - 1.2 mg/dL CERNER CH Comment:Testing performed by : [address] [address] Protein, pl 6.8 6.5 - 8.5 g/dL CERNER CH Comment:Testing performed by : [address], [address] Albumin 4.0 3.5 - 5.0 g/dL [facility] Comment:Testing performed by : [facility], [address] [place] [address]., [address] Alk phos 73 40 - 130 Units/L [facility] Comment:Testing performed by : [facility], [address] [place] [address]., [address] ALT 29 7 - 45 Units/L [facility] Comment:Testing performed by : [facility], [address] [place] [address]., [address] AST 38 10 - 45 Units/L [facility] Comment:Testing performed by : [facility], [address] [place] [address]., [address] Blood 12/30/2023 9:16 AM CDT 12/30/2023 2:17 PM CDT us Mel Osei MD LAB BLOOD ORDERABLES Final Result [address] Department [place] [address] * Cholesterol, LDL, direct (12/30/2023 9:16 AM [...] last revised on 2018. Testing performed by: [facility], [address] [place] [address]., [address] Blood 12/30/2023 9:16 AM CDT 12/30/2023 2:17 PM CDT us Mel Osei MD LAB BLOOD ORDERABLES Final Result BHUPENDRA SANCHEZ [address] [address] Department [place] [address] documented in this encounter Visit Diagnoses Diagnosis [...] documented as of this encounter Care Teams Energy Trading Analyst Relationship Specialty Start Date End Date Mel Osei MD PCP - General Internal Medicine 02/07/20 Tabitha Liu CGC [facility] PED GENETICS [place] [address] Genetics 06/22/23 documented as of this encounter
--- OUTSIDE RECORDS SUMMARY | 2024-08-08 15:06 | XMS_ITS | Encounter Summary ---
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
--- OUTSIDE RECORDS SUMMARY | 2024-08-08 15:06 | XMS_ITS | Encounter Summary ---
Author Organization [facility] Address [address] [place] [address] Care Team Providers Care Boiler Technician Name Role Phone Mel Osei MD Primary Care Provider +1- [phone] Encounter Details Date Type Department Care Team (Late st Contact Info) Description 02/12/2021 Telephone [facility] [address] [place] [address] Mel Osei MD [address] [place] [address] Social History Tobacco Use Types [...] on file Legal Sex Female 12:30 PM TECHNICAL SUPPORT AGENT Gender Identity Not on file Sexual Orientation [...] monitoring documented in this encounter Care Teams Boiler Technician Relationship Specialty Start Date End Date Mel Osei MD PCP - General Internal Medicine 02/07/20 documented as of this encounter
--- OUTSIDE RECORDS SUMMARY | 2024-08-08 15:06 | XMS_ITS | Encounter Summary ---
Author Organization [facility] Address [address] [place] [address] Care Team Providers Care Wireless Construction Manager Name Role Phone Mel Osei MD Primary Care Provider +1- [phone] Reason for Visit * Reason Onset Date Comments Med Refill 11/24/2022 Encounter Details Date Type Department Care Team (Late st Contact Info) Description 11/24/2022 Telephone [facility] [address] [place] [phone] Mel Osei MD [address] [place] [address] Med Refill Social History Tobacco Use Types [...] on file Legal Sex Female 12:30 PM ACO COORDINATOR Gender Identity Not on file Sexual Orientation Not on file Occupation Industry Job Start Date Job End Date [place] Title Not on file Not on file [...] and I have sent refills to 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
--- OUTSIDE RECORDS SUMMARY | 2024-08-08 15:06 | XMS_ITS | Encounter Summary ---
Author Organization [facility] Address [address] [place] [address] Phone Care Team Providers Care Exhibit Preparator Name Role Phone Mel Osei MD Primary Care Provider +1- [phone] Encounter Details Date Type Department Care Team (Late st Contact Info) Description 05/12/2023 Telephone [facility] Pediatric Genetics [address] [facility] 2nd [place] [address] [place] [id number] Kyleigh You MD [address] [place] [address] [address] [place], [place] [id number] Social History Tobacco Use Types Packs/Day Years [...] on file Legal Sex Female 12:30 PM PHOTOGRAPH MOUNTER Gender Identity Not on file Sexual Orientation Not on file Occupation Industry Job Start Date Job End Date [place] Title Not on file Not on file Not on file documented as of this encounter Miscellaneous Notes * Telephone Encounter - Vanessa Elise - 06/14/2023 3:43 PM CST Done OGRAPH MOUNTER documented in this encounter Plan of Treatment Not on file documented as of this encounter Visit Diagnoses Not on filedocumented in this encounter Care Teams Exhibit Preparator Relationship Specialty Start Date End Date Mel Osei MD PCP - General Internal Medicine 02/07/20 documented as of this encounter
--- OUTSIDE RECORDS SUMMARY | 2024-08-08 15:06 | XMS_ITS | Encounter Summary ---
Author Organization [facility] Address [address] [place] [address] Care Team Providers Care Welt Sole Layer Name Role Phone Mel Osei MD Primary Care Provider [phone]- [phone] Reason for Referral * Consultation (Routine) - Closed Specialty Diagnoses / Procedures Referred By Kj judge Referred To Contact Cardiology Diagnoses Chest pain, unspecified type Argentina Denise NP Phone: tel: Cristal Fernandes, [address] [address] Phone: tel: fax: Referral ID Status Reason Start Date Expiration Date V isits Requested Visits Authorized [id number] Closed Specialty Services Required 10/10/2020 11/09/2021 1 1 Question Answer Please select the performing region: [facility] [[id number]] Please select the performing department: JIMMIE [facility] [[id number]] To provider: CRISTAL FERNANDES [[id number]] # of visits: 1 Comments Needs appt. RUIZ. Refer to cardiology for chest pain. Please contact patient to set something up @ # [phone]. D RECORDING TECHNICIAN Reason for Visit * Reason Comments Follow-up zoloft Encounter Details Date Type Department Care Team (Latest Contact Info) Description 10/10/2020 3:30 PM SOUND RECORDING TECHNICIAN Office Visit [facility] [address] [place] [address] Argentina Denise NP [address] [place] [address] Anxiety and depression (Primary Dx); Chest pain, [...] on file Legal Sex Female 12:30 PM SOUND RECORDING TECHNICIAN Gender Identity Not on file Sexual Orientation Not on file Occupation Industry Job Start Date Job End Date Not on file Not on file Not on file Not on file documented as of this encounter Last Filed Vital Signs Vital Sign Reading Time Taken Comments Blood Pressure 124/80 10/10/2020 3:06 PM SOUND RECORDING TECHNICIAN Pulse 70 10/10/2020 3:06 PM SOUND RECORDING TECHNICIAN Temperature 36.3 ??C (97.3 ??F) 10/10/2020 3:06 PM CS T Respiratory Rate 12 10/10/2020 3:06 PM SOUND RECORDING TECHNICIAN Oxygen Saturation 99% 10/10/2020 3:06 PM SOUND RECORDING TECHNICIAN Inhaled Oxygen Concentration - - Weight 95.4 kg (210 lb 6.4 oz) 10/10/2020 3:06 P M SOUND RECORDING TECHNICIAN Height 167.6 cm (5' 6 ) 10/10/2020 3:06 PM SOUND RECORDING TECHNICIAN Body Mass Index 33.96 10/10/2020 3:06 PM SOUND RECORDING TECHNICIAN documented in this encounter Patient Instructions * Patient Instructions* Argentina Denise NP - 10/10/2020 3:30 PM SOUND RECORDING TECHNICIAN Orders for AMS STAFF to arrange Please [...] REFILLS AND MAINTAINING AN ACCURATE MEDICATION LIST. D RECORDING TECHNICIAN D RECORDING TECHNICIAN D RECORDING TECHNICIAN documented in this encounter Ordered Prescriptions Prescription [...] THIS VISIT Current Outpatient Medications Ordered in [facility] Medication Sig Dispense Refill ??? [...] for 3 days 3 tablet0 No current [facility]-ordered facility-administered medications on file. ALLERGIES [...] in the After Visit Summary. Argentinahima Denise, CREW LEAD- THE FOLLOWING CLERICAL INFORMATION DOES NOT DUE [...] 07/12/2020 Final ??? COMMENTS 07/12/2020 Final ??? Manufacturing Mechanic 07/12/2020 Final ??? Comment 07/12/2020 Final Lab [...] Mel Osei MD at 10/11/2020 3:36 PM SOUND RECORDING TECHNICIAN D RECORDING TECHNICIAN D RECORDING TECHNICIAN documented in this encounter Miscellaneous Notes * Assessment & Plan Note - Argentina Denise NP - 10/11/2020 7:53 AM SOUND RECORDING TECHNICIAN Associated Problem(s): Anxiety and depression (Resolved 02/11/2021) [...] will follow up further at that time. D RECORDING TECHNICIAN documented in this encounter Plan of [...] documented as of this encounter Care Teams Welt Sole Layer Relationship Specialty Start Date End Date Mel Osei MD PCP - General Internal Medicine 02/07/20 documented as of this encounter
--- OUTSIDE RECORDS SUMMARY | 2024-08-08 15:07 | XMS_ITS | Encounter Summary ---
Author Organization [facility] Address [address] [place] [address] Care Team Providers Care Metal Room Dental Technician Name Role Phone Mel Osei MD Primary Care Provider [phone]- [phone] Reason for Visit * Reason Onset Date Comments Covid-19 Home Monitoring 09/13/2020 Enrollm ent Encounter Details Date Type Department Care Team (Late st Contact Info) Description 09/13/2020 Telephone [facility] Accountable Care Organization [address] [place] [address] Yaneth De Jesus LPN [address] [place] [address] [address] [place] [address] Covid-19 Home Monitoring (Enrollment) Social History Tobacco [...] on file Legal Sex Female 12:30 PM LOGISTICS RESEARCH ENGINEER Gender Identity Not on file Sexual Orientation Not on file Occupation Industry Job Start Date Job End Date Not on file Not on file Not on file Not on file documented as of this encounter Miscellaneous Notes * Telephone Encounter - Yaneth De Jesus LPN - 09/13/2020 12:02 PM LOGISTICS RESEARCH ENGINEER This patient is not currently a good candidate for our COVID-19 home monitoring program because covid recovered and followed up with PCP. By saving a note using this template, the patient will drop off our home monitoring candidate reports for two weeks. If we still consider them to have an active case of COVID-19 at that time, we willreevaluate them for home monitoring. STICS RESEARCH ENGINEER documented in this encounter Plan of Treatment Not on file documented as of this encounter Visit Diagnoses Not on filedocumented in this encounter Care Teams Metal Room Dental Technician Relationship Specialty Start Date End Date Mel Osei MD PCP - General Internal Medicine 02/07/20 documented as of this encounter
--- OUTSIDE RECORDS SUMMARY | 2024-08-08 15:07 | XMS_ITS | Encounter Summary ---
Author Organization [facility] Address [address] [place] [address] Care Team Providers Care Manager Department Name Role Phone Mel Osei MD Primary Care Provider [phone]- [phone] Reason for Visit * Reason Comments New Patient Encounter Details Date Type Department Care Team (Late st Contact Info) Description 06/21/2020 1:00 PM ELECTRONIC CALIBRATION TECHNICIAN Office Visit [facility] [address] [place] [address] Ness Fried MD [address] [place] [address] Dysmenorrhea (Primary Dx); Family history of breast [...] file Legal Sex Female 12:30 PM ELECTRONIC CALIBRATION TECHNICIAN Gender Identity Not on file Sexual Orientation Not on file Occupation Industry Job Start Date Job End Date Not on file Not on file Not on file Not on file documented as of this encounter Last Filed Vital Signs Vital Sign Reading Time Taken Comments Blood Pressure 122/80 06/21/2020 12:44 PM ELECTRONIC CALIBRATION TECHNICIAN Pulse - - Temperature 36.3 ??C (97.3 ??F) 06/21/2020 12:[address] Respiratory Rate - - Oxygen Saturation - - Inhaled Oxygen Concentration - - Weight 97.1 kg (214 lb) 06/21/2020 12:44 PM ELECTRONIC CALIBRATION TECHNICIAN Height 167.6 cm (5' 6 ) 06/21/2020 12:44 PM ELECTRONIC CALIBRATION TECHNICIAN Body Mass Index 34.54 06/21/2020 12:44 PM ELECTRONIC CALIBRATION TECHNICIAN documented in this encounter Progress Notes * [...] 0 Past Medical History: Diagnosis Date ??? [place] 1999 8-5 product nl ??? Viral gastroenteritis [...] Highest education level: None Occupational History Employer: [employer] Social Needs ??? Financial resource strain: None [...] on phone: None Gets together: None Attends islam service: None Active member of club or organization: None Attends meetings of clubs or organizations: None Relationship status: None ??? Intimate partner violence Fear of current or ex partner: None Emotionally abused: None Physically abused: None Forced sexual activity: None Other Topics Concern ??? None Social History Narrative (This data did not transfer from [employer] and was not retrievable from [employer].) MOM Clare - breast cancer survivor; 3rd relapse with multiple mets 03/25 DAD Gary Simpson - adult moved back home 2017; works at [email or web address]; plans [employer] JEAN - volleyball. Likes Macedonian Educational history : High school through for years Argenis galeano graduated in 2018 [employer] for 2 years towards in associated applied sciences, Attending [employer] the fall 2019 for Hungarian sign language interpreting--year degree Employment history: [employer] part-time, student full-time as of 2019 Exercise [...] for genetic counseling. Ness Fried MD 06/21/2020 TRONIC CALIBRATION TECHNICIAN documented in this encounter Plan of Treatment Not on file documented as of this encounter Visit Diagnoses Diagnosis Dysmenorrhea- Primary Family history of breast cancer Family history of malignant neoplasm of breast documented in this encounter Care Teams Manager Department Relationship Specialty Start Date End Date Mel Osei MD PCP - General Internal Medicine 02/07/20 documented as of this encounter
--- OUTSIDE RECORDS SUMMARY | 2024-08-08 15:07 | XMS_ITS | Encounter Summary ---
Author Organization [facility] Care Team Providers Care Tool Maker Bench Name Role Phone Unavailable Primary Care Provider Unavailabl e Encounter Details Date Type Department Care Team (Late st Contact Info) Description 02/25/2007 1:49 PM CDT - 02/25/2007 11:59 PM CDT Hospital Encounter [facility] Social History Tobacco Use Types Packs/Day Years Used Date Smoking Tobacco: Never Assessed Comments Unknown Sex and Gender Information Value Date Recorded Sex Assigned at Not on file Legal Sex Female 12:30 PM PREPARATION ROOM MANAGER Gender Identity Not on file Sexual Orientation Not on file documented as of this encounter Plan of Treatment Not on file documented as of this encounter Visit Diagnoses Not on filedocumented in this encounter
--- OUTSIDE RECORDS SUMMARY | 2024-08-08 15:07 | XMS_ITS | Encounter Summary ---
Author Organization [facility] Address [address] [place] [address] Care Team Providers Care Efficiency Miner Name Role Phone Mel Osei MD Primary Care Provider [phone]- [phone] Encounter Details Date Type Department Care Team (Late st Contact Info) Description 09/27/2020 Telephone [facility] [address] [place] [address] Mel Osei MD [address] [place], [place] [id number] Social History Tobacco Use Types Packs/Day Years [...] on file Legal Sex Female 12:30 PM MEDIA MARKETING MANAGER Gender Identity Not on file Sexual Orientation Not on file Occupation Industry Job Start Date Job End Date Not on file Not on file Not on file Not on file documented as of this encounter Miscellaneous Notes * Telephone Encounter - Argentina Denise NP - 09/27/2020 2:28 PM MEDIA MARKETING MANAGER Noted thank you A MARKETING MANAGER * Telephone Encounter - Bernice Yeboah RN [...] having the same pain as before. To Argentina-COAT FELLER: Update A MARKETING MANAGER * Telephone Encounter - Argentina Denise NP - 09/27/2020 1:45 PM MEDIA MARKETING MANAGER Please let her know that her stress test and echo are normal. If she is still having chest pain. Has the zoloft helped at all? A MARKETING MANAGER * Telephone Encounter - Akshat Grissom - 09/27/2020 1:14 PM CST Patient got a echo done today and a stress test and [facility] and she is wandering if someone could call and give her results. Cbn: [phone] A MARKETING MANAGER documented in this encounter Plan of Treatment Not on file documented as of this encounter Visit Diagnoses Not on filedocumented in this encounter Care Teams Efficiency Miner Relationship Specialty Start Date End Date Mel Osei MD PCP - General Internal Medicine 02/07/20 documented as of this encounter
--- OUTSIDE RECORDS SUMMARY | 2024-08-08 15:07 | XMS_ITS | Encounter Summary ---
Author Organization [facility] Address [address] [place] [address] Care Team Providers Care Fitness Sales Consultant Name Role Phone Mel Osei MD Primary Care Provider [phone]- [phone] Encounter Details Date Type Department Care Team (Late st Contact Info) Description 08/23/2020 Telephone [facility] [address] [place] [address] Mel Osei MD [address] [place], [place] [id number] Social History Tobacco Use Types Packs/Day Years Used Date Smoking Tobacco: Never Smokeless Tobacco: Never Alcohol Use Standard Drinks/Week Comments Not Currently 0 (1 standard drink = 0.6 oz pur e alcohol) PHQ-2 Answer Date Recorded PHQ-2 Score 0 02/07/2020 Comments No Sex and Gender Information Value Date Recorded Sex Assigned at Not on file Legal Sex Female 12:30 PM SEWING MACHINE ATTACHMENT TESTER Gender Identity Not on file Sexual Orientation [...] No radiographic evidence of pulmonary disease. ?? NG MACHINE ATTACHMENT TESTER documented in this encounter Plan of Treatment Not on file documented as of this encounter Visit Diagnoses Not on filedocumented in this encounter Care Teams Fitness Sales Consultant Relationship Specialty Start Date End Date Mel Osei MD PCP - General Internal Medicine 02/07/20 documented as of this encounter
--- OUTSIDE RECORDS SUMMARY | 2024-08-08 15:07 | XMS_ITS | Encounter Summary ---
Author Organization [facility] Address [address] [place] [address] Phone Care Team Providers Care Senior Maintenance Technician Name Role Phone Jamilah Fodr MD Primary Care Provider [phone] Reason for Visit * Reason Comments Immunizations Encounter Details Date Type Department Care Team (Latest Contact Info) Description 09/24/2017 3:40 PM PULMONARY FUNCTION TECHNICIAN Clinical Support [facility] [address] [place] [address] Need for vaccination (Primary Dx) Social History Tobacco Use Types Packs/Day Years Used Date Smoking Tobacco: Never Assessed Comments Unknown Sex and Gender Information Value Date Recorded Sex Assigned at Not on file Legal Sex Female 12:30 PM PULMONARY FUNCTION TECHNICIAN Gender Identity Not on file Sexual [...] 09/24/2017 documented in this encounter Care Teams Senior Maintenance Technician Relationship Specialty Start Date End Date Jamilah Ford MD [address] [address] PCP - General 11/06/16 02/06/20 documented as of this encounter
--- OUTSIDE RECORDS SUMMARY | 2024-08-08 15:07 | XMS_ITS | Encounter Summary ---
Author Organization [facility] Address [address] [place] [address] Care Team Providers Care Supervisor Ore Dressing Name Role Phone Mel Osei MD Unavailable [phone] Mel Osei MD Primary Care Provider [phone]- [phone] Encounter Details Date Type Department Care Team (Late st Contact Info) Description 02/07/2020 3:00 PM CDT Office Visit [facility] [address] [place] [phone] Mel Osei MD [address] [place] [address] Annual physical exam (Primary Dx); Obesity (BMI [...] on file Legal Sex Female 12:30 PM PLY CUTTER Gender Identity Not on file Sexual Orientation [...] - 02/07/2020 3:00 PM CDT ORDERS FOR [facility] STAFF TO ARRANGE 1. Refer Dr. Fried [...] ??? Varicella 05/11/2000, 03/09/2014 Primary Pharmacy/DME suppliers: [id number] [place], [place] - [address] [facility] [address] [facility] [address] PLEASE BRING IN ALL PILL BOTTLES TO EVERY OFFICE VISIT, THIS IS ESSENTIAL FOR ACCURATE REFILLS AND MAINTAINING AN ACCURATE MEDICATION LIST. PLEASE SIGN UP FOR FilmmortalHART so that you may have access to your labs and chart documentation IF YOU HAVE TROUBLE WITH THIS PROCESS CALL [phone] Annual Exam finds the need for diet [...] rate monitor, there are several options including Bildero, Netbyte Hosting, Mainstream DataMIN. The if you do not have a heart rate monitor an in expensive option CooSpo is available on line for about 30 dollars can be worn during exercise. You would link your heart rate monitor to a telephone alejandra,( most are free) available apps include: Tyto, JasonDB BEAT + JasonDB FLOW, Red Guru, VouchercloudO, InteRNA Technologies, Avid[employer] Holdings - a health alejandra already preloaded on [...] intensity exercise that is easier on an eleqv-bqqzw-hgy basis Morbid obesity = body mass index above 40, Obesity = Body mass index over 30. [place] body mass index is less than 25. [...] recurrence of the virus in your community: https://covid.HESKA/us CONSIDER JOINING A CONTROL TRIAL TO HELP TEST NEW THERAPIES: The [facility] study [facility] has a study looking at Luvox to prevent rapid growth of the virus in your body after getting COVID-19 infection with her recent (+) viral RNA study. You may contact [facility] to join that study. Online: [email or web address] Or by email: [email or web address] CONTACT [facility] [phone] and ask for the STACI WALLER TRIAL for home LUVOX treatment of COVID-19 RELIABLE TESTING FOR ACUTE INFECTION WITH COVID-19 = PCR RNA test IS AVAILABLE at multiple hospitals and [facility] centers in our local area -you [...] and HOUSEHOLD SAFETY FOLLOW THESE INTERVENTIONS: Avoid ygbz-sm-ugzv exposure to your pets, cats and dogs [...] regularly with Lysol or a Chlorine base chrome cleaner 3. To prevent contaminating yourself, avoid touching your eyes, nose, mouth, or face until you haveadequately washed your hands with soap and water or hand gel. IF YOU HAVE DEVELOPED SYMPTOMS OF COVID-19 CONTACT [facility] [phone] and ask for COVID-19 HOTLINE 1. If [...] ??? Varicella 05/11/2000, 03/09/2014 Primary Pharmacy/DME suppliers: [id number] - [place], [place] - [address] [facility] [address] [facility] [address] PLEASE BRING IN ALL PILL BOTTLES TO EVERY OFFICE VISIT, THIS IS ESSENTIAL FOR ACCURATE REFILLS AND MAINTAINING AN ACCURATE MEDICATION LIST. PLEASE SIGN UP FOR FilmmortalHART so that you may have access to your labs and chart documentation IF YOU HAVE TROUBLE WITH THIS PROCESS CALL [phone] Annual Exam finds the need for diet [...] rate monitor, there are several options including Bildero, Netbyte Hosting, eyeQ. The if you do not have a heart rate monitor an in expensive option CooSpo is available on line for about 30 dollars can be worn during exercise. You would link your heart rate monitor to a telephone alejandra,( most are free) available apps include: Tyto, JasonDB BEAT + Oonair, Red Guru, CoContest, InteRNA Technologies, [employer]idbank Holdings - a health alejandra already preloaded on [...] intensity exercise that is easier on an dhiau-flcpb-gry basis Morbid obesity = body mass index above 40, Obesity = Body mass index over 30. [place] body mass index is less than 25. [...] recurrence of the virus in your community: https://covid.HESKA/us CONSIDER JOINING A CONTROL TRIAL TO HELP TEST NEW THERAPIES: The [facility] study [facility] has a study looking at Luvox to prevent rapid growth of the virus in your body after getting COVID-19 infection with her recent (+) viral RNA study. You may contact [facility] to join that study. Online: [email or web address] Or by email: [email or web address] CONTACT [facility] [phone] and ask for the STACI WALLER TRIAL for home LUVOX treatment of COVID-19 RELIABLE TESTING FOR ACUTE INFECTION WITH COVID-19 = PCR RNA test IS AVAILABLE at multiple hospitals and [facility] centers in our local area -you [...] and HOUSEHOLD SAFETY FOLLOW THESE INTERVENTIONS: Avoid ucou-it-jluj exposure to your pets, cats and dogs [...] regularly with Lysol or a Chlorine base chrome cleaner 3. To prevent contaminating yourself, avoid touching your eyes, nose, mouth, or face until you haveadequately washed your hands with soap and water or hand gel. IF YOU HAVE DEVELOPED SYMPTOMS OF COVID-19 CONTACT [facility] [phone] and ask for COVID-19 HOTLINE 1. If [...] file Gets together: Not on file Attends episcopalian service: Not on file Active member of [...] Narrative (This data did not transfer from [employer] and was not retrievable from [employer].) MOM Clare - breast cancer survivor; 3rd relapse with multiple mets 03/25 DAD Gary Simpson - adult moved back home 2017; works at [employer]; plans [employer] - volleyball. Likes Guyanese Educational history : High school through for years Argenis galeano graduated in 2018 [employer] for 2 years towards in associated applied sciences, Attending [employer] the fall 2019 for Yemeni sign language interpreting--year degree Employment history: [employer] part-time, student full-time as of 2019 Exercise [...] THIS VISIT Current Outpatient Medications Ordered in [facility] Medication Sig Dispense Refill ??? adapalene (DIFFERIN) 0.1 % cream Apply topically at bedtime. 45 g 5 ??? naproxen (ANAPROX DS) 550 mg tablet TAKE 1 TABLET BY MOUTH TWICE DAILY NEEDED FOR PAIN 180 0 No current [facility]-ordered facility-administered medications on file. ALLERGIES has No [...] ur, POC 03/23/2017 Clear Final ??? Specific [place], POC 03/23/2017 1.010 Final ??? Blood, ur, [...] Osei MD LAB BLOOD ORDERABLES Final Result [facility] [address] [place] [address] * Comprehensive metabolic panel (02/03/2021 7:55 AM [...] LAB BLOOD ORDERABLES Final Result [facility] [address] [place] [address] documented in this encounter Visit Diagnoses Diagnosis [...] documented as of this encounter Care Teams Supervisor Ore Dressing Relationship Specialty Start Date End Date Mel Osei MD PCP - General Internal Medicine 02/07/20 Mel Osei MD Consulting Physician Internal Medicine 02/07/20 02/07/20 documented as of this encounter
--- OUTSIDE RECORDS SUMMARY | 2024-08-08 15:07 | XMS_ITS | Encounter Summary ---
Author Organization [facility] Address [address] [place] [address] Care Team Providers Care Set Up Machinist Name Role Phone Mel Osei MD Primary Care Provider +1- [phone] Encounter Details Date Type Department Care Team (Late st Contact Info) Description 08/22/2020 3:10 PM TECHNICIAN Lab [facility] [address] [place] [address] Shortness of breath Social History [...] on file Legal Sex Female 12:30 PM TECHNICIAN Gender Identity Not on file Sexual Orientation Not on file Occupation Industry Job Start Date Job End Date Not on file Not on file Not on file Not on file documented as of this encounter Plan of Treatment Not on file documented as of this encounter Visit Diagnoses Diagnosis Shortness of breath documented in this encounter Care Teams Set Up Machinist Relationship Specialty Start Date End Date Mel Osei MD PCP - General Internal Medicine 02/07/20 documented as of this encounter
--- OUTSIDE RECORDS SUMMARY | 2024-08-08 15:07 | XMS_ITS | Encounter Summary ---
Author Organization [facility] Facility Care Team Providers Care Employee Service Officer Name Role Phone Unavailable Primary Care Provider Unavailabl e Encounter Details Date Type Department Care Team (Late st Contact Info) Description 04/15/2007 12:18 PM CDT - 04/15/2007 11:59 PM CDT Hospital Encounter [facility] Social History Tobacco Use Types Packs/Day Years Used Date Smoking Tobacco: Never Assessed Comments Unknown Sex and Gender Information Value Date Recorded Sex Assigned at Not on file Legal Sex Female 12:30 PM LABORER PIPELINES Gender Identity Not on file Sexual Orientation Not on file documented as of this encounter Plan of Treatment Not on file documented as of this encounter Visit Diagnoses Not on filedocumented in this encounter
--- OUTSIDE RECORDS SUMMARY | 2024-08-08 15:07 | XMS_ITS | Encounter Summary ---
Author Organization [facility] Healthcare Address [address] [place] [address] Care Team Providers Care Registration Manager Name Role Phone Jamilah Ford MD Primary Care Provider Encounter Details Date Type Department Care Team (Late st Contact Info) Description 03/23/2017 7:25 PM CDT Lab [address] [address] Social History Tobacco Use Types Packs/Day Years Used Date Smoking Tobacco: Never Assessed Comments Unknown Sex and Gender Information Value Date Recorded Sex Assigned at Not on file Legal Sex Female 12:30 PM AMMUNITION STORAGE SUPERINTENDENT Gender Identity Not on file Sexual Orientation Not on file documented as of this encounter Plan of Treatment Not on file documented as of this encounter Visit Diagnoses Not on filedocumented in this encounter Care Teams Registration Manager Relationship Specialty Start Date End Date Jamilah Ford MD [address] [place] [address] PCP - General 11/06/16 02/06/20 documented as of this encounter
--- OUTSIDE RECORDS SUMMARY | 2024-08-08 15:07 | XMS_ITS | Encounter Summary ---
Author Organization [facility] Address [address] [place] [address] Phone Care Team Providers Care Franchise Field Consultant Name Role Phone Jamilah Ford MD Primary Care Provider [phone] Encounter Details Date Type Department Care Team (Late st Contact Info) Description 03/25/2017 Telephone [facility] [address] [place] [address] Lou Luan NP [address] [address] Social History Tobacco Use Types Packs/Day Years Used Date Smoking Tobacco: Never Assessed Comments Unknown Sex and Gender Information Value Date Recorded Sex Assigned at Not on file Legal Sex Female 12:30 PM SPA MANAGER/ESTHETICIAN Gender Identity Not on file Sexual Orientation [...] on filedocumented in this encounter Care Teams Franchise Field Consultant Relationship Specialty Start Date End Date Jamilah Ford MD [address] [address] PCP - General 11/06/16 02/06/20 documented as of this encounter
--- OUTSIDE RECORDS SUMMARY | 2024-08-08 15:07 | XMS_ITS | Encounter Summary ---
Author Organization [facility] Address [address] [place] [address] Care Team Providers Care Admitted Attorneys Name Role Phone Mel Osei MD Primary Care Provider +1- [phone] Encounter Details Date Type Department Care Team (Late st Contact Info) Description 07/12/2020 Orders Only [facility] [address] [place] [address] Ness Fried MD [address] [place] [address] Social History Tobacco Use Types Packs/Day Years Used Date Smoking Tobacco: Never Smokeless Tobacco: Never Alcohol Use Standard Drinks/Week Comments Not Currently 0 (1 standard drink = 0.6 oz pur e alcohol) PHQ-2 Answer Date Recorded PHQ-2 Score 0 02/07/2020 Comments No Sex and Gender Information Value Date Recorded Sex Assigned at Not on file Legal Sex Female 12:30 PM FELTER TENNIS BALLS Gender Identity Not on file Sexual Orientation [...] HPV MRNA E6/E7 Routine 07/12/2020 10:30 AM FELTER TENNIS BALLS documented in this encounter Results * [facility] Pap Reflex HPV mRNA E6/E7 (07/12/2020 10:30 AM FELTER TENNIS BALLS) CLINICAL INFORMATION: Kaylyn NavasAngeloCarmina judge Mohinder Comment: [...] intraep ithelial lesion or malignancy. COMMENTS Kaylyn NavasAngleoCarmina judge Mohinder Comment: This Pap test has been evaluated with computer assisted technology. Utility Service Worker Moise st NavasAngeloCarmina judge Mohinder Comment: YQ, CT(ASCP) CT screening location: [place] [address] [address] [address] Comment Kaylyn YosefAngeloCarmina nu Vines Comment: EXPLANATORY [...] current clinical information. 07/12/2020 10:3 0 AM FELTER TENNIS BALLS 07/15/2020 12:56 PM FELTER TENNIS BALLS Narrative [facility] - 07/17/2020 1:14 PM FELTER TENNIS BALLS FASTING: UNKNOWN us Ness Fried MD LAB PATHOLOGY ORDERAB LES Final Result [facility] Kaylyn GizmoxYonny [address] [place] [address] documented in this encounter Visit Diagnoses Not on filedocumented in this encounter Care Teams Admitted Attorneys Relationship Specialty Start Date End Date Mel Osei MD PCP - General Internal Medicine 02/07/20 documented as of this encounter
--- OUTSIDE RECORDS SUMMARY | 2024-08-08 15:07 | XMS_ITS | Encounter Summary ---
Author Organization [facility] Address [address] [place] [address] Care Team Providers Care Farm Equipment Operator Name Role Phone Mel Osei MD Primary Care Provider [phone]- [phone] Encounter Details Date Type Department Care Team (Late st Contact Info) Description 07/12/2020 12:50 PM STRAP BUCKLER Lab [facility] [address] [place] [address] Social History Tobacco Use Types Packs/Day Years Used Date Smoking Tobacco: Never Smokeless Tobacco: Never Alcohol Use Standard Drinks/Week Comments Not Currently 0 (1 standard drink = 0.6 oz pur e alcohol) PHQ-2 Answer Date Recorded PHQ-2 Score 0 02/07/2020 Comments No Sex and Gender Information Value Date Recorded Sex Assigned at Not on file Legal Sex Female 12:30 PM STRAP BUCKLER Gender Identity Not on file Sexual Orientation Not on file Occupation Industry Job Start Date Job End Date Not on file Not on file Not on file Not on file documented as of this encounter Plan of Treatment Not on file documented as of this encounter Visit Diagnoses Not on filedocumented in this encounter Care Teams Farm Equipment Operator Relationship Specialty Start Date End Date Mel Osei MD PCP - General Internal Medicine 02/07/20 documented as of this encounter
--- OUTSIDE RECORDS SUMMARY | 2024-08-08 15:07 | XMS_ITS | Encounter Summary ---
Author Organization [facility] Healthcare Address [address] [place] [address] Care Team Providers Care Tube Molder Fiberglass Name Role Phone Mel Osei MD Primary Care Provider +1- [phone] Encounter Details Date Type Department Care Team (Late st Contact Info) Description 08/22/2020 5:15 PM RN NIGHT Lab [facility] [address] [place] [address] Shortness of breath Social History Tobacco Use Types Packs/Day Years Used Date Smoking Tobacco: Never Smokeless Tobacco: Never Alcohol Use Standard Drinks/Week Comments Not Currently 0 (1 standard drink = 0.6 oz pur e alcohol) PHQ-2 Answer Date Recorded PHQ-2 Score 0 02/07/2020 Comments No Sex and Gender Information Value Date Recorded Sex Assigned at Not on file Legal Sex Female 12:30 PM RN NIGHT Gender Identity Not on file Sexual Orientation Not on file Occupation Industry Job Start Date Job End Date Not on file Not on file Not on file Not on file documented as of this encounter Plan of Treatment Not on file documented as of this encounter Procedures Procedure Name Priority Date/Time Associated Diagnosis Comments EGFR Routine 08/22/2020 2:49 PM RN NIGHT Shortness of breath DIFFERENTIAL AUTO Routine 08/22/2020 2:4 9 PM RN NIGHT Shortness of breath CBC WITH AUTO DIFFERENTIAL Routine 08/22/2020 2:49 PM RN NIGHT Shortness of breath TSH Routine 08/22/2020 2:49 PM RN NIGHT Shortness of breath BASIC METABOLIC PANEL Routine 08/22/2020 2:49 PM RN NIGHT Shortness of breath documented in this encounter Results * eGFR (08/22/2020 2:49 PM RN NIGHT) eGFR 83 mL/min/1.7 3 m2 [facility] [...] 2020 Blood specimen (specimen) 08/22/2020 2:49 PM RN NIGHT 08/22/2020 6:08 PM RN NIGHT us [place] Denise MILITARY PAY CLERK LAB BLOOD ORDERABL ES Final Result [facility] [address] Department [place] [address] * Differential, auto (08/22/2020 2:49 PM RN NIGHT) Neutrophil abs 5.4 1.7 - 6.5 K/cumm [facility] Imm gran abs 0.0 0.0 - 0.1 K/cumm [facility] Lymphocyte abs 1.6 0.8 - 3.3 K/cumm [facility] Monocyte abs 0.5 0.2 - 0.8 K/cumm [facility] Eosinophil abs 0.2 0.0 - 0.5 K/cumm [facility] Basophil abs 0.0 0.0 - 0.1 K/cumm [facility] Neutrophil pct 68.8 % [facility] Comment: Interpretive Data Percent cell count reference ranges are not reported, since discordance with absolute values may lead to misinterpretation of CBC data. Current Interpretive Data was last revised on 2017. Imm gran pct 0.4 % [facility] Comment: Interpretive Data Percent cell count reference ranges are not reported, since discordance with absolute values may lead to misinterpretation of CBC data. Current Interpretive Data was last revised on 2017. Lymphocyte pct 20.8 % [facility] Comment: Interpretive Data Percent cell count reference ranges are not reported, since discordance with absolute values may lead to misinterpretation of CBC data. Current Interpretive Data was last revised on 2017. Monocyte pct 6.5 % [facility] Comment: Interpretive Data Percent cell count reference ranges are not reported, since discordance with absolute values may lead to misinterpretation of CBC data. Current Interpretive Data was last revised on 2017. Eosinophil pct 3.0 % [facility] Comment: Interpretive Data Percent cell count reference ranges are not reported, since discordance with absolute values may lead to misinterpretation of CBC data. Current Interpretive Data was last revised on 2017. Basophil pct 0.5 % [facility] Comment: Interpretive Data Percent cell count reference ranges are not reported, since discordance with absolute values may lead to misinterpretation of CBC data. Current Interpretive Data was last revised on 2017. Blood specimen (specimen) 08/22/2020 2:49 PM RN NIGHT 08/22/2020 5:38 PM RN NIGHT [place] Denise MILITARY PAY CLERK LAB BLOOD ORDERABL ES Final Result Performing Organization Address [facility] de Phone Number [facility] [address] Department of Laboratories [place], [place] [id number] * CBC with auto differential (08/22/2020 2:49 PM RN NIGHT) WBC 7.9 3.8 - 9.9 K/cumm CERNER [...] CH Blood specimen (specimen) 08/22/2020 2:49 PM RN NIGHT 08/22/2020 5:38 PM RN NIGHT [place] Mendez Camelia MILITARY PAY CLERK LAB BLOOD ORDERABL ES Final Result Performing Organization Address [facility] de Phone Number [facility] [address] Department [place] [address] * Basic metabolic panel (08/22/2020 2:49 PM RN NIGHT) Sodium 137 135 - 145 mmol/L CERNER [...] Glucose 95 70 - 199 mg/dL [facility] Comment: Interpretive Data Fasting glucose >/= [...] Calcium 9.9 8.5 - 10.3 mg/dL [facility] Blood specimen (specimen) 08/22/2020 2:49 PM RN NIGHT 08/22/2020 5:38 PM RN NIGHT [place] Denise NP LAB BLOOD ORDERABL ES Final Result Performing Organization Address City/[facility]/ZIP Co de Phone Number DIONTEHERBERT [address] [place] [address] * TSH (08/22/2020 2:49 PM RN NIGHT) Thyroid Stimulating Hormone 1.93 0.30 - 4.20 mcIUnit/mL [facility] Blood specimen (specimen) 08/22/2020 2:49 PM RN NIGHT 08/22/2020 5:38 PM RN NIGHT [place] Denise MILITARY PAY CLERK LAB BLOOD ORDERABL ES Final Result Performing Organization Address City/[facility]/ZIP Co de Phone Number [facility] [address] [place] [address] documented in this encounter Visit Diagnoses Diagnosis Shortness of breath documented in this encounter Care Teams Tube Molder Fiberglass Relationship Specialty Start Date End Date Mel Osei MD PCP - General Internal Medicine 02/07/20 documented as of this encounter
--- OUTSIDE RECORDS SUMMARY | 2024-08-08 15:07 | XMS_ITS | Encounter Summary ---
Author Organization [facility] Facility Care Team Providers Care Passenger Conductor Name Role Phone Unavailable Primary Care Provider Unavailabl e Encounter Details Date Type Department Care Team (Late st Contact Info) Description 04/08/2007 9:58 AM CDT - 04/10/2007 3:11 PM CDT Hospital Encounter [facility]CON[facility] Social History Tobacco Use Types Packs/Day Years Used Date Smoking Tobacco: Never Assessed Comments Unknown Sex and Gender Information Value Date Recorded Sex Assigned at Not on file Legal Sex Female 12:30 PM RESEARCH SPECIALIST Gender Identity Not on file Sexual Orientation Not on file documented as of this encounter Plan of Treatment Not on file documented as of this encounter Visit Diagnoses Not on filedocumented in this encounter
--- OUTSIDE RECORDS SUMMARY | 2024-08-08 15:07 | XMS_ITS | Encounter Summary ---
Author Organization [facility] Address [address] [facility] [place] [address] Phone Care Team Providers Care Institutional Cook Name Role Phone Jamilah Ford MD Primary Care Provider [phone] Encounter Details Date Type Department Care Team (Late st Contact Info) Description 07/30/2017 Orders Only [facility] [address] [place] [address] Marleny Thompson MA Social History Tobacco Use Types Packs/Day Years Used Date Smoking Tobacco: Never Assessed Comments Unknown Sex and Gender Information Value Date Recorded Sex Assigned at Not on file Legal Sex Female 12:30 PM CARPET INSPECTOR FINISHED Gender Identity Not on file Sexual Orientation [...] on filedocumented in this encounter Care Teams Institutional Cook Relationship Specialty Start Date End Date Jamilah Ford MD [address] [place] [address] PCP - General 11/06/16 02/06/20 documented as of this encounter
--- OUTSIDE RECORDS SUMMARY | 2024-08-08 15:07 | XMS_ITS | Encounter Summary ---
Author Organization [facility] Address [address] [place] [address] Phone Care Team Providers Care Rodding Anode Worker Name Role Phone Jamilah Ford MD Primary Care Provider Encounter Details Date Type Department Care Team (Late st Contact Info) Description 03/23/2017 10:30 AM CDT Office Visit [facility] [place] [address] Jamilah Ford MD [address] [address] Encounter for routine child health examination without abnormal findings (Primary Dx); Dysuria; Encounter for well child check without abnormal findings Social History Tobacco Use Types Packs/Day Years Used Date Smoking Tobacco: Never Assessed Comments Unknown Sex and Gender Information Value Date Recorded Sex Assigned at Not on file Legal Sex Female 12:30 PM CONSTRUCTION SPECIALIST Gender Identity Not on file Sexual [...] 03/23/2017 10: 54 AM CDT Growth Chart: [facility] (Girls, 2- 20 Years) documented in this [...] POC Yellow Clarity, ur, POC Clear Specific [place], POC 1.010 Blood, ur, POC 1+ WBCs/hpf pH, ur, POC 6.0 Lot Number [id number] Comment:Exp: 10/06/17 Urine 03/23/2017 11:5 1 AM [...] 03/23/2017 documented in this encounter Care Teams Rodding Anode Worker Relationship Specialty Start Date End Date Jamilah Ford MD [address] [place] [address] PCP - General 11/06/16 02/06/20 documented as of this encounter
--- OUTSIDE RECORDS SUMMARY | 2024-08-08 15:07 | XMS_ITS | Encounter Summary ---
Author Organization [facility] Address [address] [place] [address] Care Team Providers Care Husker Operator Name Role Phone Mel Osei MD Primary Care Provider +1- [phone] Encounter Details Date Type Department Care Team (Late st Contact Info) Description 07/17/2020 Telephone [facility] [address] [place] [address] Ness Fried MD [address] [place] [address] Social History Tobacco Use Types Packs/Day Years Used Date Smoking Tobacco: Never Smokeless Tobacco: Never Alcohol Use Standard Drinks/Week Comments Not Currently 0 (1 standard drink = 0.6 oz pur e alcohol) PHQ-2 Answer Date Recorded PHQ-2 Score 0 02/07/2020 Comments No Sex and Gender Information Value Date Recorded Sex Assigned at Not on file Legal Sex Female 12:30 PM MISCELLANEOUS MACHINE OPERATOR Gender Identity Not on file Sexual Orientation Not on file Occupation Industry Job Start Date Job End Date Not on file Not on file Not on file Not on file documented as of this encounter Miscellaneous Notes * Telephone Encounter - Amy Sinclair MA - 07/17/2020 4:19 PM CST Bit Sander sent. ELLANEOUS MACHINE OPERATOR * Telephone Encounter - Amy Sinclair MA - 07/17/2020 4:19 PM CST ----- Message from Ness Fried MD sent at 07/17/2020 3:48 PM MISCELLANEOUS MACHINE OPERATOR ----- Please notify patient of negative Pap and normal urine testing. ELLANEOUS MACHINE OPERATOR documented in this encounter Plan of Treatment Not on file documented as of this encounter Visit Diagnoses Not on filedocumented in this encounter Care Teams Husker Operator Relationship Specialty Start Date End Date Mel Osei MD PCP - General Internal Medicine 02/07/20 documented as of this encounter
--- OUTSIDE RECORDS SUMMARY | 2024-08-08 15:07 | XMS_ITS | Encounter Summary ---
Author Organization [facility] Address [address] [place] [address] Care Team Providers Care Project Manager Process Development Name Role Phone Mel Osei MD Primary Care Provider [phone] Reason for Referral * Cardiology (Routine) - Closed Specialty Diagnoses / Procedures Referred By Contac t Referred To Contact Diagnoses Chest pain, unspecified type Palpitations Procedures Transthoracic Echo Complete W Doppler/CF Bassam Denise NP Phone: tel: [address] [address] Referral ID Status Reason Start Date Expiration Date Visits Re quested Visits Authorized [id number] Closed 09/13/2020 10/13/2021 1 1 TECH * Cardiology (Routine) - Closed Specialty Diagnoses / Procedures Referred By Kj t Referred To Contact Diagnoses Chest pain, unspecified type Palpitations Procedures Stress Treadmill Test Bassam Denise NP Phone: tel: [address] [address] Referral ID Status Reason Start Date Expiration Date Visits Re quested Visits Authorized [id number] Closed 09/13/2020 10/13/2021 1 1 TECH Reason for Visit * Reason Comments Follow-up 4 WEEK Encounter Details Date Type Department Care Team (Latest Contact Info) Description 09/13/2020 2:30 PM AUTO TECH Office Visit [facility] [address] [place] [address] Bassam Denise NP [address] [place] [address] Anxiety and depression (Primary Dx); Chest pain, [...] on file Legal Sex Female 12:30 PM AUTO TECH Gender Identity Not on file Sexual Orientation Not on file Occupation Industry Job Start Date Job End Date Not on file Not on file Not on file Not on file documented as of this encounter Last Filed Vital Signs Vital Sign Reading Time Taken Comments Blood Pressure 126/84 09/13/2020 1:54 PM AUTO TECH Pulse 55 09/13/2020 1:54 PM AUTO TECH Temperature 36.4 ??C (97.5 ??F) 09/13/2020 1:54 PM CS T Respiratory Rate 12 09/13/2020 1:54 PM AUTO TECH Oxygen Saturation 99% 09/13/2020 1:54 PM AUTO TECH Inhaled Oxygen Concentration - - Weight 96.2 kg (212 lb) 09/13/2020 1:54 PM AUTO TECH Height - - Body Mass Index 35.28 08/22/2020 1:44 PM AUTO TECH documented in this encounter Patient Instructions * Patient Instructions* Bassam Denise NP - 09/13/2020 2:30 PM AUTO TECH Instructions to the front line supervisor Please do treadmill stress test and echo [...] call with any worsening or persistent issues TECH documented in this encounter Ordered Prescriptions Prescription [...] Trevor Ramirez MD at 09/13/2020 6:07 PM AUTO TECH TECH TECH documented in this encounter Miscellaneous Notes * Assessment & Plan Note - Bassam Denise NP - 09/13/2020 4:51 PM AUTO TECH Associated Problem(s): Atypical chest pain (Resolved 02/11/2021) [...] return post testing or sooner if needed. TECH * Assessment & Plan Note - Bassam Denise NP - 09/13/2020 4:49 PM AUTO TECH Associated Problem(s): Anxiety and depression (Resolved 02/11/2021) [...] Counseling and exercise were both also encouraged. TECH documented in this encounter Plan of Treatment Not on file documented as of this encounter Results * Stress Treadmill Test (09/27/2020 12:02 PM AUTO TECH) Anatomical Region Laterality Modality Nuclear Medicine 09/27/2020 11:3 0 AM AUTO TECH Narrative 09/27/2020 1:28 PM AUTO TECH [address] [address] EXERCISE STRESS Patient Name: JEAN ARTHUR : [...] BP: 181/71. METS achieved: 11. Rate-Pressure Product: 01296 BPM*mmHg. Max ST: Medications: Differin, Albuterol, Naproxen, [...] Signed By: Dr Noam Curry 2020-09-27 13:28:28 AUTO TECH Procedure Note Noam Curry MD - 09/27/[address] [address] EXERCISE STRESS Patient Name: Sangita ARTHURtient ID: [id number] : [id number] Date: 09/27/2020 11:30:00 Gender: FAccession #: [id number] Tech: MJJRef.Provider: BASSAM DENISE Height(Cm): 65BSA: Weight(Kg): 212Order Provider: BASSAM DENISE Procedures: Stress Report: Treadmill stress Exam. Indications: Angina. Findings: Procedure Data: Exercise Time: 9.03. Resting HR 86 bpm. Peak HR: 170 bpm. PredictedMaximal HR 199 bpm. Target HR: 169 bpm. Percent Max Predicted HR Achieved: 85 %. Baseline BP:139/71. Peak BP: 181/71. METS achieved: 11. Rate-Pressure Product: 17560 BPM*mmHg. MaxST: Medications: Differin, Albuterol, Naproxen, Zoloft. [...] Signed By: Dr Noam Curry 2020-09-27 13:28:28 AUTO TECH Bassam Denise NP CV STRESS PROCEDUR ES Final Result * TRANSTHORACIC ECHO (TTE) COMPLETE W DOPPLER/CF WO CONTRAST (09/27/2020 10:51 AM AUTO TECH) Anatomical Region Laterality Modality Ultrasound 09/27/2020 10:2 1 AM AUTO TECH Narrative 09/27/2020 11:31 AM AUTO TECH [address] [place] [address] Echocardiogram Report Patient Name: JEAN ARTHUR : 2000 Study Date: 09/27/2020 10:21:36 Gender: F Tech: MILLED RICE BROKER Ref.Provider: BASSAM DENISE Height(Cm): 168 BSA: 2.06 [...] Signed By: Dr Noam Curry 2020-09-27 11:31:03 AUTO TECH Procedure Note Noam Curry MD - 09/27/[address] [place] [address] Echocardiogram Report Patient Name: Joan ARTHURnt ID: [id number] : [id number] Date: 09/27/2020 10:21:36 Gender: FAccession #: [id number] Tech: [facility].Provider: BASSAM DENISE Height(Cm): 168BSA: 2.06 Weight(Kg): [...] Signed By: Dr Noam Curry 2020-09-27 11:31:03 AUTO TECH Bassam Denise MILLED RICE BROKER CV ECHO PROCEDURES Final Result documented in this encounter Visit Diagnoses Diagnosis Anxiety and depression- Primary Chest pain, unspecified type Palpitations Chest pain, unspecified type Palpitations documented in this encounter Care Teams Project Manager Process Development Relationship Specialty Start Date End Date Mel Osei MD PCP - General Internal Medicine 02/07/20 documented as of this encounter
--- OUTSIDE RECORDS SUMMARY | 2024-08-08 15:07 | XMS_ITS | Encounter Summary ---
Author Organization [facility] Healthcare Address [address] [place] [address] Care Team Providers Care Airline Radio Operator Name Role Phone Jamilah Ford MD Primary Care Provider Encounter Details Date Type Department Care Team (Late st Contact Info) Description 03/23/2017 11:00 AM CDT - 03/23/2017 11:59 PM CDT Hospital Encounter [facility] Jamilah Ford MD [address] [address] Discharge Disposition: Discharge to home or self care Social History Tobacco Use Types Packs/Day Years Used Date Smoking Tobacco: Never Assessed Comments Unknown Sex and Gender Information Value Date Recorded Sex Assigned at Not on file Legal Sex Female 12:30 PM DATA DEVELOPER Gender Identity Not on file Sexual [...] standards. BHUPENDRA SANCHEZ Comment:Testing performed by : [facility], [address], [place]., [address] Urine, clean voided 03/23/2017 11:00 AM CDT 03/23/2017 9:53 PM CDT Narrative BHUPENDRA SANCHEZ - 03/25/2017 10:35 AM CDT us Jamilah Ford MD LAB MICROBIOLOGY - GENERAL O RDERABLES Final Result BHUPENDRA [address] Department [place] [address] documented in this encounter Visit Diagnoses Not on filedocumented in this encounter Care Teams Airline Radio Operator Relationship Specialty Start Date End Date Jamilah Ford MD [address] [place] [address] PCP - General 11/06/16 02/06/20 documented as of this encounter
--- OUTSIDE RECORDS SUMMARY | 2024-08-08 15:07 | XMS_ITS | Encounter Summary ---
Author Organization [facility] Address [address] [place] [address] Phone Care Team Providers Care Nutrition Partner Name Role Phone Jamilah Ford MD Primary Care Provider [phone] Reason for Visit * Reason Onset Date Comments Adapalene cream refill 07/29/2017 Encounter Details Date Type Department Care Team (Late st Contact Info) Description 07/29/2017 Telephone [facility] [address] [place] [address] Jamilah Ford MD [address] [address] Adapalene cream refill Social History Tobacco Use Types Packs/Day Years Used Date Smoking Tobacco: Never Assessed Comments Unknown Sex and Gender Information Value Date Recorded Sex Assigned at Not on file Legal Sex Female 12:30 PM MEDICAL OFFICER PSYCHIATRY Gender Identity Not on file Sexual Orientation Not on file documented as of this encounter Miscellaneous Notes * Telephone Encounter - Marleny Fortune MA - 07/30/2017 9:43 AM MEDICAL OFFICER PSYCHIATRY Father notified of Rx. Will check with pharmacy. CAL OFFICER PSYCHIATRY * Telephone Encounter - Jamilah Ford MD - 07/30/2017 9:05 AM CST Differin cream 0.1% apply hs 45 grams and 6 refills. Also it is now OTC. CAL OFFICER PSYCHIATRY * Telephone Encounter - Marleny Fortune MA - 07/29/2017 3:05 PM MEDICAL OFFICER PSYCHIATRY Did not find in pt. Chart. Is this something you would prescribe for the patient or does she see a cable engineer outside plant for this? Mother recently passed so dad is trying to figure out her medications. Pt iscurrently out of this med. CAL OFFICER PSYCHIATRY * Telephone Encounter - Stefanie Duff - 07/29/2017 2:57 PM CST Pt has had Adapalene cream .one percent. Not sure if [place] had rx'd this in past. Pt is out of medication. Pharmacy [facility]. Cn: [phone] CAL OFFICER PSYCHIATRY documented in this encounter Plan of Treatment Not on file documented as of this encounter Visit Diagnoses Not on filedocumented in this encounter Care Teams Nutrition Partner Relationship Specialty Start Date End Date Jamilah Ford MD [address] [place] [address] PCP - General 11/06/16 02/06/20 documented as of this encounter
--- OUTSIDE RECORDS SUMMARY | 2024-08-08 15:07 | XMS_ITS | Encounter Summary ---
Author Organization [facility] Address [address] [place] [address] Care Team Providers Care Lard Tub Washer Name Role Phone Mel Osei MD Primary Care Provider [phone]- [phone] Encounter Details Date Type Department Care Team (Late st Contact Info) Description 08/23/2020 Telephone [facility] [address] [place] [address] Argentina Denise, WET FINISHER [address] [place] [phone] Social History Tobacco Use Types Packs/Day Years Used Date Smoking Tobacco: Never Smokeless Tobacco: Never Alcohol Use Standard Drinks/Week Comments Not Currently 0 (1 standard drink = 0.6 oz pur e alcohol) PHQ-2 Answer Date Recorded PHQ-2 Score 0 02/07/2020 Comments No Sex and Gender Information Value Date Recorded Sex Assigned at Not on file Legal Sex Female 12:30 PM CARRIER OPERATOR Gender Identity Not on file Sexual [...] needs to return sooner. Pt verbalized understanding. IER OPERATOR * Telephone Encounter - Bernice Yeboah RN - 08/23/2020 1:18 PM CST Tried to call pt, no answer and MB is full. IER OPERATOR * Telephone Encounter - Argentina Denise NP - 08/23/2020 1:12 PM CARRIER OPERATOR Please let her know her labs and CXR were fine. She should use inhaler as prescribed and we will re-evaluate at her follow up unless she needs to return sooner. IER OPERATOR documented in this encounter Plan of Treatment Not on file documented as of this encounter Visit Diagnoses Not on filedocumented in this encounter Care Teams Lard Tub Washer Relationship Specialty Start Date End Date Mel Osei MD PCP - General Internal Medicine 02/07/20 documented as of this encounter
--- OUTSIDE RECORDS SUMMARY | 2024-08-08 15:07 | XMS_ITS | Encounter Summary ---
Author Organization [facility] Address [address] [place] [address] Phone Care Team Providers Care Safe Deposit Box Rental Clerk Name Role Phone Jamilah Ford MD Primary Care Provider [phone] Reason for Visit * Reason Comments Ears feel clogged and ringing Encounter Details Date Type Department Care Team (Late st Contact Info) Description 09/07/2017 1:20 PM JOURNEYMAN PIPE FITTER Office Visit [facility] [address] [place] [address] Jamilah Ford MD [address] [address] Tinnitus of left ear (Primary Dx) Social History Tobacco Use Types Packs/Day Years Used Date Smoking Tobacco: Never Assessed Comments Unknown Sex and Gender Information Value Date Recorded Sex Assigned at Not on file Legal Sex Female 12:30 PM JOURNEYMAN PIPE FITTER Gender Identity Not on file Sexual [...] 88 kg (194 lb) 09/07/2017 1:37 PM JOURNEYMAN PIPE FITTER Height - - Body Mass Index - [...] and audiology evaluation is indicated. Patient agrees. NEYMAN PIPE FITTER documented in this encounter Plan of Treatment Not on file documented as of this encounter Visit Diagnoses Diagnosis Tinnitus of left ear- Primary documented in this encounter Care Teams Safe Deposit Box Rental Clerk Relationship Specialty Start Date End Date Jamilah Ford MD [address] [place] [address] PCP - General 11/06/16 02/06/20 documented as of this encounter
--- OUTSIDE RECORDS SUMMARY | 2024-08-08 15:07 | XMS_ITS | Encounter Summary ---
Author Organization [facility] Facility Care Team Providers Care Medical Art Therapist Name Role Phone Unavailable Primary Care Provider Unavailabl e Encounter Details Date Type Department Care Team (Late st Contact Info) Description 03/07/2007 10:22 AM CDT - 03/07/2007 11:59 PM CDT Hospital Encounter [facility] Social History Tobacco Use Types Packs/Day Years Used Date Smoking Tobacco: Never Assessed Comments Unknown Sex and Gender Information Value Date Recorded Sex Assigned at Not on file Legal Sex Female 12:30 PM IT PROGRAM ENGAGEMENT DIRECTOR Gender Identity Not on file Sexual Orientation Not on file documented as of this encounter Plan of Treatment Not on file documented as of this encounter Visit Diagnoses Not on filedocumented in this encounter
--- OUTSIDE RECORDS SUMMARY | 2024-08-08 15:07 | XMS_ITS | Encounter Summary ---
Author Organization [facility] Address [address] [place] [address] Phone Care Team Providers Care Driver Trainer Name Role Phone Jamilah Ford MD Primary Care Provider [phone] Reason for Visit * Reason Comments Immunizations HPV #2 Encounter Details Date Type Department Care Team (Latest Contact Info) Description 05/24/2017 3:30 PM CDT Clinical Support [facility] [address] [place] [address] Need for vaccination (Primary Dx) Social History Tobacco Use Types Packs/Day Years Used Date Smoking Tobacco: Never Assessed Comments Unknown Sex and Gender Information Value Date Recorded Sex Assigned at Not on file Legal Sex Female 12:30 PM CHAMBER WORKER Gender Identity Not on file Sexual [...] 05/24/2017 documented in this encounter Care Teams Driver Trainer Relationship Specialty Start Date End Date Jamilah Ford MD [address] [place] [address] PCP - General 11/06/16 02/06/20 documented as of this encounter
--- OUTSIDE RECORDS SUMMARY | 2024-08-08 15:07 | XMS_ITS | Encounter Summary ---
Author Organization [facility] Medical [facility] Address [address] [place] [address] Care Team Providers Care Heel Slugger Name Role Phone Mel Osei MD Primary Care Provider [phone] Reason for Referral * Diagnostic Imaging (Routine) - Closed Specialty Diagnoses / Procedures Referred By Kj judeg Referred To Contact Diagnoses Shortness of breath Procedures XR Chest Pa Lateral 2 Vw Argentina Denise NP Phone: tel: [facility] Referral ID Status Reason Start Date Expiration Date Visits Re quested Visits Authorized [id number] Closed 08/22/2020 09/21/2021 1 1 RRER STRIP * Procedure (Routine) - Closed Specialty Diagnoses / Procedures Referred By Kj judge Referred To Contact Diagnoses Impacted cerumen of both ears Procedures Ear Cerumen Removal Argentina Denise NP Phone: tel: [facility] Referral ID Status Reason Start Date Expiration Date Visits Re quested Visits Authorized [id number] Closed 08/22/2020 09/21/2021 1 1 RRER STRIP Reason for Visit * Reason Comments hard to breath at times Encounter Details Date Type Department Care Team (Latest Contact Info) Description 08/22/2020 2:00 PM DEBURRER STRIP Office Visit [facility] [address] [place] [address] Argentina Denise NP [address] [place] [address] Impacted cerumen of both ears [...] on file Legal Sex Female 12:30 PM DEBURRER STRIP Gender Identity Not on file Sexual Orientation Not on file Occupation Industry Job Start Date Job End Date Not on file Not on file Not on file Not on file documented as of this encounter Last Filed Vital Signs Vital Sign Reading Time Taken Comments Blood Pressure 114/72 08/22/2020 1:44 PM DEBURRER STRIP Pulse 60 08/22/2020 1:44 PM DEBURRER STRIP Temperature 36.1 ??C (96.9 ??F) 08/22/2020 1:44 PM CS T Respiratory Rate 18 08/22/2020 1:44 PM DEBURRER STRIP Oxygen Saturation 98% 08/22/2020 1:44 PM DEBURRER STRIP Inhaled Oxygen Concentration - - Weight 95 kg (209 lb 6.4 oz) 08/22/2020 1:44 PM DEBURRER STRIP Height 165.1 cm (5' 5 ) 08/22/2020 1:44 PM DEBURRER STRIP Body Mass Index 34.85 08/22/2020 1:44 PM DEBURRER STRIP documented in this encounter Patient Instructions * Patient Instructions* Argentina Denise NP - 08/22/2020 2:00 PM DEBURRER STRIP Orders for AMS STAFF to arrange Please [...] REFILLS AND MAINTAINING AN ACCURATE MEDICATION LIST. RRER STRIP RRER STRIP documented in this encounter Ordered Prescriptions Prescription [...] THIS VISIT Current Outpatient Medications Ordered in [facility] Medication Sig Dispense Refill ??? adapalene (DIFFERIN) [...] 07/12/2020 Final ??? COMMENTS 07/12/2020 Final ??? Icer Hand 07/12/2020 Final ??? Comment 07/12/2020 Final Lab [...] breath R06.02 ??? COVID-19 U07.1 Argentina Denise [facility] Cosigned by Mel Osei MD at 08/22/2020 4:07 PM DEBURRER STRIP RRER STRIP RRER STRIP documented in this encounter Procedure Notes * [...] ECG Comments: Sinus bradycardia otherwise normal EKG RRER STRIP documented in this encounter Miscellaneous Notes * Assessment & Plan Note - Argentina Denise NP - 08/22/2020 2:23 PM DEBURRER STRIP Associated Problem(s): Shortness of breath (Resolved 02/11/2021) [...] in 4 weeks or sooner if needed. RRER STRIP RRER STRIP documented in this encounter Plan of Treatment Not on file documented as of this encounter Procedures Procedure Name Priority Date/Time Associated Diagnosis Comments ECG 12-LEAD Routine 08/22/2020 2:00 PM DEBURRER STRIP Shortness of breath EAR CERUMEN REMOVAL Routine 08/22/2020 Impacted cerumen of both ears documented in this encounter Results * TSH (08/22/2020 2:49 PM DEBURRER STRIP) Thyroid Stimulating Hormone 1.93 0.30 - 4.20 mcIUnit/mL C[facility] CH Blood specimen (specimen) 08/22/2020 2:49 PM DEBURRER STRIP 08/22/2020 5:38 PM DEBURRER STRIP Argentina Denise NP LAB BLOOD ORDERABL ES Final Result BHUPENDRA SANCHEZ [address] Department [place] [address] * Basic metabolic panel (08/22/2020 2:49 PM DEBURRER STRIP) Sodium 137 135 - 145 mmol/L CERNER Potassium, pl 4.3 3.3 - 4.9 mmol/L [facility] Chloride 103 97 - 110 mmol/L [facility] CO2 24 22 - 32 mmol/L [facility] Anion gap 10 2 - 15 mmol/L [facility] BUN 13 8 - 25 mg/dL [facility] Creatinine 0.97 0.60 - 1.10 mg/dL CERNER [...] HOSPITAL Blood specimen (specimen) 08/22/2020 2:49 PM DEBURRER STRIP 08/22/2020 5:38 PM DEBURRER STRIP Argentina Denise BUSINESS UNIT MANAGER LAB BLOOD ORDERABL ES Final Result Performing Organization Address [facility] Co de Phone Number BHUPENDRA SANCHEZ [address] Department [place] [address] * CBC with auto differential (08/22/2020 2:49 PM DEBURRER STRIP) Pathologist [facility] WBC 7.9 3.8 - 9.9 K/cumm CERNER [...] HOSPITAL MCH 30.8 27.1 - 33.3 pg [facility] MCHC 33.7 32.3 - 35.7 g/dL [facility] RDW CV 12.4 11.1 - 14.9 % [facility] RDW SD 40.4 35.7 - 48.1 fL [facility] NRBC abs 0.00 0.00 - 0.01 K/cumm [facility] Blood specimen (specimen) 08/22/2020 2:49 PM DEBURRER STRIP 08/22/2020 5:38 PM DEBURRER STRIP Argentina Denise NP LAB BLOOD ORDERABL ES Final Result [facility] [address] Department [place] [address] * XR Chest Pa Lateral 2 Vw (08/22/2020 2:44 PM DEBURRER STRIP) Anatomical Region Laterality Modality Body, Chest N/A Computed Radiogr aphy Narrative 08/23/2020 1:07 PM DEBURRER STRIP CHEST, 2 VIEWS: PA and lateral views of the chest reveal clear lungs without radiographic evidence of pleural effusion or pneumothorax. ??The cardiac and mediastinal structures are of normal size. ??The osseous structures are normal. SUMMARY: No radiographic evidence of pulmonary disease. us Argentina Denise BUSINESS UNIT MANAGER IMG XR PROCEDURES Final Result * ECG 12-LEAD (08/22/2020 2:00 PM DEBURRER STRIP) Narrative Mel Osei MD - 08/22/2020 2:00 PM DEBURRER STRIP Mel Osei MD ? 08/23/2020 ??6:47 PM [...] bradycardia otherwise normal EKG us Argentina Denise BUSINESS UNIT MANAGER ECG ORDERABLES Ed ited Result - Final * Ear Cerumen Removal (08/22/2020) Narrative Laurie Connor MA - 08/22/2020 Bilateral Ear Cerumen Removal Completed. Tympanic Membrane Visualized. us Argentina Denise BUSINESS UNIT MANAGER IN CLINIC/BEDSIDE ORDERABLES Final Result documented in this encounter Visit Diagnoses Diagnosis Impacted cerumen of both ears- Primary Impacted cerumen Shortness of breath Shortness of breath documented in this encounter Care Teams Heel Slugger Relationship Specialty Start Date End Date Mel Osei MD PCP - General Internal Medicine 02/07/20 documented as of this encounter
--- OUTSIDE RECORDS SUMMARY | 2024-08-08 15:07 | XMS_ITS | Encounter Summary ---
Author Organization [facility] Facility Care Team Providers Care Asphalt Paving Superintendent Name Role Phone Jamilah Ford MD Primary Care Provider Encounter Details Date Type Department Care Team (Latest Contact Info) Description 10/30/2019 Travel Social History Tobacco Use Types Packs/Day Years Used Date Smoking Tobacco: Never Assessed Comments Unknown Sex and Gender Information Value Date Recorded Sex Assigned at Not on file Legal Sex Female 12:30 PM GARMENT STEAMER Gender Identity Not on file Sexual Orientation [...] on filedocumented in this encounter Care Teams Asphalt Paving Superintendent Relationship Specialty Start Date End Date Jamilah Ford MD [address] [place] [address] PCP - General 11/06/16 02/06/20 documented as of this encounter
--- OUTSIDE RECORDS SUMMARY | 2024-08-08 15:07 | XMS_ITS | Encounter Summary ---
Author Organization [facility] Healthcare Address [address] [place] [address] Care Team Providers Care Launchman Name Role Phone Mel Osei MD Primary Care Provider +1- [phone] Reason for Referral * Cardiology (Routine) - Closed Specialty Diagnoses / Procedures Referred By Kj judge Referred To Contact Diagnoses Chest pain, unspecified type Palpitations Procedures Stress Treadmill Test Bassam Denise NP Phone: tel: [address] [phone] Referral ID Status Reason Start Date Expiration Date Visits Re quested Visits Authorized [id number] Closed 09/13/2020 10/13/2021 1 1 TECHNICIAN * Cardiology (Routine) - Closed Specialty Diagnoses / Procedures Referred By Kj judge Referred To Contact Diagnoses Chest pain, unspecified type Palpitations Procedures Transthoracic Echo Complete W Doppler/CF Bassam Denise NP Phone: tel: [address] [phone] Referral ID Status Reason Start Date Expiration Date Visits Re quested Visits Authorized [id number] Closed 09/13/2020 10/13/2021 1 1 TECHNICIAN Reason for Visit * Cardiology (Routine) - Closed Specialty Diagnoses / Procedures Referred By Contac t Referred To Contact Diagnoses Chest pain, unspecified type Palpitations Procedures Transthoracic Echo Complete W Doppler/CF Bassam Denise NP Phone: tel: [address] [phone] Referral ID Status Reason Start Date Expiration Date Visits Re quested Visits Authorized [id number] Closed 09/13/2020 10/13/2021 1 1 Encounter Details Date Type Department Care Team (Late st Contact Info) Description 09/27/2020 10:18 AM TAX TECHNICIAN - 09/27/2020 11:59 PM TAX TECHNICIAN Hospital Encounter [facility] Cardiology [address] [place] [address] Mel Osei MD [address] [place] [address] Bassam Denise NP [address] [place] [address] Chest pain, unspecified type; Palpitations Discharge Disposition: [...] on file Legal Sex Female 12:30 PM TAX TECHNICIAN Gender Identity Not on file Sexual [...] 90.7 kg (200 lb) 09/27/2020 10:18 AM TAX TECHNICIAN Height 167.6 cm (5' 6 ) 09/27/2020 10:18 AM TAX TECHNICIAN Body Mass Index 32.28 09/27/2020 10:18 AM TAX TECHNICIAN documented in this encounter Medications at Time [...] TEST ONLY TREADMILL Routine 09/27/2020 12:02 PM TAX TECHNICIAN Chest pain, unspecified type Palpitations TRANSTHORACIC ECHO (TTE) COMPLETE W DOPPLER/CF WO CONTRAST Routine 09/27/2020 10:51 AM TAX TECHNICIAN Chest pain, unspecified type Palpitations documented in this encounter Results * Stress Treadmill Test (09/27/2020 12:02 PM TAX TECHNICIAN) Anatomical Region Laterality Modality Nuclear Medicine 09/27/2020 11:3 0 AM TAX TECHNICIAN Narrative 09/27/2020 1:28 PM TAX TECHNICIAN [address] [address] EXERCISE STRESS Patient Name: JEAN ARTHUR : [...] BP: 181/71. METS achieved: 11. Rate-Pressure Product: 21068 BPM*mmHg. Max ST: Medications: Differin, Albuterol, Naproxen, [...] Signed By: Dr Noam Curry 2020-09-27 13:28:28 TAX TECHNICIAN Procedure Note Noam Curry MD - 09/27/[address] [address] EXERCISE STRESS Patient Name: Joan ARTHURnt ID: [id number] : [id number] Date: 09/27/2020 11:30:00 Gender: FAccession #: [id number] Tech: MJJRef.Provider: BASSAM DENISE Height(Cm): 65BSA: Weight(Kg): 212Order Provider: BASSAM DENISE Procedures: Stress Report: Treadmill stress Exam. Indications: Angina. Findings: Procedure Data: Exercise Time: 9.03. Resting HR 86 bpm. Peak HR: 170 bpm. PredictedMaximal HR 199 bpm. Target HR: 169 bpm. Percent Max Predicted HR Achieved: 85 %. Baseline BP:139/71. Peak BP: 181/71. METS achieved: 11. Rate-Pressure Product: 39192 BPM*mmHg. MaxST: Medications: Differin, Albuterol, Naproxen, Zoloft. [...] Signed By: Dr Noam Curry 2020-09-27 13:28:28 TAX TECHNICIAN us Bassam Denise NP CV STRESS PROCEDUR ES Final Result * TRANSTHORACIC ECHO (TTE) COMPLETE W DOPPLER/CF WO CONTRAST (09/27/2020 10:51 AM TAX TECHNICIAN) Anatomical Region Laterality Modality Ultrasound 09/27/2020 10:2 1 AM TAX TECHNICIAN Narrative 09/27/2020 11:31 AM TAX TECHNICIAN [address] [place] [address] Echocardiogram Report Patient Name: JEAN ARTHUR : 2000 Study Date: 09/27/2020 10:21:36 Gender: F Tech: SCOREKEEPER Ref.Provider: BASSAM DENISE Height(Cm): 168 BSA: 2.06 [...] Signed By: Dr Noam Curry 2020-09-27 11:31:03 TAX TECHNICIAN Procedure Note Noam Curry MD - 09/27/2020 [address] [place] [address] Echocardiogram Report Patient Name: Valeria ARTHUR ID: [id number] : [id number] Date: 09/27/2020 10:21:36 Gender: FAccession #: [id number] Tech: [facility].Provider: BASSAM DENISE Height(Cm): 168BSA: 2.06 Weight(Kg): [...] Signed By: Dr Noam Curry 2020-09-27 11:31:03 TAX TECHNICIAN Bassam Denise SCOREKEEPER CV ECHO PROCEDURES Final Result documented in this encounter Visit Diagnoses Diagnosis Chest pain, unspecified type Palpitations documented in this encounter Care Teams Launchman Relationship Specialty Start Date End Date Mel Osei MD PCP - General Internal Medicine 02/07/20 documented as of this encounter
--- OUTSIDE RECORDS SUMMARY | 2024-08-08 15:07 | XMS_ITS | Encounter Summary ---
Author Organization [facility] Facility Care Team Providers Care Multiple Launch Rocket System Crewmember Name Role Phone Unavailable Primary Care Provider Unavailabl e Encounter Details Date Type Department Care Team (Late st Contact Info) Description 04/15/2007 1:26 PM CDT - 04/15/2007 11:59 PM CDT Hospital Encounter [facility] Social History Tobacco Use Types Packs/Day Years Used Date Smoking Tobacco: Never Assessed Comments Unknown Sex and Gender Information Value Date Recorded Sex Assigned at Not on file Legal Sex Female 12:30 PM SONOSCOPE OPERATOR Gender Identity Not on file Sexual Orientation Not on file documented as of this encounter Plan of Treatment Not on file documented as of this encounter Visit Diagnoses Not on filedocumented in this encounter
--- OUTSIDE RECORDS SUMMARY | 2024-08-08 15:07 | XMS_ITS | Encounter Summary ---
Author Organization [facility] Healthcare Address [address] [place] [address] Care Team Providers Care Application Helper Name Role Phone Mel Osei MD Primary Care Provider +1- [phone] Encounter Details Date Type Department Care Team (Late st Contact Info) Description 07/12/2020 5:30 PM DENTAL SPECIALIST Lab [address] [address] Dysuria Social History Tobacco Use Types Packs/Day Years Used Date Smoking Tobacco: Never Smokeless Tobacco: Never Alcohol Use Standard Drinks/Week Comments Not Currently 0 (1 standard drink = 0.6 oz pur e alcohol) PHQ-2 Answer Date Recorded PHQ-2 Score 0 02/07/2020 Comments No Sex and Gender Information Value Date Recorded Sex Assigned at Not on file Legal Sex Female 12:30 PM DENTAL SPECIALIST Gender Identity Not on file Sexual [...] MICROSCOPIC AND CULTURE Routine 07/12/2020 10:59 AM DENTAL SPECIALIST Dysuria URINALYSIS, MICROSCOPIC ONLY Routine 07/12/2020 10:59 AM DENTAL SPECIALIST Dysuria documented in this encounter Results * (ABNORMAL) Urinalysis, microscopic only (07/12/2020 10:59 AM DENTAL SPECIALIST) WBC, ur 0-5 0 - 5 /HPF [facility] RBC, ur 0-2 0 - 2 /HPF [facility] Epithelial cells, squamous, ur 1-5 0 - 5 /HPF [facility] Bacteria, ur Trace(A) [facility] Mucous, ur Present(A) [facility] Culture Reflex Comment Reflex conditions for urine culture (WBC >10) not met. [facility] Urine, clean voided 07/12/2020 10:59 AM DENTAL SPECIALIST 07/12/2020 5:38 PM DENTAL SPECIALIST us Ness Fried MD LAB URINE ORDERABLES Final Result [facility] [address] Department [place] [address] * (ABNORMAL) Urinalysis reflex to microscopic and culture Urine, clean voided (07/12/2020 10:59 AM DENTAL SPECIALIST) Color, ur Yellow Yellow [facility] Clarity, ur [...] Reflex to microscopic UA will be performed. [facility] Urine, clean voided 07/12/2020 10:59 AM DENTAL SPECIALIST 07/12/2020 5:38 PM DENTAL SPECIALIST Narrative [facility] - 07/12/2020 6:18 PM DENTAL SPECIALIST ?? Urine pH is affected by diet, medications, systemic acid-base disturbances, and renal tubular function. ??pH may affect urinary stone formation. ??For example, urine pH below 6.0 may help reduce the tendency for calcium phosphate stones and pH greater than 6.0 may reduce the tendency for uric acid stone formation. Source: [facility]. Last revised 08-19-2017 us Ness Fried MD LAB MICROBIOLOGY - [facility] ORDERABLES Final Result [facility] [address] [place] [address] documented in this encounter Visit Diagnoses Diagnosis Dysuria documented in this encounter Care Teams Application Helper Relationship Specialty Start Date End Date Mel Osei MD PCP - General Internal Medicine 02/07/20 documented as of this encounter
--- OUTSIDE RECORDS SUMMARY | 2024-08-08 15:07 | XMS_ITS | Encounter Summary ---
Author Organization [facility] Medical Group Address [address] [place] [address] Care Team Providers Care Retail Zone Specialist Name Role Phone Mel Osei MD Primary Care Provider +1- [phone] Reason for Visit * Reason Onset Date Comments Covid-19 Home Monitoring 08/24/2020 Enrollm ent Encounter Details Date Type Department Care Team (Late st Contact Info) Description 08/24/2020 Telephone [facility] Accountable Care Organization [address] [place] [address] Yaneth De Jesus LPN [address] [place] [address] [address] [place] [address] Covid-19 Home Monitoring (Enrollment) Social History Tobacco [...] on file Legal Sex Female 12:30 PM BAR TACKER Gender Identity Not on file Sexual Orientation Not on file Occupation Industry Job Start Date Job End Date Not on file Not on file Not on file Not on file documented as of this encounter Miscellaneous Notes * Telephone Encounter - Yaneth De Jesus LPN - 08/24/2020 11:01 AM BAR TACKER This patient is not currently a good candidate for our COVID-19 home monitoring program because covid recovered and followed up with PCP. By saving a note using this template, the patient will drop off our home monitoring candidate reports for two weeks. If we still consider them to have an active case of COVID-19 at that time, we willreevaluate them for home monitoring. TACKER documented in this encounter Plan of Treatment Not on file documented as of this encounter Visit Diagnoses Not on filedocumented in this encounter Care Teams Retail Zone Specialist Relationship Specialty Start Date End Date Mel Osei MD PCP - General Internal Medicine 02/07/20 documented as of this encounter
--- OUTSIDE RECORDS SUMMARY | 2024-08-08 15:07 | XMS_ITS | Encounter Summary ---
Author Organization [facility] Medical [facility] Address [address] [place] [address] Care Team Providers Care Ict Managers Name Role Phone Mel Osei MD Primary Care Provider +1- [phone] Reason for Visit * Diagnostic Imaging (Routine) - Closed Specialty Diagnoses / Procedures Referred By Kj judge Referred To Contact Diagnoses Shortness of breath Procedures XR Chest Pa Lateral 2 Vw [place] Denise NP Phone: tel: [facility] Referral ID Status Reason Start Date Expiration Date Visits Re quested Visits Authorized [id number] Closed 08/22/2020 09/21/2021 1 1 Encounter Details Date Type Department Care Team (Latest Contact Info) Description 08/22/2020 2:45 PM SECURITY SYSTEMS INTEGRATOR Ancillary Procedure [facility] [address] [place] [address] Shortness of breath Social History [...] on file Legal Sex Female 12:30 PM SECURITY SYSTEMS INTEGRATOR Gender Identity Not on file Sexual Orientation [...] Read Routine (OP Routine) 08/22/2020 2:44 PM SECURITY SYSTEMS INTEGRATOR Shortness of breath documented in this encounter Results * XR Chest Pa Lateral 2 Vw (08/22/2020 2:44 PM SECURITY SYSTEMS INTEGRATOR) Anatomical Region Laterality Modality Body, Chest N/A Computed Radiogr aphy Narrative 08/23/2020 1:07 PM SECURITY SYSTEMS INTEGRATOR CHEST, 2 VIEWS: PA and lateral views of the chest reveal clear lungs without radiographic evidence of pleural effusion or pneumothorax. ??The cardiac and mediastinal structures are of normal size. ??The osseous structures are normal. SUMMARY: No radiographic evidence of pulmonary disease. [place] Denise COMMERCIAL ACCOUNT OFFICER IMG XR PROCEDURES Final Result documented in this encounter Visit Diagnoses Diagnosis Shortness of breath documented in this encounter Care Teams Ict Managers Relationship Specialty Start Date End Date Mel Osei MD PCP - General Internal Medicine 02/07/20 documented as of this encounter
--- OUTSIDE RECORDS SUMMARY | 2024-08-08 15:07 | XMS_ITS | Encounter Summary ---
Author Organization [facility] Medical [facility] Address [address] [place] [address] Care Team Providers Care Fixed Wing Aircraft Flight Mechanic Name Role Phone Mel Osei MD Primary Care Provider +1- [phone] Reason for Visit * Reason Comments Gynecologic Exam Encounter Details Date Type Department Care Team (Late st Contact Info) Description 07/12/2020 10:10 AM GROUP TEACHER Office Visit [facility] [address] [place] [address] Ness Fried MD [address] [place] [address] Encounter for gynecological examination without abnormal finding [...] on file Legal Sex Female 12:30 PM GROUP TEACHER Gender Identity Not on file Sexual Orientation Not on file Occupation Industry Job Start Date Job End Date Not on file Not on file Not on file Not on file documented as of this encounter Last Filed Vital Signs Vital Sign Reading Time Taken Comments Blood Pressure 128/80 07/12/2020 10:08 AM GROUP TEACHER Pulse - - Temperature - - Respiratory Rate - - Oxygen Saturation - - Inhaled Oxygen Concentration - - Weight 93.4 kg (206 lb) 07/12/2020 10:08 AM GROUP TEACHER Height 165.7 cm (5' 5.25 ) 07/12/2020 10:08 AM Guicho GARCIA Body Mass Index 34.02 07/12/2020 10:08 AM GROUP TEACHER documented in this encounter Progress Notes * Ness Fried MD - 07/12/2020 10:10 AM CST Well Woman Exam Subjective: Tracey Arthur is a 20 y.o. 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 She was seen as a new [...] Highest education level: None Occupational History Employer: [employer] Social Needs ??? Financial resource strain: None [...] on phone: None Gets together: None Attends evangelical service: None Active member of club or organization: None Attends meetings of clubs or organizations: None Relationship status: None ??? Intimate partner violence Fear of current or ex partner: None Emotionally abused: None Physically abused: None Forced sexual activity: None Other Topics Concern ??? None Social History Narrative (This data did not transfer from [employer] and was not retrievable from [employer].) MOM Clare - breast cancer survivor; 3rd relapse with multiple mets 03/25 DAD Gary Simpson - adult moved back home 2016; works at [employer]; plans [employer] [place]. Likes Latvian Educational history : High school through for years [employer] galeano graduated in 2018 [employer] for 2 years towards in associated applied sciences, [facility] the fall 2019 for Irish sign language interpreting--year degree Employment history: [employer] [...] discussed. Contraception reviewed. Ness Fried MD 07/12/2020 P TEACHER documented in this encounter Plan of Treatment Not on file documented as of this encounter Results * (ABNORMAL) Urinalysis reflex to microscopic and culture Urine, clean voided (07/12/2020 10:59 AM GROUP TEACHER) Color, ur Yellow Yellow [facility] Clarity, [...] [facility]ER Urine, clean voided 07/12/2020 10:59 AM GROUP TEACHER 07/12/2020 5:38 PM GROUP TEACHER Narrative C[facility]ER - 07/12/2020 6:18 PM GROUP TEACHER ?? Urine pH is affected by diet, medications, systemic acid-base disturbances, and renal tubular function. ??pH may affect urinary stone formation. ??For example, urine pH below 6.0 may help reduce the tendency for calcium phosphate stones and pH greater than 6.0 may reduce the tendency for uric acid stone formation. Source: [facility]. Last revised 08-19-2017 us Ness Fried MD LAB MICROBIOLOGY - [facility] ORDERABLES Final Result [facility] [address] Department [place] [address] documented in this encounter Visit Diagnoses Diagnosis Encounter for gynecological examination without abnormal finding- Primary Dysmenorrhea Family history of breast cancer Family history of malignant neoplasm of breast Dysuria Screening for malignant neoplasm of the cervix Dysuria documented in this encounter Care Teams Fixed Wing Aircraft Flight Mechanic Relationship Specialty Start Date End Date Mel Osei MD PCP - General Internal Medicine 02/07/20 documented as of this encounter
== END 2024-08-01 09:59 | disposition home or self-care (01) ==
PROVIDERS: Emergency Provider Nurse Practitioner; PCP Internal Medicine Geriatric Medicine
DX: J06.9 Acute upper respiratory infection, unspecified (principal); Z20.822 Contact with and (suspected) exposure to COVID-19
CPT/HCPCS: 87081; 87426; 87804; 87880; 99213; G0463

== ENCOUNTER 2025-03-27 15:06 | Emergency (ER) | payer OTHER, SELFPAY ==
--- NOTE | 2025-03-27 15:11 | ED_ITS ---
HPI - URI/Sore Throat General Chief Complaint: Upper Respiratory Infection Stated Complaint: Sore Throat/Headache Time Seen by Provider: 03/27/25 15:11 Source: patient Mode of arrival: ambulatory Limitations: no limitations History of Present Illness HPI Narrative: Tracey is a 24-year-old female patient presenting to the clinic today with complaints of nasal congestion, sore throat, and headache times 1 day. She reports that she started having symptoms yesterday started with sore throat. Works at a local [employer] high. Denies any chest pain or shortness of breath. Denies any fevers, chills, body aches. Has tried some throat spray but has not taken any other medications to treat her symptoms. Related Data Home Medications ?Medication ?Instructions ?Recorded ?Confirmed ?Last Taken ?Type fluoxetine 40 mg capsule mg 03/27/25 Unknown History hydroxyzine HCl 25 mg tablet mg 03/27/25 Unknown Hist ory omeprazole 40 mg capsule,delayed mg 03/27/25 Unknown History release Allergies Allergy/AdvReac Type Severity Reaction Status Date / Time No Known Allergies Allergy Verified 03/27/25 15:19 Review of Systems Review of Systems: Pertinent positives per HPI. Patient denies any fever, chills, rash, visual changes, dizziness, shortness of breath, chest pain, palpitations, nausea, vomiting, diarrhea, constipation, abdominal pain, or any urinary issues. PMFSH Past Medical History Medical History No pertinent past medical history Surgical History Surgical History No pertinent past surgical history Family History Family History Mother Family history non-contributory Social History Social History Gender identity (if verbalized by the patient): Female Spiritual care concerns: No Comments At the time of my signature, I reviewed and agree with the nursing past medical, surgical, social, and family history. There is no relevant family history pertinent to the patient complaint. Exam Narrative: General: Well-developed, well nourished, in no apparent distress Head: Normocephalic, atraumatic Eyes: Pupils equally round and reactive to light bilaterally, EOM intact, sclera and conjunctive clear, no discharge, lids normal Ears: TMs intact and clear, ear canals clear, no drainage, grossly hearing normal. Nose: Nares patent, clear nasal discharge, no inflammation, no sinus tenderness. Mouth: Oral pharynx red without lesions or masses, good dentition, MMM. Postnasal drip Neck: Supple, trachea midline, no enlargement of anterior or posterior cervical nodes, no thyroid masses or goiter palpable. Cardio: Regular rate and rhythm, s1 and s2 normal, no murmur appreciated. Resp: Clear to auscultation bilaterally, no rhonchi, rales, wheezing or rubs Course Course Emergency Course: Portions of this record may have been created with voice recognition software. Level of Care: Express Care Visit Vital Signs Vital signs: Vital Signs Temperature 36.6 C 03/27/25 15:22 Pulse Rate 68 03/27/25 15:22 Respiratory Rate 18 03/27/25 15:22 Blood Pressure 134/71 03/27/25 15:22 Pulse Oximetry 99 03/27/25 15:22 Oxygen Delivery Room Air 03/27/25 15:22 Temperature 36.6 C 03/27/25 15:22 Pulse Rate 68 03/27/25 15:22 Respiratory Rate 18 03/27/25 15:22 Blood Pressure 134/71 03/27/25 15:22 Pulse Oximetry 99 03/27/25 15:22 Oxygen Delivery Room Air 03/27/25 15:22 Vital signs reviewed MDM - URI/Sore Throat MDM Narrative Medical decision making narrative: At the time of visit patient is resting comfortably on the exam table. Patient appears to be nontoxic. Complaints of nasal congestion, sore throat, and headache times 1 day. She reports that she started having symptoms yesterday started with sore throat. Works at a local [employer]. Denies any chest pain or shortness of breath. Denies any fevers, chills, body aches. Has tried some throat spray but has not taken any other medications to treat her symptoms. On exam patient has red throat with postnasal drip and nasal congestion. Lung sounds are clear. No sign of bacterial infection. COVID, influenza, and strep test were ordered. Labs: COVID, influenza, and strep test were all negative in the clinic today. We will send strep for culture. Plan: I suspect patient has URI/pharyngitis. Supportive measures were discussed with the patient and they voiced understanding discharge instructions and agrees to treatment plan. Return precautions reviewed Differential Diagnosis Differential diagnosis: Likely upper respiratory infection, otitis media, sinusitis, viral infection, bronchitis, influenza, pharyngitis and other (COVID) Discharge Plan Discharge Clinical Impression: Viral infection Upper respiratory infection Qualifiers: URI type: unspecified URI Qualified Code(s): J06.9 - Acute upper respiratory infection, unspecified Pharyngitis Qualifiers: Pharyngitis/tonsillitis etiology: unspecified etiology Qualified Code(s): J02.9 - Acute pharyngitis, unspecified Patient Disposition: Home Condition: Stable Instructions: Antibiotic Form, Pharyngitis (ED), Viral Syndrome (ED), Cold Symptoms (ED) Additional Instructions: COVID, influenza, and strep test were all negative in the clinic today. We will send strep for culture. May take DayQuil/NyQuil for cold/flu symptoms Increase fluids and stay well hydrated May take Tylenol or motrin as directed on bottle for pain/fever May use Flonase 1 spray in each nare daily May take OTC antihistamines such as Zyrtec or Claritin daily as directed on bottle May apply Vicks vapor rub to chest to open sinuses Sinus rinses for congestion Cepacol spray, cough drops, throat lozenges, warm tea with honey/lemon, gargle salt water to soothe throat BRAT diet for diarrhea Clear liquids x 24 hours then advance as tolerated for nausea/vomiting Go to the ED if you develop a worsening in your condition- high fever not controlled by Tylenol or Motrin, dehydration, weakness, lethargy, shortness of breath, or chest pain. Follow up with your PCP in 3-5 days if symptoms persist. Patient Language: Arabic Prescriptions: No Action fluoxetine 40 mg capsule omeprazole 40 mg capsule,delayed release(DR/EC) hydroxyzine HCl 25 mg tablet Follow-up/Referrals: Sea,MD Mel [Primary Care Provider] Stand Alone Forms: Work/School Release IP Time of Disposition: 15:32 Quality NIHSS Nursing Documentation ED NIHSS nursing documentation: reviewed/agree
[2025-03-27 15:22] VITALS: BP 134/71; PULSE 68; RESP 18; TEMP 36.6; O2SAT 99
--- OUTSIDE RECORDS SUMMARY | 2025-03-27 15:33 | XMS_ITS | Clinical Summary ---
Author Organization [facility] Address [address] [place] [id number] Care Team Providers Care Superintendent Recreation Name Role Phone Mel Osei MD Primary Care Provider [phone] Tabitha Liu [facility] Unavailable [phone] Ness Fried MD Unavailable Allergies No known active allergies Medications adapalene (DIFFERIN) 0.1 % creamIndication s:Acne vulgaris Apply topically at bedtime. 45 g 11 09/28/19 25 Active FLUoxetine (PROzac) 40 mg capsuleIndicati ons:Generalized anxiety disorder,Anxiet y and depression Take 1 capsule (40 mg total) by mouth daily 30 capsule 03/12/20 25 026 Active hydrOXYzine (ATARAX) 25 mg tabletIndicatio ns:Generalized anxiety disorder Take 1 tablet (25 mg total) by mouth every 6 (six) hours as needed for anxiety 30 tablet 1 03/12/20 25 Active omeprazole (PriLOSEC) 40 mg capsuleIndicati ons:Mucositis Prophylaxis Take 1 capsule (40 mg total) by mouth daily 90 capsule 2 03/20/20 25 Active famotidine (PEPCID) 20 mg tabletIndicatio ns:gastroesopha geal reflux disease Take 1 tablet (20 mg total) by mouth 2 (two) times a day 180 tablet 3 02/20 025 Discontinued(Al ternate therapy) hydrOXYzine (ATARAX) 25 mg tabletIndicatio ns:Generalized anxiety disorder Take 1 tablet (25 mg total) by mouth every 6 (six) hours as needed for anxiety 30 tablet 1 12/14/19 25 025 Discontinued(Re order) FLUoxetine (PROzac) 20 mg capsuleIndicati ons:Generalized anxiety disorder,Anxiet y and depression Take 1 capsule (20 mg total) by mouth daily 30 capsule 02/09/20 025 Discontinued Active Problems Problem Noted Date Diagnosed Date Generalized anxiety disorder 12/13/2024 Assessment & Plan (02/08/2025 11:27 AM CDT): Chronic, unstable Differential ddx: Generalized anxiety v minor/major depressive disorder Relative history: Mother 2016 from breast cancer, 2019 father sustained VA Was previously on Zoloft 5 years ago, self discontinued Established with therapist, attends monthly Current meds: Zoloft, atarax Today's Plan: Meds: Wean Zoloft over the next 2 weeks Start: Prozac 20 mg Continue Atarax q.6 PRN Discussed fleeting intrusive thoughts and how to manage these thoughts when they arise; knowing the difference between intrusive thoughts and reality. Continue to see therapy as scheduled Consults: May consider psychiatry in the future Goal: Decreased episodes of panic, improved overall anxiety and depression Assessment & Plan (01/12/2025 3:22 PM CDT): Chronic, unstable Differential ddx: Generalized anxiety v minor/major depressive disorder Relative history: Mother 2016 from breast cancer, 2019 father sustained VA Was previously on Zoloft 5 years ago, self discontinued Established with therapist, attends monthly Current meds: Zoloft, atarax Today's Plan: Meds: Increase Zoloft from 50 mg to 100 mg Continue Atarax q.6 PRN; encouraged patient to cut in half 1st time she takes during the day to avoid fatigue Discussed fleeting intrusive thoughts and how to manage these thoughts when they arise; knowing the difference between intrusive thoughts and reality. Continue to see therapy as scheduled Consults: May consider psych in the future Goal: Decreased episodes of panic, improved overall anxiety and depression Assessment & Plan (12/13/2024 3:50 PM CDT): Chronic, unstable Differential ddx: Generalized anxiety v minor/major depressive disorder Relative history: Mother 2016 from breast cancer, 2020 father sustained VA Was previously on Zoloft 5 years ago, self discontinued Established with therapist, attends monthly Current meds: None Today's Plan: Meds: Zoloft, hydroxyzine Continue to see therapy as scheduled Consults: May consider psych in the future Goal: Decreased episodes of panic, improved overall anxiety Screening examination for pulmonary tuberculosis 03/17/2024 Plantar [...] esophagitis without hemorrhage 06/01/2022 Assessment & Plan (01/12/2025 12:29 PM CDT): Chronic, unstable Differential ddx: GERD v colitis (ulcerative v nonulcerative) v IBS (w/ w/o constipation/diarrhea) v viral gastroenteritis Current therapy (ies)/home meds: Pepcid Today's Plan: Meds: continue Pepcid Discussed managing stress as this can cause exacerbation of symptoms Raise HOB 6-8 inches (it is not enough to sleep w/ pillows), avoid triggering foods (coffee, chocolate, alcohol, peppermint), avoid late meals, avoid tight clothing Discussed anxiety possibly contributing to GERD symptoms Patient education: Acid reflux and GERD in adults (The Basics) - UpToDate Consults: consider GI Goal: decrease in GERD symptoms, improving anxiety possibly contributing to GERD Assessment & Plan (12/13/2024 3:56 PM CDT): Chronic, unstable Differential ddx: GERD v colitis (ulcerative v nonulcerative) v IBS (w/ w/o constipation/diarrhea) v viral gastroenteritis Current therapy (ies)/home meds: Pepcid Today's Plan: Meds: continue Pepcid Discussed managing stress as this can cause exacerbation of symptoms Raise HOB 6-8 inches (it is not enough to sleep w/ pillows), avoid triggering foods (coffee, chocolate, alcohol, peppermint), avoid late meals, avoid tight clothing Discussed anxiety possibly contributing to GERD symptoms Patient education: Acid reflux and GERD in adults (The Basics) - UpToDate Consults: consider GI Goal: decrease in GERD symptoms, improving anxiety possibly contributing to GERD Assessment & Plan (03/08/2023 4:29 PM CDT): [...] annual follow as scheduled, sooner if needed. Anxiety and depression 09/13/2020 Assessment & Plan (02/08/2025 11:26 AM CDT): Chronic, unstable Differential ddx: Generalized anxiety v minor/major depressive disorder Relative history: Mother 2016 from breast cancer, 2019 father sustained VA (living) Was previously on Zoloft 5 years ago, self discontinued Established with therapist, attends monthly Current meds: Zoloft, atarax Today's Plan: Meds: Wean Zoloft over the next two weeks. Start: Prozac 20 mg Will continue to titrate per patient's needs and effects of medication. May need to consider additive in the future Continue Atarax q.6 PRN Discussed fleeting intrusive thoughts and how to manage these thoughts when they arise; knowing the difference between intrusive thoughts and reality. Continue to see therapy as scheduled Consults: May consider psych in the future Goal: Decreased episodes of panic, improved overall anxiety and depression Assessment & Plan (01/12/2025 3:23 PM CDT): Chronic, unstable Differential ddx: Generalized anxiety v minor/major depressive disorder Relative history: Mother 2017 from breast cancer, 2019 father sustained VA (living) Was previously on Zoloft 5 years ago, self discontinued Established with therapist, attends monthly Current meds: Zoloft, atarax Today's Plan: Meds: Increase Zoloft from 50 mg to 100 mg Will continue to titrate per patient's needs and effects of medication. May need to consider additive in the future Continue Atarax q.6 PRN; encouraged patient to cut in half 1st time she takes during the day to avoid fatigue Discussed fleeting intrusive thoughts and how to manage these thoughts when they arise; knowing the difference between intrusive thoughts and reality. Continue to see therapy as scheduled Consults: May consider psych in the future Goal: Decreased episodes of panic, improved overall anxiety and depression Assessment & Plan (10/11/2020 7:57 AM RESIN SHAVER): Patient continues to remain anxious and have [...] time. Assessment & Plan (09/13/2020 4:51 PM RESIN SHAVER): Patient returns for follow up on shortness [...] Counseling and exercise were both also encouraged. Family history of breast cancer 06/21/2020 Overview (06/21/2020): Mother diagnosed at 37, passed at 44. MGM with breast cancer. MA with ovarian cancer. Obesity (BMI 30-39.9) 02/07/2020 Assessment & Plan (12/13/2024 3:52 PM CDT): Chronic, unstable Differential ddx: excess caloric intake (in setting of chronicity of disease) Relative history: Anxiety, GERD Current meds: None Wt Readings from Last 3 Encounters: 12/13/24 105.8 kg (233 lb 3.2 oz) 09/28/24 103.2 kg (227 lb 9.6 oz) 09/05/24 102.9 kg (226 lb 12.8 oz) Body mass index is 38.22 kg/m . Today's Plan: Meds: no medications initiated today for obesity heart healthy diet, regular exercise, managing stress Goal: BMI less than 35 Assessment & Plan (03/08/2023 4:29 PM CDT): Body weight up another 18 lb this year she does agree to consider Mounjaro = Tirzeptide and will check if covered at pharmacy following up through protocol treatment with lab work to be drawn before starting treatment Acne 03/09/2013 Overview (03/22/2017): Benzoyl peroxide wash BID Abnormal menses 03/09/2012 Overview (03/22/2017): Anaprox DS [...] hormone changes, advised to follow up with TUGBOAT ENGINEER to discuss further. Resolved Problems Problem Noted [...] use. Call with any changes or concerns. Atypical chest pain 09/13/2020 02/12/20 21 Assessment & Plan (10/31/2020 9:19 AM CDT): [...] basis. Assessment & Plan (09/13/2020 4:53 PM RESIN SHAVER): Patient continues to report episodes of sharp [...] 21 Assessment & Plan (08/22/2020 2:28 PM RESIN SHAVER): Patient is reporting SOB post recent COVID [...] sooner if needed. 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 No acute findings on history or physical. Up to date on immunizations. TB skin test administered in office today- advised she must return Wednesday morning to have it read or the test will be invalid. Form filled out in office today, copy in chart. Recurrent sinusitis 08/04/2005 02/12/20 21 Overview (03/22/2017): May call in 20 days Augmentin for prolonged URI. Last: 2--16. 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): R of midline, 5 mm Encounters Date Type Department Care Team Description 03/19/2025 Telephone [facility] [address] [place] [address] Ness Fried MD Patient issue/concern 03/19/2025 [facility] [address] [place] [address] Mel Osei MD [facility] 03/12/2025 2:00 PM CDT [facility] [address] [place] [address] Almaz Saleh NP Anxiety and depression (Primary Dx); Generalized anxiety disorder; Gastroesophageal reflux disease with esophagitis without hemorrhage 03/02[facility] [address] [place] [address] Mel Osei MD 02/08/2025 11:00 AM CDT [facility] [address] [place] [address] Shantell Jc NP Generalized anxiety disorder (Primary Dx); Anxiety and depression 01/26/2025 [facility] [address] [place] [address] Shantell Jc NP 01/12/2025 3:00 PM CDT [facility] [address] [place] [address] Shantell Jc NP Generalized anxiety disorder (Primary Dx) 12/27/2024 [facility] [address] [place] [address] Shantell Jc NP from Last 3 Months Immunizations Immunization Administration Dates Next Due DTaP 5 Pertussis 06/26/2003, 1,1999,09/09,1999 HPV9 09/24/2017,05/24/2017,03/23/2017 Hep B / HiB 08/20/2000,1999,1999 IPV 06/26/2003, 1,1999,07/07 Influenza, Quadrivalent, Eulalia l Culture-based MDCK, Antibiotic Free, Intramuscular 07/13/2018 Influenza, Quadrivalent, Eulalia l Culture-based MDCK, Preservative Free, Antibiotic Free, Intramuscular 07/11/2022 Influenza, Trivalent, Cell Culture-based MDCK, Preservative Free, Antibiotic Free, Intramuscular 05/19/2024 Influenza, Trivalent, IM (MDV) 06/19/2008,2006 Influenza, Unspecified 05/28/2024,2022(Deferred: Patient Refused),05/27/2023(Deferred: Patient Refused) MMR 06/26/2003,05/11/2000 Meningococcal MCV4P (Menactra) 03/20/2016 Meningococcal Polysaccharide (Menomune) 02/18/2011 PPD TEST 03/17/2024 Pfizer SARS-CoV-2 Monovalent Vaccination (12+ Yrs) PURPLE 12/02/2020,11/11/2020 Pneumococcal Conjugate 7-Valent 08/20/2000,05/11,03/26/2000 Tdap 02/11/2021,02/18/2011 Varicella 03/09/2014,05/11/2000 Surgical History Surgery Date Site/Laterality Comments BLADDER SURGERY 08/09/2005 - 08/08/2006 Recurrent UTI - repair of reflux Medical History Medical History Date Comments [place] 1999 8-5 product nl p regnancy Viral gastroenteritis 2000 Admit Chest pain Shortness of breath Sick sinus syndrome (HCC) Anxiety and depression 09/13/2020 Asthma 03/09/2013 [...] more points, staff should administer the PHQ-9) 2 03/12/2025 PHQ-9 Answer Date Recorded PHQ-9 Total Score 12 03/12/2025 Comments No Sex and Gender Information Value Date Recorded Sex Assigned at Not on file Legal Sex Female 12:30 PM RESIN SHAVER Gender Identity Not on file Sexual Orientation Not on file Occupation Industry Job Start Date Job End Date [place] Title Not on file Not on file Not on file Obstetrics History Para Term AB IAB SAB Ectopic Multiple Livin g Live Births 0 0 0 0 0 0 0 0 0 0 0 Last Filed Vital Signs Vital Sign Reading Time Taken Comments Blood Pressure 108/76 03/12/2025 2:14 PM CDT Pulse 67 03/12/2025 2:14 PM CDT Temperature 36.6 C (97.8 F) 03/12/2025 2:14 PM CDT Respiratory Rate 20 03/12/2025 2:14 PM CDT Oxygen Saturation 95% 03/12/2025 2:14 PM CDT Inhaled Oxygen Concentration - - Weight 100.2 kg (221 lb) 03/12/2025 2:14 PM CDT Height 166.4 cm (5' 5.5) 03/12/2025 2:14 PM CDT Body Mass Index 36.22 03/12/2025 2:14 PM CDT Plan of Treatment Health Maintenance Due Date Last Done Comments Hepatitis C Screening 1999 Influenza Vaccine (#1) 2025 , 05/19/2024, 07/11/2022, Additional history exists Regular Well Visit/Exam 18-64 09/28/2025, 06/17/2023, 03/08/2023, Additional history exists Depression Screening 03/12/2026 03/12/2025, 03/12/2025, 02/08/2025, Additional history exists Cervical Cancer Screening 06/17/2026 06/17/2023, 11/2019 DTaP/Tdap/Td Vaccine (8 - Td or Tdap) 02/11/2031 02/11/2021, 02/18/2011, 06/26/2003, Additional history exists Hepatitis B Screening Completed 08/20/2000 , 1999, 1999 Pneumococcal vaccine <65 Completed 001, 05/11/2000, 03/26/2000 Varicella Vaccines Completed 03/09/2014, 05/11/2000 HPV Vaccines Completed 09/24/2017, 05/09, 03/23/2017 Covid-19 Vaccine Completed 05/19/2024, 10/2021, 12/02/2020, Additional history exists Procedures Procedure Name Priority Date/Time Associated Diagnosis Comments PAP WITH REFLEX TO HIGH RISK HPV Routine 06/17/2023 11:23 AM RESIN SHAVER Screening for malignant neoplasm of the cervix from Last 3 Months or Most Recently Relevant to Health Maintenance Results * Pap with reflex to High Risk HPV and Genotyping (Cytology Component) (06/17/2023 11:23 AM RESIN SHAVER) Thin prep (Pap test) 06/17/2023 11:23 AM RESIN SHAVER 06/18/2023 11:23 AM RESIN SHAVER Narrative PATHOLOGY CH - 06/22/2023 2:49 PM RESIN SHAVER [facility] Department of Pathology [address] [place] [id number] Final Report Note to Patients: This [...] questions and explain the details. Patient Name: JEAN ARTHUR Address: [address] [place] [address] Gender: F : 2000 (Age: 23) Service: Location: N : [id number] [facility] #: [id number] Patient Type: SPECIMEN Taken: 06/17/2023 Received: 06/18/2023 Accessioned:: 06/21/2023 Reported: 06/22/2023 Physician(s): MD Ness Blue MD Diagnosis: SOURCE OF SPECIMEN Imaged Thinprep Pap Test w/ Reflex HPV - Material Handler Floorperson Cytologic Material: STATEMENT OF ADEQUACY - Specimen satisfactory for interpretation; endocervical/transformation zone component absent or insufficient GENERAL CATEGORIZATION: - Negative for intraepithelial lesion or malignancy FELIPE Alonso(ASCP) Report Electronically Reviewed and Signed Out By FELIPE Alonso(ASCP) 06/22/2023 14:49:15Specimen(s) Received: A: Imaged Thinprep Pap Test w/ Reflex HPV - Material Handler Floorperson Cytologic Material Clinical History: Last Menstrual Period: 05/10/23 Menstrual History: Previous Negative Pap The Pap test is a screening test used to aid in the detection of cervical cancer and its precursors. It should not be the sole means by which malignant and premalignant lesions are diagnosed. Both false negative and false positive results may occur. It also has poor sensitivity for the detection of endometrial lesions and should not be used to evaluate suspected endometrial abnormalities. For these reasons it is most important to obtain Pap tests at regular intervals. The performance characteristics of some immunohistochemical stains, fluorescence in-situ hybridization tests and immunophenotyping by flow cytometry cited in this report (if any) were determined by the Surgical Pathology Department at [facility] as part of an ongoing manufacturing quality technician program and in compliance with federally mandated regulations drawn from the Clinical Laboratory Improvement Act of 1988 (CLIA '88). Some of these tests rely on the use of analyte specific reagents and are subject to specific labeling requirements by the US Food and Drug Administration. Such diagnostic tests may only be performed in a facility that is certified by the Department of Health and Human Services as a high complexity laboratory under CLIA '88. The FDA has determined that such clearance or approval is not necessary. This test is used for clinical purposes. It should not be regarded as investigational or for research. Nevertheless, federal rules concerning the medical use of analyte specific reagents require that the following disclaimer be attached to the report: This test was developed and [facility] performance characteristics [facility]. It has not been cleared or approved by the U. S. Food and Drug Administration. Ness Fried MD LAB [place]OLOGY [place] [address] [place] [address] from Last 3 Months or Most Recently Relevant to Health Maintenance Insurance [facility] CHOICE PLUS [facility] CHOICE PLUS [facility] CHOICE PLUS [id number] CHOICE PLUS [facility] CHOICE PLUS CHOICE PLUS Advance Directives For more information, please contact: [phone] Documents on File Type Date Recorded Patient Blade Sharpener Expl anation ADVANCE DIRECTIVE 02/07/2020 POWER [employer] A [employer] Care Teams Superintendent Recreation Relationship Specialty Start Date End Date Mel Osei MD PCP - General Internal Medicine 02/07/20 Tabitha Liu CGC [address] DIV PED GENETICS [place] [address] Genetics 06/22/23 Ness Fried MD [address] [place] [address] Data Center Solutions Architect Obstetrics and Gynecology 09/28/24
[2025-03-27 15:36] LABS: EDCOVIDSCREEN Negative (Negative); EDINFLUASCREEN Negative (Negative); EDINFLUBSCREEN Negative (Negative); EDSTREPNEGPOS1 Negative (Negative)
== END 2025-03-27 15:46 | disposition home or self-care (01) ==
PROVIDERS: Emergency Provider Nurse Practitioner Family; PCP Internal Medicine Geriatric Medicine
DX: B34.9 Viral infection, unspecified (principal); J06.9 Acute upper respiratory infection, unspecified; J02.9 Acute pharyngitis, unspecified; Z20.822 Contact with and (suspected) exposure to COVID-19; K21.9 Gastro-esophageal reflux disease without esophagitis; F41.9 Anxiety disorder, unspecified; F32.A Depression, unspecified
CPT/HCPCS: 87081; 87426; 87804; 87880; 99213; G0463

== ENCOUNTER 2025-07-08 09:53 | Emergency (ER) | payer SELFPAY ==
[2025-07-08 09:59] VITALS: BP 136/86; PULSE 76; RESP 20; TEMP 36.9; O2SAT 98
--- NOTE | 2025-07-08 10:25 | ED_ITS ---
HPI - Ear Problem General Chief complaint: Ear Stated complaint: right ear Time Seen by Provider: 07/08/25 10:10 Source: patient and RN notes reviewed Mode of arrival: ambulatory Limitations: no limitations History of Present Illness HPI Narrative: 25-year-old female presents to the [facility] complaining of right ear pain for 4 days. Patient denies any other upper respiratory symptoms, fevers, body aches, chills, dizziness, lightheadedness, nausea, vomiting, diarrhea, chest pain, difficulty breathing, or any other symptoms. Patient reports intermittent tinnitus as well. Patient has not tried anything [id number] to help with symptoms. Related Data Home Medications ?Medication ?Instructions ?Recorded ?Confirmed ?Last Taken ?Type fluoxetine 40 mg capsule mg 03/27/25 Unknown History hydroxyzine HCl 25 mg tablet mg 03/27/25 Unknown Hist ory omeprazole 40 mg capsule,delayed mg 03/27/25 Unknown History release Allergies Allergy/AdvReac Type Severity Reaction Status Date / Time No Known Allergies Allergy Verified 07/08/25 10:04 Review of Systems Review of Systems: CONSTITUTIONAL: Denies fever, chills, or sweats. EYES: Denies visual changes, redness, or discharge. ENT: Denies rhinorrhea, congestion, sore throat. Positive for tinnitus and otalgia. CARDIOVASCULAR: Denies chest pain, palpitations, or edema. RESPIRATORY: Denies cough or dyspnea. GASTROINTESTINAL: Denies abdominal pain, nausea, vomiting, or diarrhea. GENITOURINARY: Denies dysuria or hematuria. SKIN: Denies rash or itching. MUSCULOSKELETAL: Denies back pain, joint pain, or myalgia. NEUROLOGIC: Denies headache, numbness, or weakness. PSYCHIATRIC: Denies anxiety or depression. All other systems reviewed are negative, except as documented in HPI. [facility] Past Medical History Medical History No pertinent past medical history Surgical History Surgical History No pertinent past surgical history Family History Family History Mother Family history non-contributory Social History Social History Gender identity (if verbalized by the patient): Female Spiritual care concerns: No Comments At the time of my signature, I reviewed and agree with the nursing past medical, surgical, social, and family history. There is no relevant family history pertinent to the patient complaint. Exam Narrative: GENERAL: This is a well-nourished, well-developed adult, in no apparent distress. They are non ill-appearing, nontoxic appearing. HEAD: normocephalic, atraumatic. EYES: Sclera clear/white. Conjunctiva normal. Vision is grossly intact. Extraocular movements intact EARS: External ears normal, left auditory canal clear and without drainage, right auditory canal with impacted cerumen, unable to visualize right TM. Left TM normal without perforation. No tragal tenderness. Hearing grossly intact. NOSE: External nose normal with no obvious nasal discharge, nasal turbinates without redness, no rhinorrhea. THROAT: Mucous membranes moist, posterior pharynx clear, without erythema or swelling. Uvula midline. NECK: Neck supple, non-tender without lymphadenopathy, masses or thyromegaly. CARDIOVASCULAR: Regular rate and rhythm without murmurs, gallops, or rubs. RESPIRATORY: Clear to auscultation. Breath sounds equal bilaterally. No wheezes, rales, or rhonchi. SKIN: warm, Dry, intact with no suspicious lesions or rash, good texture and turgor. NEURO: awake, alert, and oriented to person, place and time. There were no obvious focal neurologic abnormalities. EXTREMITIES: No joint tenderness, effusion, or edema noted. BACK: Nontender without deformity. Course Course Emergency Course: Portions of this record may have been created with voice recognition software Level of Care: Express Care Visit Vital Signs Vital signs: Vital Signs Temperature 98.5 F 07/08/25 09:59 Pulse Rate 76 07/08/25 09:59 Respiratory Rate 20 07/08/25 09:59 Blood Pressure 136/86 07/08/25 09:59 Pulse Oximetry 98 07/08/25 09:59 Oxygen Delivery Room Air 07/08/25 09:59 Temperature 98.5 F 07/08/25 09:59 Pulse Rate 76 07/08/25 09:59 Respiratory Rate 20 07/08/25 09:59 Blood Pressure 136/86 07/08/25 09:59 Pulse Oximetry 98 07/08/25 09:59 Oxygen Delivery Room Air 07/08/25 09:59 Reviewed Procedures Ear Wax Removal Right Ear: Ear Wax Removal Date: 07/08/25 Ear Wax Removal Time: 10:18 Cerumenolytic Used: other (small amount of hydrogen peroxide) Results: Re-examined: cerumen removed completely TM Examination: TM(s) intact, normal appearance Ear Canal Exam: atraumatic and other (Mildly erythematous.) Patient Tolerated Procedure: well Complications: pain Technique: ear canal irrigated and ear canal curetted Medical Decision Making MDM Narrative Medical decision making narrative: Successful irrigation of the right auditory canal, given the evidence of erythema and swelling will prophylactically treat with ofloxacin ear drops. Discussed physical exam findings. Advised supportive measures and signs/symptoms to go to the ER. Pt is appropriate for outpt treatment and f/u. Differential Diagnosis Differential Diagnosis: Otitis media, otitis externa, upper respiratory infection, impacted cerumen Vital Signs Vital Signs: Vital Signs Temperature 98.5 F 07/08/25 09:59 Pulse Rate 76 07/08/25 09:59 Respiratory Rate 20 07/08/25 09:59 Blood Pressure 136/86 07/08/25 09:59 Pulse Oximetry 98 07/08/25 09:59 Oxygen Delivery Room Air 07/08/25 09:59 Temperature 98.5 F 07/08/25 09:59 Pulse Rate 76 07/08/25 09:59 Respiratory Rate 20 07/08/25 09:59 Blood Pressure 136/86 07/08/25 09:59 Pulse Oximetry 98 07/08/25 09:59 Oxygen Delivery Room Air 07/08/25 09:59 Critical Care Time Critical Care Time Critical Care Time: No Discharge Plan Discharge Clinical Impression: Impacted cerumen of right ear Patient Disposition: Home Condition: Stable Instructions: Antibiotic Form, Earache (ED) Additional Instructions: Take antibiotic drops as directed. Tylenol and ibuprofen as needed for pain or fevers. Follow instructions on the bottle. Avoid water or anything into the ear for one week, no peroxide, no Q-tips Follow up with your personal physician for further evaluation and treatment within 3-5days. If your symptoms persist, change or worsen significantly, go to the emergency department for further evaluation. Patient Language: Surinamese Prescriptions: New ofloxacin 0.3 % drops 10 drp RIGHT EAR DAILY 7 Days Qty: 10 0RF No Action fluoxetine 40 mg capsule omeprazole 40 mg capsule,delayed release(DR/EC) hydroxyzine HCl 25 mg tablet Follow-up/Referrals: Sea,MD Mel [Primary Care Provider] Time of Disposition: 10:22
== END 2025-07-08 10:26 | disposition home or self-care (01) ==
PROVIDERS: PCP Internal Medicine Geriatric Medicine
DX: H61.21 Impacted cerumen, right ear (principal)
CPT/HCPCS: 69210; 99213; A9270; G0463

== ENCOUNTER 2025-07-29 12:23 | Emergency (ER) | payer OTHER, SELFPAY ==
--- OUTSIDE RECORDS SUMMARY | 2025-07-29 12:25 | XMS_ITS | Clinical Summary ---
Author Organization [facility] Address [id number] [place] [id number] Care Team Providers Care Commissary Superintendent Name Role Phone Mel Osei MD Primary Care Provider [phone] Tabitha Liu [facility] Unavailable [phone] Ness Fried MD Unavailable [phone] Allergies No known active allergies Medications adapalene (DIFFERIN) 0.1 % creamIndication s:Acne vulgaris Apply topically at bedtime. 45 g 11 5 Active omeprazole (PriLOSEC) 40 mg capsuleIndicati ons:Mucositis Prophylaxis Take 1 capsule (40 mg total) by mouth daily 90 capsule 2 5 Active busPIRone (BUSPAR) 7.5 mg tabletIndicatio ns:Generalized Anxiety Disorder Take 1 tablet (7.5 mg total) by mouth 3 (three) times a day 90 tablet 5 04/11/20 26 Active hydrOXYzine (ATARAX) 25 mg tabletIndicatio ns:Generalized anxiety disorder Take 1 tablet (25 mg total) by mouth every 6 (six) hours as needed for anxiety 30 tablet 1 5 Active FLUoxetine (PROzac) 20 mg capsule Take 1 capsule (20 mg total) by mouth daily 30 capsule 5 07/03/20 26 Active FLUoxetine (PROzac) 40 mg capsuleIndicati ons:Generalized anxiety disorder,Anxiet y and depression Take 1 capsule (40 mg total) by mouth daily 30 capsule 1 07/03/20 Discontinu ed(Alterna te therapy) Active Problems Problem Noted Date Diagnosed Date Generalized anxiety disorder 12/13/2024 Assessment & Plan (02/08/2025 11:27 AM CDT): Chronic, unstable Differential ddx: Generalized anxiety v minor/major depressive disorder Relative history: Mother 2016 from breast cancer, 2019 father sustained FL Was previously on Zoloft 5 years ago, [...] 2016 from breast cancer, 2019 father sustained FL Was previously on Zoloft 5 years ago, [...] 2016 from breast cancer, 2019 father sustained FL Was previously on Zoloft 5 years ago, [...] 2016 from breast cancer, 2019 father sustained FL (living) Was previously on Zoloft 5 years [...] 2016 from breast cancer, 2019 father sustained FL (living) Was previously on Zoloft 5 years [...] depression Assessment & Plan (10/11/2020 7:57 AM NAPPING MACHINE OPERATOR): Patient continues to remain anxious and have [...] time. Assessment & Plan (09/13/2020 4:51 PM NAPPING MACHINE OPERATOR): Patient returns for follow up on shortness [...] hormone changes, advised to follow up with [facility] to discuss further. Resolved Problems Problem Noted [...] or concerns. Atypical chest pain 09/13/2020 02/12/20 Assessment & [...] basis. Assessment & Plan (09/13/2020 4:53 PM NAPPING MACHINE OPERATOR): Patient continues to report episodes of sharp [...] if needed. Shortness of breath 08/22/2020 02/12/20 Assessment & Plan (08/22/2020 2:28 PM NAPPING MACHINE OPERATOR): Patient is reporting SOB post recent COVID [...] 20 days Augmentin for prolonged URI. Last: 2-1-16. 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): R of midline, 5 mm Encounters Date Type Department Care Team Description 06/27/2025 [facility] [address] [place] [address] Mel Osei MD Medication 05/23/2025 Telephone [facility] [address] [place] [address] Mel Osei MD wants a nurse to call 05/07/2025 Telephone [facility] [address] [place] [address] Ness Fried MD Appointment Reminder Call from Last 3 Months Immunizations Immunization Administration [...] points, staff should administer the PHQ-9) 2 04/11/2025 PHQ-9 Answer Date Recorded PHQ-9 Total Score 6 04/11/2025 Comments No Sex and Gender Information Value Date Recorded Sex Assigned at Not on file Legal Sex Female 12:30 PM NAPPING MACHINE OPERATOR Gender Identity Not on file Sexual Orientation Not on file Occupation Industry Job Start Date Job End Date [place] Title Not on file Not on file Not on file Obstetrics History Para Term AB IAB SAB Ectopic Multiple Livin g Live Births 0 0 0 0 0 0 0 0 0 0 0 Last Filed Vital Signs Vital Sign Reading Time Taken Comments Blood Pressure 120/70 04/11/2025 1:58 PM CDT Pulse 71 04/11/2025 1:58 PM CDT Temperature 36.2 C (97.1 F) 04/11/2025 1:58 PM CDT Respiratory Rate 18 04/11/2025 1:58 PM CDT Oxygen Saturation 98% 04/11/2025 1:58 PM CDT Inhaled Oxygen Concentration - - Weight 98.4 kg (217 lb) 04/11/2025 1:58 PM CDT Height 166.4 cm (5' 5.5) 04/11/2025 1:58 PM CDT Body Mass Index 35.56 04/11/2025 1:58 PM CDT Plan of Treatment Health Maintenance Due Date Last Done Comments Hepatitis C Screening 2000 Covid-19 Vaccine (5 - 2024-2 6 season) 2025 05/19/2024, 07/11/2022, 12/02/2020, Additional history exists Influenza Vaccine (#1) 2025 , 05/19/2024, 07/11/2022, Additional history exists Regular Well Visit/Exam 18-64 09/28/2025, 06/17/2023, 03/08/2023, Additional history exists Depression Screening 04/11/2026 04/11/2025, 04/11/2025, 03/12/2025, Additional history exists Cervical Cancer Screening 06/17/2026 06/17/2023, 11/2019 DTaP/Tdap/Td Vaccine (8 - Td or Tdap) 02/11/2031 02/11/2021, 02/18/2011, 06/26/2003, Additional history exists Hepatitis B Screening Completed 08/20/2000 , 1999, 1999 Pneumococcal vaccine <65 Completed 001, 05/11/2000, 03/26/2000 Varicella Vaccines Completed 03/09/2014, 05/11/2000 HPV Vaccines Completed 09/24/2017, 05/09, 03/23/2017 Procedures Procedure Name Priority Date/Time Associated Diagnosis Comments PAP WITH REFLEX TO HIGH RISK HPV Routine 06/17/2023 11:23 AM NAPPING MACHINE OPERATOR Screening for malignant neoplasm of the cervix from Last 3 Months or Most Recently Relevant to Health Maintenance Results * Pap with reflex to High Risk HPV and Genotyping (Cytology Component) (06/17/2023 11:23 AM NAPPING MACHINE OPERATOR) Thin prep (Pap test) 06/17/2023 11:23 AM NAPPING MACHINE OPERATOR 06/18/2023 11:23 AM NAPPING MACHINE OPERATOR Narrative PATHOLOGY CH - 06/22/2023 2:49 PM NAPPING MACHINE OPERATOR [facility] Department of Pathology [address] [place], [place] [id number] Final Report Note to Patients: This report [...] the details. Patient Name: JEAN ARTHUR Address: [address] [place] [address] Gender: F : 2000 (Age: 23) Service: Location: [facility] #: [id number] Patient Type: SPECIMEN Taken: 06/17/2023 Received: 06/18/2023 Accessioned:: 06/21/2023 Reported: 06/22/2023 Physician(s): MD Ness Blue MD Diagnosis: SOURCE OF SPECIMEN Imaged Thinprep Pap Test w/ Reflex HPV - Mutuel Clerk Cytologic Material: STATEMENT OF ADEQUACY - Specimen satisfactory for interpretation; endocervical/transformation zone component absent or insufficient GENERAL CATEGORIZATION: - Negative for intraepithelial lesion or malignancy FELIPE Alonso(ASCP) Report Electronically Reviewed and Signed Out By FELIPE Alonso(ASCP) 06/22/2023 14:49:15Specimen(s) Received: A: Imaged Thinprep Pap Test w/ Reflex HPV - Mutuel Clerk Cytologic Material Clinical History: Last Menstrual Period: [...] determined by the Surgical Pathology Department at [facility] as part of an ongoing quality control analyst program and in compliance with federally mandated [...] characteristics determined by the Surgical Pathology Department [facility]. It has not been cleared or approved by the U. S. Food and Drug Administration. Ness Fried MD LAB CYTOLOGY ORDERABL ES Final Result Performing Organization Address City/State/[facility] [place] ri Phone Number PATHOLOGY [address] [place] [address] from Last 3 Months or Most Recently Relevant to Health Maintenance Insurance [facility] PLUS [facility] HMO/PPO Address: [facility] [address] [place] [address] [facility]ICE PLUS [facility] HMO/PPO Address: [address] [place] [address] CHOICE PLUS [facility] HMO/PPO Address: [place] [address] CHOICE PLUS [facility] HMO/PPO Address: [address] [address] [place] [address] [facility] HMO/PPO Address: [address] [place] [id number] [facility] HMO/PPO Address: [address] [place] [address] Advance Directives For more information, please contact: [phone] Documents on File Type Date Recorded Patient Radiology Aide Expl anation ADVANCE DIRECTIVE 02/07/2020 POWER [employer] A [employer] Care Teams Commissary Superintendent Relationship Specialty Start Date End Date Mel Osei MD PCP - General Internal Medicine 02/07/20 Tabitha Liu [facility] [place] [address] Genetics 06/22/23 Ness Fried MD [address] [place] [address] [employer] Tier Off Obstetrics and Gynecology 09/28/24
[2025-07-29 12:31] VITALS: BP 127/82; PULSE 61; RESP 16; TEMP 36.6; O2SAT 99
--- NOTE | 2025-07-29 12:39 | ED.EAR ---
HPI - Ear Problem General Chief complaint: Ear Stated complaint: Right Ear Pain Time Seen by Provider: 07/29/25 12:40 Source: patient, RN notes reviewed and old records reviewed Mode of arrival: ambulatory Limitations: no limitations History of Present Illness HPI Narrative: 25 year old female presents to [facility] with complaints of 3-4 day duration of right ear pain with some drainage from her ear. Patient reports she has some tragal tenderness to the right ear and some pain behind her ear with no swelling noted. Patient denies cough nasal congestion sore throat denies any known fevers chills or sweats. Patient reports that she had eight ear infection several weeks ago. She has been taking some Ibuprofen for her symptoms. MD Complaint: other (right ear pain) Location: right ear Discharge from ear: Reports yes - clear Treatment prior to arrival: oral analgesic (ibuprofen) Related Data Home Medications ?Medication ?Instructions ?Recorded ?Confirmed ?Last Taken ?Type omeprazole 40 mg capsule,delayed mg 03/27/25 Unknown History release Allergies Allergy/AdvReac Type Severity Reaction Status Date / Time No Known Allergies Allergy Verified 07/29/25 12:33 Review of Systems Review of Systems: CONSTITUTIONAL: Denies malaise, chills, sweats, or fever. EYES: Denies visual changes, redness, or discharge. ENT: Reports rhinorrhea, congestion, no sinus pain, right otalgia and no sore throat. CARDIOVASCULAR: Denies chest pain, palpitations, or edema. RESPIRATORY: Reports no cough.? Denies dyspnea. GASTROINTESTINAL: Denies abdominal pain, nausea, vomiting, diarrhea SKIN: Denies rash or itching. MUSCULOSKELETAL: Denies myalgia. NEUROLOGIC: Denies headache. All systems reviewed & are unremarkable except as noted in HPI and below PMFSH Past Medical History Medical History (Updated 07/31/25 @ 07:17 by Allison Honeycutt APRN) Asthma childhood Anxiety and depression GERD (gastroesophageal reflux disease) UTI (urinary tract infection) Plantar fasciitis Surgical History Surgical History (Updated 07/31/25 @ 07:11 by Allison Honeycutt APRN) History of bladder surgery age 5 Family History Family History Mother Family history non-contributory Social History Social History (Reviewed 07/31/25 @ 07:10 by MARLA Jacob Smoking status: Never smoker Alcohol intake: current Alcohol use details: social Substance use type: does not use Gender identity (if verbalized by the patient): Female Spiritual care concerns: No Comments At time of signature, agree with nursing past medical, surgical, social and family history. There is no relevant family history pertinent to the presenting complaint Exam Narrative: GENERAL: Well-appearing, well-nourished, and in no acute distress. HEAD: Normocephalic EYES: PERRLA, conjunctivae clear ENT: Nares clear, turbinates edematous and erythematous, clear discharge. Mucous membranes moist.Right ear canal red with some clear drainage noted TM pearly haro with dull light reflex bilaterally; right tragal tenderness. Oropharynx erythematous without lesions. Tonsils not enlarged and without exudate, no drooling, no hoarseness, no trismus, uvula midline.post nasal drainage noted NECK: Supple. No lymphadenopathy CHEST: Clear to auscultation, breath sounds equal. No wheezing, rhonchi, rales, or stridor. No respiratory distress, speaks in full sentences. no cough noted SAO2 99% on room air HEART: Regular rate and rhythm. No murmur heard. SKIN: Warm, dry, no rash. NEURO: Alert and oriented x3. PSYCH: Normal mood and affect Course Course Level of Care: Express Care Visit Vital Signs Vital signs: Vital Signs Temperature 36.6 C 07/29/25 12:31 Pulse Rate 61 07/29/25 12:31 Respiratory Rate 16 07/29/25 12:31 Blood Pressure 127/82 07/29/25 12:31 Pulse Oximetry 99 07/29/25 12:31 Oxygen Delivery Room Air 07/29/25 12:31 Temperature 36.6 C 07/29/25 12:31 Pulse Rate 61 07/29/25 12:31 Respiratory Rate 16 07/29/25 12:31 Blood Pressure 127/82 07/29/25 12:31 Pulse Oximetry 99 07/29/25 12:31 Oxygen Delivery Room Air 07/29/25 12:31 reviewed MDM MDM Narrative Medical decision making narrative: Patient with otitis externa of right ear with Rx Ofloxacin ear drops ordered with recommendation of antihistamines daily and OTC medications for treatment of discomfort. Patient agrees with plan of care and is appropriate for out patient treatment and follow up. Anticipatory guidance and reasons to seek care in ED reviewed with understanding voiced. Differential Diagnosis Differential Diagnosis: Differential diagnostic considerations for upper respiratory infection include upper respiratory infection, croup, otitis media, sinusitis, viral infection, bronchitis, influenza, pharyngitis, strep, uvulitis.? Critical Care Time Critical Care Time Critical Care Time: No Discharge Plan Discharge Clinical Impression: Otitis externa Qualifiers: Otitis externa type: diffuse Chronicity: acute Laterality: right Qualified Code(s): H60.311 - Diffuse otitis externa, right ear Patient Disposition: Home Condition: Stable Instructions: Antibiotic Form, Swimmer's Ear (ED) Additional Instructions: Increase fluids especially juices and water [id number] cough and cold medicine of your choice for your symptoms ear drops to right ear twice daily for 7 days Tylenol or ibuprofen for any fever pain for package directions recommend antihistamine such as Zyrtec or Claritin daily heat to the face 20-30 minutes 4-6 times a day for pain Salt water gargles, throat lozenges or throat sprays as desired If your symptoms persist, change or worsen significantly before you can contact your personal physician then please, without delay, go to the emergency department for further evaluation. Follow-up with PCP in 7-10 days or sooner if needed Follow up with PCP soon in regards to your blood pressure which is elevated above threshold for referral. Blood pressure above 120/80 may indicate pre-hypertension. minimal blood pressure elevation 127/82 Patient Language: Niuean Prescriptions: New ofloxacin 0.3 % drops 5 drp RIGHT EAR BID 7 Days Qty: 10 0RF Rx Instructions: to right ear twice daily for 7 days No Action omeprazole 40 mg capsule,delayed release(DR/EC) Follow-up/Referrals: Sea,MD Mel [Primary Care Provider] Time of Disposition: 12:52 Quality [place]iki Coma Scale Eyes: Open Verbal: Oriented and Alert Motor: Follows Commands Lacey Coma Total Score: 15
== END 2025-07-29 12:56 | disposition home or self-care (01) ==
PROVIDERS: Emergency Provider Registered Nurse; PCP Internal Medicine Geriatric Medicine
DX: H60.311 Diffuse otitis externa, right ear (principal); K21.9 Gastro-esophageal reflux disease without esophagitis
CPT/HCPCS: 99213; G0463